=== PATIENT | male | born 1970 | race Caucasian/White ===

== ENCOUNTER → 2016-04-15 | Outpatient (CLI) | payer OTHER ==
[~2016-04-15] MED LIST: ATOR-24 PO; FRS/40 PO; LISI40TA PO; METF500T5 PO; NAPR-1169 PO; NVLGI7030 SC
--- NOTE | 2016-04-15 10:36 | DIAGNOSTIC IMAGING REPORT ---
RIGHT UPPER EXTREMITY VENOUS DOPPLER CLINICAL HISTORY: Right upper extremity swelling. COMPARISON STUDY: No previous studies for comparison. FINDINGS: The right internal jugular, subclavian, axillary, brachial, basilic, radial and ulnar veins were patent. IMPRESSION: No deep venous thrombus identified within the right upper extremity. Electronically signed by: Sergio Aldana M.D. 04/15/2016 10:34 AM
== END | disposition home or self-care (01) ==
LOC: C.ULTR 09:48
PROVIDERS: ATTEND Family Medicine
DX: M79.89 Other specified soft tissue disorders (principal)

== ENCOUNTER 2016-09-20 07:58 | Emergency (ER) | payer OTHER ==
[~2016-09-20] VITALS: Ht 193 cm; Wt 175.6 kg
[2016-09-20 08:01] VITALS: TEMP 36.6; Ht 193 cm; Wt 175.6 kg
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
[2016-09-20 09:06] VITALS: BP 206/99; PULSE 79; O2SAT 94
== END 2016-09-20 09:13 | disposition home or self-care (01) ==
LOC: C.EDB 07:59 → C.EDA 09:13
DX: S91.101A Unspecified open wound of right great toe without damage to nail, initial encounter (principal); X58.XXXA Exposure to other specified factors, initial encounter; E11.9 Type 2 diabetes mellitus without complications; E78.00 Pure hypercholesterolemia, unspecified; I10 Essential (primary) hypertension; Z79.4 Long term (current) use of insulin

== ENCOUNTER 2022-05-05 12:05 | Inpatient (IN) ==
--- NOTE | 2022-05-05 12:55 | XRay Report ---
XR toe(s) LT min 2V CLINICAL HISTORY: diabetic ulcer, left great toe COMPARISON STUDY: None. FINDINGS: 3 views of the left first toe were submitted for review. There is soft tissue swelling at t he first MTP joint. Moderate to severe osteoarthritis at the first MTP joint. There is a bony bunion and large marginal osteophytes at the first MTP joint. No acute destructive changes identified to sug gest an osteomyelitis. Small erosive changes at the medial base of the first proximal phalanx and med ial head of first metatarsal with overhanging edges. This could be due to the chronic degenerative [place] or possible superimposed gouty arthritis. There is a trace 2 cm skin ulceration at the medial as pect of the first MTP joint. IMPRESSION: 1. Soft tissue swelling and a skin ulceration at the medial aspect of the first MTP joint. 2. No acute destructive changes to suggest an osteomyelitis. 3. Moderate to severe osteoarthritis of the first MTP joint with a bony bunion and large marginal ost eophytes. 4. Small erosive changes at the medial base of the first proximal phalanx and medial head of first me tatarsal with overhanging edges. This could be due to the chronic degenerative change or possible sup erimposed gouty arthritis. ACT 112: Negative or not required by law. Electronically signed by: Ed Perkins M.D. 05/05/2022 12:54 PM
[2022-05-05 13:16] LABS: Basophils # (auto) 0.05 K/uL (0-0.2); Basophils % (auto) 0.5 %; Eosinophils # (auto) 0.12 K/uL (0-0.50); Eosinophils % (auto) 1.3 %; Hematocrit (blood only) 37.1 % (40.1-51.0); Hemoglobin 12.1 g/dl (14.0-18.0); Immature Granulocytes # (auto) 0.02 K/uL (0.00-0.02); Immature Granulocytes % (auto) 0.2 %; Lymphocytes # (auto) 2.45 K/uL (1.2-3.4); Lymphocytes % (auto) 25.7 %; Mean Corpuscular Hgb Conc 32.6 g/dL (32.0-36.0); Mean Corpuscular Volume 82.8 fL (80.0-100.0); Mean Platelet Volume 10.5 fL (9.4-12.4); Monocytes # (auto) 0.57 K/uL (0.24-0.82); Neutrophils # (auto) 6.34 K/uL (1.4-6.5); Neutrophils % (auto) 66.3 %; Platelet Count 295 K/uL (130-400); RDW Coefficient of Variation 14.4 % (11.5-14.5); RDW Standard Deviation 42.6 fL (36.4-46.3); Red Blood Count 4.48 M/uL (4.63-6.08); White Blood Count 9.55 K/ul (4.8-10.8)
[2022-05-05 14:06] LABS: Albumin Globulin Ratio 1.3 (0.9-2); Albumin Level 4.3 gm/dl (3.4-5.0); Bilirubin,Total 0.6 mg/dl (0.2-1.0); Calcium 9.7 mg/dl (8.5-10.1); Creatinine Clr Calc Pharmacy 97.8 ml/min; Est GFR (African American) 65.9 ml/min; Est GFR (Non-African American) 56.9 ml/min; Globulin 3.4 gm/dl (2.5-4.0); Potassium 5.3 mmol/L (3.5-5.1); Total Protein 7.7 gm/dl (6.0-8.3)
[2022-05-05] MEDS ORDERED: AMPICILLIN/SULBACTAM SOD 3,000 MG in 0.9 % SODIUM CHLORIDE 100 ML IV STA (14:30)
[2022-05-05] MEDS ORDERED: SODIUM CHLORIDE 0.9% 1000ML 1,000 ML IV ONE (14:30)
[2022-05-05] MEDS ORDERED: NovoLIN-R INSULIN PER UNIT CHARGE IV STA (14:30)
--- NOTE | 2022-05-05 14:36 | Emergency Department Note ---
Impression & Plan Osteomyelitis, Cellulitis, Acute hyperglycemia, TAHIRA (acute kidney injury) ED Provider Note NAME: CONNOR JUAREZ AGE: 51 SEX: M : 1970 ARRIVES VIA: Walk-In INFORMANT: [Patient] ED PROVIDER(S): [Oli Dean MD] CHIEF COMPLAINT: Foot infection HISTORY OF PRESENT ILLNESS: The patient is a 51-year-old male who states that he has been dealing with an infection and lesion on the left foot at the base of the great toe for 4 months. He thought things were better but then this morning, he noticed some bloody discharge and the area had surrounding erythema. There has been no fever, no chills. No cough or cold or congestion. The patient went to [facility] urgent care and was referred to the ER for the concerns of a deep tissue infection or possibly even osteomyelitis. The patient is diabetic. He has some renal insufficiency as well. He denies any issues with his feet before. PMHx/PSHx: See Below SOCIAL HISTORY: See Below. PHYSICAL EXAM: GENERAL: Patient is in no acute distress. HEENT: No acute trauma, normocephalic atraumatic, mucous membranes moist, no nasal congestion. NECK: No stridor, no adenopathy, no meningismus, trachea is midline. LUNGS: Clear to auscultation bilaterally, no wheeze, no rhonchi, breath sounds equal. HEART: Without murmurs gallops or rubs, regular rate and rhythm. ABDOMEN: Soft, nontender, bowel sounds positive, no peritonitis. EXTREMITIES: No cyanosis or edema. The patient does have a 2 cm open lesion over the dorsal aspect of the left foot at the base of the first toe. There is a foul odor. Some bloody discharge is noted. There is surrounding erythema and warmth. NEUROLOGIC: Oriented x 3, no acute motor or sensory deficits, no focal weakness. SKIN: No jaundice, no diaphoresis. DIFFERENTIAL DIAGNOSIS: Cellulitis, abscess, joint infection, osteomyelitis, electrolyte imbalance, bacteremia, MRSA, among others. EMERGENCY DEPARTMENT COURSE/PROCEDURES: Prior/Outside records reviewed: Urgent care notes. MEDICAL DECISION MAKING: There is no leukocytosis. A mild anemia was seen. There was a normal platelet count. Potassium was slightly high at 5.3. Creatinine was slightly elevated consistent with some mild acute kidney injury and/or dehydration. Glucose was high at 379. No concerning liver enzyme elevation. COVID test returned negative. Left great toe x-ray did not show any obvious osteomyelitis although some arthritis was seen. Left foot CT does show osteomyelitis with surrounding cellulitis. On exam, the patient had a cellulitis to the left lower extremity. His wound had a foul odor. A culture was sent. The patient received IV saline for hydration, he was given 1 L. He was given IV Zosyn as antibiotic coverage. He was given IV daptomycin as antibiotic coverage. He received IV insulin to help with the higher sugar value. I talked to the patient about his findings, IV antibiotic therapy, hospitalization is warranted. He will need to see orthopedics for potential surgical intervention. I spoke with the patient and case management, the on-call hospitalist was consulted. DISPOSITION: The patient is findings and presentation warrant a hospital stay. 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: No Beliefs That Will Affect Care: None Current Living Situation: Spouse Other Information That Helps Us Care for You: No Feels Safe at Home: Yes Safety Concerns: Feels Safe At This Time Assistive Devices: Glasses Allergies Allergies Allergy/AdvReac Type Severity Reaction Status Date / Time guaifenesin Allergy Unknown Hives Verified 05/05/22 17:34 Home Meds Home Medications Medication Instructions Recorded Confirmed atorvastatin 40 mg tablet (Lipitor) 40 mg PO HS 04/20/19 05/05/22 lisinopril 40 mg tablet (Zestril) 40 mg PO HS 04/20/19 05/05/22 allopurinol 100 mg tablet 100 mg PO DAILY 10/01/20 05/05/22 (Zyloprim) escitalopram oxalate 10 mg tablet 10 mg PO QAM 10/01/20 05/05/22 (Lexapro) gabapentin 600 mg tablet 600 mg PO BID 10/01/20 05/05/22 (Neurontin) cholecalciferol (vitamin D3) 50 50 mcg PO DAILY 05/05/22 05/05/22 mcg (2,000 unit) tablet furosemide 40 mg tablet 40 mg PO QAM 05/05/22 05/05/22 metformin 500 mg tablet,extended 1,000 mg PO QAM 05/05/22 05/05/22 release 24 hr metformin 500 mg tablet,extended 500 mg PO QPM 05/05/22 05/05/22 release 24 hr naproxen 500 mg tablet 1,000 mg PO AMPM 05/05/22 05/05/22 Results & Data (ED) Vital Signs Vital Signs - 24 hr 05/05/22 12:10 05/05/22 16:06 Temperature 36.4 C L Temperature Source Temporal Artery Scan Pulse Rate 71 Pulse Rate [Finger] 95 H Pulse Rhythm [Finger] Regular Pulse Strength [Finger] Normal Respiratory Rate 18 20 Respiratory Effort / Characteristics Non-Labored Non-Labored Respiratory Depth Normal Normal Respiratory Pattern Regular Regular Blood Pressure 168/74 H Blood Pressure [Right Arm] 113/66 Blood Pressure Mean 105 Blood Pressure Mean [Right Arm] 81 Blood Pressure Position Sitting Pulse Oximetry 99 98 Oxygen Delivery Method Room Air Room Air Sepsis Recent Fever Within 48 Hours No Sepsis New/Unexplained Change in Mental Status No Sepsis Action Taken by Nursing No Action Required Home Medications Current Medication List: was personally reviewed by me Laboratory Data Attestation: I reviewed the patient's lab results. 05/05/22 12:54 05/05/22 12:54 Lab Results 05/05/22 05/05/22 05/05/22 Range/Units 12:54 12:54 16:36 WBC 9.55 (4.8-10.8) K/ul RBC 4.48 L (4.63-6.08) M/uL Hgb 12.1 L (14.0-18.0) g/dl Hct 37.1 L (40.1-51.0) % MCV 82.8 (80.0-100.0) fL MCH 27.0 (25.0-34.0) pg MCHC 32.6 (32.0-36.0) g/dL RDW Std Deviation 42.6 (36.4-46.3) fL RDW Coeff of Luis A 14.4 (11.5-14.5) % Plt Count 295 (130-400) K/uL MPV 10.5 (9.4-12.4) fL Immature Gran % (Auto) 0.2 % Neut % (Auto) 66.3 % Lymph % (Auto) 25.7 % [place] % (Auto) 6.0 % Eos % (Auto) 1.3 % Baso % (Auto) 0.5 % Neut # (Auto) 6.34 (1.4-6.5) K/uL Lymph # (Auto) 2.45 (1.2-3.4) K/uL [place] # (Auto) 0.57 (0.24-0.82) K/uL Eos # (Auto) 0.12 (0-0.50) K/uL Baso # (Auto) 0.05 (0-0.2) K/uL Immature Gran # (Auto) 0.02 (0.00-0.02) K/uL Sodium 134 L (136-145) mmol/L Potassium 5.3 H (3.5-5.1) mmol/L Chloride 101 (98-107) mmol/L Carbon Dioxide 26 (21-32) mmol/L Anion Gap 7 (3-11) BUN 38 H (6-23) mg/dl Creatinine 1.41 H (0.6-1.4) mg/dl Est Cr Clr Drug Dosing 97.8 ml/min Est GFR ( Amer) 65.9 ml/min Est GFR (Non-Af Amer) 56.9 ml/min BUN/Creatinine Ratio 27.0 H (10-20) Glucose 379 H* (70-99(Fasting)) mg/dl Calcium 9.7 (8.5-10.1) mg/dl Total Bilirubin 0.6 (0.2-1.0) mg/dl AST 12 L (13-39) U/L ALT 17 (7-52) U/L Alkaline Phosphatase 114 H (34-104) U/L Total Protein 7.7 (6.0-8.3) gm/dl Albumin 4.3 (3.4-5.0) gm/dl Globulin 3.4 (2.5-4.0) gm/dl Albumin/Globulin Ratio 1.3 (0.9-2) SARS-CoV-2, RNA, NAAT NEGATIVE (NEGATIVE) Administered Medications Insulin Aspart (Insulin Aspart Per Unit) 0 units SC ACHS ALLAN Stop: 06/04/22 21:03 Last Admin: 05/05/22 21:37 Dose: 12 units Documented By: ROBER Co-signed By: DAVIDSON Discontinued Medications Amlodipine Besylate (Amlodipine Besylate 5 Mg Tab) 5 mg PO NOW ONE Stop: 05/05/22 17:46 Last Admin: 05/05/22 17:41 Dose: 5 mg Documented By: RILEY Sodium Chloride (Nss 1000ml) 1,000 mls @ 999 mls/hr IV .Q1H1M ONE Stop: 05/05/22 15:30 Last Infusion: 05/05/22 17:11 Dose: 0 mls/hr Documented By: Admin: 05/05/22 14:53 Dose: 999 mls/hr Documented By: CGK Piperacillin Sod/Tazobactam Sod (Zosyn) 4.5 gm in 120 mls @ 240 mls/hr IV NOW STA Stop: 05/05/22 15:09 Last Infusion: 05/05/22 17:10 Dose: 0 mls/hr Documented By: Admin: 05/05/22 14:55 Dose: 240 mls/hr Documented By: CGK Daptomycin 675 mg/ Syringe 13.5 mls @ 0 mls/min IV NOW STA; Protocol Stop: 05/05/22 16:11 Last Admin: 05/05/22 17:14 Dose: 6.75 mls/min Documented By: RILEY Insulin Glargine (Lantus Per Unit Charge) 30 units SQ TODAY@2130 [facility] Stop: 05/05/22 21:05 Last Admin: 05/05/22 21:37 Dose: 30 units Documented By: ROBER Co-signed By: DAVIDSON Insulin Human Regular (Novolin-R Insulin Per Unit Charge) 6 units IV NOW STA Stop: 05/05/22 14:31 Last Admin: 05/05/22 15:05 Dose: 6 units Documented By: CGK Co-signed By: DYLLAN Imaging Data Radiologist's Impression: Toe X-Ray 05/05/22 12:16 XR toe(s) LT min 2V CLINICAL HISTORY: diabetic ulcer, left great toe COMPARISON STUDY: None. FINDINGS: 3 views of the left first toe were submitted for review. There is soft tissue swelling at the first MTP joint. Moderate to severe osteoarthritis at the first MTP joint. There is a bony bunion and large marginal osteophytes at the first MTP joint. No acute destructive changes identified to suggest an osteomyelitis. Small erosive changes at the medial base of the first proximal phalanx and medial head of first metatarsal with overhanging edges. This could be due to the chronic degenerative change or possible superimposed gouty arthritis. There is a trace 2 cm skin ulceration at the medial aspect of the first MTP joint. IMPRESSION: 1. Soft tissue swelling and a skin ulceration at the medial aspect of the first MTP joint. 2. No acute destructive changes to suggest an osteomyelitis. 3. Moderate to severe osteoarthritis of the first MTP joint with a bony bunion and large marginal osteophytes. 4. Small erosive changes at the medial base of the first proximal phalanx and medial head of first metatarsal with overhanging edges. This could be due to the chronic degenerative change or possible superimposed gouty arthritis. ACT 112: Negative or not required by law. Electronically signed by: Ed Perkins M.D. 05/05/2022 12:[address] 05/05/22 14:30 CT foot LT wo con CLINICAL HISTORY: poss osteo, foul odor TECHNIQUE: Multidetector row helical CT of the right foot was performed without intravenous contrast. Coronal and sagittal reformations were obtained. Automated dose lowering techniques and/or adjustment according to patient size were utilized for this examination. Comparison: Comparison is made to the radiograph 05/05/2022 FINDINGS: Multiple bony erosions are seen in the distal first digit metatarsal and proximal first digit phalanx. Extensive degenerative changes are seen in the foot most prominently in the mid foot. Soft tissue swelling is seen about the first tarsometatarsal joint. IMPRESSION: 1. Findings are compatible with cellulitis along with focal bony erosions co mpatible with osteomyelitis. 2. Extensive degenerative changes are seen most prominently in the mid foot. ACT 112: Negative or not required by law. Electronically signed by: Bret Kahn M.D. 05/05/2022 3:45 PM Discharge Plan Visit Data Chief Complaint: Foot Injury/Pain Stated Complaint: SORE ON FOOT ED Provider: Oli Dean Discharge Problem: Osteomyelitis, Cellulitis, Acute hyperglycemia, TAHIRA (acute kidney injury) Patient Disposition: Admitted As Inpatient Condition: Fair Discharge Instructions Interventions: ED Discharge Assessment Last Done: 05/05/22 21:35
[2022-05-05] MEDS ORDERED: PIPERACILLIN/TAZOBACTAM 4.5 GM/120 ML BAG IV STA (14:40)
--- NOTE | 2022-05-05 15:47 | CT Scan Report ---
CT foot LT wo con CLINICAL HISTORY: poss osteo, foul odor TECHNIQUE: Multidetector row helical CT of the right foot was performed without intravenous contrast. Coronal and sagittal reformations were obtained. Automated dose lowering techniques and/or adjustmen t according to patient size were utilized for this examination. Comparison: Comparison is made to the radiograph 05/05/2022 FINDINGS: Multiple bony erosions are seen in the distal first digit metatarsal and proximal first digit phalanx . Extensive degenerative changes are seen in the foot most prominently in the mid foot. Soft tissue s welling is seen about the first tarsometatarsal joint. IMPRESSION: 1. Findings are compatible with cellulitis along with focal bony erosions compatible with osteomyeli tis. 2. Extensive degenerative changes are seen most prominently in the mid foot. ACT 112: Negative or not required by law. Electronically signed by: Bret Kahn M.D. 05/05/2022 3:45 PM
[2022-05-05] MEDS ORDERED: DAPTOmycin 675 MG in SYRINGE 0 ML IV STA (16:10)
[2022-05-05] MEDS ORDERED: amLODIPine BESYLATE 5 MG TAB PO ONE (17:45)
--- NOTE | 2022-05-05 17:55 | History & Physical Report ---
Date of Service May 05, 2022 Assessment & Plan (1) Osteomyelitis: Plan: Admit to [facility] Patient presenting from home for evaluation of left foot wound. Patient reports wound has been present since January however had subsequently almost fully healed until it reopened this morning. History of uncontrolled diabetes, last A1c 9.9 03/2021. Patient reports he has not been taking his insulin for the past several months. CT scan shows distal first digit metatarsal and proximal first digit phalanx osteomyelitis Does not appear septic S/p Dapto and Zosyn in the ED, continue with Follow blood and wound cultures Podiatry consult, Dr. Gifford notified (2) Hyperkalemia: Plan: Mild, K+ 5.3 Per review of outpatient records patient has had hyperkalemia dating back to 2019 Received IVF in the ED, repeat BMP this evening Discontinue lisinopril (3) Diabetes: Plan: Hgb A1c 9.9 03/2021 Patient reports he is currently only taking metformin. Self stopped Ozempic and 70/30 insulin several months ago Glucose 379, no signs of DKA Start Lantus and NovoLog Glycemic pharmacy consult nurse educator consult (4) CKD (chronic kidney disease), stage III: Plan: Baseline creatinine ~ 1.5 Creatinine 1.4 today Follow renal functions (5) HTN (hypertension): Plan: Due to mild hyperkalemia, will discontinue lisinopril in favor of amlodipine DVT PROPHYLAXIS SCDs due to possible invasive procedure I spent a total of 45 minutes coordinating, documenting, and providing care for this patient excluding time spent in the performance of separately billed services. This included personally reviewing all current laboratories and imaging studies, medication reconciliation, outpatient chart review, and discussion with specialists. History of Present Illness Chief Complaint: Left foot wound Primary Care Provider: Dell Mosqueda MD 51-year-old male with PMH DM type II, dyslipidemia, CKD stage III, HTN, depression, and other problems listed below who presents for evaluation of a left foot wound. Patient reports wound has been present since January. Patient states that it was mostly healed over and scabbed. This morning, while patient was walking on the steps he reports the wound opened back up and was draining bloody and purulent drainage. Patient believes his wound initially started by rubbing along the inside of his boot. Patient denies fevers and chills. No chest pain or shortness of breath. Denies lightheadedness, dizziness, diaphoresis, syncopal events. No abdominal pain, nausea, vomiting, diarrhea. Denies urinary symptoms. In the ED, patient is hemodynamically stable, afebrile without leukocytosis. CT scan shows distal first digit metatarsal and proximal first digit phalanx osteomyelitis. Labs show glucose 379. Patient was given IV Dapto, IV Zosyn, IV insulin, IVF. Allergies Allergy/AdvReac Type Severity Reaction Status Date / Time guaifenesin Allergy Unknown Hives Verified 05/05/22 17:34 Home Medications Medication Instructions Recorded Confirmed Type atorvastatin 40 mg tablet (Lipitor) 40 mg PO HS 04/20/19 05/05/22 History lisinopril 40 mg tablet (Zestril) 40 mg PO HS 04/20/19 05/05/22 History allopurinol 100 mg tablet 100 mg PO DAILY 10/01/20 05/05/22 History (Zyloprim) escitalopram oxalate 10 mg tablet 10 mg PO QAM 10/01/20 05/05/22 History (Lexapro) gabapentin 600 mg tablet 600 mg PO BID 10/01/20 05/05/22 History (Neurontin) cholecalciferol (vitamin D3) 50 50 mcg PO DAILY 05/05/22 05/05/22 History mcg (2,000 unit) tablet furosemide 40 mg tablet 40 mg PO QAM 05/05/22 05/05/22 History metformin 500 mg tablet,extended 1,000 mg PO QAM 05/05/22 05/05/22 History release 24 hr metformin 500 mg tablet,extended 500 mg PO QPM 05/05/22 05/05/22 History release 24 hr naproxen 500 mg tablet 1,000 mg PO AMPM 05/05/22 05/05/22 History Past Med/Surg History Medical History Cervical radiculopathy CKD (chronic kidney disease), stage III Diabetes HTN (hypertension) Surgical History (Updated 05/05/22 @ 17:44 by KEVIN Morales) History of surgery on arm Family History (Updated 05/05/22 @ 17:45 by KEVIN Morales) Father Cancer Mother Cancer Brother Cancer Other Family history non-contributory Social History (Updated 05/05/22 @ 17:45 by KEVIN Morales) Smoking Status: Never smoker Tobacco Type: Smokeless Tobacco (Dip or Chew) Hx Alcohol Use: Yes Alcohol Intake Frequency: Monthly or Less Preferred Language: Ivorian Feels Safe at Home: Yes Review of Systems Review of Systems: ROS per HPI, all other systems reviewed and negative Physical Exam Constitutional: WD/WN, vitals as above + obese Eyes: PERRL, conjunctivae normal, anicteric sclerae ENMT: external ear and nose normal, oropharynx normal Respiratory: normal respiratory effort, lungs clear to auscultation Cardiovascular: Rate/Rhythm: regular rate and regular rhythm Vessels: normal peripheral pulses Extremities: no edema Gastrointestinal (Abdomen): normal bowel sounds, soft, nontender, no h epatosplenomegaly Musculoskeletal: no cyanosis or clubbing, extremities motor strength 5/5 Skin: no rashes, warm and dry ~ 3cm wound noted on on the lateral aspect at the base of the left 1st toe with surrounding erythema, edema, and necrotic tissue. Small amount serosanguineous drainage noted. Neurologic: PERRL, EOMI, accommodation nl, no face palsy, no dysarthria Psychiatric: A+Ox3, euthymic affect Results & Data Results & Data ([facility]) Vital Signs (Past 12 Hours) Vital Signs Temp Pulse Pulse Resp BP BP Pulse Ox 05/05/22 17:26 70 20 170/90 H 100 05/05/22 16:06 95 H 20 113/66 98 05/05/22 12:10 36.4 C L 71 18 168/74 H 99 O2 Del Method 05/05/22 17:26 Room Air 05/05/22 16:06 Room Air 05/05/22 12:10 Room Air Laboratory Results Short CBC 05/05/22 Range/Units 12:54 WBC 9.55 (4.8-10.8) K/ul Hgb 12.1 L (14.0-18.0) g/dl Hct 37.1 L (40.1-51.0) % Plt Count 295 (130-400) K/uL BMP 05/05/22 12:54 Sodium 134 L Potassium 5.3 H Chloride 101 Carbon Dioxide 26 BUN 38 H Creatinine 1.41 H Glucose 379 H* Calcium 9.7 Liver Function 01/24/23 Range/Units 12:54 Total Bilirubin 0.6 (0.2-1.0) mg/dl AST 12 L (13-39) U/L ALT 17 (7-52) U/L Alkaline Phosphatase 114 H (34-104) U/L Albumin 4.3 (3.4-5.0) gm/dl Diagnostic Findings Toe X-Ray 05/05/22 12:16 XR toe(s) LT min 2V CLINICAL HISTORY: diabetic ulcer, left great toe COMPARISON STUDY: None. FINDINGS: 3 views of the left first toe were submitted for review. There is soft tissue swelling at the first MTP joint. Moderate to severe osteoarthritis at the first MTP joint. There is a bony bunion and large marginal osteophytes at the first MTP joint. No acute destructive changes identified to suggest an osteomyelitis. Small erosive changes at the medial base of the first proximal phalanx and medial head of first metatarsal with overhanging edges. This could be due to the chronic degenerative change or possible superimposed gouty arthritis. There is a trace 2 cm skin ulceration at the medial aspect of the first MTP joint. IMPRESSION: 1. Soft tissue swelling and a skin ulceration at the medial aspect of the first MTP joint. 2. No acute destructive changes to suggest an osteomyelitis. 3. Moderate to severe osteoarthritis of the first MTP joint with a bony bunion and large marginal osteophytes. 4. Small erosive changes at the medial base of the first proximal phalanx and medial head of first metatarsal with overhanging edges. This could be due to the chronic degenerative change or possible superimposed gouty arthritis. ACT 112: Negative or not required by law. Electronically signed by: Ed Perkins M.D. 05/05/2022 12:[address] 05/05/22 14:30 CT foot LT wo con CLINICAL HISTORY: poss osteo, foul odor TECHNIQUE: Multidetector row helical CT of the right foot was performed without intravenous contrast. Coronal and sagittal reformations were obtained. Automated dose lowering techniques and/or adjustment according to patient size were utilized for this examination. Comparison: Comparison is made to the radiograph 05/05/2022 FINDINGS: Multiple bony erosions are seen in the distal first digit metatarsal and proximal first digit phalanx. Extensive degenerative changes are seen in the foot most prominently in the mid foot. Soft tissue swelling is seen about the first tarsometatarsal joint. IMPRESSION: 1. Findings are compatible with cellulitis along with focal bony erosions compatible with osteomyelitis. 2. Extensive degenerative changes are seen most prominently in the mid foot. ACT 112: Negative or not required by law. Electronically signed by: Bret Kahn M.D. 05/05/2022 3:45 PM Code Status & VTE Plan VTE Prophylaxis Plan VTE Prophylaxis will be ordered: Yes Supervising Physician Co-Signing Physician Notes Pt is a 51 y/o M with hx of IDDM (uncontrolled), HTN, CKD III, HLD admitted for cellulitis/wound infection of the L 1st MTP area with osteomyelitis of the first digit metatarsal and phalanx. PE: NAd, well developed Lungs: CTA, no wheezing or crackles Cardiac: Normal S1/S2, no murmur Abd: Obese abd, NT, soft MSK: L foot: 1st MTP area open wound with purulent drainage and erythema, severe TTP Psych: AAOx3, normal affect A/P: L foot 1st MTP infected wound with Osteomyelitis: -with uncontrolled IDDM -CT foot: Findings are compatible with cellulitis along with focal bony erosions compatible with osteomyelitis. -will continue pt on Daptomycin and Zosyn - will send wound and BCx -Podiatry referral - NPO after MN IDDM: -uncontrolled and non compliant with insulin -will switch it from novolin to lantus --- will start with lantus 40 units BID --- diabetic pharmacy consult -ISS HTN with chronic hx of hyperK+: -will stop pt;s lisinopril and start him on Amlodipine other Chronic conditions: Plan as above Agree with A/P by KEVIN Morales
--- NOTE | 2022-05-05 20:06 | Orthopedic Consultation ---
Date of Consultation May 05, 2022 Assessment & Plan (1) Osteomyelitis: Patient seen, evaluated, and treated. I reviewed x-ray and CT findings with Patient. I discussed physical exam with wound easily probe to bone. Awaiting bed transfer. Wound Culture pending. I discussed removal of first metatarsal and proximal phalanx of left foot secondary to osteomyelitis. Patient has eaten this evening and will be placed as add-on for 05/06/22, tentatively 4;30pm. I reviewed procedure in detail as well as postoperative recovery. I discussed expectations and patient's current weightbearing status. All questions answered. I have discussed procedure in detail as well as postoperative recovery. All potential risks, benefits, complications, alternatives, rehab, potential for incomplete relief of symptoms, need for further surgery, DVT, PE, , persistent pain, swelling, scarring, weakness, neurovascular, wound complications and potential for amputations were discussed with patient. Unwanted outcomes such as, but not limited to were reviewed including under correction, overcorrection, return of deformity, infection. All questions were answered. Patient has decided to proceed with procedure as indicated. (2) Diabetes: History of Present Illness History of Present Illness Patient is a 51-year-old male seen in [facility] ED for left foot diabetic ulcer and osteomyelitis. Patient has a past medical history of DM type II, dyslipidemia, CKD stage III, HTN, depression. Patient reports wound has been present since January. Patient states that it was mostly healed over and scabbed. This morning, while patient was walking on the steps he reports the wound opened back up and was draining bloody and purulent drainage. Patient believes his wound initially started by rubbing along the inside of his boot. Patient denies fevers and chills. No chest pain or shortness of breath. Denies lightheadedness, dizziness, diaphoresis, syncopal events. No abdominal pain, nausea, vomiting, diarrhea. Denies urinary symptoms. In the ED, patient is hemodynamically stable, afebrile without leukocytosis. CT scan shows distal first digit metatarsal and proximal first digit phalanx osteomyelitis. Labs show glucose 379. Patient was given IV Dapto, IV Zosyn, IV insulin, IVF. Allergies Allergy/AdvReac Type Severity Reaction Status Date / Time guaifenesin Allergy Unknown Hives Verified 05/05/22 17:34 Home Medications Medication Instructions Recorded Confirmed Type atorvastatin 40 mg tablet (Lipitor) 40 mg PO HS 04/20/19 05/05/22 History lisinopril 40 mg tablet (Zestril) 40 mg PO HS 04/20/19 05/05/22 History allopurinol 100 mg tablet 100 mg PO DAILY 10/01/20 05/05/22 History (Zyloprim) escitalopram oxalate 10 mg tablet 10 mg PO QAM 10/01/20 05/05/22 History (Lexapro) gabapentin 600 mg tablet 600 mg PO BID 10/01/20 05/05/22 History (Neurontin) cholecalciferol (vitamin D3) 50 50 mcg PO DAILY 05/05/22 05/05/22 History mcg (2,000 unit) tablet furosemide 40 mg tablet 40 mg PO QAM 05/05/22 05/05/22 History metformin 500 mg tablet,extended 1,000 mg PO QAM 05/05/22 05/05/22 History release 24 hr metformin 500 mg tablet,extended 500 mg PO QPM 05/05/22 05/05/22 History release 24 hr naproxen 500 mg tablet 1,000 mg PO AMPM 05/05/22 05/05/22 History Patient History Medical History Cervical radiculopathy CKD (chronic kidney disease), stage III Diabetes HTN (hypertension) Surgical History History of surgery on arm Family History Father Cancer Mother Cancer Brother Cancer Other Family history non-contributory Social History Smoking Status: Never smoker Tobacco Type: Smokeless Tobacco (Dip or Chew) Hx Alcohol Use: Yes Alcohol Intake Frequency: Monthly or Less Preferred Language: Icelandic Feels Safe at Home: Yes Review of Systems Review of Systems: All systems reviewed & are unremarkable except as noted in HPI & below Physical Exam Constitutional: WD/WN, vitals as above Eyes: PERRL, conjunctivae normal, anicteric sclerae ENMT: external ear and nose normal, oropharynx normal Neck: trachea midline, no thyromegaly Respiratory: normal respiratory effort, lungs clear to auscultation Cardiovascular: RRR, no murmur, no edema Musculoskeletal: no cyanosis or clubbing, extremities motor strength 5/5 Skin: Diabetic left foot ulcer present approximately 3cm in circumference over the first MTPJ. Wound easily probes to bone. Surrounding erythema, edema, and necrotic tissue. Serosanguineous drainage noted. Neurologic: moves all extremities and awake Absent epicritic sensation. Psychiatric: A+Ox3, euthymic affect Results & Data ([facility]) Vital Signs (Past 12 Hours) Vital Signs Temp Pulse Pulse Resp BP BP Pulse Ox 05/05/22 17:26 70 20 170/90 H 100 05/05/22 16:06 95 H 20 113/66 98 05/05/22 12:10 36.4 C L 71 18 168/74 H 99 O2 Del Method 05/05/22 17:26 Room Air 05/05/22 16:06 Room Air 05/05/22 12:10 Room Air Diagnostic Findings XR toe(s) LT min 2V CLINICAL HISTORY: diabetic ulcer, left great toe COMPARISON STUDY: None. FINDINGS: 3 views of the left first toe were submitted for review. There is soft tissue swelling at the first MTP joint. Moderate to severe osteoarthritis at the first MTP joint. There is a bony bunion and large marginal osteophytes at the first MTP joint. No acute destructive changes identified to suggest an osteomyelitis. Small erosive changes at the medial base of the first proximal phalanx and medial head of first metatarsal with overhanging edges. This could be due to the chronic degenerative change or possible superimposed gouty arthritis. There is a trace 2 cm skin ulceration at the medial aspect of the first MTP joint. IMPRESSION: 1. Soft tissue swelling and a skin ulceration at the medial aspect of the first MTP joint. 2. No acute destructive changes to suggest an osteomyelitis. 3. Moderate to severe osteoarthritis of the first MTP joint with a bony bunion and large marginal osteophytes. 4. Small erosive changes at the medial base of the first proximal phalanx and medial head of first metatarsal with overhanging edges. This could be due to the chronic degenerative change or possible superimposed gouty arthritis. CT foot LT wo con CLINICAL HISTORY: poss osteo, foul odor TECHNIQUE: Multidetector row helical CT of the right foot was performed without intravenous contrast. Coronal and sagittal reformations were obtained. Automated dose lowering techniques and/or adjustment according to patient size were utilized for this examination. Comparison: Comparison is made to the radiograph 05/05/2022 FINDINGS: Multiple bony erosions are seen in the distal first digit metatarsal and proximal first digit phalanx. Extensive degenerative changes are seen in the foot most prominently in the mid foot. Soft tissue swelling is seen about the first tarsometatarsal joint. IMPRESSION: 1. Findings are compatible with cellulitis along with focal bony erosions compatible with osteomyelitis. 2. Extensive degenerative changes are seen most prominently in the mid foot. ACT 112: Negative or not required by law.
[2022-05-05] MEDS ORDERED: PHARMACY GLYCEMIC MGMT CONSULT PRN (21:04)
[2022-05-05] MEDS ORDERED: DEXTROSE 50% 50 ML SYRINGE IV PRN (21:04)
[2022-05-05] MEDS ORDERED: CARBOHYDRATES FOR HYPOGLYCEMIA PO PRN (21:04)
[2022-05-05] MEDS ORDERED: GLUCOSE 40% GEL 15 GM TUBE PO PRN (21:04)
[2022-05-05] MEDS ORDERED: GLUCAGON FOR INJ 1 MG VIAL SQ PRN (21:04)
[2022-05-05] MEDS ORDERED: GLUCOSE 10 TAB/TUBE PO PRN (21:04)
[2022-05-05] MEDS ORDERED: LANTUS PER UNIT CHARGE SQ SCH (21:04)
[2022-05-05] MEDS ORDERED: PIPERACILLIN/TAZOBACTAM 3.375 GM in DEXTROSE 5% 100 ML IV SCH (21:04)
[2022-05-05] MEDS: INSULIN ASPART PER UNIT SC SCH ×2 (21:37→23:58)
[2022-05-05 21:53] LABS: Appearance Urine Clear (Clear); Bilirubin Urine Negative (Negative); Blood Urine Negative (Negative); Color Urine Yellow; Glucose Urine UA 3+ (Negative); Ketones Urine Negative (Negative); Leukocyte Esterase Urine Negative (Negative); Nitrite Urine Negative (Negative); Protein Urine Negative (Negative); Specific Gravity Urine 1.025 (1.000-1.030); Urobilinogen Urine Negative (Negative); pH Urine 5.5 (4.5-7.5)
[2022-05-05] MEDS: GABAPENTIN 600 MG TAB PO SCH (21:59)
[2022-05-05] MEDS: PIPERACILLIN/TAZOBACTAM 4.5 GM CI (over 4 hours) IV SCH (22:00)
[2022-05-05 23:21] LABS: BUN Creatinine Ratio 27.7 (10-20); Calcium 9.5 mg/dl (8.5-10.1); Creatinine Clr Calc Pharmacy 115.8 ml/min; Est GFR (African American) 80.9 ml/min; Est GFR (Non-African American) 69.8 ml/min; Potassium 4.6 mmol/L (3.5-5.1)
[2022-05-06] MEDS: INSULIN ASPART PER UNIT SC SCH ×5 (04:12→21:12)
[2022-05-06] MEDS: PIPERACILLIN/TAZOBACTAM 4.5 GM CI (over 4 hours) IV SCH ×3 (06:00→21:17)
[2022-05-06 08:03] LABS: Hematocrit (blood only) 31.5 % (40.1-51.0); Hemoglobin 10.4 g/dl (14.0-18.0); Mean Corpuscular Hemoglobin 27.1 pg (25.0-34.0); Mean Platelet Volume 10.1 fL (9.4-12.4); Platelet Count 270 K/uL (130-400); RDW Coefficient of Variation 14.6 % (11.5-14.5); Red Blood Count 3.84 M/uL (4.63-6.08)
[2022-05-06 08:27] LABS: Calcium 9.5 mg/dl (8.5-10.1); Est GFR (African American) 78.5 ml/min; Est GFR (Non-African American) 67.7 ml/min; Potassium 4.8 mmol/L (3.5-5.1)
--- NOTE | 2022-05-06 08:34 | Anesthesiology Consultation ---
Date of Service May 06, 2022 Assessment & Plan Chart Review Chart Review: Acceptable Risk for Surgery and Patient NOT seen in Pre Admission Testing Consults Requested none Proposed Anesthesia Risk / Benefits Reviewed With: PT / POA / Parent / Guardian, Accepts Plan and Informed Consent Obtained History Surgery Operation Date: 05/06/22 07:00 Proposed Procedures p Left Removal fo Non-Viable Bone and Tissue First Metatarsal and Proxmial Phalanx - Dell Gifford, DPM, MS Height/Weight Height: 6 ft 4 in Weight: 151.7 kg Allergies Allergy/AdvReac Type Severity Reaction Status Date / Time guaifenesin Allergy Unknown Hives Verified 05/05/22 17:34 Medications Home Medications Medication Instructions Recorded Confirmed Last Taken atorvastatin 40 mg tablet (Lipitor) 40 mg PO HS 04/20/19 05/05/22 09/29/20 lisinopril 40 mg tablet (Zestril) 40 mg PO HS 04/20/19 05/05/22 09/29/20 allopurinol 100 mg tablet 100 mg PO DAILY 10/01/20 05/05/22 09/29/20 (Zyloprim) escitalopram oxalate 10 mg tablet 10 mg PO QAM 10/01/20 05/05/22 09/29/20 (Lexapro) gabapentin 600 mg tablet 600 mg PO BID 10/01/20 05/05/22 09/29/20 (Neurontin) cholecalciferol (vitamin D3) 50 50 mcg PO DAILY 05/05/22 05/05/22 Unknown mcg (2,000 unit) tablet furosemide 40 mg tablet 40 mg PO QAM 05/05/22 05/05/22 Unknown metformin 500 mg tablet,extended 1,000 mg PO QAM 05/05/22 05/05/22 Unknown release 24 hr metformin 500 mg tablet,extended 500 mg PO QPM 05/05/22 05/05/22 Unknown release 24 hr naproxen 500 mg tablet 1,000 mg PO AMPM 05/05/22 05/05/22 Unknown Active Medications Generic Name Dose Route Start Last Admin Trade Name Freq PRN Reason Stop Dose Admin Gabapentin 600 mg 05/05/22 21:04 05/05/22 21:59 Gabapentin 600 Mg Tab PO 06/04/22 21:03 600 mg BID ALLAN Administration Piperacillin Sod/Tazobactam 120 mls @ 30 mls/hr 05/05/22 22:00 05/06/22 06:00 Sod 4.5 gm/ Dextrose IV 06/16/22 21:59 30 mls/hr Q8H ALLAN Administration Protocol Insulin Aspart 0 units 05/05/22 21:04 05/05/22 21:37 Insulin Aspart Per Unit SC 06/04/22 21:03 12 units ACHS ALLAN Administration Past Medical History Medical History Cervical radiculopathy CKD (chronic kidney disease), stage III Diabetes HTN (hypertension) Exercise / Class Metabolic Activity II 4-5 Yardwork/Stairs/Walk up hill Past Family History Family History Father Cancer Mother Cancer Brother Cancer Other Family history non-contributory Past Surgical History Surgical History History of surgery on arm Past Anesthesia History No Hx of Anesthesia Complications and No Family Hx of Anesthesia Complications History of PONV No Hx of PONV and No Hx of Motion Sickness Social History Smoking Status: Former smoker Do You Dip or Chew Tobacco: Yes Hx Alcohol Use: Yes Alcohol type: beer alcohol intake frequency: holidays/special occasions only Hx Substance Use: No Physical Exam Vital Signs Last Vital Signs Temp 36.3 C L 05/05/22 21:07 Pulse 76 05/05/22 21:07 Resp 18 05/05/22 21:07 BP 169/82 H 05/05/22 21:07 Pulse Ox 96 05/05/22 21:07 O2 Del Method 05/05/22 21:35 ENMT Mouth: no dentition abnormality Thyromental Distance: > or= 3.5 Finger Breadths Mallampati Class: II Neck normal visual inspection Respiratory normal respiratory effort Auscultation: lungs clear to auscultation bilaterally Cardiovascular Rate/Rhythm: regular rate and regular rhythm Psychiatric Orientation: alert Testing Laboratory Results 05/06/22 07:34 05/06/22 07:34 Urine Color Yellow 05/05/22 21:32 Urine Appearance Clear (Clear) 05/05/22 21:32 Urine pH 5.5 (4.5-7.5) 05/05/22 21:32 Ur Specific [place] 1.025 (1.000-1.030) 05/05/22 21:32 Urine Protein Negative (Negative) 05/05/22 21:32 Urine Glucose (UA) 3+ (Negative) H 05/05/22 21:32 Urine Ketones Negative (Negative) 05/05/22 21:32 Urine Nitrite Negative (Negative) 05/05/22 21:32 Ur Leukocyte Esterase Negative (Negative) 05/05/22 21:32 05/05/22 14:31 Aerobic and Anaerobic Culture - Preliminary Foot Staphylococcus species 05/06/22 05/06/22 05/05/22 08:03 04:08 23:53 POC Glucose 183 H 184 H 261 H 05/05/22 20:40 POC Glucose 315 H*
[2022-05-06] MEDS: ESCITALOPRAM OXALATE 10 MG TAB PO SCH (09:00)
[2022-05-06] MEDS: FUROSEMIDE 40 MG TAB PO SCH (09:00)
[2022-05-06] MEDS: allopurinoL 100 MG TAB PO SCH (09:00)
[2022-05-06] MEDS: GABAPENTIN 600 MG TAB PO SCH ×2 (09:00→21:17)
[2022-05-06] MEDS: amLODIPine BESYLATE 5 MG TAB PO SCH (09:00)
[2022-05-06 11:18] LABS: BUN Creatinine Ratio 24.6 (10-20)
[2022-05-06 12:15] LABS: Estimated Average Glucose 355 mg/dl
--- NOTE | 2022-05-06 12:44 | Pharmacy Report ---
Pharmacy Glycemic Short Note 2 - Date of Service May 06, 2022 - Glycemic Short BSG Results (Last 24 hours): 05/05/22 05/05/22 05/05/22 12:54 17:20 20:40 Glucose 379 H* POC Glucose 252 H 315 H* 05/05/22 05/05/22 05/06/22 22:35 23:53 04:08 Glucose 312 H* POC Glucose 261 H 184 H 05/06/22 05/06/22 07:34 08:03 Glucose 185 H POC Glucose 183 H OUTPATIENT ANTIDIABETIC REGIMEN: * Metformin 1000mg QAM, 500mg QPM * Formerly took insulin 70/30 and Ozempic, has since stopped taking both of these medications. ASSESSMENT: * Natan Herron is a 51 year old male with type 2 diabetes who presented to the [facility] emergency department on 05/05/22 due to concerns of a left foot wound that has been present since January. CT scan later identified the infection to be osteomyelitis, and the patient is scheduled to have surgery today 05/06/22 * A1c resulted as 14% today. This is a notable increase since their 9.9% A1c in 03/2021 * Upon admission, the patient was given 30 units of Lantus, and Novolog was started with CF of 15 and CR of 5 parameters. Patient is currently NPO in anticipation of surgical procedure; actual time of procedure uncertain. * Will give another 20 units of Lantus now, and then put tonight's dose on a scale. PLAN FOR INPATIENT GLYCEMIC CONTROL: * Hold outpatient oral diabetes medications * Basal insulin * Lantus 20 units if HS BSG less than 180mg/dL, 30 units if BSG 180 mg/dL or greater. Will evaluate future doses tomorrow. * Bolus insulin * NovoLog per scale ACHS or Q6hrs while NPO * Goal Range: Low 100 mg/dL - High 140 mg/dL * Correction Factor: 15 mg/dL/unit * Nutritional / Prandial insulin per carb ratio of 1 unit per 5 grams CHO consumed
[2022-05-06] MEDS ORDERED: LANTUS PER UNIT CHARGE SQ ONE ×2 (13:15→21:00)
--- NOTE | 2022-05-06 13:47 | Hospitalist Progress Note ---
Date of Service May 06, 2022 Assessment & Plan (1) Osteomyelitis: Plan: This is a 51-year-old male who has significant past medical history of uncontrolled T2DM, morbid obesity, HLD, CKD stage III, HTN, diabetic neuropathy who presented to ER secondary to left foot wound on 05/05/2022. His left foot wound has been chronic since January and almost fully healed until reopening the day of arrival. CT L Foot: Findings are compatible with cellulitis along with focal bony erosions compatible with osteomyelitis. 2. Extensive degenerative changes are seen most prominently in the mid foot. L Foot Wound Osteomyelitis Admit to [facility] Continue Dapto & Zosyn Wound cultures growing staph species - will get ID on board post operatively Podiatry consult, Dr. Gifford who is planning to take pt to OR today (2) Hyperkalemia: Plan: Mild, K+ 5.3 on admission today 4.8, resolved Per review of outpatient records patient has had hyperkalemia dating back to 2019 Received IVF in the ED, repeat BMP this evening Home BP med, Lisinopril, D/C on admission due to hyperkalemia (3) Diabetes: Plan: Hgb A1c 9.9 03/2021, now 14.0 on 05/06/22 Patient reports he is currently only taking metformin. Self stopped Ozempic and 70/30 insulin several months ago. Stopped ozempic due to diarrhea no signs of DKA Continue Lantus/Novolog clinical nurse educator consult placed will need to determine approp regimen for outpt, given A1C will likely need insulin therapy until better controlled He will also need to follow with [facility] pharmacy (4) CKD (chronic kidney disease), stage III: Plan: Baseline creatinine ~ 1.5 Creatinine 1.2 today Follow renal functions (5) HTN (hypertension): Plan: Due to mild hyperkalemia, lisinopril was d/c on admission in favor of amlodipine BP Still elevated on amlodipine and lasix may need to up titrate amlodipine after a few days if still remains elevated will need close OP follow up DVT PROPHYLAXIS SCDs due to possible invasive procedure Dispo: pt to remain hospitalized, to undergo procedure this evening Pt was seen and examined in collaboration with DR. Barroso, please see addendum A total of 35 minutes were spent with greater than 50% of that time face to face with the patient, personally reviewing all current laboratories, imaging studies, past medication reconciliation, outpatient chart review, and discussion with specialists to collaborate care for the patient with attending. Please see attending documentation for corrections and/or additions. Admission and Anticipated Discharge Date Admission Date: May 05, 2022 Supervising Physician Co-Signing Physician Notes Pt was seen and examined by me. Agreed with Meagan SAGE exam, assessment and plan. 51 y/o M with hx of IDDM (uncontrolled), HTN, CKD III, HLD admitted for cellulitis/wound infection of the L 1st MTP area with osteomyelitis of the first digit metatarsal and phalanx. CT foot revealed findings compatible with cellulitis along with focal bony erosions compatible with osteomyelitis. Currently on IV Daptomycin and Zosyn. Schedule to go to OR today. Will follow wound cx. Continue monitor closely. MD Chio Subjective Patient was seen and examined in room 360. Follow-up left foot infection. He offers no acute concerns today. Due to neuropathy he has no feeling to his left foot. Therefore he denies any pain. He denies fever, chills, sweats, lightheadedness, dizziness, chest pain, shortness of breath, nausea, vomiting, abdominal pain. We discussed importance of blood sugar control and wound healing and reducing infection risk. Review of Systems Review of Systems: All systems reviewed & are unremarkable except as noted in HPI & below Physical Exam Physical Exam: Gen: WD/WN, obese, M, NAD, A&O x3 HEENT: Normocephalic, atraumatic, conjunctivae moist, sclerae anicteric, mucous membranes moist. Lung: Clear to Auscultation bilaterally, no wheezes/rales/rhonchi Heart: Regular rate, regular rhythm, no murmurs, rubs, or gallops Abdomen:obese/protuberant abd, Soft, NT, ND +BS x 4 Extremities: b/l obese lower ext, ~ 3 cm wound to dorsal aspect of 1st MTP at based with surrounding erythema, edema and necrotic looking tissue in wound Skin: Warm, no rash, negative turgor. Results & Data Results & Data ([facility]) Vital Signs (Past 12 Hours) Vital Signs Temp Pulse Resp BP Pulse Ox O2 Del Method 05/06/22 08:41 36.4 C L 71 16 164/89 H 97 Room Air Laboratory Results Short CBC 05/06/22 Range/Units 07:34 WBC 6.80 (4.8-10.8) K/ul Hgb 10.4 L (14.0-18.0) g/dl Hct 31.5 L (40.1-51.0) % Plt Count 270 (130-400) K/uL BMP 05/05/22 05/05/22 05/06/22 12:54 22:35 07:34 Sodium 134 L 136 139 Potassium 5.3 H 4.6 4.8 Chloride 101 105 108 H Carbon Dioxide 26 26 27 BUN 38 H 33 H 30 H Creatinine 1.41 H 1.19 1.22 Glucose 379 H* 312 H* 185 H Calcium 9.7 9.5 9.5 Liver Function 05/05/22 Range/Units 12:54 Total Bilirubin 0.6 (0.2-1.0) mg/dl AST 12 L (13-39) U/L ALT 17 (7-52) U/L Alkaline Phosphatase 114 H (34-104) U/L Albumin 4.3 (3.4-5.0) gm/dl Urine 05/05/22 Range/Units 21:32 Urine Color Yellow Urine Appearance Clear (Clear) Urine pH 5.5 (4.5-7.5) Ur Specific [place] 1.025 (1.000-1.030) Urine Protein Negative (Negative) Urine Glucose (UA) 3+ H (Negative) Medications Administered Current Inpatient Medications Acetaminophen (Acetaminophen 325 Mg Tab) 650 mg PO Q4H PRN PRN Reason: pain/fever Stop: 06/04/22 21:03 Allopurinol (Allopurinol 100 Mg Tab) 100 mg PO DAILY ALLAN Stop: 06/05/22 08:59 Last Admin: 05/06/22 09:00 Dose: 100 mg Amlodipine Besylate (Amlodipine Besylate 5 Mg Tab) 5 mg PO QAM [facility] Stop: 06/05/22 08:59 Last Admin: 05/06/22 09:00 Dose: 5 mg Dextrose (Dextrose 50% 50 Ml Syringe) 25 - 50 ml IV UD PRN; Protocol PRN Reason: Hypoglycemia Protocol Stop: 06/04/22 21:03 Escitalopram Oxalate (Escitalopram Oxalate 10 Mg Tab) 10 mg PO QAM ALLAN Stop: 06/05/22 08:59 Last Admin: 05/06/22 09:00 Dose: 10 mg Furosemide (Furosemide 40 Mg Tab) 40 mg PO QAM [facility] Stop: 06/05/22 08:59 Last Admin: 05/06/22 09:00 Dose: 40 mg Gabapentin (Gabapentin 600 Mg Tab) 600 mg PO BID [facility] Stop: 06/04/22 21:03 Last Admin: 05/06/22 09:00 Dose: 600 mg Glucagon (Glucagon For Inj 1 Mg Vial) 1 mg SQ UD PRN; Protocol PRN Reason: Hypoglycemia Protocol Stop: 06/04/22 21:03 Glucose (Glucose 40% Gel 15 Gm Tube) 15 - 30 gm PO UD PRN; Protocol PRN Reason: Hypoglycemia Protocol Stop: 06/04/22 21:03 Glucose (Glucose 10 Tab/Tube) 4 - 8 tab PO UD PRN; Protocol PRN Reason: Hypoglycemia Treatment Stop: 06/04/22 21:03 Daptomycin 675 mg/ Syringe 13.5 mls @ 6.75 mls/min IV Q24H [facility]; Protocol Stop: 06/17/22 16:59 Piperacillin Sod/Tazobactam (Sod 4.5 gm/ Dextrose) 120 mls @ 30 mls/hr IV Q8H [facility]; Protocol Stop: 06/16/22 21:59 Last Admin: 05/06/22 13:28 Dose: 30 mls/hr Insulin Aspart (Insulin Aspart Per Unit) 0 units SC ACHS [facility] Stop: 06/04/22 21:03 Last Admin: 05/06/22 13:03 Dose: 10 units Miscellaneous (Carbohydrates For Hypoglycemia ) 15 - 30 gm PO UD PRN PRN Reason: Hypoglycemia Protocol Stop: 06/04/22 21:03 Miscellaneous Information (Pharmacy Glycemic Mgmt Consult) 1 each N/A UD PRN PRN Reason: Consult Stop: 06/04/22 21:03
[2022-05-06] MEDS ORDERED: MIDAZOLAM HCL 1 MG/ML 2ML VIAL ONE (14:48)
[2022-05-06] MEDS ORDERED: LIDOCAINE 2% MPF LOCAL 5 ML VIAL INFIL ONE (14:48)
[2022-05-06] MEDS ORDERED: fentaNYL citrate 100 MCG/2 ML VIAL ONE (14:48)
[2022-05-06] MEDS ORDERED: PROPOFOL IV EMULSION 10 MG/ML 20 ML VIAL IV ONE (14:48)
[2022-05-06] MEDS ORDERED: ATROPINE SULFATE 0.1 MG/ML 10ML SYR IV PRN (15:02)
[2022-05-06] MEDS ORDERED: fentaNYL citrate 100 MCG/2 ML VIAL IV PRN (15:02)
[2022-05-06] MEDS ORDERED: ONDANSETRON INJ 2 MG/ML 2 ML VIAL IV PRN (15:02)
[2022-05-06] MEDS ORDERED: LABETALOL HCL IV 5 MG/ML 20ML IV PRN (15:02)
[2022-05-06] MEDS ORDERED: HYDROmorphone INJ 1 MG/ML SYRINGE IV PRN (15:02)
[2022-05-06] MEDS ORDERED: ePHEDrine sulfate 50 MG/ML AMP IV PRN (15:02)
[2022-05-06] MEDS ORDERED: PHENYLEPHRINE 100MCG/ML 5ML SYR IV PRN (15:02)
[2022-05-06] MEDS ORDERED: BUPIVACAINE 0.5 % 5 MG/1 ML MPF 30ML VIAL ONE (15:06)
[2022-05-06] MEDS ORDERED: LIDOCAINE 1% LOCAL 20 ML VIAL ONE (15:06)
[2022-05-06] MEDS ORDERED: INSULIN ASPART PER UNIT SC STA (15:10)
--- NOTE | 2022-05-06 15:23 | History & Physical Bridge Note ---
Date of Service May 06, 2022 History & Physical Bridge Note I have examined the patient, reviewed the History & Physical and in the interval since the performance of the History & Physical I have noted the following changes of clinical significance: no changes noted
--- NOTE | 2022-05-06 16:41 | Post Operative Brief Note ---
Immediate Post Op Note v1 Date of Surgery May 06, 2022 Pre & Post Diagnosis Operation Date: 05/06/22 07:00 Pre-Op Diagnosis: 1. Soft tissue swelling and a skin ulceration at the medial aspect of the first metatarsophalangeal joint. 2. No acute destructive changes to suggest an osteomyelitis. 3. 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 4. Small erosive changes at the medial base of the first proximal phalanx and medial head of first metatarsal with overhanging edges. This could be due to the chronic degenerative change or possible superimposed gouty arthritis. Post-Op Diagnosis: 1. Soft tissue swelling and a skin ulceration at the medial aspect of the first metatarsophalangeal joint. 2. No acute destructive changes to suggest an osteomyelitis. 3. 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 4. Small erosive changes at the medial base of the first proximal phalanx and medial head of first metatarsal with overhanging edges. This could be due to the chronic degenerative change or possible superimposed gouty arthritis. I identified the patient and participated in the time-out.: Yes Procedure Operation Date: 05/06/22 07:00 Actual Procedures p Left foot Removal of Non-Viable Bone and Tissue First Metatarsal and Proxmial Phalanx(Left) - Dell Gifofrd DPM, MS Surgeon Dell Gifford DPM, MS Unpaid Intern None Estimated Blood Loss 0 Findings Consistent with Post-Op Diagnosis Gouty arthritis possible osteomyelitis first metatarsal and proximal phalanx of left foot.
--- NOTE | 2022-05-06 17:14 | Anesthesiology Progress Note ---
Date of Service May 06, 2022 Anesthesia Post Procedure Vital Signs Vital Signs: Temp Pulse Resp BP Pulse Ox O2 Del Method 05/06/22 14:00 36.6 C 66 16 115/76 97 Room Air 05/06/22 14:55 36.6 C 82 20 156/80 H 98 Room Air 05/06/22 08:41 36.4 C L 71 16 164/89 H 97 Room Air 05/05/22 21:35 Room Air 05/05/22 21:07 36.3 C L 76 18 169/82 H 96 Room Air 05/05/22 17:26 70 20 170/90 H 100 Room Air Transfer of Care Handoff Completed per policy Notes Mental Status: alert / awake / arousable Patient Amnestic to Procedure: Yes Nausea / Vomiting: adequately controlled Pain: adequately controlled Airway Patency, RR, SpO2: stable & adequate BP & HR: stable & adequate Hydration State: stable & adequate Anesthetic Complications: no major complications apparent and Pt Satisfied with anesthetic care Notes: The patient is awake and comfortable. His vital signs are stable. Postop BSG is 181.
[2022-05-06] MEDS: DAPTOmycin 675 MG in SYRINGE 0 ML IV SCH (18:02)
--- NOTE | 2022-05-06 18:05 | Electrocardiogram Report ---
Test Reason : Blood Pressure : / mmHG Vent. Rate : 068 BPM Atrial Rate : 068 BPM P-R Int : 174 ms QRS Dur : 088 ms QT Int : 366 ms P-R-T Axes : 051 039 030 degrees QTc Int : 389 ms Normal sinus rhythm Normal ECG When compared with ECG of 20-APR-2019 16:31, No significant change was found Confirmed by Raheem Evans ([id number]) on 05/06/2022 6:05:37 PM Referred By: REFERRED SELF Confirmed By:Steve Evans
--- NOTE | 2022-05-06 21:38 | Operative Report ---
Post Operative Report Pre & Post Diagnosis Operation Date: 05/06/22 07:00 Pre-Op Diagnosis: 1. Soft tissue swelling and a skin ulceration at the medial aspect of the first metatarsophalangeal joint. 2. No acute destructive changes to suggest an osteomyelitis. 3. 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 4. Small erosive changes at the medial base of the first proximal phalanx and m edial head of first metatarsal with overhanging edges. This could be due to the chronic degenerative change or possible superimposed gouty arthritis. Post-Op Diagnosis: 1. Soft tissue swelling and a skin ulceration at the medial aspect of the first metatarsophalangeal joint. 2. No acute destructive changes to suggest an osteomyelitis. 3. 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 4. Small erosive changes at the medial base of the first proximal phalanx and medial head of first metatarsal with overhanging edges. This could be due to the chronic degenerative change or possible superimposed gouty arthritis. I identified the patient and participated in the time-out.: Yes Procedure Operation Date: 05/06/22 07:00 Actual Procedures p Left foot Removal of Non-Viable Bone and Tissue First Metatarsal and Proxmial Phalanx(Left) - Dell Gifford DPM, MS Surgeon Dell Gifford DPM, MS Small Engine Mechanic None Estimated Blood Loss 0 Findings Consistent with Post-Op Diagnosis consistent with post operative diagnosis Specimens 1.) Deep cultures Left foot wound 2.) Bone first metatarsal microbiology 3.) Bone first metatarsal Pathology Description of Procedure History of present illness: Patient is a type II diabetic, 51 year old male who is seen for treatment of osteomyelitis of the Left first metatarsal and proximal phalanx. Patient notes a diabetic foot ulcer open for multiple months. Wound probes to bone and x-rays show erosion consistent with osteomyelitis. All questions answered. Discussed procedure in detail and postoperative recovery. All potential risks, benefits, complications, alternatives, rehab, potential for incomplete relief of symptoms, need for f urther surgery, DVT, PE, , persistent pain, swelling, scarring, weakness, neurovascular, wound complications, and potential for amputations were discussed with patient. Unwanted outcomes such as, but not limited to were reviewed including under correction, overcorrection, return of deformity, infection. All questions were answered. Patient has decided to proceed with procedure as indicated. Preoperative diagnosis: 1.) Diabetic ulcer 2.) Osteomyelitis left first metatarsal and proximal phalanx Postoperative diagnosis: same Name of operation: 1.) Excision of wound with rotation skin plasty 2.) Left first metatarsal excision of bone 3.) Left proximal phalanx excision of bone Surgeon Dr. Gifford Small Engine Mechanic: None Anesthesia: local with monitored anesthesia care Hemostasis: pneumatic ankle tourniquet Estimated blood loss: minimal Procedure in detail: Under mild sedation the patient was brought in the operating room placed on the operating table in supine position. A pneumatic ankle tourniquet was then placed about the patient's left ankle. Following IV sedation local anesthesia was obtained about the left utilizing 10 cc of a0.5% Marcaine plain. The foot was then prepped scrubbed and draped in usual aseptic manner. An Esmarch bandage was utilized to exsanguinate the patient's left foot and the pneumatic ankle tourniquet was then inflated. Attention was then directed to a nonhealing diabetic ulcer on the left metatarsal where a diabetic foot ulcer is present and probes to bone. The wound measures 2cm x 2 cm. An ellipse incision was created utilizing a sharp, sterile, #15 blade encompassing the diabetic foot ulcer approximately 4cm x 3 cm. The incision which was deepened through subcutaneous tissue using sharp blunt dissection. The incision was easily carried down to first metatarsal bone. The wound was excised in toto and placed on the back table. At this time significant amounts of gouty tophi was noted. This was resected. Care was taken to identify and retract all vital neurovascular structures. All bleeders were ligated and cauterized necessary. At this time an oscillating saw was used to remove a portion of the first metatarsal head. This was then placed on the back table. A portion of the left first metatarsal was sent to pathology. A portion of the first metatarsal was also sent to microbiology. At this time an oscillating saw was used to remove the base of the first proximal phalanx. One liter of lactate ringer under low flow was then utilized to flush the incision site. The skin was then primarily closed utilizing a rotation skin plasty utilizing 3- 0 nylon in horizontal suture mattress techniques as well as simple suture closure. Upon completion of the procedure the incision was dressed with Betadine soaked Adaptic followed by sterile compressive dressing consisting of 4 x 4's Serene Kerlix ABD the pneumatic ankle tourniquet was inflated, and a prompt hyperemic response was noted to all digits of the left foot. A post operative shoe was then applied. The Patient tolerated the procedure and anesthesia well. He was transferred to recovery room vital signs stable and vascular status intact all toes of the left foot following. After a period of Postoperative monitoring the patient will be readmitted to the floor resuming all pre-operative orders. I attest to the content of the Intraoperative Record and any orders documented therein. Any exceptions are noted below.
[2022-05-07] MEDS ORDERED: INSULIN ASPART PER UNIT SC ONE (02:00)
[2022-05-07] MEDS: PIPERACILLIN/TAZOBACTAM 4.5 GM CI (over 4 hours) IV SCH ×2 (06:24→13:48)
[2022-05-07] MEDS: allopurinoL 100 MG TAB PO SCH (08:46)
[2022-05-07] MEDS: amLODIPine BESYLATE 5 MG TAB PO SCH (08:46)
[2022-05-07] MEDS: GABAPENTIN 600 MG TAB PO SCH ×2 (08:46→20:58)
[2022-05-07] MEDS: FUROSEMIDE 40 MG TAB PO SCH (08:46)
[2022-05-07] MEDS: ESCITALOPRAM OXALATE 10 MG TAB PO SCH (08:46)
[2022-05-07] MEDS ORDERED: LANTUS PER UNIT CHARGE SQ ONE ×2 (09:00→21:00)
[2022-05-07 09:18] LABS: Calcium 9.7 mg/dl (8.5-10.1); Creatinine Clr Calc Pharmacy 107.7 ml/min; Est GFR (African American) 74.1 ml/min; Est GFR (Non-African American) 63.9 ml/min; Potassium 4.8 mmol/L (3.5-5.1)
[2022-05-07] MEDS: INSULIN ASPART PER UNIT SC SCH ×4 (09:53→21:03)
[2022-05-07 13:53] LABS: Hemoglobin 10.6 g/dl (14.0-18.0); Mean Corpuscular Hemoglobin 27.1 pg (25.0-34.0); Mean Corpuscular Hgb Conc 32.1 g/dL (32.0-36.0); Mean Corpuscular Volume 84.4 fL (80.0-100.0); Mean Platelet Volume 10.4 fL (9.4-12.4); Platelet Count 278 K/uL (130-400); RDW Coefficient of Variation 14.6 % (11.5-14.5); RDW Standard Deviation 44.3 fL (36.4-46.3); Red Blood Count 3.91 M/uL (4.70-6.10); White Blood Count 8.16 K/ul (4.8-10.8)
--- NOTE | 2022-05-07 14:01 | Pharmacy Report ---
Pharmacy Glycemic Short Note 2 - Date of Service May 07, 2022 - Glycemic Short BSG Results (Last 24 hours): 05/06/22 05/06/22 05/06/22 15:03 16:28 16:55 Glucose POC Glucose 225 H 205 H 181 H 05/06/22 05/07/22 05/07/22 20:37 02:04 08:12 Glucose POC Glucose 213 H 123 H 126 H 05/07/22 05/07/22 08:46 12:10 Glucose 138 H POC Glucose 228 H OUTPATIENT ANTIDIABETIC REGIMEN: * Metformin 1000mg QAM, 500mg QPM * Formerly took insulin 70/30 and Ozempic, has since stopped taking both of these medications. ASSESSMENT: 05/07/22: * Patient underwent surgery yesterday, today is ordered a diet and does not have any new stressors ordered that would increase insulin demand. * BSG's seem to be trending towards goal. Fasting BSG this AM was lower than anticipated at 123 mg/dL, will reduce total daily dose of Lantus today by ~20%. * At lunch, POC BSG was recorded at 228 mg/dL. Carbohydrate coverage will be tightened. 05/06/22, Initial Assessment: * Natan Herron is a 51 year old male with type 2 diabetes who presented to the [facility] emergency department on 05/05/22 due to concerns of a left foot wound that has been present since January. CT scan later identified the infection to be osteomyelitis, and the patient is scheduled to have surgery today 05/06/22 * A1c resulted as 14% today. This is a notable increase since their 9.9% A1c in 03/2021 * Upon admission, the patient was given 30 units of Lantus, and Novolog was started with CF of 15 and CR of 5 parameters. Patient is currently NPO in anticipation of surgical procedure; actual time of procedure uncertain. * Will give another 20 units of Lantus now, and then put tonight's dose on a scale. PLAN FOR INPATIENT GLYCEMIC CONTROL: * Hold outpatient oral diabetes medications * Basal insulin * Lantus 20 units SQ BID. * Bolus insulin * NovoLog per scale ACHS or Q6hrs while NPO * Goal Range: Low 110 mg/dL - High 140 mg/dL * Correction Factor: 15 mg/dL/unit * Nutritional / Prandial insulin per carb ratio of 1 unit per 4 grams CHO consumed
--- NOTE | 2022-05-07 17:00 | Hospitalist Progress Note ---
Date of Service May 07, 2022 Assessment & Plan (1) Osteomyelitis: Plan: This is a 51-year-old male who has significant past medical history of uncontrolled T2DM, morbid obesity, HLD, CKD stage III, HTN, diabetic neuropathy who presented to ER secondary to left foot wound on 05/05/2022. His left foot wound has been chronic since January and almost fully healed until reopening the day of arrival. CT L Foot: Findings are compatible with cellulitis along with focal bony erosions compatible with osteomyelitis. 2. Extensive degenerative changes are seen most prominently in the mid foot. Left Foot Wound Osteomyelitis Admit to [facility] Continue Dapto & Zosyn Wound cultures growing staph species on preliminary culture - consulting ID POD#0 s/p Left foot Removal of Non-Viable Bone and Tissue First Metatarsal and Proxmial Phalanx by Dr. Gifford Comfortable post-operatively (2) Hyperkalemia: Plan: Mild, K+ 5.3 on admission today 4.8, resolved Per review of outpatient records patient has had hyperkalemia dating back to 2019 Received IVF in the ED, repeat BMP this evening Home BP med, Lisinopril discontinued on admission due to hyperkalemia (3) Diabetes: Plan: Hgb A1c 9.9 03/2021, now 14.0 on 05/06/22 Patient reports he is currently only taking metformin. Self stopped Ozempic and 70/30 insulin several months ago. Stopped ozempic due to diarrhea No signs of DKA Continue Lantus/Novolog health educator spoke with patient - will be imperative to wound healing He will also need to follow with [facility] pharmacy (4) CKD (chronic kidney disease), stage III: Plan: Baseline creatinine ~ 1.5 Creatinine 1.2 today Follow renal functions (5) HTN (hypertension): Plan: Due to mild hyperkalemia, lisinopril was d/c on admission in favor of amlodipine BP Still elevated on amlodipine and lasix may need to up titrate amlodipine after a few days if still remains elevated will need close OP follow up DVT PROPHYLAXIS SCDs due to possible invasive procedure Dispo: pt to remain hospitalized, to undergo procedure this evening Pt was seen and examined in collaboration with DR. Barroso, please see addendum A total of 35 minutes were spent with greater than 50% of that time face to face with the patient, personally reviewing all current laboratories, imaging studies, past medication reconciliation, outpatient chart review, and discussion with specialists to collaborate care for the patient with attending. Please see attending documentation for corrections and/or additions. Admission and Anticipated Discharge Date Admission Date: May 05, 2022 Supervising Physician Co-Signing Physician Notes Pt was seen and examined by me. Agreed with [facility] SAGE exam, assessment and plan. 51 y/o M with hx of IDDM (uncontrolled), HTN, CKD III, HLD admitted for cellulitis/wound infection of the L 1st MTP area with osteomyelitis of the first digit metatarsal and phalanx. CT foot revealed findings compatible with cellulitis along with focal bony erosions compatible with osteomyelitis. S/P day #1 Left foot Removal of Non-Viable Bone and Tissue First Metatarsal and Proxmial Phalanx(Left) performed by Dr. Gifford. Wound cx grew staph species and gram positive cocci. ID on board recommended to discontinued IV Dapto and Zosyn; then suggested 6 weeks of IV abx with Ancef. Continue wound care as per podiatry. MD Chio Subjective Patient was seen and examined in room 360. Follow-up left foot infection. No new complaints overnight. Does have neuropathy, subtle feeling to left foot. Denies fever, chills, sweats, lightheadedness, dizziness, chest pain, shortness of breath, nausea, vomiting, abdominal pain. Met with clinical nurse educator today about importance of better glucose control for wound healing. Review of Systems Review of Systems: ROS per HPI, all other systems reviewed and negative Physical Exam Physical Exam: Gen: WD/WN, morbidly obese, M, NAD, A&O x3 HEENT: Normocephalic, atraumatic, conjunctivae moist, sclerae anicteric, mucous membranes moist. Lung: Clear to Auscultation bilaterally, no wheezes/rales/rhonchi Heart: Regular rate, regular rhythm, no murmurs, rubs, or gallops Abdomen:obese/protuberant abd, Soft, NT, ND +BS x 4 Extremities: LLE with Dressing to wound c/d/i Skin: Warm, no rash, negative turgor. Results & Data Results & Data ([facility]) Vital Signs (Past 12 Hours) Vital Signs Temp Pulse Pulse Resp BP BP Pulse Ox 05/07/22 15:51 37.0 C 69 18 121/68 96 05/07/22 11:25 36.5 C 64 16 128/71 95 05/07/22 07:19 36.7 C 63 16 125/72 97 O2 Del Method 05/07/22 15:51 Room Air 05/07/22 11:25 Room Air 05/07/22 07:19 Room Air Laboratory Results Short CBC 05/07/22 Range/Units 08:46 WBC 8.16 (4.8-10.8) K/ul Hgb 10.6 L (14.0-18.0) g/dl Hct 33.0 L (42.0-52.0) % Plt Count 278 (130-400) K/uL BMP 05/07/22 08:46 Sodium 138 Potassium 4.8 Chloride 106 Carbon Dioxide 30 BUN 23 Creatinine 1.28 Glucose 138 H Calcium 9.7 Diagnostic Findings Toe X-Ray 05/05/22 12:16 XR toe(s) LT min 2V CLINICAL HISTORY: diabetic ulcer, left great toe COMPARISON STUDY: None. FINDINGS: 3 views of the left first toe were submitted for review. There is soft tissue swelling at the first MTP joint. Moderate to severe osteoarthritis at the first MTP joint. There is a bony bunion and large marginal osteophytes at the first MTP joint. No acute destructive changes identified to suggest an osteomyelitis. Small erosive changes at the medial base of the first proximal phalanx and medial head of first metatarsal with overhanging edges. This could be due to the chronic degenerative change or possible superimposed gouty arthritis. There is a trace 2 cm skin ulceration at the medial aspect of the first MTP joint. IMPRESSION: 1. Soft tissue swelling and a skin ulceration at the medial aspect of the first MTP joint. 2. No acute destructive changes to suggest an osteomyelitis. 3. Moderate to severe osteoarthritis of the first MTP joint with a bony bunion and large marginal osteophytes. 4. Small erosive changes at the medial base of the first proximal phalanx and medial head of first metatarsal with overhanging edges. This could be due to the chronic degenerative change or possible superimposed gouty arthritis. ACT 112: Negative or not required by law. Electronically signed by: Ed Perkins M.D. 05/05/2022 12:[address] 01/24/23 14:30 CT foot LT wo con CLINICAL HISTORY: poss osteo, foul odor TECHNIQUE: Multidetector row helical CT of the right foot was performed without intravenous contrast. Coronal and sagittal reformations were obtained. Automated dose lowering techniques and/or adjustment according to patient size were utilized for this examination. Comparison: Comparison is made to the radiograph 05/05/2022 FINDINGS: Multiple bony erosions are seen in the distal first digit metatarsal and proximal first digit phalanx. Extensive degenerative changes are seen in the foot most prominently in the mid foot. Soft tissue swelling is seen about the first tarsometatarsal joint. IMPRESSION: 1. Findings are compatible with cellulitis along with focal bony erosions compatible with osteomyelitis. 2. Extensive degenerative changes are seen most prominently in the mid foot. ACT 112: Negative or not required by law. Electronically signed by: Bret Kahn M.D. 05/05/2022 3:45 PM
[2022-05-07] MEDS: DAPTOmycin 675 MG in SYRINGE 0 ML IV SCH (17:29)
[2022-05-07] MEDS: ceFAZolin 2000MG 2,000 MG/15 ML SYR IV SCH (20:58)
[2022-05-08] MEDS: ceFAZolin 2000MG 2,000 MG/15 ML SYR IV SCH ×3 (03:41→19:48)
[2022-05-08 07:17] LABS: Hematocrit (blood only) 31.9 % (42.0-52.0); Hemoglobin 10.4 g/dl (14.0-18.0); Mean Corpuscular Hemoglobin 27.2 pg (25.0-34.0); Mean Corpuscular Hgb Conc 32.6 g/dL (32.0-36.0); Mean Corpuscular Volume 83.3 fL (80.0-100.0); Mean Platelet Volume 9.9 fL (9.4-12.4); Platelet Count 267 K/uL (130-400); RDW Coefficient of Variation 14.4 % (11.5-14.5); RDW Standard Deviation 43.6 fL (36.4-46.3); Red Blood Count 3.83 M/uL (4.70-6.10)
[2022-05-08 07:46] LABS: Calcium 9.6 mg/dl (8.5-10.1); Potassium 4.9 mmol/L (3.5-5.1)
[2022-05-08 07:51] LABS: BUN Creatinine Ratio 18.1 (10-20); Creatinine Clr Calc Pharmacy 95.7 ml/min; Est GFR (African American) 64.3 ml/min; Est GFR (Non-African American) 55.4 ml/min
[2022-05-08] MEDS: GABAPENTIN 600 MG TAB PO SCH ×2 (09:40→20:40)
[2022-05-08] MEDS: ESCITALOPRAM OXALATE 10 MG TAB PO SCH (09:40)
[2022-05-08] MEDS: amLODIPine BESYLATE 5 MG TAB PO SCH (09:40)
[2022-05-08] MEDS: allopurinoL 100 MG TAB PO SCH (09:40)
[2022-05-08] MEDS: INSULIN ASPART PER UNIT SC SCH ×4 (09:44→20:39)
[2022-05-08] MEDS: LANTUS PER UNIT CHARGE SQ SCH ×2 (09:52→20:39)
[2022-05-08] MEDS: AMPICILLIN 2,000 MG in SODIUM CHLOR 0.9% AD-VAN 100 ML IV SCH ×4 (10:11→19:48)
--- NOTE | 2022-05-08 13:29 | Pharmacy Report ---
Pharmacy Glycemic Short Note 2 - Date of Service May 08, 2022 - Glycemic Short BSG Results (Last 24 hours): 05/07/22 05/07/22 05/08/22 17:01 20:43 07:01 Glucose 164 H POC Glucose 85 157 H 05/08/22 05/08/22 08:14 12:03 Glucose POC Glucose 161 H 258 H OUTPATIENT ANTIDIABETIC REGIMEN: * Metformin 1000mg QAM, 500mg QPM * Formerly took insulin 70/30 and Ozempic, has since stopped taking both of these medications. ASSESSMENT: 05/08/22 * Natan received 79 units of insulin yesterday with decent glycemic control * 40 units basal * 39 units bolus * BSGs: 126, 228, 258, 157 * Fasting BSG elevated this morning. Will increase Lantus 10%. * Lunch BSG is consistently the highest of the day. Will tighten carb coverage with breakfast to avoid spike at lunch. Will utilize a less aggressive CF/CR with other meals and HS. 05/07/22: * Patient underwent surgery yesterday, today is ordered a diet and does not have any new stressors ordered that would increase insulin demand. * BSG's seem to be trending towards goal. Fasting BSG this AM was lower than anticipated at 123 mg/dL, will reduce total daily dose of Lantus today by ~20%. * At lunch, POC BSG was recorded at 228 mg/dL. Carbohydrate coverage will be tightened. 05/06/22, Initial Assessment: * Natan Herron is a 51 year old male with type 2 diabetes who presented to the [facility] emergency department on 05/05/22 due to concerns of a left foot wound that has been present since January. CT scan later identified the infection to be osteomyelitis, and the patient is scheduled to have surgery today 05/06/22 * A1c resulted as 14% today. This is a notable increase since their 9.9% A1c in 03/2021 * Upon admission, the patient was given 30 units of Lantus, and Novolog was started with CF of 15 and CR of 5 parameters. Patient is currently NPO in anticipation of surgical procedure; actual time of procedure uncertain. * Will give another 20 units of Lantus now, and then put tonight's dose on a scale. PLAN FOR INPATIENT GLYCEMIC CONTROL: * Hold outpatient oral diabetes medications * Basal insulin * Lantus 22 units SQ BID * Bolus insulin * NovoLog per scale ACHS or Q6hrs while NPO * Goal Range: Low 110 mg/dL - High 140 mg/dL Breakfast: * Correction Factor: 15 mg/dL/unit * Nutritional / Prandial insulin per carb ratio of 1 unit per 3 grams CHO consumed Lunch/dinner/HS: * Correction Factor: 20 mg/dL/unit * Nutritional / Prandial insulin per carb ratio of 1 unit per 4 grams CHO consumed
--- NOTE | 2022-05-08 17:06 | Hospitalist Progress Note ---
Date of Service May 08, 2022 Assessment & Plan (1) Osteomyelitis: Plan: This is a 51-year-old male who has significant past medical history of uncontrolled T2DM, morbid obesity, HLD, CKD stage III, HTN, diabetic neuropathy who presented to ER secondary to left foot wound on 05/05/2022. His left foot wound has been chronic since January and almost fully healed until reopening the day of arrival. CT L Foot: Findings are compatible with cellulitis along with focal bony erosions compatible with osteomyelitis. 2. Extensive degenerative changes are seen most prominently in the mid foot. L Foot Wound Osteomyelitis Admitted to [facility] POD#2 s/p Left foot Removal of Non-Viable Bone and Tissue First Metatarsal and Proxmial Phalanx(Left) - Dell Gifford, SOY, MS Surgical wound culture growing MSSA and Enterococcus faecalis -per ID, t ransitioned to Ancef and ampicillin while admitted. Unasyn would cover as singular agent upon dc home- need to discuss every [address] Gifford of podiatry following - planning to change wound dressing tomorrow Consented for picc- [picc consent was obtained from the patient as delegated by Dr. Barroso. Risks and benefits were explained. All questions were answered, and the patient was offered the opportunity to discuss with attending physician and declined ] Picc line to be placed, CM working on home nursing (2) Hyperkalemia: Plan: Mild, K+ 5.3 on admission today 4.8, resolved Per review of outpatient records patient has had hyperkalemia dating back to 2019 Received IVF in the ED, repeat BMP this evening Home BP med, Lisinopril discontinued on admission due to hyperkalemia (3) Diabetes: Plan: Hgb A1c 14.0 on 05/06/22 Patient reports he is currently only taking metformin. Self stopped Ozempic and 70/30 insulin several months ago. Stopped ozempic due to diarrhea Appreciate glycemic pharmacy mgmt and eventual recommendations for discharge regimen Seen by software educator Will also need to follow with [facility] at time of discharge (4) CKD (chronic kidney disease), stage III: Plan: Baseline creatinine ~ 1.5 Creatinine 1.2 today Follow renal functions (5) HTN (hypertension): Plan: Due to mild hyperkalemia, lisinopril was d/c on admission in favor of amlodipine BP Still elevated on amlodipine and lasix may need to up titrate amlodipine after a few days if still remains elevated will need close OP follow up Tobacco use Daily smokeless tobacco user - discussed importance of cessation. Nicotine patch ordered DVT PROPHYLAXIS SCDs due to possible invasive procedure Dispo: pt to remain hospitalized, to undergo procedure this evening Pt was seen and examined in collaboration with Dr. Barroso, please see addendum A total of 55 minutes were spent with greater than 50% of that time face to face with the patient, personally reviewing all current laboratories, imaging s tudies, past medication reconciliation, outpatient chart review, and discussion with specialists to collaborate care for the patient with attending. Please see attending documentation for corrections and/or additions. Admission and Anticipated Discharge Date Admission Date: May 05, 2022 Supervising Physician Co-Signing Physician Notes Pt was seen and examined by me. Agreed with [facility] SAGE exam, assessment and plan. 51 y/o M with hx of IDDM (uncontrolled), HTN, CKD III, HLD admitted for cellulitis/wound infection of the L 1stMTP area with osteomyelitis of the first digit metatarsal and phalanx. CT foot revealed findings compatible with cellulitis along with focal bony erosions compatible with osteomyelitis. S/P day #2Left foot Removal of Non-Viable Bone and Tissue First Metatarsal and Proxmial Phalanx(Left) performed by Dr. Gifford. Wound cx grew staph species and gram positive cocci. ID on board recommended to discontinued IV Dapto and Zosyn; then suggested 6 weeks of IV abx with Ancef. Continue wound care as per podiatry. MD Chio Subjective Patient was seen and examined in room 360. Follow-up left foot infection. No new complaints overnight. Does have neuropathy, subtle feeling to left foot. Denies fever, chills, sweats, lightheadedness, dizziness, chest pain, shortness of breath, nausea, vomiting, abdominal pain. Discussed importance of improved glucose control and tobacco cessation for wound healing. Review of Systems Review of Systems: ROS per HPI, all other systems reviewed and negative Physical Exam Physical Exam: Gen: WD/WN, morbidly obese, M, NAD, A&O x3 HEENT: Normocephalic, atraumatic, conjunctivae moist, sclerae anicteric, mucous membranes moist. Lung: Clear to Auscultation bilaterally, no wheezes/rales/rhonchi Heart: Regular rate, regular rhythm, no murmurs, rubs, or gallops Abdomen:obese/protuberant abd, Soft, NT, ND +BS x 4 Extremities: LLE with Dressing to wound c/d/i Skin: Warm, no rash, negative turgor. Results & Data Results & Data ([facility]) Vital Signs (Past 12 Hours) Vital Signs Temp Pulse Resp BP Pulse Ox O2 Del Method 05/08/22 15:36 36.9 C 71 18 126/50 L 98 Room Air 05/08/22 08:00 Room Air 05/08/22 08:11 36.6 C 61 16 144/87 H 96 Room Air Laboratory Results Short CBC 05/08/22 Range/Units 07:01 WBC 7.80 (4.8-10.8) K/ul Hgb 10.4 L (14.0-18.0) g/dl Hct 31.9 L (42.0-52.0) % Plt Count 267 (130-400) K/uL BMP 05/08/22 07:01 Sodium 138 Potassium 4.9 Chloride 104 Carbon Dioxide 29 BUN 26 H Creatinine 1.44 H Glucose 164 H Calcium 9.6 Diagnostic Findings Toe X-Ray 05/05/22 12:16 XR toe(s) LT min 2V CLINICAL HISTORY: diabetic ulcer, left great toe COMPARISON STUDY: None. FINDINGS: 3 views of the left first toe were submitted for review. There is soft tissue swelling at the first MTP joint. Moderate to severe osteoarthritis at the first MTP joint. There is a bony bunion and large marginal osteophytes at the first MTP joint. No acute destructive changes identified to suggest an osteomyelitis. Small erosive changes at the medial base of the first proximal phalanx and medial head of first metatarsal with overhanging edges. This could be due to the chronic degenerative change or possible superimposed gouty arthritis. There is a trace 2 cm skin ulceration at the medial aspect of the first MTP joint. IMPRESSION: 1. Soft tissue swelling and a skin ulceration at the medial aspect of the first MTP joint. 2. No acute destructive changes to suggest an osteomyelitis. 3. Moderate to severe osteoarthritis of the first MTP joint with a bony bunion and large marginal osteophytes. 4. Small erosive changes at the medial base of the first proximal phalanx and medial head of first metatarsal with overhanging edges. This could be due to the chronic degenerative change or possible superimposed gouty arthritis. ACT 112: Negative or not required by law. Electronically signed by: Ed Perkins M.D. 05/05/2022 12:[address] 05/05/22 14:30 CT foot LT wo con CLINICAL HISTORY: poss osteo, foul odor TECHNIQUE: Multidetector row helical CT of the right foot was performed without intravenous contrast. Coronal and sagittal reformations were obtained. Automated dose lowering techniques and/or adjustment according to patient size were utilized for this examination. Comparison: Comparison is made to the radiograph 05/05/2022 FINDINGS: Multiple bony erosions are seen in the distal first digit metatarsal and proximal first digit phalanx. Extensive degenerative changes are seen in the foot most prominently in the mid foot. Soft tissue swelling is seen about the first tarsometatarsal joint. IMPRESSION: 1. Findings are compatible with cellulitis along with focal bony erosions compatible with osteomyelitis. 2. Extensive degenerative changes are seen most prominently in the mid foot. ACT 112: Negative or not required by law. Electronically signed by: Bret Kahn M.D. 05/05/2022 3:45 PM
[2022-05-08] MEDS: NICOTINE 21 MG/24 HR TDSY TD SCH (17:44)
[2022-05-09] MEDS: AMPICILLIN 2,000 MG in SODIUM CHLOR 0.9% AD-VAN 100 ML IV SCH (00:45)
[2022-05-09] MEDS: ceFAZolin 2000MG 2,000 MG/15 ML SYR IV SCH ×3 (04:44→19:47)
[2022-05-09] MEDS: AMPICILLIN 2,000 MG in 0.9 % SODIUM CHLORIDE 100 ML IV SCH ×5 (04:44→19:47)
[2022-05-09] MEDS: allopurinoL 100 MG TAB PO SCH (08:00)
[2022-05-09] MEDS: GABAPENTIN 600 MG TAB PO SCH ×2 (08:00→19:49)
[2022-05-09] MEDS: ESCITALOPRAM OXALATE 10 MG TAB PO SCH (08:01)
[2022-05-09] MEDS: NICOTINE 21 MG/24 HR TDSY TD SCH (08:01)
[2022-05-09] MEDS: amLODIPine BESYLATE 5 MG TAB PO SCH (08:01)
[2022-05-09 08:56] LABS: Potassium 4.8 mmol/L (3.5-5.1)
[2022-05-09 09:01] LABS: BUN Creatinine Ratio 22.9 (10-20); Creatinine Clr Calc Pharmacy 105.2 ml/min; Est GFR (Non-African American) 62.2 ml/min
[2022-05-09] MEDS: LANTUS PER UNIT CHARGE SQ SCH ×2 (09:08→21:47)
[2022-05-09] MEDS: INSULIN ASPART PER UNIT SC SCH ×4 (09:08→20:56)
--- NOTE | 2022-05-09 17:18 | Hospitalist Progress Note ---
Date of Service May 09, 2022 Assessment & Plan (1) Osteomyelitis: Plan: Left Foot Wound This is a 51-year-old male who has significant past medical history of uncontrolled T2DM, morbid obesity, HLD, CKD stage III, HTN, diabetic neuropathy who presented to ER secondary to left foot wound on 05/05/2022. His left foot wound has been chronic since January and almost fully healed until reopening the day of arrival. CT L Foot showed Findings are compatible with cellulitis along with focal bony erosions compatible with osteomyelitis. Extensive degenerative changes are seen most prominently in the mid foot. S/P day #3Left foot Removal of Non-Viable Bone and Tissue First Metatarsal and Proxmial Phalanx(Left) performed by Dr. Gifford. Wound cx grew staph species and gram positive cocci. ID on board Currently on IV Ampicillin and Cefazolin ID recommended to transition to Unasyn 6 weeks course Check CMP and CBC in 6 weeks while on IV abx (2) Hyperkalemia: Plan: Mild, K+ 5.3 on admission today 4.8, resolved Per review of outpatient records patient has had hyperkalemia dating back to 2019 Received IVF in the ED, repeat BMP this evening Home BP med, Lisinopril discontinued on admission due to hyperkalemia (3) Diabetes: Plan: Hgb A1c 9.9 03/2021, now 14.0 on 05/06/22 Patient reports he is currently only taking metformin. Self stopped Ozempic and 70/30 insulin several months ago. Stopped ozempic due to diarrhea No signs of DKA Continue [place]/[facility] hospital educator spoke with patient - will be imperative to wound healing He will also need to follow with [facility] pharmacy (4) CKD (chronic kidney disease), stage III: Plan: Baseline creatinine ~ 1.5 Creatinine 1.3 today Follow renal functions will resume lasix daily (5) HTN (hypertension): Plan: Due to mild hyperkalemia, lisinopril was d/c on admission in favor of amlodipine BP Still elevated on amlodipine and lasix may need to up titrate amlodipine after a few days if still remains elevated will need close OP follow up DVT PROPHYLAXIS SCDs due to possible invasive procedure Dispo: pt to remain hospitalized, to undergo procedure this evening A total of 35 minutes were spent with greater than 50% of that time face to face with the patient, personally reviewing all current laboratories, imaging studies, past medication reconciliation, outpatient chart review, and discussion with specialists to collaborate care for the patient with attending. Please see attending documentation for corrections and/or additions. Admission and Anticipated Discharge Date Admission Date: May 05, 2022 Subjective Pt was seen and examined for follow up left foot infection sitting in chair with family member at bedside Pt said that he feels ok today he has been walking in the hallway with no distress Review of Systems Review of Systems: All systems reviewed & are unremarkable except as noted in Subjective Physical Exam Physical Exam: General- No acute distress Head- atraumatic Eyes- PERRL, EOMI, ENT- oropharynx clear Neck- supple, no JVD Lungs- clear to auscultation Heart- regular rhythm; no murmur Abdomen- normal bowel sounds, soft, nontender Extremities- no calf tenderness Neuro- alert, oriented x 3; PERRL, EOMI; no facial palsy; no dysarthria Skin- warm & dry Results & Data Results & Data ([facility]) Vital Signs (Past 12 Hours) Vital Signs Temp Pulse Resp BP Pulse Ox O2 Del Method 05/09/22 15:32 36.9 C 65 18 138/75 98 Room Air 05/09/22 08:00 Room Air 05/09/22 08:00 36.5 C 56 L 18 134/78 96 Room Air
--- NOTE | 2022-05-09 22:19 | Orthopedic Progress Note ---
Date of Service May 09, 2022 Assessment & Plan (1) Osteomyelitis: Plan: Patient seen, evaluated, and treated. Dry, sterile dressing change with out incident. Appreciate construction equipment technician consult Appreciate Infectious Disease consult. Clear margins apparent during surgical care. Awaiting Pathology report. Initial wound did probe to bone. Much of bone erosion may also have been due to poorly controlled Gout. Awaiting Uric Acid draw. Patient taking 100mg qd of allopurinol and may benefit from increase in dose and/or frequency. Thank you for allowing me to participate in the care of this Patient. (2) Gout: (3) Diabetes: Admission and Anticipated Discharge Date Admission Date: May 05, 2022 Subjective Patient seen at bedside in no distress. He is status post day #3 excision left foot surgery. Patient has no compliants. Review of Systems Review of Systems: All systems reviewed & are unremarkable except as noted in HPI & below Physical Exam Constitutional: WD/WN, vitals as above Respiratory: normal respiratory effort Cardiovascular: Rate/Rhythm: regular rate and regular rhythm Musculoskeletal: no cyanosis or clubbing, extremities motor strength 5/5 Skin: Sutures intact. SKin co-apted. Neurologic: Absent epicritic sensation. Psychiatric: A+Ox3, euthymic affect Results & Data ([facility]) Vital Signs (Past 12 Hours) Vital Signs Temp Pulse Resp BP Pulse Ox O2 Del Method 05/09/22 21:55 37.1 C 69 18 155/77 H 97 Room Air 05/09/22 15:32 36.9 C 65 18 138/75 98 Room Air Laboratory Results Gram Stain Final 05/06/22-2005 Gram Stain Result Few WBCs Seen Few Gram Positive Cocci Aero/Cyndi Cult Preliminary 05/09/22-1217 Organism 1 Staphylococcus aureus Quantity Few Sens Sensitivities to Follow No Anaerobes Isolated No Anaerobes Isolated +MixWound Plus Low Counts of Probable Skin Shantell Organism 2 Enterococcus faecalis Quantity Few Sens Sensitivities to Follow S aureus E faecalis RX M.I.C. RX M.I.C. --- --------- --- --------- Ampicillin S <=2 Clindamycin S <=0.5 Daptomycin S 1 S 1 Erythromycin S <=0.5 Gent Synergy S <=500 Oxacillin S 0.5 Penicillin S 2 Strep Synergy S <=1000 Tetracycline S <=4 Trimeth/Sulfa S <=0.5/9.5 Vancomycin S 2 S 4 Enterococcus faecalis: Positive Combo 33 Streptomycin Synergy Screen S Gentamicin Synergy Screen S
[2022-05-10] MEDS: AMPICILLIN 2,000 MG in 0.9 % SODIUM CHLORIDE 100 ML IV SCH ×6 (00:17→20:17)
[2022-05-10] MEDS: ceFAZolin 2000MG 2,000 MG/15 ML SYR IV SCH ×3 (04:29→20:17)
[2022-05-10] MEDS: amLODIPine BESYLATE 5 MG TAB PO SCH (08:46)
[2022-05-10] MEDS: NICOTINE 21 MG/24 HR TDSY TD SCH (08:46)
[2022-05-10] MEDS: GABAPENTIN 600 MG TAB PO SCH ×2 (08:46→20:18)
[2022-05-10] MEDS: allopurinoL 100 MG TAB PO SCH ×2 (08:46→20:18)
[2022-05-10] MEDS: ESCITALOPRAM OXALATE 10 MG TAB PO SCH (08:46)
[2022-05-10] MEDS: INSULIN ASPART PER UNIT SC SCH ×4 (08:47→21:12)
[2022-05-10] MEDS: LANTUS PER UNIT CHARGE SQ SCH (08:54)
--- NOTE | 2022-05-10 10:15 | Pharmacy Report ---
Pharmacy Glycemic Short Note 2 - Date of Service May 10, 2022 - Glycemic Short BSG Results (Last 24 hours): 05/09/22 05/09/22 05/09/22 08:15 12:00 16:48 POC Glucose 145 H 211 H 153 H 05/09/22 05/10/22 20:47 08:12 POC Glucose 93 111 H OUTPATIENT ANTIDIABETIC REGIMEN: * Metformin 1000mg QAM, 500mg QPM * Formerly took insulin 70/30 and Ozempic, has since stopped taking both of these medications. ASSESSMENT: 05/10/22 * BSGs yesterday were 142-638-686-93 mg/dL. Patient received 84 units of insulin (44 units of basal and 40 units of bolus). * Fasting today 111 mg/dL. * Decrease basal to 15 units BID (30% reduction) starting this evening. * Loosened CR for all meals except breakfast since BSGs trending down. 05/08/22 * Natan received 79 units of insulin yesterday with decent glycemic control * 40 units basal * 39 units bolus * BSGs: 126, 228, 258, 157 * Fasting BSG elevated this morning. Will increase Lantus 10%. * Lunch BSG is consistently the highest of the day. Will tighten carb coverage with breakfast to avoid spike at lunch. Will utilize a less aggressive CF/CR with other meals and HS. 05/07/22: * Patient underwent surgery yesterday, today is ordered a diet and does not have any new stressors ordered that would increase insulin demand. * BSG's seem to be trending towards goal. Fasting BSG this AM was lower than anticipated at 123 mg/dL, will reduce total daily dose of Lantus today by ~20%. * At lunch, POC BSG was recorded at 228 mg/dL. Carbohydrate coverage will be tightened. 05/06/22, Initial Assessment: * Natan Herron is a 51 year old male with type 2 diabetes who presented to the [facility] emergency department on 05/05/22 due to concerns of a left foot wound that has been present since January. CT scan later identified the infection to be osteomyelitis, and the patient is scheduled to have surgery today 05/06/22 * A1c resulted as 14% today. This is a notable increase since their 9.9% A1c in 03/2021 * Upon admission, the patient was given 30 units of Lantus, and Novolog was started with CF of 15 and CR of 5 parameters. Patient is currently NPO in anticipation of surgical procedure; actual time of procedure uncertain. * Will give another 20 units of Lantus now, and then put tonight's dose on a scale. PLAN FOR INPATIENT GLYCEMIC CONTROL: * Hold outpatient oral diabetes medications * Basal insulin * Lantus 15 units SQ BID * Bolus insulin * NovoLog per scale ACHS or Q6hrs while NPO * Goal Range: Low 110 mg/dL - High 140 mg/dL Breakfast: * Correction Factor: 15 mg/dL/unit * Nutritional / Prandial insulin per carb ratio of 1 unit per 3 grams CHO consumed Lunch/dinner/HS: * Correction Factor: 25 mg/dL/unit * Nutritional / Prandial insulin per carb ratio of 1 unit per 5 grams CHO consumed
[2022-05-10] MEDS: FUROSEMIDE 40 MG TAB PO SCH (10:19)
--- NOTE | 2022-05-10 15:42 | Orthopedic Progress Note ---
Date of Service May 10, 2022 Assessment & Plan (1) Osteomyelitis: Plan: Patient seen, evaluated, and treated. Dry, sterile dressing change with out incident. Reviewed Diabetes and Diabetic foot care with Patient and . Appreciate Infectious Disease consult, IV ancef 6wks. Clear margins apparent during surgical care. Awaiting Pathology report. Initial wound did probe to bone. Much of bone erosion may also have been due to poorly controlled Gout. Uric Acid this am 7.9mg/dL. Patient changed to allopurinol 100 Bid. Thank you for allowing me to participate in the care of this Patient. (2) Gout: (3) Diabetes: Admission and Anticipated Discharge Date Admission Date: May 05, 2022 Subjective Patient seen at bedside in no distress. He is status post day #3 excision left foot surgery. Patient has no compliants. Review of Systems Review of Systems: All systems reviewed & are unremarkable except as noted in HPI & below Physical Exam Constitutional: WD/WN, vitals as above Eyes: PERRL, conjunctivae normal, anicteric sclerae ENMT: external ear and nose normal, oropharynx normal Neck: trachea midline, no thyromegaly Respiratory: normal respiratory effort, lungs clear to auscultation normal respiratory effort Cardiovascular: RRR, no murmur, no edema Rate/Rhythm: regular rate and regular rhythm Musculoskeletal: no cyanosis or clubbing, extremities motor strength 5/5 Neurologic: moves all extremities and awake Psychiatric: A+Ox3, euthymic affect Results & Data ([facility]) Vital Signs (Past 12 Hours) Vital Signs Temp Pulse Resp BP Pulse Ox O2 Del Method 05/10/22 14:53 36.6 C 69 18 122/75 94 Room Air 05/10/22 08:15 36.6 C 65 18 140/76 97 Room Air Laboratory Results URIC ACID 7.9 mg/dL
--- NOTE | 2022-05-10 16:55 | Hospitalist Progress Note ---
Date of Service May 10, 2022 Assessment & Plan (1) Osteomyelitis: Plan: Left Foot Wound This is a 51-year-old male who has significant past medical history of uncontrolled T2DM, morbid obesity, HLD, CKD stage III, HTN, diabetic neuropathy who presented to ER secondary to left foot wound on 05/05/2022. His left foot wound has been chronic since January and almost fully healed until reopening the day of arrival. CT L Foot showed Findings are compatible with cellulitis along with focal bony erosions compatible with osteomyelitis. Extensive degenerative changes are seen most prominently in the mid foot. S/P day #3Left foot Removal of Non-Viable Bone and Tissue First Metatarsal and Proxmial Phalanx(Left) performed by Dr. Gifford. Wound cx grew staph species and gram positive cocci. ID on board Currently on IV Ampicillin and Cefazolin ID recommended to transition to Unasyn 6 weeks course PICC line placed Check CMP and CBC in 6 weeks while on IV abx case management working for antibiotic outpatient (2) Hyperkalemia: Plan: Mild, K+ 5.3 on admission today 4.8, resolved Per review of outpatient records patient has had hyperkalemia dating back to 2019 Received IVF in the ED, repeat BMP this evening Home BP med, Lisinopril discontinued on admission due to hyperkalemia (3) Diabetes: Plan: Hgb A1c 9.9 03/2021, now 14.0 on 05/06/22 Patient reports he is currently only taking metformin. Self stopped Ozempic and 70/30 insulin several months ago. Stopped ozempic due to diarrhea No signs of DKA Continue [facility] telehealth nurse educator spoke with patient - will be imperative to wound healing He will also need to follow with [place] [facility] (4) CKD (chronic kidney disease), stage III: Plan: Baseline creatinine ~ 1.5 Creatinine 1.3 today Follow renal functions Continue lasix Monitor BMP (5) HTN (hypertension): Plan: Due to mild hyperkalemia, lisinopril was d/c on admission in favor of amlodipine BP Still elevated on amlodipine and lasix may need to up titrate amlodipine after a few days if still remains elevated will need close OP follow up Gout Uric acid elevated at 7.9 Allopurinol increased to 100mg BID DVT PROPHYLAXIS SCDs due to possible invasive procedure Dispo: pt to remain hospitalized, to undergo procedure this evening A total of 35 minutes were spent with greater than 50% of that time face to face with the patient, personally reviewing all current laboratories, imaging studies, past medication reconciliation, outpatient chart review, and discussion with specialists to collaborate care for the patient with attending. Please see attending documentation for corrections and/or additions. Admission and Anticipated Discharge Date Admission Date: May 05, 2022 Subjective Pt was seen and examined for follow up left foot infection sitting in chair with no acute distress Pt said that he feels okand he has been walking in the hallway Denies any chest pain, palpitation, dizziness and SOB Review of Systems Review of Systems: All systems reviewed & are unremarkable except as noted in Subjective Physical Exam Physical Exam: General- No acute distress Head- atraumatic Eyes- PERRL, EOMI, ENT- oropharynx clear Neck- supple, no JVD Lungs- clear to auscultation Heart- regular rhythm; no murmur Abdomen- normal bowel sounds, soft, nontender Extremities- no calf tenderness Neuro- alert, oriented x 3; PERRL, EOMI; no facial palsy; no dysarthria Skin- warm & dry Results & Data Results & Data ([facility]) Vital Signs (Past 12 Hours) Vital Signs Temp Pulse Resp BP Pulse Ox O2 Del Method 05/10/22 14:53 36.6 C 69 18 122/75 94 Room Air 05/10/22 08:15 36.6 C 65 18 140/76 97 Room Air
[2022-05-10] MEDS ORDERED: LANTUS PER UNIT CHARGE SQ SCH (21:00)
[2022-05-11] MEDS: AMPICILLIN 2,000 MG in 0.9 % SODIUM CHLORIDE 100 ML IV SCH ×3 (00:13→08:54)
[2022-05-11] MEDS: ceFAZolin 2000MG 2,000 MG/15 ML SYR IV SCH (04:10)
[2022-05-11] MEDS: ESCITALOPRAM OXALATE 10 MG TAB PO SCH (08:44)
[2022-05-11] MEDS: amLODIPine BESYLATE 5 MG TAB PO SCH (08:44)
[2022-05-11] MEDS: FUROSEMIDE 40 MG TAB PO SCH (08:44)
[2022-05-11] MEDS: GABAPENTIN 600 MG TAB PO SCH ×2 (08:45→20:50)
[2022-05-11] MEDS: NICOTINE 21 MG/24 HR TDSY TD SCH (08:49)
[2022-05-11] MEDS: allopurinoL 100 MG TAB PO SCH ×2 (08:50→20:50)
[2022-05-11] MEDS: ACETAMINOPHEN 325 MG TAB PO PRN ×2 (08:51→17:54)
[2022-05-11] MEDS: LANTUS PER UNIT CHARGE SQ SCH ×2 (08:52→20:49)
[2022-05-11] MEDS: INSULIN ASPART PER UNIT SC SCH ×4 (08:53→20:50)
[2022-05-11] MEDS: AMPICILLIN/SULBACTAM SOD 3,000 MG in 0.9 % SODIUM CHLORIDE 100 ML IV SCH ×3 (12:41→23:52)
--- NOTE | 2022-05-11 15:45 | Hospitalist Progress Note ---
Date of Service May 11, 2022 Assessment & Plan (1) Osteomyelitis: Plan: Left Foot Wound This is a 51-year-old male who has significant past medical history of uncontrolled T2DM, morbid obesity, HLD, CKD stage III, HTN, diabetic neuropathy who presented to ER secondary to left foot wound on 05/05/2022. His left foot wound has been chronic since January and almost fully healed until reopening the day of arrival. CT L Foot showed Findings are compatible with cellulitis along with focal bony erosions compatible with osteomyelitis. Extensive degenerative changes are seen most prominently in the mid foot. S/P day #4Left foot Removal of Non-Viable Bone and Tissue First Metatarsal and Proxmial Phalanx(Left) performed by Dr. Gifford. Wound cx grew staph species and gram positive cocci. ID on board Currently on IV Ampicillin and Cefazolin ID recommended to transition to Unasyn 6 weeks course PICC line placed Check CMP and CBC in 6 weeks while on IV abx case management working for antibiotic outpatient (2) Hyperkalemia: Plan: Mild, K+ 5.3 on admission today 4.8, resolved Per review of outpatient records patient has had hyperkalemia dating back to 2019 Received IVF in the ED, repeat BMP this evening Home BP med, Lisinopril discontinued on admission due to hyperkalemia (3) Diabetes: Plan: Hgb A1c 9.9 03/2021, now 14.0 on 05/06/22 Patient reports he is currently only taking metformin. Self stopped Ozempic and 70/30 insulin several months ago. Stopped ozempic due to diarrhea No signs of DKA Continue [employer] music educator spoke with patient - will be imperative to wound healing He will also need to follow with [facility] (4) CKD (chronic kidney disease), stage III: Plan: Baseline creatinine ~ 1.5 Creatinine 1.3 today Follow renal functions Continue lasix Monitor BMP (5) HTN (hypertension): Plan: Due to mild hyperkalemia, lisinopril was d/c on admission in favor of amlodipine BP Still elevated on amlodipine and lasix may need to up titrate amlodipine after a few days if still remains elevated will need close OP follow up Gout Uric acid elevated at 7.9 Allopurinol increased to 100mg BID DVT PROPHYLAXIS SCDs due to possible invasive procedure Dispo: pt to remain hospitalized, to undergo procedure this evening A total of 35 minutes were spent with greater than 50% of that time face to face with the patient, personally reviewing all current laboratories, imaging studies, past medication reconciliation, outpatient chart review, and discussion with specialists to collaborate care for the patient with attending. Please see attending documentation for corrections and/or additions. Admission and Anticipated Discharge Date Admission Date: May 05, 2022 Subjective Pt was seen and examined for follow up left foot infection sitting in chair with no acute distress Waiting for case management to arrange for outpatient IV abx Denies any chest pain, palpitation, dizziness and SOB Review of Systems Review of Systems: All systems reviewed & are unremarkable except as noted in Subjective Physical Exam Physical Exam: General- No acute distress Head- atraumatic Eyes- PERRL, EOMI, ENT- oropharynx clear Neck- supple, no JVD Lungs- clear to auscultation Heart- regular rhythm; no murmur Abdomen- normal bowel sounds, soft, nontender Extremities- no calf tenderness Neuro- alert, oriented x 3; PERRL, EOMI; no facial palsy; no dysarthria Skin- warm & dry Results & Data Results & Data ([facility]) Vital Signs (Past 12 Hours) Vital Signs Temp Pulse Pulse Resp BP Pulse Ox O2 Del Method 05/11/22 15:17 37.3 C 73 18 152/75 H 97 Room Air 05/11/22 07:14 36.9 C 68 20 127/73 98 Room Air
[2022-05-12] MEDS: ACETAMINOPHEN 325 MG TAB PO PRN ×3 (00:24→20:40)
[2022-05-12] MEDS: AMPICILLIN/SULBACTAM SOD 3,000 MG in 0.9 % SODIUM CHLORIDE 100 ML IV SCH ×4 (06:12→23:20)
[2022-05-12] MEDS ORDERED: LANTUS PER UNIT CHARGE SQ ONE (09:00)
[2022-05-12] MEDS: GABAPENTIN 600 MG TAB PO SCH ×2 (09:32→19:49)
[2022-05-12] MEDS: ESCITALOPRAM OXALATE 10 MG TAB PO SCH (09:32)
[2022-05-12] MEDS: FUROSEMIDE 40 MG TAB PO SCH (09:32)
[2022-05-12] MEDS: allopurinoL 100 MG TAB PO SCH ×2 (09:33→19:49)
[2022-05-12] MEDS: amLODIPine BESYLATE 5 MG TAB PO SCH (09:33)
[2022-05-12] MEDS: INSULIN ASPART PER UNIT SC SCH ×4 (09:34→20:51)
[2022-05-12] MEDS: NICOTINE 21 MG/24 HR TDSY TD SCH (09:35)
--- NOTE | 2022-05-12 10:59 | Pharmacy Report ---
Pharmacy Glycemic Short Note 2 - Date of Service May 12, 2022 - Glycemic Short BSG Results (Last 24 hours): 05/11/22 05/11/22 05/11/22 12:19 17:17 20:29 POC Glucose 164 H 96 144 H 05/12/22 07:58 POC Glucose 99 OUTPATIENT ANTIDIABETIC REGIMEN: * Metformin 1000mg QAM, 500mg QPM * Formerly took insulin 70/30 and Ozempic, has since stopped taking both of these medications. ASSESSMENT: 05/12/22 * BSGs yesterday were [id number] mg/dL. Patient received 80 units of insulin (36 units of basal and 44 units of bolus). * Fasting today: 99 mg/dL * Continuing with Lantus 18 units for AM basal insulin; will evaluate BSGs throughout the day to determine PM basal insulin dose. * Bolus insulin schedule will remain the same at this time (CF 15, CR 3 @ 0730; CF 25, CR 5 for all other meals/times) * Patient is likely being discharged soon and expressed interest in carb counting. Recommendations for outpatient insulin regimen were provided by diabetes care and supervisor education (CR: 5, and if patient becomes overwhelmed with carb counting, they can give 10 units of bolus insulin with meals). Pharmacy is agreeable with this recommendation and provided recommendation for Lantus 35 units QAM for outpatient basal insulin. 05/10/22 * BSGs yesterday were [phone] mg/dL. Patient received 84 units of insulin (44 units of basal and 40 units of bolus). * Fasting today 111 mg/dL. * Decrease basal to 15 units BID (30% reduction) starting this evening. * Loosened CR for all meals except breakfast since BSGs trending down. 05/08/22 * Natan received 79 units of insulin yesterday with decent glycemic control * 40 units basal * 39 units bolus * BSGs: 126, 228, 258, 157 * Fasting BSG elevated this morning. Will increase Lantus 10%. * Lunch BSG is consistently the highest of the day. Will tighten carb coverage with breakfast to avoid spike at lunch. Will utilize a less aggressive CF/CR with other meals and HS. 05/07/22: * Patient underwent surgery yesterday, today is ordered a diet and does not have any new stressors ordered that would increase insulin demand. * BSG's seem to be trending towards goal. Fasting BSG this AM was lower than anticipated at 123 mg/dL, will reduce total daily dose of Lantus today by ~20%. * At lunch, POC BSG was recorded at 228 mg/dL. Carbohydrate coverage will be tightened. 05/06/22, Initial Assessment: * Natan Herron is a 51 year old male with type 2 diabetes who presented to the [facility] emergency department on 05/05/22 due to concerns of a left foot wound that has been present since January. CT scan later identified the infection to be osteomyelitis, and the patient is scheduled to have surgery today 05/06/22 * A1c resulted as 14% today. This is a notable increase since their 9.9% A1c in 03/2021 * Upon admission, the patient was given 30 units of Lantus, and Novolog was started with CF of 15 and CR of 5 parameters. Patient is currently NPO in anticipation of surgical procedure; actual time of procedure uncertain. * Will give another 20 units of Lantus now, and then put tonight's dose on a scale. PLAN FOR INPATIENT GLYCEMIC CONTROL: * Hold outpatient oral diabetes medications * Basal insulin * Lantus 18 units SQ BID * Bolus insulin * NovoLog per scale ACHS or Q6hrs while NPO * Goal Range: Low 110 mg/dL - High 140 mg/dL Breakfast: * Correction Factor: 15 mg/dL/unit * Nutritional / Prandial insulin per carb ratio of 1 unit per 3 grams CHO consumed Lunch/dinner/HS: * Correction Factor: 25 mg/dL/unit * Nutritional / Prandial insulin per carb ratio of 1 unit per 5 grams CHO consumed
--- NOTE | 2022-05-12 16:12 | Hospitalist Progress Note ---
Date of Service May 12, 2022 Assessment & Plan (1) Osteomyelitis: Plan: Left Foot Wound 51-year-old male who has significant past medical history of uncontrolled T2DM, morbid obesity, HLD, CKD stage III, HTN, diabetic neuropathy who presented to ER secondary to left foot wound on 05/05/2022. His left foot wound has been chronic since January and almost fully healed until reopening the day of arrival. CT L Foot showed findings are compatible with cellulitis along with focal bony erosions compatible with osteomyelitis. Extensive degenerative changes are seen most prominently in the mid foot. POD #6 Left foot Removal of Non-Viable Bone and Tissue First Metatarsal and Proxmial Phalanx(Left) performed by Dr. Gifford. Wound culture grew Staphylococcus and Enterococcus ID following, recommending IV Unasyn x 6 weeks from 05/08/[address] CMP, CBC weekly while on IV antibiotics Case management following for outpatient IV antibiotic (2) Hyperkalemia: Plan: Mild, K+ 5.3 on admission Resolved Per review of outpatient records patient has had hyperkalemia dating back to 2019 Lisinopril discontinued (3) Diabetes: Plan: Hgb A1c 9.9 03/2021, now 14.0 on 05/06/22 Patient reports he is currently only taking metformin. Self stopped Ozempic and 70/30 insulin several months ago. Stopped ozempic due to diarrhea. On Lantus and NovoLog visual educator following. D/C plan: Lantus 35 units daily Carb ratio 1:5; with 10 units with meals as a back up plan Resume metformin at d/c [place] 32 gauge x 5/32" (4mm) FreeStyle Libre2 Sensors (06/09 days) (4) CKD (chronic kidney disease), stage III: Plan: Baseline creatinine ~ 1.5 Creatinine 1.3 today Follow renal functions (5) HTN (hypertension): Plan: Due to mild hyperkalemia, lisinopril was d/c on admission in favor of amlodipine. Continued on home dose Lasix BP controlled Gout Uric acid elevated at 7.9 Allopurinol increased to 100mg BID DVT PROPHYLAXIS SCDs Dispo-likely DC tomorrow Admission and Anticipated Discharge Date Admission Date: May 05, 2022 Supervising Physician Co-Signing Physician Notes Pt was seen and examined by me. Agreed with Clair BROWN, exam, assessment and plan. 51 y/o M with hx of IDDM (uncontrolled), HTN, CKD III, HLD admitted for cellulitis/wound infection of the L 1stMTP area with osteomyelitis of the first digit metatarsal and phalanx. CT foot revealed findings compatible with cellulitis along with focal bony erosions compatible with osteomyelitis. S/P day left foot Removal of Non-Viable Bone and Tissue First Metatarsal and Proxmial Phalanx(Left) performed by Dr. Gifford. Wound cx grew staph species and gram positive cocci. ID on board recommended to discontinued IV Dapto and Zosyn; then suggested 6 weeks of IV abx with Ancef. Continue wound care as per podiatry. Waiting for case management to arrange for outpatient abx infusion for ancef. MD Chio Subjective Follow-up for left foot wound, osteomyelitis. Patient seen and examined. Offers no complaints. Eager for discharge. Pain is well controlled. No chest pain or shortness of breath. Denies abdominal pain or nausea. Review of Systems Review of Systems: ROS per HPI, all other systems reviewed and negative Physical Exam Constitutional: WD/WN, vitals as above no acute distress Respiratory: normal respiratory effort, lungs clear to auscultation Cardiovascular: Rate/Rhythm: regular rate and regular rhythm Vessels: normal peripheral pulses Extremities: no edema Gastrointestinal (Abdomen): Percussion/Palpation: abdomen soft; abdomen nontender Skin: no rashes, warm and dry Dressing/boot in place to left foot Neurologic: no focal motor deficits Psychiatric: A+Ox3, euthymic affect Results & Data Results & Data ([facility]) Vital Signs (Past 12 Hours) Vital Signs Temp Pulse Resp BP Pulse Ox O2 Del Method 05/12/22 09:30 120/66 05/12/22 08:20 36.4 C L 63 16 147/78 H 97 Room Air
[2022-05-12] MEDS ORDERED: LANTUS PER UNIT CHARGE SQ SCH (21:00)
--- NOTE | 2022-05-12 21:59 | Orthopedic Progress Note ---
Date of Service May 12, 2022 Assessment & Plan (1) Osteomyelitis: Plan: Patient seen, evaluated, and treated. Dry, sterile dressing change with out incident. Reviewed Diabetes and Diabetic foot care with Patient and . Patient's trained on IV abx delivery. Appreciate Infectious Disease consult, IV zoysn 6wks. Reviewed Pathology report. Bone erosion probable due to tophi erosion. Patient is weight bearing as tolerated in surgical shoe. Discussed daily dressing changes 4x4 gauze, kerlix, faraz. Patient will follow up in office 10-14 days for continued care. Thank you for allowing me to participate in the care of this Patient. (2) Gout: (3) Diabetes: Admission and Anticipated Discharge Date Admission Date: May 05, 2022 Subjective Patient seen at bedside with present. Follow-up for left foot wound, osteomyelitis. Patient seen and examined. Offers no complaints. Eager for discharge. Review of Systems Review of Systems: All systems reviewed & are unremarkable except as noted in HPI & below Physical Exam Constitutional: WD/WN, vitals as above Eyes: PERRL, conjunctivae normal, anicteric sclerae ENMT: external ear and nose normal, oropharynx normal Neck: trachea midline, no thyromegaly Respiratory: normal respiratory effort, lungs clear to auscultation normal respiratory effort Cardiovascular: RRR, no murmur, no edema Rate/Rhythm: regular rate and regular rhythm Musculoskeletal: no cyanosis or clubbing, extremities motor strength 5/5 Neurologic: moves all extremities and awake Psychiatric: A+Ox3, euthymic affect Results & Data ([facility]) Vital Signs (Past 12 Hours) Vital Signs Temp Pulse Resp BP Pulse Ox O2 Del Method 05/12/22 21:44 75 20 124/66 95 Room Air 05/12/22 16:38 36.7 C 68 18 151/77 H 97 Room Air Diagnostic Findings FINAL DIAGNOSIS Bone, left first metatarsal (removal of nonviable bone and soft tissue from the left foot): - The metatarsal bone reveals an intact cartilaginous surface, unremarkable bony trabeculae, and fails to reveal the changes of osteomyelitis or osteonecrosis. - The attached soft tissue reveals tophaceous gout which is confirmed by a slide prepared from the [facility] to yellowish, chalky-appearing material as this slide reveals needle shaped, birefringent crystals exhibiting negative birefringence with insertion of the lambda plate consistent with monosodium urate deposition disease, AKA gout. at 1636.
[2022-05-13] MEDS: AMPICILLIN/SULBACTAM SOD 3,000 MG in 0.9 % SODIUM CHLORIDE 100 ML IV SCH ×2 (05:50→12:11)
[2022-05-13] MEDS: ACETAMINOPHEN 325 MG TAB PO PRN ×2 (06:28→11:05)
[2022-05-13] MEDS ORDERED: LANTUS PER UNIT CHARGE SQ SCH (09:00)
[2022-05-13] MEDS: NICOTINE 21 MG/24 HR TDSY TD SCH (09:14)
[2022-05-13] MEDS: amLODIPine BESYLATE 5 MG TAB PO SCH (09:15)
[2022-05-13] MEDS: FUROSEMIDE 40 MG TAB PO SCH (09:15)
[2022-05-13] MEDS: allopurinoL 100 MG TAB PO SCH (09:15)
[2022-05-13] MEDS: ESCITALOPRAM OXALATE 10 MG TAB PO SCH (09:16)
[2022-05-13] MEDS: GABAPENTIN 600 MG TAB PO SCH (09:16)
[2022-05-13] MEDS: INSULIN ASPART PER UNIT SC SCH ×2 (09:17→12:47)
--- NOTE | 2022-05-13 15:31 | Discharge Summary ---
Date of Service May 13, 2022 Admission HPI Per Admitting Provider 51-year-old male with PMH DM type II, dyslipidemia, CKD stage III, HTN, depression, and other problems listed below who presents for evaluation of a left foot wound. Patient reports wound has been present since January. Patient states that it was mostly healed over and scabbed. This morning, while patient was walking on the steps he reports the wound opened back up and was draining bloody and purulent drainage. Patient believes his wound initially started by rubbing along the inside of his boot. Patient denies fevers and chills. No chest pain or shortness of breath. Denies lightheadedness, dizziness, di aphoresis, syncopal events. No abdominal pain, nausea, vomiting, diarrhea. Denies urinary symptoms. In the ED, patient is hemodynamically stable, afebrile without leukocytosis. CT scan shows distal first digit metatarsal and proximal first digit phalanx osteomyelitis. Labs show glucose 379. Patient was given IV Dapto, IV Zosyn, IV insulin, IVF. Admission Exam Per Admitting Provider Constitutional: WD/WN, vitals as above + obese Eyes: PERRL, conjunctivae normal, anicteric sclerae ENMT: external ear and nose normal, oropharynx normal Respiratory: normal respiratory effort, lungs clear to auscultation Cardiovascular: Rate/Rhythm: regular rate and regular rhythm Vessels: normal peripheral pulses Extremities: no edema Gastrointestinal (Abdomen): normal bowel sounds, soft, nontender, no hepatosplenomegaly Musculoskeletal: no cyanosis or clubbing, extremities motor strength 5/5 Skin: no rashes, warm and dry ~ 3cm wound noted on on the lateral aspect at the base of the left 1st toe with surrounding erythema, edema, and necrotic tissue. Small amount serosanguineous drainage noted. Neurologic: PERRL, EOMI, accommodation nl, no face palsy, no dysarthria Psychiatric: A+Ox3, euthymic affect Principal Diagnosis Left foot osteomyelitis Discharge Exam Constitutional WD/WN, vitals as above + obese Respiratory normal respiratory effort, lungs clear to auscultation Cardiovascular Rate/Rhythm: regular rate and regular rhythm Vessels: normal peripheral pulses Extremities: no edema Gastrointestinal (Abdomen) Percussion/Palpation: abdomen soft; abdomen nontender Skin no rashes, warm and dry dressing/boot in place to left foot Neurologic no focal motor deficits Psychiatric A+Ox3, euthymic affect Discharge Data Allergies Allergy/AdvReac Type Severity Reaction Status Date / Time guaifenesin Allergy Unknown Hives Verified 05/05/22 17:34 Consultations 05/05/22 17:05 Consult Podiatry Routine 05/07/22 11:40 Consult Infectious Diseases Routine Procedures Performed Operation Date: 05/06/22 07:00 Actual Procedures p Left foot Removal of Non-Viable Bone and Tissue First Metatarsal and Proxmial Phalanx(Left) - Dell Gifford, DPM, MS Ordered Studies Laboratory Results WBC 7.80 K/ul (4.8-10.8) 05/08/22 07:01 RBC 3.83 M/uL (4.70-6.10) L 05/08/22 07:01 Hgb 10.4 g/dl (14.0-18.0) L 05/08/22 07:01 Hct 31.9 % (42.0-52.0) L 05/08/22 07:01 MCV 83.3 fL (80.0-100.0) 05/08/22 07:01 MCH 27.2 pg (25.0-34.0) 05/08/22 07:01 MCHC 32.6 g/dL (32.0-36.0) 05/08/22 07:01 RDW Std Deviation 43.6 fL (36.4-46.3) 05/08/22 07:01 RDW Coeff of Luis A 14.4 % (11.5-14.5) 05/08/22 07:01 Plt Count 267 K/uL (130-400) 05/08/22 07:01 MPV 9.9 fL (9.4-12.4) 05/08/22 07:01 Immature Gran % (Auto) 0.2 % 05/05/22 12:54 Neut % (Auto) 66.3 % 05/05/22 12:54 Lymph % (Auto) 25.7 % 05/05/22 12:54 [place] % (Auto) 6.0 % 05/05/22 12:54 Eos % (Auto) 1.3 % 05/05/22 12:54 Baso % (Auto) 0.5 % 05/05/22 12:54 Neut # (Auto) 6.34 K/uL (1.4-6.5) 05/05/22 12:54 Lymph # (Auto) 2.45 K/uL (1.2-3.4) 05/05/22 12:54 [place] # (Auto) 0.57 K/uL (0.24-0.82) 05/05/22 12:54 Eos # (Auto) 0.12 K/uL (0-0.50) 05/05/22 12:54 Baso # (Auto) 0.05 K/uL (0-0.2) 05/05/22 12:54 Immature Gran # (Auto) 0.02 K/uL (0.00-0.02) 05/05/22 12:54 Sodium 137 mmol/L (136-145) 05/09/22 08:19 Potassium 4.8 mmol/L (3.5-5.1) 05/09/22 08:19 Chloride 103 mmol/L (98-107) 05/09/22 08:19 Carbon Dioxide 29 mmol/L (21-32) 05/09/22 08:19 Anion Gap 5 (3-11) 05/09/22 08:19 BUN 30 mg/dl (6-23) H 05/09/22 08:19 Creatinine 1.31 mg/dl (0.6-1.4) 05/09/22 08:19 Est Cr Clr Drug Dosing 105.2 ml/min 05/09/22 08:19 Est GFR ( Amer) 72.0 ml/min 05/09/22 08:19 Est GFR (Non-Af Amer) 62.2 ml/min 05/09/22 08:19 BUN/Creatinine Ratio 22.9 (10-20) H 05/09/22 08:19 Glucose 151 mg/dl (70-99(Fasting)) H 05/09/22 08:19 POC Glucose 190 mg/dl (70-99) H 05/13/22 11:53 Estimat Average Glucose 355 mg/dl 05/06/22 07:34 Hemoglobin A1c 14.0 % (4.5-5.6) H 05/06/22 07:34 Uric Acid 7.9 mg/dl (2.6-7.2) H 05/10/22 09:05 Calcium 10.0 mg/dl (8.5-10.1) 05/09/22 08:19 Total Bilirubin 0.6 mg/dl (0.2-1.0) 05/05/22 12:54 AST 12 U/L (13-39) L 05/05/22 12:54 ALT 17 U/L (7-52) 05/05/22 12:54 Alkaline Phosphatase 114 U/L (34-104) H 05/05/22 12:54 Total Protein 7.7 gm/dl (6.0-8.3) 05/05/22 12:54 Albumin 4.3 gm/dl (3.4-5.0) 05/05/22 12:54 Globulin 3.4 gm/dl (2.5-4.0) 05/05/22 12:54 Albumin/Globulin Ratio 1.3 (0.9-2) 05/05/22 12:54 Urine Color Yellow 05/05/22 21:32 Urine Appearance Clear (Clear) 05/05/22 21:32 Urine pH 5.5 (4.5-7.5) 05/05/22 21:32 Ur Specific [place] 1.025 (1.000-1.030) 05/05/22 21:32 Urine Protein Negative (Negative) 05/05/22 21:32 Urine Glucose (UA) 3+ (Negative) H 05/05/22 21:32 Urine Ketones Negative (Negative) 05/05/22 21:32 Urine Blood Negative (Negative) 05/05/22 21:32 Urine Nitrite Negative (Negative) 05/05/22 21:32 Urine Bilirubin Negative (Negative) 05/05/22 21:32 Urine Urobilinogen Negative (Negative) 05/05/22 21:32 Ur Leukocyte Esterase Negative (Negative) 05/05/22 21:32 SARS-CoV-2, RNA, NAAT NEGATIVE (NEGATIVE) 05/05/22 16:36 Impressions Toe X-Ray 05/05/22 12:16 XR toe(s) LT min 2V CLINICAL HISTORY: diabetic ulcer, left great toe COMPARISON STUDY: None. FINDINGS: 3 views of the left first toe were submitted for review. There is soft tissue swelling at the first MTP joint. Moderate to severe osteoarthritis at the first MTP joint. There is a bony bunion and large marginal osteophytes at the first MTP joint. No acute destructive changes identified to suggest an osteomyelitis. Small erosive changes at the medial base of the first proximal phalanx and medial head of first metatarsal with overhanging edges. This could be due to the chronic degenerative change or possible superimposed gouty arthritis. There is a trace 2 cm skin ulceration at the medial aspect of the first MTP joint. IMPRESSION: 1. Soft tissue swelling and a skin ulceration at the medial aspect of the first MTP joint. 2. No acute destructive changes to suggest an osteomyelitis. 3. Moderate to severe osteoarthritis of the first MTP joint with a bony bunion and large marginal osteophytes. 4. Small erosive changes at the medial base of the first proximal phalanx and medial head of first metatarsal with overhanging edges. This could be due to the chronic degenerative change or possible superimposed gouty arthritis. ACT 112: Negative or not required by law. Electronically signed by: Ed Perkins M.D. 05/05/2022 12:[address] 05/05/22 14:30 CT foot LT wo con CLINICAL HISTORY: poss osteo, foul odor TECHNIQUE: Multidetector row helical CT of the right foot was performed without intravenous contrast. Coronal and sagittal reformations were obtained. Automated dose lowering techniques and/or adjustment according to patient size were utilized for this examination. Comparison: Comparison is made to the radiograph 05/05/2022 FINDINGS: Multiple bony erosions are seen in the distal first digit metatarsal and proximal first digit phalanx. Extensive degenerative changes are seen in the foot most prominently in the mid foot. Soft tissue swelling is seen about the first tarsometatarsal joint. IMPRESSION: 1. Findings are compatible with cellulitis along with focal bony erosions compatible with osteomyelitis. 2. Extensive degenerative changes are seen most prominently in the mid foot. ACT 112: Negative or not required by law. Electronically signed by: Bret Kahn M.D. 05/05/2022 3:45 PM Diabetes Follow up Diabetes Follow-up Needed for HgbA1c >9% Hospital Course (1) Osteomyelitis: Left Foot Wound 51-year-old male who has significant past medical history of uncontrolled T2DM, morbid obesity, HLD, CKD stage III, HTN, diabetic neuropathy who presented to ER secondary to left foot wound on 05/05/2022. His left foot wound has been chronic since January and almost fully healed until reopening the day of arrival. CT L Foot showed findings are compatible with cellulitis along with focal bony erosions compatible with osteomyelitis. Extensive degenerative changes are seen most prominently in the mid foot. POD #7 Left foot Removal of Non-Viable Bone and Tissue First Metatarsal and Proxmial Phalanx(Left) performed by Dr. Gifford. Wound culture grew Staphylococcus and Enterococcus ID following, recommending IV Unasyn 3gm q6h x 6 weeks from 05/08/[address] CMP, CBC weekly while on IV antibiotics (2) Hyperkalemia: Mild, K+ 5.3 on admission Resolved, K+ 4.8 05/09 Per review of outpatient records patient has had hyperkalemia dating back to 2019 Lisinopril discontinued (3) Diabetes: Hgb A1c 9.9 03/2021, now 14.0 on 05/06/22 Patient reports he is currently only taking metformin. Self stopped Ozempic and 70/30 insulin several months ago. Stopped ozempic due to diarrhea. 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 D/C plan: Lantus 35 units daily Carb ratio 1:5; with 10 units with meals as a back up plan Resume metformin at d/c Patient would benefit from diabetes MTM clinic (4) CKD (chronic kidney disease), stage III: Baseline creatinine ~ 1.5 Creatinine 1.3 on 05/09 Follow renal functions (5) HTN (hypertension): Due to mild hyperkalemia, lisinopril was d/c on admission in favor of amlodipine. Continued on home dose Lasix BP controlled Gout Uric acid elevated at 7.9 Allopurinol increased to 100mg BID Total Time Total Time Spent Total Time Spent (In Minutes): 45 Discharge Plan Discharge Items Patient Disposition: Home - Self-Care Reason For Visit: Left Foot Wound Discharge Diagnosis: Left Foot Osteomyelitis (bone infection) Activity: Per Instructions section Non-emergency contact: Primary Care Provider and Surgeon Call non-emergency contact if: you have any medication questions, your symptoms worsen, your pain is not controlled and you have a fever Follow-up/Referrals: Dell Mosqueda MD [Primary Care Provider] - 05/19/22 11:00 am (Date & Time 05/19/2022 11:00 AM Provider [facility] ) Dell Gifford DPM, MS [Physician] - (Office will call patient with appointment date and time) Diet: Carb Consistent or DM2 Addtl Attending Provider Instructions: You presented to the hospital for evaluation of a wound on your left foot. You were found to have an infection in the bone. Dr. Gifford preformed surgery to clean the infection. Weight bearing as tolerated in surgical shoe. Daily dressing changes 4x4 gauze, kerlix, quinton. You will need to be on an IV antibiotic (Unasyn) until 06/19/21. -- Unasyn 3gm IV every 6 hours through PICC line You will need to go to the [facility] weekly for dressing changes and lab work. First appt 05/18/22 at 9:00. Your diabetes was found to be uncontrolled with hgb A1C 14.0 You were started on Lantus and Novolog and received education from the counterperson. Glargine 35 units daily Novolog 1unit/5 grams of carbohydrate (or 10 units) Restart Metformin Monitoring: Check blood sugar before meals/bedtime When to Notify Provider: Notify provider of BG values > 200 x 3 days or any BG < 70 Lifestyle Changes: Regular/balanced meals thru day, limit carbs, boost protein Due to elevated potassium, your blood pressure medicine lisinopril was discontinued and you were started on amlodipine 5 mg daily. For treatment of gout, your allopurinol was increased to 100 mg twice daily. It was a pleasure taking care of you. If you need to reach a member of the [facility] Hospitalist team at [facility], please call [phone]. KEVIN Morales Pending Studies at Discharge: No Stand-Alone Forms: My [facility], Smoking Cessation Medications and DC Order Prescriptions: New ampicillin-sulbactam [Unasyn] 3 gram recon soln 3 g IV Q6H 42 Days Qty: 1 0RF amlodipine [Norvasc] 5 mg Tablet 5 mg PO QAM Qty: 30 0RF allopurinol 100 mg Tablet 100 mg PO BID Qty: 60 0RF insulin aspart U-100 [Novolog FlexPen U-100 Insulin] 100 unit/mL (3 mL) insulin pen 1 sliding scale dose subcut ACHS Qty: 15 0RF Rx Instructions: Novolog 1unit/5 grams of carbohydrate (or 10 units) (DME) pen needle, diabetic [1st Tier Unifine Pentips] 32 gauge x 5/32" needle See Rx Instructions .Route Qty: 100 0RF Rx Instructions: As directed (DME) FreeStyle Bobby 2 Sensor Kit See Rx Instructions .Route Qty: 1 0RF Rx Instructions: As directed insulin glargine [Basaglar KwikPen U-100 Insulin] 100 unit/mL (3 mL) insulin pen 35 unit subcut DAILY Qty: 15 0RF Continued atorvastatin [Lipitor] 40 mg tablet 40 mg PO HS gabapentin [Neurontin] 600 mg tablet 600 mg PO BID escitalopram oxalate [Lexapro] 10 mg tablet 10 mg PO QAM metformin 500 mg tablet extended release 24 hr 1,000 mg PO QAM metformin 500 mg tablet extended release 24 hr 500 mg PO QPM furosemide 40 mg tablet 40 mg PO QAM cholecalciferol (vitamin D3) 50 mcg (2,000 unit) Tablet 50 mcg PO DAILY Discontinued lisinopril [Zestril] 40 mg tablet 40 mg PO HS allopurinol [Zyloprim] 100 mg tablet 100 mg PO DAILY naproxen 500 mg Tablet 1,000 mg PO AMPM Discharge Orders: Discharge Order (Routine); Ordered 05/13/22 Ordered By: Clair Layton/Other Patient Handouts: Managing Type 2 Diabetes, Healthy Meals for Diabetes, Understanding Carbohydrates Admission Data Admit Date/Time: 05/05/22 17:05 Attending Provider: Herb Cline Admit Provider: Lesia Israel Primary Care Provider: Dell Mosqueda Other Providers: Lesia Israel ; Dell Gifford ; [place] ; Cassius Jaquez ; Nick Wall ; Earl [place] I. ; Jean Claude Logan II ; Kailey Britt ; Selwyn Schumacher ; Brandt Cheek ; Kristi Garner ; [facility],Home Healthcare ; [facility],Referral Center ; Rahul Barroso Other Interventions: Discharge Summary Assessment (RN) Last Done: 05/13/22 11:25 Supervising Physician Co-Signing Physician Notes Patient seen and examined by me, care coordinated with KEVIN Hubbard, please refer to her note above for further detail. Patient was hospitalized and treated for left foot infection, osteomyelitis. Underwent surgery with podiatry, Dr. Gifford. He is to continue antibiotic treatment, with IV Unasyn, for total of 6 weeks. Patient was also treated for uncontrolled diabetes. Patient discharged on insulin, and will need close follow-up with primary care provider/MTM clinic. Currently patient is sitting up in chair in no acute distress. He is awake alert oriented, answering questions appropriately. Denies any pain or discomfort in his left foot. Left foot covered in dressings, Quinton wrap and a boot is placed. Lungs are clear to auscultation. Heart sounds regular. Abdomen soft nontender nondistended, with positive bowel sounds. MD Marlyn
--- NOTE | 2022-05-19 12:01 | Coding Query ---
CODING QUERY FOR UNCONTROLLED DIABETES To promote full compliance with coding requirements relating to patient care, provider participation is requested in all cases of electrical continuity inspector uncertainty. Please assist us with the question(s) below: Coding Question: The term uncontrolled Diabetes was used throughout the record. To be able to code this diagnosis properly, could you please clarify the diagnosis below: ( ) Uncontrolled Diabetes meaning hypoglycemia ( x ) Uncontrolled Diabetes meaning hyperglycemia - with hemoglobin A1c 14% ( ) Other (please specify) Principal Diagnosis: "that condition established after study, to be chiefly responsible for occasioning the admission of the patient to the hospital for care." Co-Existing Principal Diagnosis: "when two or more diagnoses equally meet the criteria for principal diagnosis as determined by the circumstances of admission, diagnostic work up, and/or therapy provided, and the Alphabetic Index, Tabular List, or another coding guideline does not provide sequencing direction, any one of the diagnoses may be sequenced first." "When the physician has documented what appears to be a current diagnosis in the body of the record, but has not included the diagnosis in the final diagnostic statement, the physician should be asked whether the diagnosis should be added." ([facility] 2 QTR90. p3-4) NATALIIA
--- NOTE | 2022-05-19 12:03 | Coding Query ---
To promote full compliance with coding requirements relating to patient care, physician participation is requested in all cases of phlebotomy supervisor uncertainty. Please assist us with the question(s) below: Please specify the known or suspected type by placing an "X" within the parenthesis (x). A diabetic ulcer of left first metatarsophalangeal joint with probe to bone. If possible, please check the box that provides the specific stage of the diabetic ulcer ( ) limited to breakdown of skin ( ) with fat layer exposed ( ) with necrosis of muscle ( X) with necrosis of bone ( ) with muscle involvement without evidence of necrosis ( ) with bone involvement without evidence of necrosis ( ) with other specified severity ( ) with unspecified severity Thank you Connie WILLIAM
--- NOTE | 2022-05-19 12:04 | Coding Query ---
CODING QUERY To promote full compliance with coding requirements relating to patient care, provider participation is requested in all cases of picking machine operator uncertainty. Please assist us with the question(s) below: Coding Question(s): Please specify the acuity/chronicity of the diabetic osteomyelitis. Physician's Response(s): ( ) Acute osteomyelitis ( ) Chronic osteomyelitis ( x ) Other, please specify - Per CT read findings consistent with osteomyelitis - pt underwent surgery with podiatry Dr. Gifford - surgical specimen was examined by pathologist and did not reveal osteomyelitis. However, confirmed gout. Thank you Connie Montes Principal Diagnosis: "that condition established after study, to be chiefly responsible for occasioning the admission of the patient to the hospital for care." Co-Existing Principal Diagnosis: "when two or more diagnoses equally meet the criteria for principal diagnosis as determined by the circumstances of admission, diagnostic work up, and/or therapy provided, and the Alphabetic Index, Tabular List, or another coding guideline does not provide sequencing direction, any one of the diagnoses may be sequenced first." "When the physician has documented what appears to be a current diagnosis in the body of the record, but has not included the diagnosis in the final diagnostic statement, the physician should be asked whether the diagnosis should be added." ([facility] 2 QTR90. p3-4) NATALIIA
== END 2022-05-13 13:53 | disposition home or self-care (01) | DRG 464 ==
LOC: ED 12:05 → 3W 17:05 → SUATTDRO 17:05 → 3W 21:35

== ENCOUNTER 2023-10-10 10:02 | Inpatient (IN) ==
--- OUTSIDE RECORDS SUMMARY | 2023-10-10 10:07 | External Medical Summary | Summary of Care ---
Author Name Unknown Organization [facility] Address [address] [place] [address] Phone [phone] Care Team Providers Care Student Admissions Clerk Name Role Phone Jaylin SALAS MD, Candida Quintero Primary Care Provider [phone] Reason for Visit * Reason Comments eRx-Medication Refill Encounter Details Date Type Department Care Team (Late st Contact Info) Description 08/20/2023 Refill Family Practice [facility] [address] [facility] [place] [address] Candida Kay III, MD [address] [place] [address] Allergies Active Allergy Reactions Criticality Noted Date Comments Guaifenesin Rash 01/17/2014 documented as of this encounter (statuses as of 08/23/2023) Medications Medication Sig Dispensed Refills Start Date End Date Status Acetaminophen ER (TYLENOL 8 HOUR ARTHRITIS PAIN) 650 MG TBCR Take 2 Tabs by mouth every 12 hours as needed for Pain. 100 Tab 3 0 Active Additional Information Patient not taking.Reported on 06/21/2023 naproxen (NAPROSYN) 500 MG TabletIndications :Right elbow pain,Osteophyte, right elbow take 1 tablet by mouth twice a day WITH MORNING AND EVENING MEALS as needed 20 Tab 1 0 Active Additional Information Patient not taking.Reported on 06/21/2023 Allopurinol 100 MG Oral Tablet (Zyloprim) Take 1 Tablet by mouth in the morning and 1 Tablet before bedtime. 180 Tablet 3 3 Active Additional Information Patient not taking.Reported on 06/21/2023 Acetaminophen-Cod eine 300-15 MG Oral Tablet Take 1 Tablet by mouth every 4 hours as needed. Tooth pain 0 3 Active Amoxicillin 250 MG Oral Capsule (Amoxil) Take 1 Capsule by mouth in the morning and 1 Capsule at noon and 1 Capsule before bedtime. 0 3 Active Dexcom G7 SensorIndications :Type 2 diabetes mellitus with hemoglobin A1c goal of less than 7.0% ([facility]) Replace Sensor every 10 days. 3 Each 11 3 Active Glucose Blood In Vitro StripIndications: Type 2 diabetes mellitus with hemoglobin A1c goal of less than 7.0% ([facility]) Use 2-4 times daily to test blood sugar. 100 Strip 5 4 Active Vitamin D3 50 MCG (1999 UT) Oral Capsule Take 1 Capsule by mouth in the morning. 30 Capsule 5 4 Active Additional Information Patient not taking.Reported on 06/21/2023 Atorvastatin Calcium 40 MG Oral Tablet (Lipitor)Indicati ons:Dyslipidemia, goal LDL below 100 Take 1 Tablet by mouth in the morning. 90 Tablet 2 4 Active Escitalopram Oxalate 10 MG Oral Tablet (Lexapro) Take 1 Tablet by mouth in the morning. 90 Tablet 2 4 Active metFORMIN HCl ER 500 MG Oral Tablet Extended Release 24 Hour (Glucophage XR)Indications:Ty pe 2 diabetes mellitus with hemoglobin A1c goal of less than 7.0% ([facility]) TAKE 2 TABLETS by mouth IN THE MORNING, and 1 TABLET IN THE EVENING 270 Tablet 3 4 Active Gabapentin 600 MG Oral Tablet (Neurontin) Take 1 Tablet by mouth in the morning and 1 Tablet before bedtime. 180 Tablet 3 4 Active Lisinopril 40 MG Oral TabletIndications :Chronic kidney disease, stage 3a ([facility]),Type 2 diabetes mellitus with stage 3a chronic kidney disease, with long-term current use of insulin ([facility]) Take 1 Tablet by mouth daily. 90 Tablet 3 4 Active amLODIPine Besylate 5 MG Oral Tablet (Norvasc) Take 1 Tablet by mouth in the morning. 90 Tablet 3 4 Active Pen Hester 32G X 5 MMIndications:Typ e 2 diabetes mellitus with hemoglobin A1c goal of less than 7.0% ([facility]) Use to inject insulin up to 4 times daily 200 Each 3 4 Active NovoLOG FlexPen 100 UNIT/ML Subcutaneous Solution Pen-injector (insulin aspart)Indication s:Type 2 diabetes mellitus with hemoglobin A1c goal of less than 7.0% ([facility]),Type 2 diabetes mellitus with stage 3a chronic kidney disease, with long-term current use of insulin ([facility]),Type 2 diabetes mellitus with hyperglycemia, with long-term current use of insulin ([facility]) Units as per sliding scale plus carbohydrate count, max dose of 100 units per day 30 mL 11 4 Active Mounjaro 2.5 MG/0.5ML Subcutaneous Solution Pen-injector (Tirzepatide)Rosanna cations:Type 2 diabetes mellitus with hemoglobin A1c goal of less than 7.0% ([facility]),Dyslipidemi a, goal LDL below 100 Inject 2.5 mg under the skin once a week. 2 mL 11 4 07/15/19 25 Active Insulin Glargine Solostar 100 UNIT/ML Subcutaneous Solution Pen-injector (Lantus SoloStar)Indicati ons:Type 2 diabetes mellitus with hemoglobin A1c goal of less than 7.0% ([facility]),Dyslipidemi a, goal LDL below 100 Inject 40 Units under the skin in the morning. (Lantus on Formulary). 45 mL 3 4 Active Furosemide 40 MG Oral Tablet (Lasix) TAKE 1 TABLET BY MOUTH EVERY DAY 90 Tablet 1 4 Active Furosemide 40 MG Oral Tablet (Lasix) TAKE 1 TABLET BY MOUTH EVERY DAY 90 Tablet 0 4 08/23/19 24 Discontinued documented as of this encounter (statuses as of 08/23/2023) Active Problems Problem Noted Date Diagnosed Date Type 2 diabetes mellitus wit h stage 3a chronic kidney disease, with long-term current use of insulin 06/21/2023 Type 2 diabetes mellitus with hyperglycemia 11/2020 Chronic kidney disease, stage 3a 09/24/2020 Overview: Per CKD protocol Type 2 diabetes mellitus wit h stage 3a chronic kidney disease 08/20/2020 Overview: Per CKD protocol Major depressive disorder, recurrent, unspecifie d 07/25/2019 Obesity, morbid (more than 1 00 lbs over ideal weight or BMI > 40) 04/20/2014 Dyslipidemia, goal LDL below 100 03/21/2014 Type 2 diabetes mellitus wit h hemoglobin A1c goal of less than 7.0% 01/25/2014 Overview: ICD-10 update of inactive term documented as of this encounter (statuses as of 08/23/2023) Resolved Problems Problem Noted Date Diagnosed Date Resolved Date Stage 3 chronic kidney disease 08/26/2022 09/24/2022 Myelopathy in diseases classified elsewhere 01/05/2020 03/19/2021 Diabetes mellitus with stage 3 chronic kidney disease 01/17/2018 08/22/2020 Overview: Per CKD protocol #1 HTN, goal to be determined (HYPERTENSION) 04/20/2014 08/29/2014 documented as of this encounter (statuses as of 08/23/2023) Immunizations Name Administration Dates Next Due Hepatitis B, 20+ yrs 05/21/2015,05/25/2014,04/24 Pneumococcal Conjugate Vacci ne, 20-valent ([id number]) 12/16/2022 Pneumococcal Polysaccharide PPV23 (Pneumovax) 04/24/2014 Seasonal Influenza, PF, 6 M & above, IM , (FluLaval or Fluzone) 04/20/2019 Seasonal Influenza, Quadriva lent, No Preserve, IM 04/09/2016,05/21/2015 Seasonal Influenza, Split, I IV3, With Preserve, Inj 01/17/2014 TDAP (age 10 and older)(Boostrix) 01/17/2014 Zoster Vaccine Recombinant (Shingrix) 12/16/2022 documented as of this encounter Social History Tobacco Use Types Packs/Day Years Used Date Smoking Tobacco: Never Smokeless Tobacco: Current Chew, Snuff Alcohol Use Standard Drinks/Week Comments Yes 0 (1 standard drink = 0.6 oz pur e alcohol) occ PHQ-2 Answer Date Recorded PHQ-2 Score 0 01/23/2020 Hunger Vital Sign Answer Date Recorded Within the past 12 months, y ou worried that your food would run out before you got the money to buy more. Never true 10/30/19 22 Within the past 12 months, t he food you bought just didn't last and you didn't have money to get more. Never true 10/29/2021 Sex and Gender Information Value Date Recorded Sex Assigned at Male 10/29/2021 10:25 AM EDT Gender Identity Male 10/29/2021 10:25 AM EDT Sexual Orientation Straight 10/29/2021 10 :25 AM EDT Job Start Date Occupation Industry Not on file Not on file Not on file documented as of this encounter Miscellaneous Notes * Telephone Encounter - Pam Dominguez RPh - 08/23/2023 10:59 AM EDTSigned Prescriptions: Disp Refills Furosemide 40 MG Oral Tablet (Lasix) 90 Tab*1 Sig: TAKE 1 TABLETBY MOUTH EVERY DAYAuthorizing Provider: CANDIDA KAY III User: PAM DOMINGUEZ documented in this encounter Plan of Treatment Upcoming Encounters Date Type Department Care Team (Late st Contact Info) Description 08/26/2023 9:00 AM EDT Office Visit Pharmacy, [place] [address] [facility] [place] [address] [facility] [address] [place] [facility] [place] [address] 12/22/2023 8:00 AM EDT Office Visit Family Practice [facility] [place] [address] [place] [address] Candida Kay III, MD [address] [place] [address] Health Maintenance Due Date Last Done Comments Hepatitis C Screening 06/15/1987 Cologuard 2014 Colonoscopy 2014 Colorectal Cancer Screening 2014 Fecal Occult Blood Test 2014 Sigmoidoscopy 2014 Diabetic Foot Exam 01/04/2021 01/05/2020, 0 05/21/2015, 07/25/2014 COVID-19 Vaccine (1 - season) 2022 Zoster Vaccines (2 of 2) 02/10/2023 12/16/2022 Diabetic Eye Exam 08/27/2023 08/26/2022, , 11/12/2018, Additional history exists GFR 11/15/2023 05/17/2023, 05/14, 06/01/2022, Additional history exists HbA1c 11/15/2023 05/17/2023, 10/2022, 08/26/2022, Additional history exists Influenza Vaccine (FLU shot) (Season Ended) 2023 04/20/2019, 04/09/2016, 05/21/2015, Additional history exists Albumin/Creatinine Ratio 12/17/2023 023, 03/19/2021, 02/02/2017, Additional history exists DTaP,Tdap,and Td Vaccines (2 - Td or Tdap) 01/18/2024 01/17/2014 B-12 05/17/2024 05/17/2023, 120 11/2020, 04/20/2019 CKD HGB USE SMARTSET 20119 05/17/202405/17, 06/08/2022, 06/01/2022, Additional history exists CKD PHOS USE SMARTSET 69367 05/17/20240 08/2023, 03/19/2021, 04/20/2019 Lipid Panel 05/17/2028 05/17/2023, 120 11/2020, 05/31/2019, Additional history exists Hepatitis B Completed 05/21/2015, 05/13, 04/24/2014 Pneumococcal Vaccine: Pediatrics (0 to 5 Years) and At-Risk Patients (6 to 64 Years) Completed 12/16/2022, 04/24/2014 GARDASIL-HPV IMMUNIZATION SERIES Aged Out No longer eligible based on patient's age to complete this topic MENINGOCOCCAL (MENACTRA/MENVEO) Aged Out No longer eligible based on patient's age to complete this topic documented as of this encounter Medical Devices Not on filedocumented as of this encounter Care Teams Student Admissions Clerk Relationship Specialty Start Date End Date Jaylin JOSUE, Candida Quintero MD [address] [facility] [place] [address] PCP - General Family Medicine 04/20/14 documented as of this encounter
--- OUTSIDE RECORDS SUMMARY | 2023-10-10 10:07 | External Medical Summary | Summary of Care ---
Author Name Unknown Organization [facility] Address [address] [place] [place] [address] Phone [phone] Care Team Providers Care Manager Quality Name Role Phone Jaylin SALAS MD, Dell Braun Primary Care Provider [phone] Reason for Visit * Reason Comments Diabetes Follow-Up Dosage Adjustment In Person (Anticoag Cl inic) Encounter Details Date Type Department Care Team (Late st Contact Info) Description 07/15/2023 9:30 AM EDT Office Visit Pharmacy, [facility] [address] [facility] [place] [address] Pharmacist1, [facility] [address] [facility] [address] Type 2 diabetes mellitus with hemoglobin A1c goal of less than 7.0% ([facility]; Dyslipidemia, goal LDL below 100 Allergies Active Allergy Reactions Criticality Noted Date Comments Guaifenesin Rash 01/17/2014 documented as of this encounter (statuses as of 07/15/2023) Medications Medication Sig Dispensed Refills Start Date End Date Status Acetaminophen ER (TYLENOL 8 HOUR ARTHRITIS PAIN) 650 MG TBCR Take 2 Tabs by mouth every 12 hours as needed for Pain. 100 Tab 3 04/25/2019 Active Additional Information Patient not taking.Reported on 06/21/2023 naproxen (NAPROSYN) 500 MG TabletIndications :Right elbow pain,Osteophyte, right elbow take 1 tablet by mouth twice a day WITH MORNING AND EVENING MEALS as needed 20 Tab 1 04/25/2019 Active Additional Information Patient not taking.Reported on 06/21/2023 Allopurinol 100 MG Oral Tablet (Zyloprim) Take 1 Tablet by mouth in the morning and 1 Tablet before bedtime. 180 Tablet 3 08/31/2022 Active Additional Information Patient not taking.Reported on 06/21/2023 Acetaminophen-Cod eine 300-15 MG Oral Tablet Take 1 Tablet by mouth every 4 hours as needed. Tooth pain 0 12/15/2022 Active Amoxicillin 250 MG Oral Capsule (Amoxil) Take 1 Capsule by mouth in the morning and 1 Capsule at noon and 1 Capsule before bedtime. 0 12/15/2022 Active Dexcom G7 SensorIndications :Type 2 diabetes mellitus with hemoglobin A1c goal of less than 7.0% ([facility]) Replace Sensor every 10 days. 3 Each 02/08/2023 Active Furosemide 40 MG Oral Tablet (Lasix) TAKE 1 TABLET BY MOUTH EVERY DAY 90 Tablet 0 05/13/2023 Active Glucose Blood In Vitro StripIndications: Type 2 diabetes mellitus with hemoglobin A1c goal of less than 7.0% ([facility]) Use 2-4 times daily to test blood sugar. 100 Strip 5 06/04/2023 Active Vitamin D3 50 MCG (2000 UT) Oral Capsule Take 1 Capsule by mouth in the morning. 30 Capsule 5 06/04/2023 Active Additional Information Patient not taking.Reported on 06/21/2023 Atorvastatin Calcium 40 MG Oral Tablet (Lipitor)Indicati ons:Dyslipidemia, goal LDL below 100 Take 1 Tablet by mouth in the morning. 90 Tablet 2 06/04/2023 Active Escitalopram Oxalate 10 MG Oral Tablet (Lexapro) Take 1 Tablet by mouth in the morning. 90 Tablet 2 06/04/2023 Active metFORMIN HCl ER 500 MG Oral Tablet Extended Release 24 Hour (Glucophage XR)Indications:Ty pe 2 diabetes mellitus with hemoglobin A1c goal of less than 7.0% ([facility]) TAKE 2 TABLETS by mouth IN THE MORNING, and 1 TABLET IN THE EVENING 270 Tablet 06/04/2023 Active Gabapentin 600 MG Oral Tablet (Neurontin) Take 1 Tablet by mouth in the morning and 1 Tablet before bedtime. 180 Tablet 3 06/04/2023 Active Lisinopril 40 MG Oral TabletIndications :Chronic kidney disease, stage 3a ([facility]),Type 2 diabetes mellitus with stage 3a chronic kidney disease, with long-term current use of insulin ([facility]) Take 1 Tablet by mouth daily. 90 Tablet 3 06/04/2023 Active amLODIPine Besylate 5 MG Oral Tablet (Norvasc) Take 1 Tablet by mouth in the morning. 90 Tablet 06/04/2023 Active Pen Lebo 32G X 5 MMIndications:Typ e 2 diabetes mellitus with hemoglobin A1c goal of less than 7.0% ([facility]CC) Use to inject insulin up to 4 times daily 200 Each 06/04/2023 Active NovoLOG FlexPen 100 UNIT/ML Subcutaneous Solution Pen-injector (insulin aspart)Indication s:Type 2 diabetes mellitus with hemoglobin A1c goal of less than 7.0% ([facility]CC),Type 2 diabetes mellitus with stage 3a chronic kidney disease, with long-term current use of insulin ([facility]CC),Type 2 diabetes mellitus with hyperglycemia, with long-term current use of insulin ([facility]) Units as per sliding scale plus carbohydrate count, max dose of 100 units per day 30 mL 06/04/2023 Active Insulin Glargine Solostar 100 UNIT/ML Subcutaneous Solution Pen-injector (Lantus SoloStar)Indicati ons:Type 2 diabetes mellitus with hemoglobin A1c goal of less than 7.0% ([facility]CC),Dyslipidemi a, goal LDL below 100 Inject 40 Units under the skin in the morning. (Lantus on Formulary). 45 mL 07/15/2023 Active Mounjaro 2.5 MG/0.5ML Subcutaneous Solution Pen-injector (Tirzepatide)Rosanna cations:Type 2 diabetes mellitus with hemoglobin A1c goal of less than 7.0% ([facility]CC),Dyslipidemi a, goal LDL below 100 Inject 2.5 mg under the skin once a week. 2 mL 07/15/2023 5 Active Insulin Glargine Solostar 100 UNIT/ML Subcutaneous Solution Pen-injector (Basaglar KwikPen)Indicatio ns:Type 2 diabetes mellitus with hemoglobin A1c goal of less than 7.0% (HCC) Inject 50 units under the skin daily 15 mL 06/03/2023 4 Discontinue d(Formulary /Cost) Ozempic (0.25 or 0.5 MG/DOSE) 2 MG/3ML Solution Pen-injector (Semaglutide(0.25 or 0.5MG/DOS))Indica tions:Type 2 diabetes mellitus with hemoglobin A1c goal of less than 7.0% (HCC) Inject 0.25 mg under the skin once a week. 3 mL 11 06/04/2023 Discontinue d(Adverse reaction) documented as of this encounter (statuses as of 07/15/2023) Active Problems Problem Noted Date Diagnosed Date [...] as of this encounter (statuses as of 07/15/2023) Resolved Problems Problem Noted Date Diagnosed Date Resolved Date Stage 3 chronic kidney disease 08/26/2022 09/24/2022 Myelopathy in diseases classified elsewhere 01/05/2020 03/19/2021 Diabetes mellitus with stage 3 chronic kidney disease 01/17/2018 08/22/2020 Overview: Per CKD protocol #1 HTN, goal to be determined (HYPERTENSION) 04/20/2014 08/29/2014 documented as of this encounter (statuses as of 07/15/2023) Immunizations Name Administration Dates Next Due Hepatitis B, 20+ yrs 05/21/2015,05/25/2014,04/24 Pneumococcal Conjugate Vacci ne, 20-valent ([id number]) 12/16/2022 Pneumococcal Polysaccharide PPV23 (Pneumovax) 04/24/2014 Seasonal [...] on file documented as of this encounter Progress Notes * Miguel Otto, [facility] - 07/15/2023 9:44 AM EDT Medication Therapy Disease Management [facility] - Diabetes Management Progress Note Natan Herron, identified by name and date of , is a 53 year old male being seen for diabetes management/education. Patient presents for return diabetic visit. DIABETES: Current diabetic medications: Metformin ER 500 mg - 2 AM and 1 PM INC: Lantus 50 units QAM (not using) Novolog per SS - 22-30 units with meals PLUS correction factor: 6 units if BG 220-249; 8 units if BG 250-279; 10 units if BG > 280 START: Ozempic 0.25mg once weekly (stopped JERRY) Medication Injection Site: Abdomen Lifestyle: Diet: unchanged History of Treatment Barriers: Lifestyle: None Therapy considerations: None Medication: None Glucose Review/SMBG: No log to appointment. He lost his meter. He will call with what test strips he has at home so I can send a new meter to the pharmacy. Hypoglycemia: Does your blood sugar go below 70 mg/dL? No Hyperglycemia symptoms present: none Recent Labs Units 05/17/23 0756 11/16/22 0740 08/26/22 1440 HEMOGLOBIN A1C - [facility] % 10.6* -- 8.2* HEMOGLOBIN A1C POCT - [facility] % -- 7.8* -- Recent Labs Units 05/17/23 0756 06/08/22 0000 06/01/22 0000 ESTIMATED GLOMERULAR FILTRATION RATE - [facility] mL/min 69 -- -- EGFR-OUTSIDE LAB ML/MIN -- 78.5 75.1 CREATININE - [facility] mg/dL 1.3* -- -- CREATININE-OUTSIDE LAB MG/DL -- 1.06 1.12 Lab Results Component Value Date/Time CREATININE - [facility] 1.3 (H) 05/17/2023 07:56 AM CREATININE - [facility] 1.2 03/19/2021 10:50 AM CREATININE - [facility] 1.5 (H) 07/26/2019 08:13 AM CREATININE - [facility] 1.6 (H) 05/31/2019 10:14 AM CREATININE - [facility] 1.9 (H) 04/20/2019 12:15 PM CREATININE, RANDOM URINE - [facility] 52 12/16/2022 10:14 AM CREATININE, RANDOM URINE - [facility] 34 03/19/2021 10:52 AM CREATININE, RANDOM URINE - [facility] 35 02/02/2017 09:38 AM CREATININE, RANDOM URINE - [facility] 84 04/24/2016 09:08 AM CREATININE, RANDOM URINE - [facility] 52 05/14/2015 09:43 AM CREATININE-OUTSIDE LAB 1.06 06/08/2022 12:00 AM CREATININE-OUTSIDE LAB 1.12 06/01/2022 12:00 AM CREATININE-OUTSIDE LAB 1.02 05/25/2022 12:00 AM HYPERTENSION: Patient on ACEi/ARB: yes, Lisinopril 40mg dialy BP Readings from Last 3 Encounters: 07/15/23 158/80 06/21/23 140/90 12/16/22 136/72 Blood pressure at goal: No Current regimen: Amlodipine 5mg daily Lisinopril 40mg daily Furosemide 40mg daily Blood Pressure Goal: <140/90 mmHg No results for input(s): "MICROALBUMIN" in the last 14287 hours. Recent Labs Units 05/17/23 0756 06/08/22 0000 06/01/22 0000 POTASSIUM - [facility] mmol/L 5.4* -- -- POTASSIUM-OUTSIDE LAB MMOL/L -- 4.4 4.3 HYPERLIPIDEMIA: Patient is taking moderate or high intensity statin: yes, Atorvastatin 40mg daily HEALTH MAINTENANCE REVIEW: Health Maintenance Due Topic Date Due Hepatitis C Screening Never done Colorectal Cancer Screening Never done Diabetic Foot Exam 01/04/2021 Depression Screening 01/22/2021 COVID-19 Vaccine ( season) Never done Zoster Vaccines (2 of 2) 02/10/2023 ASSESSMENT & PLAN: ICD-10-CM 1. Type 2 diabetes mellitus with hemoglobin A1c goal of less than 7.0% (HCC) E11.9 2. Dyslipidemia, goal LDL below 100 E78.5 BG Readings - Blood sugars not available. Lost meter - see above Medications - Reviewed current regimen, patient is not adherent to regimen. Lantus never restarted - formulary issue. Rx resent for Lantus. Doing prior auth for Mounjaro 2.5mg daily Diet, Exercise, Lifestyle - No significant lifestyle changes since last visit. Discussed with patient today. Patient is agreeable to SMBG 2-4 time(s) daily. Patient aware to contact clinic if any hypoglycemia before next visit. MEDICATION CHANGES: yes, see below; preferred pharmacy: [facility] Diabetic Medications: Metformin ER 500 mg - 2 AM and 1 PM RESTART:: Lantus 50 units QAM Novolog per SS - 22-30 units with meals PLUS correction factor: 6 units if BG 220-249; 8 units if BG 250-279; 10 units if BG > 280 STOP: Ozempic 0.25mg once weekly START: Mounjaro 2.5mg weekly (P/A completed) HEALTH MAINTENANCE INTERVENTIONS: Labs: Up to Date Immunizations: needs shingles Foot Exam: Complete with next PCP visit on 12/22/23 Eye Exam: Up to Date Annual Wellness Visit: N/A FOLLOW UP: Return to clinic in 6 weeks at [place] clinic Visit date not found Miguel Fox, RPmari, CDE Clinical Pharmacist - Field Irrigation Worker Medication Therapy Management Clinic 07/15/2023, 9:45 AM documented in this encounter Plan of Treatment Upcoming Encounters Date Type Department Care Team (Late st Contact Info) Description 08/26/2023 9:00 AM EDT Office Visit Pharmacy, [place] [address] [facility] [place] [address] [place], [facility] [address] [place] [facility] [place] [address] 12/22/2023 8:00 AM EDT Office Visit Family Practice [facility] [place] [address] [facility] [place] [address] Dell Mosqueda III, MD [address] [facility] [place] [address] Health Maintenance Due Date Last Done Comments Hepatitis C Screening 06/15/1987 Cologuard 2014 Colonoscopy 2014 Colorectal Cancer Screening 2014 Fecal Occult Blood Test 2014 Sigmoidoscopy 2014 Diabetic Foot Exam 01/04/2021 01/05/2020, 0 05/21/2015, 07/25/2014 Depression Screening 01/22/2021 01/23/2020 COVID-19 Vaccine (1 - 2022- season) 2022 Zoster Vaccines (2 of 2) 02/10/2023 12/16/2022 Diabetic Eye Exam 08/27/2023 08/26/2022, , 11/12/2018, Additional history exists GFR 11/15/2023 05/17/2023, 05/14, 06/01/2022, Additional history exists HbA1c 11/15/2023 05/17/2023, 08/0 10/2022, 08/26/2022, Additional history exists Influenza Vaccine (FLU shot) (Season Ended) 2023 04/20/2019, 04/09/2016, 05/21/2015, Additional history exists Albumin/Creatinine Ratio 12/17/2023 023, 03/19/2021, 02/02/2017, Additional history exists DTaP,Tdap,and Td Vaccines (2 - Td or Tdap) 01/18/2024 01/17/2014 B-12 05/17/2024 05/17/2023, 11/2020, 04/20/2019 CKD HGB USE SMARTSET [id number] 05/17/202405/17, 06/08/2022, 06/01/2022, Additional history exists CKD PHOS USE SMARTSET 40410 05/17/202408/2023, 03/19/2021, 04/20/2019 Lipid Panel 05/17/2028 05/17/2023, 11/2020, 05/31/2019, Additional history exists Hepatitis B [...] Not on filedocumented as of this encounter Visit Diagnoses Diagnosis Type 2 diabetes mellitus with hemoglobin A1c goal of less than 7.0% (HCC)- Primary Dyslipidemia, goal LDL below 100 Other and unspecified hyperlipidemia documented in this encounter Care Teams Manager Quality Relationship Specialty Start Date End Date Dell Mosqueda III, MD [address] [place] [address] PCP - General Family Medicine 04/20/14 documented as of this encounter
--- OUTSIDE RECORDS SUMMARY | 2023-10-10 10:07 | External Medical Summary | Summary of Care ---
Author Name Unknown Organization [facility] Address [address] [place] [address] Phone [phone] Care Team Providers Care Radiocommunications Technician Name Role Phone Jaylin SALAS MD, Dell Quintero Primary Care Provider [phone] Reason for Visit * Reason Onset Date Comments Blood Pressure Check 07/15/2023 Encounter Details Date Type Department Care Team (Late st Contact Info) Description 07/15/2023 8:30 AM EDT Nurse Only Ancillary [facility] [address] [place] [address] [place], Nurse Fam Prac [facility] [address] [facility] [place] [address] Blood Pressure Check Allergies Active Allergy Reactions Criticality Noted Date [...] taking.Reported on 06/21/2023 naproxen (NAPROSYN) 500 MG TabletIndications:R ight elbow pain,Osteophyte, right elbow take 1 tablet by mouth twice a day WITH MORNING AND EVENING MEALS as needed 20 Tab 1 04/25/2019 Active Additional Information Patient not taking.Reported on 06/21/2023 Allopurinol 100 MG Oral Tablet (Zyloprim) Take 1 Tablet by mouth in the morning and 1 Tablet before bedtime. 180 Tablet 3 08/31/2022 Active Additional Information Patient not taking.Reported on 06/21/2023 Acetaminophen-Codei ne 300-15 MG Oral Tablet Take 1 Tablet by mouth every 4 hours as needed. Tooth pain 0 12/15/2022 Active Amoxicillin 250 MG Oral Capsule (Amoxil) Take 1 Capsule by mouth in the morning and 1 Capsule at noon and 1 Capsule before bedtime. 0 12/15/2022 Active Dexcom G7 SensorIndications:T ype 2 diabetes mellitus with hemoglobin A1c goal of less than 7.0% (HCC) Replace Sensor every 10 days. 3 Each 11 02/08/2023 Active Furosemide 40 MG Oral Tablet (Lasix) TAKE 1 TABLET BY MOUTH EVERY DAY 90 Tablet 0 05/13/2023 Active Insulin Glargine Solostar 100 UNIT/ML Subcutaneous Solution Pen-injector (Basaglar KwikPen)Indications :Type 2 diabetes mellitus with hemoglobin A1c goal of less than 7.0% (HCC) Inject 50 units under the skin daily 15 mL 3 06/03/2023 Active Additional Information Patient not taking.Reported on 06/21/2023 Glucose Blood In Vitro StripIndications:Ty pe 2 diabetes mellitus with hemoglobin A1c goal of less than 7.0% (HCC) Use 2-4 times daily to test blood sugar. 100 Strip 5 06/04/2023 Active Vitamin D3 50 MCG (2000 UT) Oral Capsule Take 1 Capsule by mouth in the morning. 30 Capsule 5 06/04/2023 Active Additional Information Patient not taking.Reported on 06/21/2023 Atorvastatin Calcium 40 MG Oral Tablet (Lipitor)Indication s:Dyslipidemia, goal LDL below 100 Take 1 Tablet by mouth in the morning. 90 Tablet 2 06/04/2023 Active Escitalopram Oxalate 10 MG Oral Tablet (Lexapro) Take 1 Tablet by mouth in the morning. 90 Tablet 2 06/04/2023 Active metFORMIN HCl ER 500 MG Oral Tablet Extended Release 24 Hour (Glucophage XR)Indications:Type 2 diabetes mellitus with hemoglobin A1c goal of less than 7.0% (HCC) TAKE 2 TABLETS by mouth IN THE MORNING, and 1 TABLET IN THE EVENING 270 Tablet 3 06/04/2023 Active Gabapentin 600 MG Oral Tablet (Neurontin) Take 1 Tablet by mouth in the morning and 1 Tablet before bedtime. 180 Tablet 3 06/04/2023 Active Lisinopril 40 MG Oral TabletIndications:C hronic kidney disease, stage 3a ([facility]),Type 2 diabetes mellitus with stage 3a chronic kidney disease, with long-term current use of insulin ([facility]) Take 1 Tablet by mouth daily. 90 Tablet 06/04/2023 Active amLODIPine Besylate 5 MG Oral Tablet (Norvasc) Take 1 Tablet by mouth in the morning. 90 Tablet 06/04/2023 Active Pen [place] 32G X 5 MMIndications:Type 2 diabetes mellitus with hemoglobin A1c goal of less than 7.0% ([facility]) Use to inject insulin up to 4 times daily 200 Each 06/04/2023 Active NovoLOG FlexPen 100 UNIT/ML Subcutaneous Solution Pen-injector (insulin aspart)Indications: Type 2 diabetes mellitus with hemoglobin A1c goal of less than 7.0% ([facility]),Type 2 diabetes mellitus with stage 3a chronic kidney disease, with long-term current use of insulin ([facility]),Type 2 diabetes mellitus with hyperglycemia, with long-term current use of insulin ([facility]) Units as per sliding scale plus carbohydrate count, max dose of 100 units per day 30 mL 06/04/2023 Active Additional Information Patient not taking.Reported on 06/21/2023 Ozempic (0.25 or 0.5 MG/DOSE) 2 MG/3ML Solution Pen-injector (Semaglutide(0.25 or 0.5MG/DOS))Indicati ons:Type 2 diabetes mellitus with hemoglobin A1c goal of less than 7.0% ([facility]) Inject 0.25 mg under the skin once a week. 3 mL 06/04/2023 Active Additional Information Patient not taking.Reported on 06/21/2023 documented as of this encounter (statuses as [...] yrs 05/21/2015,05/25/2014,04/24 Pneumococcal Conjugate Vacci ne, 20-valent ([id number]) 12/16/2022 Pneumococcal Polysaccharide PPV23 (Pneumovax) 04/24/2014 Seasonal [...] on file documented as of this encounter Last Filed Vital Signs Vital Sign Reading Time Taken Comments Blood Pressure 158/80 07/15/2023 8:33 AM EDT Pulse - - Temperature - - Respiratory Rate - - Oxygen Saturation - - Inhaled Oxygen Concentration - - Weight - - Height - - Body Mass Index - - documented in this encounter Progress Notes * Gini Grande LPN - 07/15/2023 8:19 AM EDT Natan Herron presented for blood pressure check per provider orders. The blood pressure was obtained using the left arm in the sitting position using a large cuff. The results were charted in Vital Signs. BP Readings from Last 3 Encounters: 06/21/23 140/90 12/16/22 136/72 08/26/22 138/78 There were no vitals taken for this visit. Patient denies headache, pressure in head, dizziness, lightheadedness, chest discomfort, focal neurological symptoms, change in vision, nose bleeds. Did patient take medications today? Yes Patient was instructed to follow-up as per their next scheduled appt documented in this encounter Nursing Notes * Gini Grande LPN - 07/15/2023 8:37 AM EDT Patient took meds at 7:30 am. documented in this encounter Plan of Treatment Upcoming Encounters Date Type Department Care Team (Late st Contact Info) Description 07/15/2023 9:30 AM EDT Office Visit Pharmacy, [facility] [place] [address] [place], [place] [phone] Pharmacist1, [facility] [address] [facility] [place] [address] Arrived 12/22/2023 8:00 AM EDT Office Visit Family Practice [employer] [address] [facility] [place] [address] Dell Mosqueda III, MD [address] [facility] [place] [address] Scheduled Orders Name Type Priority Associated Diagnoses Orde r Schedule BLOOD PRESSURE Procedures Routine HTN, goal below 140/90 Ordered: 07/15/2023 Health Maintenance Due Date Last Done Comments [...] or Tdap) 01/18/2024 01/17/2014 B-12 05/17/2024 05/17/2023, 12/0 11/2020, 04/20/2019 CKD HGB USE SMARTSET 59098 05/17/202405/17, 06/08/2022, 06/01/2022, Additional history exists CKD PHOS USE SMARTSET 23475 05/17/202408/2023, 03/19/2021, 04/20/2019 Lipid Panel 05/17/2028 05/17/2023, [...] as of this encounter Visit Diagnoses Diagnosis HTN, goal below 140/90- Primary Unspecified essential hypertension documented in this encounter Care Teams Radiocommunications Technician Relationship Specialty Start Date End Date Dell Mosqueda III, MD [address] [place] [address] PCP - General Family Medicine 04/20/14 documented as of this encounter
--- OUTSIDE RECORDS SUMMARY | 2023-10-10 10:07 | External Medical Summary | Summary of Care ---
Author Name Unknown Organization [facility] Address [address] [place] [address] Phone [phone] Care Team Providers Care Electric Organ Checker Name Role Phone Jaylin SALAS MD, Candida Quintero Primary Care Provider [phone] Reason for Referral * Medication Prior Authorization - Pending Review Specialty Diagnoses / Procedures Referred By Contac t Referred To Contact Diagnoses Type 2 diabetes mellitus with hemoglobin A1c goal of less than 7.0% (HCC) Dyslipidemia, goal LDL below 100 Candida Kay III, MD [address] [place] [address] Referral ID Status Reason Start Date Expiration Date V isits Requested Visits Authorized [id number] Pending Review [phone] Reason for Visit * Reason Onset Date Comments Medication Refill 08/09/2023 Encounter Details Date Type Department Care Team (Late st Contact Info) Description 08/09/2023 Refill Family Practice [facility] [place] [address] [place], [place] [address] Candida Kay III, MD [address] [place] [address] Type 2 diabetes mellitus with hemoglobin A1c goal of less than 7.0% (HCC); Dyslipidemia, goal LDL below 100 Allergies Active Allergy Reactions Criticality Noted Date Comments Guaifenesin Rash 01/17/2014 documented as of this encounter (statuses as of 08/09/2023) Medications Medication Sig Dispensed Refills Start Date [...] hemoglobin A1c goal of less than 7.0% ([facility]) Replace Sensor every 10 days. 3 Each 11 02/08/2023 Active Furosemide 40 MG Oral Tablet (Lasix) TAKE 1 TABLET BY MOUTH EVERY DAY 90 Tablet 0 05/13/2023 Active Glucose Blood In Vitro StripIndications: Type 2 diabetes mellitus with hemoglobin A1c goal of less than 7.0% (HCC) Use 2-4 times daily to test blood sugar. 100 Strip 5 06/04/2023 Active Vitamin D3 50 MCG (1999 UT) [...] hemoglobin A1c goal of less than 7.0% ([facility]) TAKE 2 TABLETS by mouth IN THE MORNING, and 1 TABLET IN THE EVENING 270 Tablet 06/04/2023 Active Gabapentin 600 MG Oral Tablet (Neurontin) Take 1 Tablet by mouth in the morning and 1 Tablet before bedtime. 180 Tablet 06/04/2023 Active Lisinopril 40 MG Oral TabletIndications :Chronic kidney disease, stage 3a ([facility]),Type 2 diabetes mellitus with stage 3a chronic kidney disease, with long-term current use of insulin ([facility]) Take 1 Tablet by mouth daily. 90 Tablet 06/04/2023 Active amLODIPine Besylate 5 MG Oral Tablet (Norvasc) Take 1 Tablet by mouth in the morning. 90 Tablet 06/04/2023 Active Pen [place] 32G X 5 MMIndications:Typ e 2 diabetes mellitus with hemoglobin A1c goal of less than 7.0% ([facility]) Use to inject insulin up to 4 times daily 200 Each 06/04/2023 Active NovoLOG FlexPen 100 UNIT/ML Subcutaneous Solution Pen-injector (insulin aspart)Indication s:Type 2 diabetes mellitus with hemoglobin A1c goal of less than 7.0% ([facility]),Type 2 diabetes mellitus with stage 3a chronic kidney disease, with long-term current use of insulin ([facility]),Type 2 diabetes mellitus with hyperglycemia, with long-term current use of insulin ([facility]) Units as per sliding scale plus carbohydrate count, max dose of 100 units per day 30 mL 06/04/2023 Active Mounjaro 2.5 MG/0.5ML Subcutaneous Solution Pen-injector (Tirzepatide)Rosanna cations:Type 2 diabetes mellitus with hemoglobin A1c goal of less than 7.0% (HCC),Dyslipidemi a, goal LDL below 100 Inject 2.5 mg under the skin once a week. 2 mL 07/15/2023 Active Insulin Glargine Solostar 100 UNIT/ML Subcutaneous Solution Pen-injector (Lantus SoloStar)Indicati ons:Type 2 diabetes mellitus with hemoglobin A1c goal of less than 7.0% (HCC),Dyslipidemi a, goal LDL below 100 Inject 40 Units under the skin in the morning. (Lantus on Formulary). 45 mL 3 08/09/2023 Active Insulin Glargine Solostar 100 UNIT/ML Subcutaneous Solution Pen-injector (Lantus SoloStar)Indicati ons:Type 2 diabetes mellitus with hemoglobin A1c goal of less than 7.0% (HCC),Dyslipidemi a, goal LDL below 100 Inject 40 Units under the skin in the morning. (Lantus on Formulary). 45 mL 3 07/15/2023 Discontinue d(Refill) documented as of this encounter (statuses as of 08/09/2023) Active Problems Problem Noted Date Diagnosed Date [...] as of this encounter (statuses as of 08/09/2023) Resolved Problems Problem Noted Date Diagnosed Date Resolved Date Stage 3 chronic kidney disease 08/26/2022 09/24/2022 Myelopathy in diseases classified elsewhere 01/05/2020 03/19/2021 Diabetes mellitus with stage 3 chronic kidney disease 01/17/2018 08/22/2020 Overview: Per CKD protocol #1 HTN, goal to be determined ([facility]) 04/20/2014 08/29/2014 documented as of this encounter (statuses as of 08/09/2023) Immunizations Name Administration Dates Next Due Hepatitis B, 20+ yrs 05/21/2015,05/25/2014,04/24 Pneumococcal Conjugate Vacci ne, 20-valent ([id number]) 12/16/2022 Pneumococcal Polysaccharide PPV23 (Pneumovax) 04/24/2014 Seasonal [...] encounter Miscellaneous Notes * Telephone Encounter - Candida Kay III, MD - 08/09/2023 12:52 PM EDTSigned Prescriptions: Disp Refills Insulin Glargine Solostar 100 UNIT/ML Subc*45 mL 3 Sig: Inject 40 Units under the skin in the morning. (Lantus on Formulary).Authorizing Provider: CANDIDA KAY III- * Telephone Encounter - Kerry Meraz MED ASSIST - 08/09/2023 11:00 AM EDT Pending Prescriptions: Disp Refills Insulin Glargine Solostar 100 UNIT/ML Subc*45 mL 3 Sig: Inject 40 Units under the skin in the morning. (Lantus on Formulary). * Telephone Encounter - Audra Carter OSA - 08/09/2023 10:53 AM EDT Did you pend patient's preferred pharmacy and medication before forwarding?yes Pharmacy: [id number] [address] Pending Prescriptions: Disp Refills Insulin Glargine Solostar 100 UNIT/ML Sub*45 mL 3 Sig: Inject 40 Units under the skin in the morning. (Lantus on Formulary). Last Visit: 06/21/2023 (in office), 10/29/2021 (telemedicine) Next Visit: 12/22/2023 If no future appointments scheduled, and last appointment is greater than a year ago, please schedule patient for a follow-up appointment Last date the medication was ordered: [id number] Is this request for a controlled substance?No Urine Drug Screen:No results found for this or any previous visit. Patient Phone Numbers Labs: Lab Results Component Value Date/Time CREAT 1.3 (H) 05/17/2023 07:56 AM CREAT 1.06 06/08/2022 12:00 AM CREAT 1.5 (H) 07/26/2019 08:13 AM POTASSIUM 5.4 (H) 05/17/2023 07:56 AM POTASSIUM 4.4 06/08/2022 12:00 AM POTASSIUM 5.7 (H) 07/26/2019 08:13 AM LDLCALC 198 (H) 05/17/2023 07:56 AM LDLCALC 141 (H) 05/31/2019 10:14 AM LDLDIRECT 89 03/19/2021 10:50 AM LDLDIRECT NOT APPLICABLE 05/31/2019 10:14 AM LDLDIRECT 123 05/14/2015 09:41 AM ALT 26 03/19/2021 10:50 AM ALT 21 04/20/2019 12:15 PM HGBA1C 10.6 (H) 05/17/2023 07:56 AM HGBA1C 7.8 (H) 11/16/2022 07:40 AM HGBA1C 7.3 (H) 07/26/2019 08:13 AM documented in this encounter Plan of Treatment Upcoming Encounters Date Type Department Care Team (Late st Contact Info) Description 08/26/2023 9:00 AM EDT Office Visit Pharmacy, [place] [address] [place] [address] [facility] [address] [place] [address] 12/22/2023 8:00 AM EDT Office Visit Family Practice [facility] [place] [address] [facility] [place] [address] Candida Kay III, MD [address] [facility] [place] [address] Health Maintenance Due Date Last Done Comments [...] 05/17/2023, 11/2020, 04/20/2019 CKD HGB USE SMARTSET 81959 05/17/202405/17, 06/08/2022, 06/01/2022, Additional history exists CKD PHOS USE SMARTSET 90590 05/17/202408/2023, 03/19/2021, 04/20/2019 Lipid Panel 05/17/2028 05/17/2023, [...] A1c goal of less than 7.0% (HCC) Dyslipidemia, goal LDL below 100 Other and unspecified hyperlipidemia documented in this encounter Care Teams Electric Organ Checker Relationship Specialty Start Date End Date Candida Kay III, MD [address] [facility] [place] [address] PCP - General Family Medicine 04/20/14 documented as of this encounter
--- OUTSIDE RECORDS SUMMARY | 2023-10-10 10:07 | External Medical Summary | Summary of Care ---
Author Name Unknown Organization [facility] Address [address] [place] [address] Phone [phone] Care Team Providers Care Manager Technical Training Name Role Phone Jaylin SALAS MD, Dell Quintero Primary Care Provider [phone] Reason for Visit * Reason Comments Dosage Adjustment In Person (Anticoag Cl inic) Diabetes Follow-Up Encounter Details Date Type Department Care Team (Late st Contact Info) Description 10/04/2023 9:00 AM EDT Office Visit Pharmacy, [place] [address] [place] [address] [facility] [address] [place] [address] Type 2 diabetes mellitus with hemoglobin A1c goal of less than 7.0% ([facility])* Allergies Active Allergy Reactions Criticality Noted Date Comments Guaifenesin Rash 01/17/2014 documented as of this encounter (statuses as of 10/04/2023) Medications Medication Sig Dispensed Refills Start Date End Date Status Acetaminophen ER (TYLENOL 8 HOUR ARTHRITIS PAIN) 650 MG TBCR Take 2 Tabs by mouth every 12 hours as needed for Pain. 100 Tab 3 0 Active Additional Information Patient not taking.Reported on 06/21/2023 naproxen (NAPROSYN) 500 MG TabletIndication s:Right elbow pain,Osteophyte, right elbow take 1 tablet by mouth twice a day WITH MORNING AND EVENING MEALS as needed 20 Tab 1 0 Active Additional Information Patient not taking.Reported on 06/21/2023 Allopurinol 100 MG Oral Tablet (Zyloprim) Take 1 Tablet by mouth in the morning and 1 Tablet before bedtime. 180 Tablet 3 3 Active Additional Information Patient not taking.Reported on 06/21/2023 Acetaminophen-Co deine 300-15 MG Oral Tablet Take 1 Tablet by mouth every 4 hours as needed. Tooth pain 3 Active Dexcom G7 SensorIndication s:Type 2 diabetes mellitus with hemoglobin A1c goal of less than 7.0% ([facility]) Replace Sensor every 10 days. 3 Each 3 Active Glucose Blood In Vitro StripIndications :Type 2 diabetes mellitus with hemoglobin A1c goal of less than 7.0% ([facility]) Use 2-4 times daily to test blood sugar. 100 Strip 5 4 Active Vitamin D3 50 MCG (1999 UT) Oral Capsule Take 1 Capsule by mouth in the morning. 30 Capsule 5 4 Active Additional Information Patient not taking.Reported on 06/21/2023 Atorvastatin Calcium 40 MG Oral Tablet (Lipitor)Indicat ions:Dyslipidemi a, goal LDL below 100 Take 1 Tablet by mouth in the morning. 90 Tablet 2 4 Active Escitalopram Oxalate 10 MG Oral Tablet (Lexapro) Take 1 Tablet by mouth in the morning. 90 Tablet 2 4 Active metFORMIN HCl ER 500 MG Oral Tablet Extended Release 24 Hour (Glucophage XR)Indications:T ype 2 diabetes mellitus with hemoglobin A1c goal of less than 7.0% ([facility]) TAKE 2 TABLETS by mouth IN THE MORNING, and 1 TABLET IN THE EVENING 270 Tablet 3 4 Active Gabapentin 600 MG Oral Tablet (Neurontin) Take 1 Tablet by mouth in the morning and 1 Tablet before bedtime. 180 Tablet 3 4 Active Lisinopril 40 MG Oral TabletIndication s:Chronic kidney disease, stage 3a ([facility]),Type 2 diabetes mellitus with stage 3a chronic kidney disease, with long-term current use of insulin ([facility]) Take 1 Tablet by mouth daily. 90 Tablet 3 4 Active amLODIPine Besylate 5 MG Oral Tablet (Norvasc) Take 1 Tablet by mouth in the morning. 90 Tablet 3 4 Active Pen [place] 32G X 5 MMIndications:Ty pe 2 diabetes mellitus with hemoglobin A1c goal of less than 7.0% (HCC) Use to inject insulin up to 4 times daily 200 Each 3 4 Active NovoLOG FlexPen 100 UNIT/ML Subcutaneous Solution Pen-injector (insulin aspart)Indicatio ns:Type 2 diabetes mellitus with hemoglobin A1c goal of less than 7.0% (HCC),Type 2 diabetes mellitus with stage 3a chronic kidney disease, with long-term current use of insulin (HCC),Type 2 diabetes mellitus with hyperglycemia, with long-term current use of insulin (HCC) Units as per sliding scale plus carbohydrate count, max dose of 100 units per day 30 mL 11 4 Active Additional Information Patient taking differently: Inject 15 units with meals, Reported on 10/04/2023 Mounjaro 2.5 MG/0.5ML Subcutaneous Solution Pen-injector (Tirzepatide)Ind ications:Type 2 diabetes mellitus with hemoglobin A1c goal of less than 7.0% (HCC),Dyslipidem ia, goal LDL below 100 Inject 2.5 mg under the skin once a week. 2 mL 11 4 07/15/19 25 Active Insulin Glargine Solostar 100 UNIT/ML Subcutaneous Solution Pen-injector (Lantus SoloStar)Indicat ions:Type 2 diabetes mellitus with hemoglobin A1c goal of less than 7.0% (HCC),Dyslipidem ia, goal LDL below 100 Inject 40 Units under the skin in the morning. (Lantus on Formulary). 45 mL 3 4 Active Additional Information Patient taking differently: 42 UnitsSubcutaneous Daily(AM), (Lantus on Formulary), Reported on 10/04/2023 Furosemide 40 MG Oral Tablet (Lasix) TAKE 1 TABLET BY MOUTH EVERY DAY 90 Tablet 1 4 Active Amoxicillin 250 MG Oral Capsule (Amoxil) Take 1 Capsule by mouth in the morning and 1 Capsule at noon and 1 Capsule before bedtime. 3 10/04/19 24 Discontinu ed(Medicat ion List Clean Up) documented as of this encounter (statuses as of 10/04/2023) Active Problems Problem Noted Date Diagnosed Date [...] as of this encounter (statuses as of 10/04/2023) Resolved Problems Problem Noted Date Diagnosed Date Resolved Date Stage 3 chronic kidney disease 08/26/2022 09/24/2022 Myelopathy in diseases classified elsewhere 01/05/2020 03/19/2021 Diabetes mellitus with stage 3 chronic kidney disease 01/17/2018 08/22/2020 Overview: Per CKD protocol #1 HTN, goal to be determined (HYPERTENSION) 04/20/2014 08/29/2014 documented as of this encounter (statuses as of 10/04/2023) Immunizations Name Administration Dates Next Due Hepatitis B, 20+ yrs 05/21/2015,05/25/2014,04/24 Pneumococcal Conjugate Vacci ne, 20-valent ([id number]) 12/16/2022 Pneumococcal Polysaccharide PPV23 (Pneumovax) 04/24/2014 Seasonal [...] money to buy more. Never true 10/30/19 Within the past 12 months, t he food you bought just didn't last and you didn't have money to get more. Never true 10/29/2021 Utilities Answer Date Recorded Do you have trouble paying y our heating, water, or electric bill? (Adult - for ages 18 years and over) Not on file 09/28/2023 Is your family able to pay t he heat, water, or electric bill? (Household - for ages 0-17 years) Not on file 09/28/2023 Does your family have access to good internet? (Household - for ages 0-17 years) Not on file 09/28/2023 Social Connections Answer Date Recorded How often do you feel lonely or isolated from those around you? (Adult - for ages 18 years and over) Not on file 09/28/2023 Sex and Gender Information Value Date Recorded Sex Assigned at Male 10/29/2021 10:25 AM EDT Gender Identity Male 10/29/2021 10:25 AM EDT Sexual Orientation Straight 10/29/2021 10 :25 AM EDT Job Start Date Occupation Industry Not on file Not on file Not on file documented as of this encounter Progress Notes * Holly Schuster, [facility] - 10/04/2023 8:22 AM EDT Medication Therapy Disease Management Clinic - Diabetes Management Progress Note Natan Herron, identified by name and date of , is a 53 year old male being seen for diabetes management/education. Patient presents for return diabetic visit. DIABETES: Current diabetic medications: Metformin ER 500 mg - 2 AM and 1 PM Lantus 50 units QAM - 40 units Novolog per SS - 22-30 units with meals PLUS correction factor: 6 units if BG 220-249; 8 units if BG 250-279; 10 units if BG > 280 18-25 units at meals Mounjaro 2.5mg weekly - not taking Medication Injection Site: Abdomen Lifestyle: Diet: improved Glucose Review/SMBG: Readings obtained from patient device Pre am Post am Pre Lunch Post Lunch Pre pm Post pm HS 130 187 144 171 123 179 251 154 203 160 132 210 115 255 97 197 345 201 206 168 226 248 181 209 Average 196 #DIV/0! #DIV/0! #DIV/0! 175 #DIV/0! #DIV/0! Hi 255 0 0 0 345 0 0 Lo 154 0 0 [address]75 0 0 0 163 0 0 Range 101 0 0 0 248 0 0 Hypoglycemia: Does your blood sugar go below 70 mg/dL? No Hyperglycemia symptoms present: none Recent Labs Units 10/04/23 0850 05/17/23 0756 11/16/22 0740 HEMOGLOBIN A1C - [facility] % -- 10.6* -- HEMOGLOBIN A1C POCT - [facility] % 9.3* -- 7.8* Recent Labs Units 05/17/23 0756 06/08/22 0000 06/01/22 0000 ESTIMATED GLOMERULAR FILTRATION RATE - [facility] mL/min 69 -- -- EGFR-OUTSIDE LAB ML/MIN -- 78.5 75.1 CREATININE - [facility] mg/dL 1.3* -- -- CREATININE-OUTSIDE LAB MG/DL -- 1.06 1.12 HYPERTENSION: Patient on ACEi/ARB: yes BP Readings from Last 3 Encounters: 07/15/23 158/80 06/21/23 140/90 12/16/22 136/72 Blood pressure at goal: no HYPERLIPIDEMIA: Patient is taking moderate or high intensity statin: yes HEALTH MAINTENANCE REVIEW: Health Maintenance Due Topic Date Due Hepatitis C Screening Never done Colorectal Cancer Screening Never done Diabetic Foot Exam 01/04/2021 Depression Monitoring 01/22/2021 COVID-19 Vaccine ( season) Never done Zoster Vaccines (2 of 2) 02/10/2023 Diabetic Eye Exam 08/27/2023 Albumin/Creatinine Ratio 12/17/2023 ASSESSMENT & PLAN: ICD-10-CM 1. Type 2 diabetes mellitus with hemoglobin A1c goal of less than 7.0% (HCC) E11.9 Considerations: - ozempic caused diarrhea BG Readings - Blood sugars uncontrolled. But improvement noted. No low blood sugars. Reviewed goalsof sugars. A1c is improved but still above goal. Will retry to get dexcom with estee. Provided number for patient to call and also messaged on platfrom to reactivate the order. Medications - Reviewed current regimen, patient is not adherent to regimen. Taking less lantus and not taking mounjaro at all. Better adherence to novolog. Discussed that patient is to restart mounjaro in an effort to decrease/discontinue insulin as well as help with weight loss. Will restart mounjaro and adjust insulin doses today. Patient is agreeable. Diet, Exercise, Lifestyle - patient has started eating a little something at lunch and notes that this has helped to improve his sugars . Discussed with patient about small meals throughout the day being better than one large meal.. Patient is agreeable to SMBG 1-2 time(s) daily. Patient aware to contact clinic if any hypoglycemia before next visit. MEDICATION CHANGES: yes, see below; preferred pharmacy: [facility] Diabetic Medications: Metformin ER 500 mg - 2 AM and 1 PM INC Lantus 42 units QAM DEC Novolog 15 units at meals RESTART Mounjaro 2.5mg weekly HEALTH MAINTENANCE INTERVENTIONS: Labs: Up to Date Immunizations: Up to Date Foot Exam: due Eye Exam: due Annual Wellness Visit: N/A FOLLOW UP: Return to clinic in 6 weeks 11/08/2023 Holly Schuster [facility] Clinical Pharmacist - Land Examiner Medication Therapy Management Clinic 10/04/2023, 8:23 AM documented in this encounter Plan of Treatment Upcoming Encounters Date Type Department Care Team (Late st Contact Info) Description 11/08/2023 7:30 AM EDT [facility] [place] [address] [facility] [address] [place] [address] 12/22/2023 8:00 AM EDT Office Visit [facility] [address] [place] [address] Dell Mosqueda III, MD [address] [facility] [address] Health Maintenance Due Date Last Done Comments Hepatitis C Screening 06/15/1987 Cologuard 2014 Colonoscopy 2014 Colorectal Cancer Screening 2014 Fecal Occult Blood Test 2014 Sigmoidoscopy 2014 Diabetic Foot Exam 01/04/2021 01/05/2020, 0 05/21/2015, 07/25/2014 Depression Monitoring 01/22/2021 01/23/2020 COVID-19 Vaccine (1 - season) 2022 Zoster Vaccines (2 of 2) 02/10/2023 12/16/2022 Diabetic Eye Exam 08/27/2023 08/26/2022, , 11/12/2018, Additional history exists GFR 11/15/2023 05/17/2023, 05/14, 06/01/2022, Additional history exists Influenza Vaccine (FLU shot) (Season Ended) 2023 04/20/2019, 04/09/2016, 05/21/2015, Additional history exists Albumin/Creatinine Ratio 12/17/2023 023, 03/19/2021, 02/02/2017, Additional history exists DTaP,Tdap,and Td Vaccines (2 - Td or Tdap) 01/18/2024 01/17/2014 HbA1c 04/04/2024 10/04/2023, 08/2023, 11/16/2022, Additional history exists B-12 05/17/2024 05/17/2023, 11/2020, 04/20/2019 CKD HGB USE SMARTSET 37765 05/17/202405/17, 06/08/2022, 06/01/2022, Additional history exists CKD PHOS USE SMARTSET 73316 05/17/20240 08/2023, 03/19/2021, 04/20/2019 Lipid Panel 05/17/2028 05/17/2023, 11/2020, [...] Not on filedocumented as of this encounter Procedures Procedure Name Priority Date/Time Associated Diagnosis Comments HEMOGLOBIN A1C, POINT OF CARE Routine 10/04/2023 8:50 AM EDT Type 2 diabetes mellitus with hemoglobin A1c goal of less than 7.0% (HCC) documented in this encounter Results * (ABNORMAL) HEMOGLOBIN A1C, POINT OF CARE (10/04/2023 8:50 AM EDT) Hemoglobin A1c 9.3(H) 4.0 - 5.6 % 10/04/2023 9:08 AM EDT [facility] Blood 10/04/2023 8:50 AM EDT 10/04/2023 9:08 AM EDT Holly Schuster [facility] LAB POINT OF CARE TEST DOCKED DEVICE UNSOLICITED RESULTS [facility] [place], [place] [id number] documented in this encounter Visit Diagnoses Diagnosis Type 2 diabetes mellitus with hemoglobin A1c goal of less than 7.0% (HCC)- Primary documented in this encounter Care Teams Manager Technical Training Relationship Specialty Start Date End Date Dell Mosqueda III, MD [address] [facility] [place] [address] PCP - General Family Medicine 04/20/14 documented as of this encounter
--- OUTSIDE RECORDS SUMMARY | 2023-10-10 10:07 | External Medical Summary | Summary of Care ---
Author Name Unknown Organization [facility] Address [address] [place] [address] Phone [phone] Care Team Providers Care Spot Facer Name Role Phone Jaylin SALAS MD, Dell Quintero Primary Care Provider [phone] Reason for Visit * Reason Comments Dosage Adjustment In Person (Anticoag Cl inic) Diabetes Follow-Up Encounter Details Date Type Department Care Team (Late st Contact Info) Description 08/26/2023 9:00 AM EDT Office Visit Pharmacy, [place] [address] [place] [address] [facility] [address] [place] [address] Type 2 diabetes mellitus with hemoglobin A1c goal of less than 7.0% ([facility])* Allergies Active Allergy Reactions Criticality Noted Date Comments Guaifenesin Rash 01/17/2014 documented as of this encounter (statuses as of 08/26/2023) Medications Medication Sig Dispensed Refills Start Date End Date Status Acetaminophen ER (TYLENOL 8 HOUR ARTHRITIS PAIN) 650 MG TBCR Take 2 Tabs by mouth every 12 hours as needed for Pain. 100 Tab 3 04/25/2019 Active Additional Information Patient not taking.Reported on 06/21/2023 naproxen (NAPROSYN) 500 MG TabletIndications: Right elbow pain,Osteophyte, right elbow take 1 tablet by mouth twice a day WITH MORNING AND EVENING MEALS as needed 20 Tab 1 04/25/2019 Active Additional Information Patient not taking.Reported on 06/21/2023 Allopurinol 100 MG Oral Tablet (Zyloprim) Take 1 Tablet by mouth in the morning and 1 Tablet before bedtime. 180 Tablet 3 08/31/2022 Active Additional Information Patient not taking.Reported on 06/21/2023 Acetaminophen-Code ine 300-15 MG Oral Tablet Take 1 Tablet by mouth every 4 hours as needed. Tooth pain 0 12/15/2022 Active Amoxicillin 250 MG Oral Capsule (Amoxil) Take 1 Capsule by mouth in the morning and 1 Capsule at noon and 1 Capsule before bedtime. 0 12/15/2022 Active Dexcom G7 SensorIndications: Type 2 diabetes mellitus with hemoglobin A1c goal of less than 7.0% ([facility]) Replace Sensor every 10 days. 3 Each 02/08/2023 Active Glucose Blood In Vitro StripIndications:T ype 2 diabetes mellitus with hemoglobin A1c goal of less than 7.0% ([facility]) Use 2-4 times daily to test blood sugar. 100 Strip 5 06/04/2023 Active Vitamin D3 50 MCG (1999 UT) Oral Capsule Take 1 Capsule by mouth in the morning. 30 Capsule 5 06/04/2023 Active Additional Information Patient not taking.Reported on 06/21/2023 Atorvastatin Calcium 40 MG Oral Tablet (Lipitor)Indicatio ns:Dyslipidemia, goal LDL below 100 Take 1 Tablet by mouth in the morning. 90 Tablet 2 06/04/2023 Active Escitalopram Oxalate 10 MG Oral Tablet (Lexapro) Take 1 Tablet by mouth in the morning. 90 Tablet 06/04/2023 Active metFORMIN HCl ER 500 MG Oral Tablet Extended Release 24 Hour (Glucophage XR)Indications:Typ e 2 diabetes mellitus with hemoglobin A1c goal of less than 7.0% ([facility]) TAKE 2 TABLETS by mouth IN THE MORNING, and 1 TABLET IN THE EVENING 270 Tablet 06/04/2023 Active Gabapentin 600 MG Oral Tablet (Neurontin) Take 1 Tablet by mouth in the morning and 1 Tablet before bedtime. 180 Tablet 06/04/2023 Active Lisinopril 40 MG Oral TabletIndications: Chronic kidney disease, stage 3a ([facility]),Type 2 diabetes mellitus with stage 3a chronic kidney disease, with long-term current use of insulin ([facility]) Take 1 Tablet by mouth daily. 90 Tablet 06/04/2023 Active amLODIPine Besylate 5 MG Oral Tablet (Norvasc) Take 1 Tablet by mouth in the morning. 90 Tablet 3 06/04/[address] 32G X 5 MMIndications:Type 2 diabetes mellitus with hemoglobin A1c goal of less than 7.0% (HCC) Use to inject insulin up to 4 times daily 200 Each 06/04/2023 Active NovoLOG FlexPen 100 UNIT/ML Subcutaneous Solution Pen-injector (insulin aspart)Indications :Type 2 diabetes mellitus with hemoglobin A1c goal of less than 7.0% ([facility]),Type 2 diabetes mellitus with stage 3a chronic kidney disease, with long-term current use of insulin (HCC),Type 2 diabetes mellitus with hyperglycemia, with long-term current use of insulin ([facility]) Units as per sliding scale plus carbohydrate count, max dose of 100 units per day 30 mL 11 06/04/2023 Active Mounjaro 2.5 MG/0.5ML Subcutaneous Solution Pen-injector (Tirzepatide)Indic ations:Type 2 diabetes mellitus with hemoglobin A1c goal of less than 7.0% ([facility]),Dyslipidemia , goal LDL below 100 Inject 2.5 mg under the skin once a week. 2 mL 07/15/2023 07/14/2024 Active Insulin Glargine Solostar 100 UNIT/ML Subcutaneous Solution Pen-injector (Lantus SoloStar)Indicatio ns:Type 2 diabetes mellitus with hemoglobin A1c goal of less than 7.0% ([facility]),Dyslipidemia , goal LDL below 100 Inject 40 Units under the skin in the morning. (Lantus on Formulary). 45 mL 3 08/09/2023 Active Furosemide 40 MG Oral Tablet (Lasix) TAKE 1 TABLET BY MOUTH EVERY DAY 90 Tablet 1 08/23/2023 Active documented as of this encounter (statuses as of 08/26/2023) Active Problems Problem Noted Date Diagnosed Date [...] as of this encounter (statuses as of 08/26/2023) Resolved Problems Problem Noted Date Diagnosed Date Resolved Date Stage 3 chronic kidney disease 08/26/2022 09/24/2022 Myelopathy in diseases classified elsewhere 01/05/2020 03/19/2021 Diabetes mellitus with stage 3 chronic kidney disease 01/17/2018 08/22/2020 Overview: Per CKD protocol #1 HTN, goal to be determined (HYPERTENSION) 04/20/2014 08/29/2014 documented as of this encounter (statuses as of 08/26/2023) Immunizations Name Administration Dates Next Due Hepatitis B, 20+ yrs 05/21/2015,05/25/2014,04/24 Pneumococcal Conjugate Vacci ne, 20-valent ([id number]) 12/16/2022 Pneumococcal Polysaccharide PPV23 (Pneumovax) 04/24/2014 Seasonal [...] Sign Reading Time Taken Comments Blood Pressure - - Pulse - - Temperature - - Respiratory Rate - - Oxygen Saturation - - Inhaled Oxygen Concentration - - Weight 160 kg (352 lb 12.8 oz) 08/26/2023 9:25 A M EDT Height - - Body Mass Index 42.94 05/17/2023 8:11 AM EST documented in this encounter Progress Notes * Holly Schuster, [facility] - 08/26/2023 8:28 AM EDT Medication Therapy Disease Management Clinic [...] weekly START: Mounjaro 2.5mg weekly (P/A completed) Medication Injection Site: Abdomen Lifestyle: Diet: unchanged Glucose Review/SMBG: patient has checked once recently in the AM and it was >300 Hypoglycemia: Does your blood sugar go below 70 mg/dL? No Hyperglycemia symptoms present: polydipsia Recent Labs Units 05/17/23 0756 11/16/22 0740 [...] Screening Never done Diabetic Foot Exam 01/04/2021 COVID-19 Vaccine ( season) Never done Zoster Vaccines (2 of 2) 02/10/2023 Diabetic Eye Exam 08/27/2023 ASSESSMENT & PLAN: ICD-10-CM 1. Type 2 diabetes mellitus with hemoglobin A1c goal of less than 7.0% ([facility]) E11.9 Considerations: - ozempic caused diarrhea BG Readings - Blood sugars not available. Patient recently checked once and it was >300. States this is discouraging, but we reviewed the importance of monitoring blood sugars. He would like to look into getting the dexcom again- I will send an order on [employer], I think his insurance contracts with [employer], so I will send it directly to them. Medications - Reviewed current regimen, patient is not adherent to regimen. Admits to not always taking insulin. Does endorse that he is adherent to metformin. Notes diarrhea abut 2 days after mounjaro dose. We reviewed that he is not yet at therapeutic dose, but will stay at this strength for at least one more month before discussing increasing it. Stressed importance of adherence to his insulin. Advised that I will not recommend any dose increases because he is not consistently taking his insulin at the moment. Hopeful that CGM will help patient get better handle on his sugars. Diet, Exercise, Lifestyle - Best efforts encouraged to decrease carb/fat intake . Discussed with patient , he notes that he has lost a few pounds since starting mounjaro, which is encouraging.. Patient is agreeable to SMBG with Dexcom daily. Patient aware to contact clinic if any hypoglycemia before next visit. MEDICATION CHANGES: no change Diabetic Medications: Metformin ER 500 mg - 2 AM and 1 PM Lantus 50 units QAM Novolog per SS - 22-30 units with meals PLUS correction factor: 6 units if BG 220-249; 8 units if BG 250-279; 10 units if BG > 280 Mounjaro 2.5mg weekly HEALTH MAINTENANCE INTERVENTIONS: Labs: Up to Date Immunizations: due for shingrix Foot Exam: due Eye Exam: Up to Date Annual Wellness Visit: N/A FOLLOW UP: Return to clinic in 4 weeks Visit date not found Holly Schuster [facility] Clinical Pharmacist - Game Author Medication Therapy Management Clinic 08/26/2023, 8:28 AM documented in this encounter Plan of Treatment Upcoming Encounters Date Type Department Care Team (Late st Contact Info) Description 09/23/2023 7:30 AM EDT Office Visit Pharmacy, [address] [place] [address] [facility] [place] [address] 12/22/2023 8:00 AM EDT Office Visit Family Practice [facility] [address] [place] [address] Dell Mosqueda III, MD [address] [place] [address] Health Maintenance Due Date Last Done Comments Hepatitis C Screening 06/15/1987 Cologuard 2014 Colonoscopy 2014 Colorectal Cancer Screening 2014 Fecal Occult Blood Test 2014 Sigmoidoscopy 2014 Diabetic Foot Exam 01/04/2021 01/05/2020, 0 05/21/2015, 07/25/2014 COVID-19 Vaccine ( - 2022- season) 2022 Zoster Vaccines (2 [...] 120 11/2020, 04/20/2019 CKD HGB USE SMARTSET 83884 05/17/202405/17, 06/08/2022, 06/01/2022, Additional history exists CKD PHOS USE SMARTSET 37009 05/17/20240 08/2023, 03/19/2021, 04/20/2019 Lipid Panel 05/17/2028 [...] Primary documented in this encounter Care Teams Spot Facer Relationship Specialty Start Date End Date Dell Mosqueda III, MD [address] [place] [address] PCP - General Family Medicine 04/20/14 documented as of this encounter
--- OUTSIDE RECORDS SUMMARY | 2023-10-10 10:07 | External Medical Summary ---
Author Name Unknown Address Unknown Organization : Laboratory Report Ordering Provider Test Date Status GABBY MELGAR 10/04/2023 08:50:00 Final Observation Date Value Abnormality Reference (Units ) Status HbA1C 10/04/2023 08:50:00 9.3 Above high normal 4. 0-5.6 (%) Final Performing Location
--- OUTSIDE RECORDS SUMMARY | 2023-10-10 10:07 | External Medical Summary | Summary of Care ---
Author Name Unknown Organization [facility] Address [address] [place] [address] Phone [phone] Care Team Providers Care University Controller Name Role Phone Jaylin SALAS MD, Dell Quintero Primary Care Provider [phone] Reason for Visit * Reason Onset Date Comments Filling Problem 06/03/2023 Encounter Details Date Type Department Care Team (Late st Contact Info) Description 06/03/2023 Telephone Family Practice [facility] [place] [address] [facility] [place] [address] Dell Mosqueda III, MD [address] [facility] [place] [address] Filling Problem Allergies Active Allergy Reactions Criticality Noted Date Comments Guaifenesin Rash 01/17/2014 documented as of this encounter (statuses as of 09/02/2023) Medications Medication Sig Dispensed Refills Start Date [...] hours as needed. Tooth pain 3 Active Amoxicillin 250 MG Oral Capsule (Amoxil) Take 1 Capsule by mouth in the morning and 1 Capsule at noon and 1 Capsule before bedtime. 3 Active Dexcom G7 SensorIndication s:Type 2 diabetes mellitus with hemoglobin A1c goal of less than 7.0% ([facility]) Replace Sensor every 10 days. 3 Each 11 3 Active Glucose Blood (Interana CONTOUR NEXT TEST) STRPIndications: Type 2 diabetes mellitus with hemoglobin A1c goal of less than 7.0% ([facility]) Use 2-4 times daily to test blood sugar. 100 Strip 11 9 06/04/19 24 Discontinued(Re fill) Cholecalciferol (VITAMIN D3) 50 MCG (1999 UT) Capsule Take 1 Cap by mouth daily. 30 Cap 5 0 06/04/19 24 Discontinued(Re fill) Atorvastatin Calcium 40 MG Oral Tablet (Lipitor)Indicat ions:Dyslipidemi a, goal LDL below 100 TAKE 1 TABLET BY MOUTH EVERY DAY 90 Tablet 1 3 06/04/19 24 Discontinued(Re fill) metFORMIN HCl ER 500 MG Oral Tablet Extended Release 24 Hour (Glucophage XR)Indications:T ype 2 diabetes mellitus with hemoglobin A1c goal of less than 7.0% ([facility]) TAKE 2 TABLETS by mouth IN THE MORNING, and 1 TABLET IN THE EVENING 270 Tablet 3 3 06/04/19 24 Discontinued(Re fill) Gabapentin 600 MG Oral Tablet (Neurontin) Take 1 Tablet by mouth in the morning and 1 Tablet before bedtime. 180 Tablet 3 3 06/04/19 24 Discontinued(Re fill) Lisinopril 40 MG Oral TabletIndication s:Chronic kidney disease, stage 3a ([facility]),Type 2 diabetes mellitus with stage 3a chronic kidney disease, with long-term current use of insulin ([facility]) Take 1 Tablet by mouth daily. 90 Tablet 3 3 06/04/19 24 Discontinued(Re fill) amLODIPine Besylate 5 MG Oral Tablet (Norvasc) Take 1 Tablet by mouth in the morning. 90 Tablet 3 3 06/04/19 24 Discontinued(Re fill) Pen [place] 32G X 5 MMIndications:Ty pe 2 diabetes mellitus with hemoglobin A1c goal of less than 7.0% (HCC) Use to inject insulin up to 4 times daily 200 Each 3 3 06/04/19 24 Discontinued(Re fill) NovoLOG FlexPen 100 UNIT/ML Subcutaneous Solution Pen-injector (insulin aspart)Indicatio ns:Type 2 diabetes mellitus with hemoglobin A1c goal of less than 7.0% (HCC),Type 2 diabetes mellitus with hyperglycemia, with long-term current use of insulin (HCC),Type 2 diabetes mellitus with stage 3a chronic kidney disease, with long-term current use of insulin (HCC) Units as per sliding scale plus carbohydrate count, max dose of 100 units per day 30 mL 5 3 06/04/19 24 Discontinued(Re fill) Ozempic (0.25 or 0.5 MG/DOSE) 2 MG/3ML Solution Pen-injector (Semaglutide(0.2 5 or 0.5MG/DOS))Indic ations:Type 2 diabetes mellitus with hemoglobin A1c goal of less than 7.0% (HCC) Inject 0.25 mg under the skin once a week. 3 mL 11 3 06/04/19 24 Discontinued(Re fill) Furosemide 40 MG Oral Tablet (Lasix) TAKE 1 TABLET BY MOUTH EVERY DAY 90 Tablet 4 08/23/19 24 Discontinued Escitalopram Oxalate 10 MG Oral Tablet (Lexapro) TAKE 1 TABLET BY MOUTH EVERY DAY 90 Tablet 2 4 06/04/19 24 Discontinued(Re fill) Insulin Glargine Solostar 100 UNIT/ML Subcutaneous Solution Pen-injector (Lantus SoloStar)Indicat ions:Type 2 diabetes mellitus with hemoglobin A1c goal of less than 7.0% (HCC) Inject 50 Units under the skin in the morning. 45 mL 3 4 06/03/19 24 Discontinued Insulin Glargine Solostar 100 UNIT/ML Subcutaneous Solution Pen-injector (Basaglar KwikPen)Indicati ons:Type 2 diabetes mellitus with hemoglobin A1c goal of less than 7.0% (HCC) Inject 50 units under the skin daily 15 mL 3 4 07/15/19 24 Discontinued(Fo rmulary/Cost) documented as of this encounter (statuses as of 09/02/2023) Active Problems Problem Noted Date Diagnosed Date [...] as of this encounter (statuses as of 09/02/2023) Resolved Problems Problem Noted Date Diagnosed Date Resolved Date Stage 3 chronic kidney disease 08/26/2022 09/24/2022 Myelopathy in diseases classified elsewhere 01/05/2020 03/19/2021 Diabetes mellitus with stage 3 chronic kidney disease 01/17/2018 08/22/2020 Overview: Per CKD protocol #1 HTN, goal to be determined (HYPERTENSION) 04/20/2014 08/29/2014 documented as of this encounter (statuses as of 09/02/2023) Immunizations Name Administration Dates Next Due Hepatitis B, 20+ yrs 05/21/2015,05/25/2014,04/24 Pneumococcal Conjugate Vacci ne, 20-valent ([id number]) 12/16/2022 Pneumococcal Polysaccharide PPV23 (Pneumovax) 04/24/2014 Seasonal [...] encounter Miscellaneous Notes * Telephone Encounter - Sandy Harper LPN - 2023 11:34 AM EST Patient is calling. Given message. He has an appt. Tomorrow with Dr. Clark and will discuss it with him then. * Telephone Encounter - Liliana Keating OSA - 2023 11:32 AM EST Pt called in transfer to [facility]. * Telephone Encounter - Lizett Tao LPN - 2023 10:34 AM EST Left message for pt to call back. * Telephone Encounter - Jw Clark DO - 06/03/2023 4:03 PM EST Please call: I sent for Basaglar for him to switch to. * Telephone Encounter - Holley Ocampo, RN - 06/03/2023 1:37 PM EST Pharmacy says Lantus is not covered. Suggested alternatives are Basaglar 100 unit/ml kwikpen or Levemir Flextouch 100 unit/ml documented in this encounter Plan of Treatment Upcoming Encounters Date Type Department Care Team (Late st Contact Info) Description 09/23/2023 7:30 AM EDT Office Visit Pharmacy, [address] [address] [facility] [place] [address] 12/22/2023 8:00 AM EDT Office Visit Family Practice [facility] [place] [address] [facility] [place] [address] Dell Mosqueda III, MD 200 [place] [address] Health Maintenance Due Date Last Done Comments [...] 05/17/2023, 11/2020, 04/20/2019 CKD HGB USE SMARTSET 36071 05/17/202405/17, 06/08/2022, 06/01/2022, Additional history exists CKD PHOS USE SMARTSET 53128 05/17/202408/2023, 03/19/2021, 04/20/2019 Lipid Panel 05/17/2028 05/17/2023, [...] Primary documented in this encounter Care Teams University Controller Relationship Specialty Start Date End Date Dell Mosqueda III, MD [address] [facility] [place] [address] PCP - General Family Medicine 04/20/14 documented as of this encounter
--- OUTSIDE RECORDS SUMMARY | 2023-10-10 10:08 | External Medical Summary | Summary of Care ---
Author Name Unknown Organization [facility] Address [address] [place] [address] Phone [phone] Care Team Providers Care News Broadcaster Name Role Phone Jaylin SALAS MD, Dell Quintero Primary Care Provider [phone] Reason for Visit * Reason Comments Outpatient Testing Encounter Details Date Type Department Care Team (Late st Contact Info) Description 05/17/2023 9:10 AM EST Laboratory Laboratory [facility] [address] [place] [id number] [facility] [address] [place] [address] Encounter for long-term (current) use of medications; Type 2 diabetes mellitus with stage 3a chronic kidney disease, with long-term current use of insulin ([facility]); Type 2 diabetes mellitus with hemoglobin A1c goal of less than 7.0% ([facility]) Allergies Active Allergy Reactions Criticality Noted Date Comments Guaifenesin Rash 01/17/2014 documented as of this encounter (statuses as of 05/17/2023) Medications Medication Sig Dispensed Refills Start Date End Date Status Glucose Blood (THOMAS CONTOUR NEXT TEST) STRPIndications:Typ e 2 diabetes mellitus with hemoglobin A1c goal of less than 7.0% ([facility]) Use 2-4 times daily to test blood sugar. 100 Strip 11 09/06/2018 Active Acetaminophen ER (TYLENOL 8 HOUR ARTHRITIS PAIN) 650 MG TBCR Take 2 Tabs by mouth every 12 hours as needed for Pain. 100 Tab 3 04/25/2019 Active naproxen (NAPROSYN) 500 MG TabletIndications:R ight elbow pain,Osteophyte, right elbow take 1 tablet by mouth twice a day WITH MORNING AND EVENING MEALS as needed 20 Tab 1 04/25/2019 Active Cholecalciferol (VITAMIN D3) 50 MCG (1999 UT) Capsule Take 1 Cap by mouth daily. 30 Cap 5 06/02/2019 Active Escitalopram Oxalate 10 MG Oral Tablet (Lexapro) TAKE 1 TABLET BY MOUTH EVERY DAY 90 Tablet 1 06/15/2022 Active Atorvastatin Calcium 40 MG Oral Tablet (Lipitor)Indication s:Dyslipidemia, goal LDL below 100 TAKE 1 TABLET BY MOUTH EVERY DAY 90 Tablet 1 06/15/2022 Active metFORMIN HCl ER 500 MG Oral Tablet Extended Release 24 Hour (Glucophage XR)Indications:Type 2 diabetes mellitus with hemoglobin A1c goal of less than 7.0% ([facility]) TAKE 2 TABLETS by mouth IN THE MORNING, and 1 TABLET IN THE EVENING 270 Tablet 08/31/2022 Active Gabapentin 600 MG Oral Tablet (Neurontin) Take 1 Tablet by mouth in the morning and 1 Tablet before bedtime. 180 Tablet 08/31/2022 Active Lisinopril 40 MG Oral TabletIndications:C hronic kidney disease, stage 3a ([facility]),Type 2 diabetes mellitus with stage 3a chronic kidney disease, with long-term current use of insulin ([facility]) Take 1 Tablet by mouth daily. 90 Tablet 08/31/2022 Active Allopurinol 100 MG Oral Tablet (Zyloprim) Take 1 Tablet by mouth in the morning and 1 Tablet before bedtime. 180 Tablet 08/31/2022 Active amLODIPine Besylate 5 MG Oral Tablet (Norvasc) Take 1 Tablet by mouth in the morning. 90 Tablet 08/31/2022 Active Pen [place] 32G X 5 MMIndications:Type 2 diabetes mellitus with hemoglobin A1c goal of less than 7.0% ([facility]) Use to inject insulin up to 4 times daily 200 Each 08/31/2022 Active NovoLOG FlexPen 100 UNIT/ML Subcutaneous Solution Pen-injector (insulin aspart)Indications: Type 2 diabetes mellitus with hemoglobin A1c goal of less than 7.0% ([facility]),Type 2 diabetes mellitus with hyperglycemia, with long-term current use of insulin ([facility]),Type 2 diabetes mellitus with stage 3a chronic kidney disease, with long-term current use of insulin ([facility]) Units as per sliding scale plus carbohydrate count, max dose of 100 units per day 30 mL 5 11/16/2022 Active Acetaminophen-Codei ne 300-15 MG Oral Tablet Take [...] 10 days. 3 Each 11 02/08/2023 Active Insulin Glargine Solostar 100 UNIT/ML Subcutaneous Solution Pen-injector (Lantus SoloStar)Indication s:Type 2 diabetes mellitus with hemoglobin A1c goal of less than 7.0% (HCC) Inject 40 Units under the skin in the morning. 45 mL 3 03/22/2023 Active Ozempic (0.25 or 0.5 MG/DOSE) 2 MG/3ML Solution Pen-injector (Semaglutide(0.25 or 0.5MG/DOS))Indicati ons:Type 2 diabetes mellitus with hemoglobin A1c goal of less than 7.0% (HCC) Inject 0.25 mg under the skin once a week. 3 mL 11 03/22/2023 Active Furosemide 40 MG Oral Tablet (Lasix) TAKE 1 TABLET BY MOUTH EVERY DAY 90 Tablet 0 05/13/2023 Active documented as of this encounter (statuses as of 05/17/2023) Active Problems Problem Noted Date Diagnosed Date Type 2 diabetes mellitus with hyperglycemia 11/2020 [...] as of this encounter (statuses as of 05/17/2023) Resolved Problems Problem Noted Date Diagnosed Date Resolved Date Stage 3 chronic kidney disease 08/26/2022 09/24/2022 Myelopathy in diseases classified elsewhere 01/05/2020 03/19/2021 Diabetes mellitus with stage 3 chronic kidney disease 01/17/2018 08/22/2020 Overview: Per CKD protocol #1 HTN, goal to be determined (HYPERTENSION) 04/20/2014 08/29/2014 documented as of this encounter (statuses as of 05/17/2023) Immunizations Name Administration Dates Next Due Hepatitis B, 20+ yrs 05/21/2015,05/25/2014,04/24 Pneumococcal Conjugate Vacci ne, 20-valent ([id number]) 12/16/2022 Pneumococcal Polysaccharide PPV23 (Pneumovax) 04/24/2014 Seasonal [...] on file documented as of this encounter Plan of Treatment Upcoming Encounters Date Type Department Care Team (Late st Contact Info) Description 06/21/2023 9:40 AM EDT Office Visit Family Practice [facility] [address] [facility] [place] [address] Dell Mosqueda III, MD [address] [facility] [place] [address] 07/12/2023 8:00 AM EDT [facility] [place] [address] [facility] [place] [address] Pharmacist2, [facility] [address] [facility] [place] [address] Pending Results Name Type Priority Associated Diagnoses Date /Time VITAMIN B12 Lab Routine Encounter for long-term (current) use of medications 05/17/2023 7:56 AM EST HEMOGLOBIN A1C Lab Routine Type 2 diabetes mellitus with stage 3a chronic kidney disease, with long-term current use of insulin (HCC) 05/17/2023 7:56 AM EST RENAL FUNCTION PANEL Lab Routine Type 2 diabetes mellitus with stage 3a chronic kidney disease, with long-term current use of insulin (HCC) 05/17/2023 7:56 AM EST LIPID PANEL WITH DIRECT LDL IF TG IS HIGH Lab Routine Encounter for long-term (current) use of medications 05/17/2023 7:56 AM EST Health Maintenance Due Date Last Done Comments COVID-19 Vaccine (#1) 1970 Hepatitis C Screening 06/15/1987 Cologuard 2014 Colonoscopy 2014 Colorectal Cancer Screening 2014 Fecal Occult Blood Test 2014 Sigmoidoscopy 2014 Diabetic Foot Exam 01/04/2021 01/05/2020, 0 05/21/2015, 07/25/2014 Depression Screening 01/22/2021 01/23/2020 B-12 03/19/2022 03/19/2021, 04/20/2019 CKD PHOS USE SMARTSET 69569 03/19/2022 03/19/2021, 0 04/20/2019 GFR 12/06/2022 06/08/2022, 05/14, 05/25/2022, Additional history exists Influenza Vaccine (FLU shot) (#1) 2022 04/20/2019, 04/09/2016, 05/21/2015, Additional history exists Zoster Vaccines (2 of 2) 02/10/2023 12/16/2022 HbA1c 05/19/2023 11/16/2022, 08/10, 03/19/2021, Additional history exists Diabetic Eye Exam 08/27/2023 08/26/2022, , 11/12/2018, Additional history exists Albumin/Creatinine Ratio 12/17/2023 023, 03/19/2021, 02/02/2017, Additional history exists DTaP,Tdap,and Td Vaccines (2 - Td or Tdap) 01/18/2024 01/17/2014 CKD HGB USE SMARTSET 43240 05/17/202405/17, 06/08/2022, 06/01/2022, Additional history exists Lipid Panel 03/19/2026 03/19/2021, 05/13, 11/23/2017, Additional history exists Hepatitis B Completed 05/21/2015, [...] Procedure Name Priority Date/Time Associated Diagnosis Comments CBC Routine 05/17/2023 7:56 AM EST Type 2 diabetes mellitus with stage 3a chronic kidney disease, with long-term current use of insulin (HCC) documented in this encounter Results * (ABNORMAL) CBC (05/17/2023 7:56 AM EST) WBC 7.74 4.00 - 10.80 K/uL 05/17/2023 8:04 AM [facility] 56 RBC 4.75 4.50 - 5.25 M/uL 05/17/2023 8:04 AM [facility] 56- HGB 12.6(L) 14.0 - 16.8 g/dL 05/17/2023 8:04 AM [facility] 56 HCT 40.9 40.0 - 48.4 % 05/17/2023 8:04 AM [facility] 56 MCV 86.1 82.0 - 99.5 fL 05/17/2023 8:04 AM [facility] 56- MCH 26.5 27.0 - 34.0 pg 05/17/2023 8:04 AM [facility] 56- MCHC 30.8 32.0 - 36.0 g/dL 05/17/2023 8:04 AM [facility] 56- RDW 14.1 11.5 - 15.5 % 05/17/2023 8:04 AM [facility] 56- PLT 302 140 - 400 K/uL 05/17/2023 8:04 AM [facility] 56- MPV 10.2 6.6 - 11.1 fL 05/17/2023 8:04 AM [facility] 56 Blood Venous blood specimen / Unknown Venipuncture / Unknown 05/17/2023 7:56 AM EST 05/17/2023 7:56 AM EST Dell Mosqueda III, MD LAB [facility]OD [facility] [address] documented in this encounter Visit Diagnoses Diagnosis Encounter for long-term (current) use of medications Encounter for long-term (current) use of other medications Type 2 diabetes mellitus with stage 3a chronic kidney disease, with long-term current use of insulin (HCC) Type 2 diabetes mellitus with hemoglobin A1c goal of less than 7.0% (HCC) documented in this encounter Care Teams News Broadcaster Relationship Specialty Start Date End Date [facility] [address] [facility] [address] [facility] - [facility] Family Medicine 04/20/14 documented as of this encounter
--- OUTSIDE RECORDS SUMMARY | 2023-10-10 10:08 | External Medical Summary | Summary of Care ---
Author Name Unknown Organization [facility] Address [address] [facility] [place] [address] Phone [phone] Care Team Providers Care External Grinder Tender Name Role Phone Jaylin SALAS MD, Dell Quintero Primary Care Provider [phone] Reason for Visit * Reason Onset Date Comments Abnormal Test Results 05/19/2023 Encounter Details Date Type Department Care Team (Late st Contact Info) Description 05/19/[address] [facility] [address] [facility] [place] [address] Roula Medina PA-C [address] [facility] [place] [address] Abnormal Test Results Allergies Active Allergy Reactions Criticality Noted Date Comments Guaifenesin Rash 01/17/2014 documented as of this encounter (statuses as of 05/19/2023) Medications Medication Sig Dispensed Refills Start Date End Date Status Glucose Blood (THOMAS CONTOUR NEXT TEST) STRPIndications:Typ e 2 diabetes mellitus with hemoglobin A1c goal of less than 7.0% ([facility]) Use 2-4 times daily to test [...] mouth daily. 30 Cap 5 06/02/2019 Active Atorvastatin Calcium 40 MG Oral Tablet (Lipitor)Indication s:Dyslipidemia, goal LDL below 100 TAKE 1 TABLET BY MOUTH EVERY DAY 90 Tablet 1 06/15/2022 Active metFORMIN HCl ER 500 MG Oral Tablet Extended Release 24 Hour (Glucophage XR)Indications:Type 2 diabetes mellitus with hemoglobin A1c goal of less than 7.0% ([facility]) TAKE 2 TABLETS by mouth IN THE MORNING, and 1 TABLET IN THE EVENING 270 Tablet 3 08/31/2022 Active Gabapentin 600 MG Oral Tablet (Neurontin) Take 1 Tablet by mouth in the morning and 1 Tablet before bedtime. 180 Tablet 08/31/2022 Active Lisinopril 40 MG Oral TabletIndications:C hronic kidney disease, stage 3a ([facility]),Type 2 diabetes mellitus with stage 3a chronic kidney disease, with long-term current use of insulin ([facility]) Take 1 Tablet by mouth daily. 90 Tablet 3 08/31/2022 Active Allopurinol 100 MG Oral Tablet (Zyloprim) Take 1 Tablet by mouth in the morning and 1 Tablet before bedtime. 180 Tablet 3 08/31/2022 Active amLODIPine Besylate 5 MG Oral Tablet (Norvasc) Take 1 Tablet by mouth in the morning. 90 Tablet 3 08/31/2022 Active Pen [place] 32G X 5 MMIndications:Type 2 diabetes mellitus with hemoglobin A1c goal of less than 7.0% ([facility]) Use to inject insulin up to 4 times daily 200 Each 08/31/2022 Active NovoLOG FlexPen 100 UNIT/ML Subcutaneous Solution Pen-injector (insulin aspart)Indications: Type 2 diabetes mellitus with hemoglobin A1c goal of less than 7.0% ([facility]),Type 2 diabetes mellitus with hyperglycemia, with long-term current use of insulin ([facility]),Type 2 diabetes mellitus with stage 3a chronic kidney disease, with long-term current use of insulin ([facility]) Units as per sliding scale plus [...] 10 days. 3 Each 11 02/08/2023 Active Ozempic (0.25 or 0.5 MG/DOSE) 2 MG/3ML Solution Pen-injector (Semaglutide(0.25 or 0.5MG/DOS))Indicati ons:Type 2 diabetes mellitus with hemoglobin A1c goal of less than 7.0% (HCC) Inject 0.25 mg under the skin once a week. 3 mL 11 03/22/2023 Active Furosemide 40 MG Oral Tablet (Lasix) TAKE 1 TABLET BY MOUTH EVERY DAY 90 Tablet 0 05/13/2023 Active Escitalopram Oxalate 10 MG Oral Tablet (Lexapro) TAKE 1 TABLET BY MOUTH EVERY DAY 90 Tablet 2 05/17/2023 Active Insulin Glargine Solostar 100 UNIT/ML Subcutaneous Solution Pen-injector (Lantus SoloStar)Indication s:Type 2 diabetes mellitus with hemoglobin A1c goal of less than 7.0% (HCC) Inject 50 Units under the skin in the morning. 45 mL 3 05/17/2023 Active documented as of this encounter (statuses as of 05/19/2023) Active Problems Problem Noted Date Diagnosed Date [...] as of this encounter (statuses as of 05/19/2023) Resolved Problems Problem Noted Date Diagnosed Date Resolved Date Stage 3 chronic kidney disease 08/26/2022 09/24/2022 Myelopathy in diseases classified elsewhere 01/05/2020 03/19/2021 Diabetes mellitus with stage 3 chronic kidney disease 01/17/2018 08/22/2020 Overview: Per CKD protocol #1 HTN, goal to be determined (HYPERTENSION) 04/20/2014 08/29/2014 documented as of this encounter (statuses as of 05/19/2023) Immunizations Name Administration Dates Next Due Hepatitis B, 20+ yrs 05/21/2015,05/25/2014,04/24 Pneumococcal Conjugate Vacci ne, 20-valent ([id number]) 12/16/2022 Pneumococcal Polysaccharide PPV23 (Pneumovax) 04/24/2014 Seasonal [...] encounter Miscellaneous Notes * Telephone Encounter - Xena Zaldivar, MED ASSIST - 05/19/2023 9:18 AM EST ----- Message from Roula Medina PA-C sent at 05/17/2023 7:29 PM EST ----- Please send abnormal lab letter. Diabetes not in good control. documented in this encounter Plan of Treatment Upcoming Encounters Date Type Department Care Team (Late st Contact Info) Description 06/21/2023 9:40 AM EDT Office Visit Family Practice [facility] [address] [facility] [place] [address] Dell Mosqueda III, MD [address] [facility] [place] [address] 07/12/2023 8:00 AM EDT Office Visit Pharmacy, [facility] [address] [facility] [place] [address] Pharmacist2, [facility] [address] [facility] [place] [address] Health Maintenance Due Date Last Done Comments COVID-19 Vaccine (#1) 1970 Hepatitis C Screening 06[birth year]1987 Cologuard 2014 Colonoscopy 2014 Colorectal Cancer Screening 2014 Fecal Occult Blood Test 2014 Sigmoidoscopy 2014 Diabetic Foot Exam 01/04/2021 01/05/2020, 0 05/21/2015, 07/25/2014 Depression Screening 01/22/2021 01/23/2020 Influenza Vaccine (FLU shot) (#1) 2022 04/20/2019, 04/09/2016, 05/21/2015, Additional history exists Zoster Vaccines (2 of 2) 02/10/2023 12/16/2022 Diabetic Eye Exam 08/27/2023 08/26/2022, , 11/12/2018, Additional history exists GFR 11/15/2023 05/17/2023, 0210/2022, 06/01/2022, Additional history exists HbA1c 11/15/2023 05/17/2023, 10/2022, 08/26/2022, Additional history exists Albumin/Creatinine Ratio 12/17/2023 023, 03/19/2021, 02/02/2017, Additional history exists DTaP,Tdap,and Td Vaccines (2 - Td or Tdap) 01/18/2024 01/17/2014 B-12 05/17/2024 05/17/2023, 11/2020, 04/20/2019 CKD HGB USE SMARTSET 59338 05/17/202405/17, 06/08/2022, 06/01/2022, Additional history exists CKD PHOS USE SMARTSET 75389 05/17/202408/2023, 03/19/2021, 04/20/2019 Lipid Panel 05/17/2028 05/17/2023, [...] filedocumented as of this encounter Care Teams External Grinder Tender Relationship Specialty Start Date End Date Dell Mosqueda III, MD [address] [place] [address] PCP - General Family Medicine 04/20/14 documented as of this encounter
--- OUTSIDE RECORDS SUMMARY | 2023-10-10 10:08 | External Medical Summary | Summary of Care ---
Author Name Unknown Organization [facility] Address [address] [address] Phone [phone] Care Team Providers Care Painter Bottom Name Role Phone Jaylin SALAS MD, Dell Quintero Primary Care Provider [phone] Reason for Visit * Reason Comments Dosage Adjustment In Person (Anticoag Cl inic) Diabetes Management Encounter Details Date Type Department Care Team (Late st Contact Info) Description 05/17/2023 8:00 AM EST Office Visit Pharmacy, [facility] [address] [place] [address] Pharmacist2, [facility] [address] [place] [address] Type 2 diabetes mellitus with hemoglobin A1c goal of less than 7.0% ([facility])* Allergies Active Allergy Reactions Criticality Noted Date Comments Guaifenesin Rash 01/17/2014 documented as of this encounter (statuses as of 05/17/2023) Medications Medication Sig Dispensed Refills Start Date End Date Status Glucose Blood (THOMAS CONTOUR NEXT TEST) STRPIndications:T ype 2 diabetes mellitus with hemoglobin A1c goal of less than 7.0% ([facility]) Use 2-4 times daily to test blood sugar. 100 Strip 11 09/06/2018 Active Acetaminophen ER (TYLENOL 8 HOUR ARTHRITIS PAIN) 650 MG TBCR Take 2 Tabs by mouth every 12 hours as needed for Pain. 100 Tab 3 04/25/2019 Active naproxen (NAPROSYN) 500 MG TabletIndications :Right elbow [...] Active Atorvastatin Calcium 40 MG Oral Tablet (Lipitor)Indicati ons:Dyslipidemia, goal LDL below 100 TAKE 1 TABLET BY MOUTH EVERY DAY 90 Tablet 1 06/15/2022 Active metFORMIN HCl ER 500 MG Oral Tablet Extended Release 24 Hour (Glucophage XR)Indications:Ty pe 2 diabetes mellitus with hemoglobin A1c goal of less than 7.0% ([facility]) TAKE 2 TABLETS by mouth IN THE MORNING, and 1 TABLET IN THE EVENING 270 Tablet 08/31/2022 Active Gabapentin 600 MG Oral Tablet (Neurontin) Take 1 Tablet by mouth in the morning and 1 Tablet before bedtime. 180 Tablet 08/31/2022 Active Lisinopril 40 MG Oral TabletIndications :Chronic kidney disease, stage 3a ([facility]),Type 2 diabetes mellitus with stage 3a chronic kidney disease, with long-term current use of insulin ([facility]) Take 1 Tablet by mouth daily. 90 Tablet 08/31/2022 Active Allopurinol 100 MG Oral Tablet (Zyloprim) Take 1 Tablet by mouth in the morning and 1 Tablet before bedtime. 180 Tablet 08/31/2022 Active amLODIPine Besylate 5 MG Oral Tablet (Norvasc) Take 1 Tablet by mouth in the morning. 90 Tablet 08/31/2022 Active Pen [place] 32G X 5 MMIndications:Typ e 2 diabetes mellitus with hemoglobin A1c goal of less than 7.0% ([facility]) Use to inject insulin up to 4 times daily 200 Each 08/31/2022 Active NovoLOG FlexPen 100 UNIT/ML Subcutaneous Solution Pen-injector (insulin aspart)Indication s:Type 2 diabetes mellitus with hemoglobin A1c goal of less than 7.0% ([facility]),Type 2 diabetes mellitus with hyperglycemia, with long-term current use of insulin ([facility]),Type 2 diabetes mellitus with stage 3a chronic kidney disease, with long-term current use of insulin ([facility]) Units as per sliding scale plus carbohydrate count, max dose of 100 units per day 30 mL 5 11/16/2022 Active Acetaminophen-Cod eine 300-15 MG Oral Tablet Take [...] the morning. 45 mL 3 05/17/2023 Active Insulin Glargine Solostar 100 UNIT/ML Subcutaneous Solution Pen-injector (Lantus SoloStar)Indicati ons:Type 2 diabetes mellitus with hemoglobin A1c goal of less than 7.0% (HCC) Inject 40 Units under the skin in the morning. 45 mL 3 03/22/2023 4 Discontinue d(Refill) documented as of this encounter [...] yrs 05/21/2015,05/25/2014,04/24 Pneumococcal Conjugate Vacci ne, 20-valent ([id number]) 12/16/2022 Pneumococcal Polysaccharide PPV23 (Pneumovax) 04/24/2014 Seasonal [...] Tobacco: Never Smokeless Tobacco: Current Chew, Snuff Tobacco Cessation:Ready to Q uit: Not Asked; Counseling Given: Not Answered Alcohol Use Standard Drinks/Week Comments Yes 0 [...] - Inhaled Oxygen Concentration - - Weight 161.5 kg (356 lb) 05/17/2023 8:11 AM EST Height 193 cm (6' 4") 05/17/2023 8:11 AM EST Body Mass Index 43.33 05/17/2023 8:11 AM EST documented in this encounter Progress Notes * Raheem Morejon, [facility] - 05/17/2023 7:46 AM EST Medication Therapy Disease Management Clinic - Diabetes Management Progress Note Natan Herron, identified by name and date of , is a 52 year old male being seen for diabetes management/education. Patient presents for return diabetic visit. DIABETES: Current diabetic medications: Metformin ER 500 mg - 2 AM and 1 PM STOP: Semglee 40 units QAM START: Lantus 40 units QAM Novolog per SS - 22-30 units with meals PLUS correction factor: 6 units if BG 220-249; 8 units if BG 250-279; 10 units if BG > 280 START: Ozempic 0.25mg once weekly Medication Injection Site: Abdomen Lifestyle: Diet: unchanged Glucose Review/SMBG: Readings per patient memory/recall: Patient is currently testing 1-2 times a day Pt reports BG averaging 200-250 in the AM and 160 in the PM Hypoglycemia: Does your blood sugar go below 70 mg/dL? No Hyperglycemia symptoms present: none Recent Labs Units 11/16/22 0740 08/26/22 1440 HEMOGLOBIN A1C - [facility] % -- 8.2* HEMOGLOBIN A1C POCT - [facility] % 7.8* -- Recent Labs Units 06/08/22 0000 06/01/22 0000 05/25/22 0000 EGFR-OUTSIDE LAB ML/MIN 78.5 75.1 84.1 CREATININE-OUTSIDE LAB MG/DL 1.06 1.12 1.02 HYPERTENSION: Patient on ACEi/ARB: yes BP Readings from Last 3 Encounters: 12/16/22 136/72 08/26/22 138/78 05/19/22 120/62 Blood pressure at goal: yes HYPERLIPIDEMIA: Patient is taking moderate or high intensity statin: yes HEALTH MAINTENANCE REVIEW: Health Maintenance Due Topic Date Due COVID-19 Vaccine (1) Never done Hepatitis C Screening Never done Colorectal Cancer Screening Never done Diabetic Foot Exam 01/04/2021 Depression Screening 01/22/2021 CKD PHOS USE SMARTSET 78510 03/19/2022 B-12 03/19/2022 GFR 12/06/2022 Influenza Vaccine (FLU shot) (1) 12/11/2022 Zoster Vaccines (2 of 2) 02/10/2023 HbA1c 05/19/2023 CKD HGB USE SMARTSET [id number] 06/08/2023 ASSESSMENT & PLAN: ICD-10-CM 1. Type 2 diabetes mellitus with hemoglobin A1c goal of less than 7.0% (HCC) E11.9 BG Readings - Blood sugars uncontrolled. Pt reports BG averaging 200-250 in the AM and 160 in the PM. Pt stopped using dexcom due to cost. Medications - Reviewed current regimen, patient is not adherent to regimen. Pt just started using lantus again last week. Patient agreeable to increase to 50 units daily. Diet, Exercise, Lifestyle - No significant lifestyle changes since last visit. Patient is agreeable to SMBG 4 time(s) daily. Patient aware to contact clinic if any hypoglycemia before next visit. MEDICATION CHANGES: yes, see below; preferred pharmacy: [facility] Diabetic Medications: Metformin ER 500 mg - 2 AM and 1 PM INC: Lantus 50 units QAM Novolog per SS - 22-30 units with meals PLUS correction factor: 6 units if BG 220-249; 8 units if BG 250-279; 10 units if BG > 280 START: Ozempic 0.25mg once weekly HEALTH MAINTENANCE INTERVENTIONS: Labs: Ordered & Scheduled: HgA1c, BMP/CMP, and Lipid Panel Immunizations: Due Foot Exam: Due Eye Exam: Due Annual Wellness Visit: N/A FOLLOW UP: Return to clinic in 8 weeks 07/12/2023 Raheem Morejon [facility] Clinical Pharmacist - Legal Associate Medication Therapy Management Clinic 05/17/2023, 7:47 AM documented in this encounter Plan of Treatment Upcoming Encounters Date Type Department Care Team (Late st Contact Info) Description 05/17/2023 9:10 AM EST Laboratory Laboratory [facility] [place] [address] [place] [id number] [facility] [address] [place] [address] Encounter for long-term (current) use of medications; Type 2 diabetes mellitus with stage 3a chronic kidney disease, with long-term current use of insulin (HCC); Type 2 diabetes mellitus with hemoglobin A1c goal of less than 7.0% ([facility]) 06/21/2023 9:40 AM EDT Office Visit Family Practice [facility] [place] [address] [place] [address] VenangoDell renteria III, MD [address] [place] [address] 07/12/2023 8:00 AM EDT Office Visit Pharmacy, [facility] [place] [address] [place] [address] Pharmacist2, [facility] [address] [place] [address] Health Maintenance Due Date Last Done Comments COVID-19 Vaccine (#1) 1970 Hepatitis C Screening 06/15/1987 Cologuard 2014 Colonoscopy 2014 Colorectal Cancer Screening 2014 Fecal Occult Blood Test 2014 Sigmoidoscopy 2014 Diabetic Foot Exam 01/04/2021 01/05/2020, 0 05/21/2015, 07/25/2014 Depression Screening 01/22/2021 01/23/2020 B-12 03/19/2022 03/19/2021, 04/20/2019 CKD PHOS USE SMARTSET 83585 03/19/2022 03/19/2021, 0 04/20/2019 GFR 12/06/2022 06/08/2022, [...] Tdap) 01/18/2024 01/17/2014 CKD HGB USE SMARTSET 57394 05/17/202405/17, 06/08/2022, 06/01/2022, Additional history exists Lipid [...] goal of less than 7.0% (HCC)- Primary Encounter for long-term (current) use of medications Encounter for long-term (current) use of other medications Type 2 diabetes mellitus with stage 3a chronic kidney disease, with long-term current use of insulin (HCC) Type 2 diabetes mellitus with hemoglobin A1c goal of less than 7.0% (HCC) documented in this encounter Care Teams Painter Bottom Relationship Specialty Start Date End Date Dell Mosqueda III, MD [address] [place] [address] PCP - General Family Medicine 04/20/14 documented as of this encounter
--- OUTSIDE RECORDS SUMMARY | 2023-10-10 10:08 | External Medical Summary ---
Author Name Unknown Address Unknown Organization K01:[facility] [place] - [address] [place] [address] Laboratory Report Ordering Provider Test Date Status CÉSAR DECKER 05/17/2023 07:56:56 Final Observation Date Value Abnormality Reference (Units ) Status Vitamin B12 05/17/2023 07:56:56 [id number] (pg/mL) Final Performing Location [facility] - [address] [place] [id number]
--- OUTSIDE RECORDS SUMMARY | 2023-10-10 10:08 | External Medical Summary | Summary of Care ---
Author Name Unknown Organization [facility] Address [address] [address] Phone [phone] Care Team Providers Care Tieing Machine Operator Name Role Phone Jaylin SALAS MD, Candida Quintero Primary Care Provider [phone] Reason for Visit * Reason Comments eRx-Medication Refill Encounter Details Date Type Department Care Team (Late st Contact Info) Description 05/12/2023 Refill Family Practice [facility] [address] [place] [address] [address], [address] [place] [address] Encounter for long-term (current) use of medications* Allergies Active Allergy Reactions Criticality Noted Date Comments Guaifenesin Rash 01/17/2014 documented as of this encounter (statuses as of 05/13/2023) Medications Medication Sig Dispensed Refills Start Date End Date Status Glucose Blood (THOMAS CONTOUR NEXT TEST) STRPIndications:T ype 2 diabetes mellitus with hemoglobin A1c goal of less than 7.0% ([facility]) Use 2-4 times daily to test blood sugar. 100 Strip 11 9 Active Acetaminophen ER (TYLENOL 8 HOUR ARTHRITIS PAIN) 650 MG TBCR Take 2 Tabs by mouth every 12 hours as needed for Pain. 100 Tab 3 0 Active naproxen (NAPROSYN) 500 MG TabletIndications :Right elbow pain,Osteophyte, right elbow take 1 tablet by mouth twice a day WITH MORNING AND EVENING MEALS as needed 20 Tab 1 0 Active Cholecalciferol (VITAMIN D3) 50 MCG (1999 UT) Capsule Take 1 Cap by mouth daily. 30 Cap 5 0 Active Escitalopram Oxalate 10 MG Oral Tablet (Lexapro) TAKE 1 TABLET BY MOUTH EVERY DAY 90 Tablet 1 3 Active Atorvastatin Calcium 40 MG Oral Tablet (Lipitor)Indicati ons:Dyslipidemia, goal LDL below 100 TAKE 1 TABLET BY MOUTH EVERY DAY 90 Tablet 1 3 Active metFORMIN HCl ER 500 MG Oral Tablet Extended Release 24 Hour (Glucophage XR)Indications:Ty pe 2 diabetes mellitus with hemoglobin A1c goal of less than 7.0% ([facility]) TAKE 2 TABLETS by mouth IN THE MORNING, and 1 TABLET IN THE EVENING 270 Tablet 3 3 Active Gabapentin 600 MG Oral Tablet (Neurontin) Take 1 Tablet by mouth in the morning and 1 Tablet before bedtime. 180 Tablet 3 3 Active Lisinopril 40 MG Oral TabletIndications :Chronic kidney disease, stage 3a ([facility]),Type 2 diabetes mellitus with stage 3a chronic kidney disease, with long-term current use of insulin ([facility]) Take 1 Tablet by mouth daily. 90 Tablet 3 3 Active Allopurinol 100 MG Oral Tablet (Zyloprim) Take 1 Tablet by mouth in the morning and 1 Tablet before bedtime. 180 Tablet 3 3 Active amLODIPine Besylate 5 MG Oral Tablet (Norvasc) Take 1 Tablet by mouth in the morning. 90 Tablet 3 3 Active Pen [place] 32G X 5 MMIndications:Typ e 2 diabetes mellitus with hemoglobin A1c goal of less than 7.0% ([facility]) Use to inject insulin up to 4 times daily 200 Each 3 3 Active NovoLOG FlexPen 100 UNIT/ML Subcutaneous Solution Pen-injector (insulin aspart)Indication s:Type 2 diabetes mellitus with hemoglobin A1c goal of less than 7.0% ([facility]),Type 2 diabetes mellitus with hyperglycemia, with long-term current use of insulin ([facility]),Type 2 diabetes mellitus with stage 3a chronic kidney disease, with long-term current use of insulin ([facility]) Units as per sliding scale plus carbohydrate count, max dose of 100 units per day 30 mL 5 3 Active Acetaminophen-Cod eine 300-15 MG Oral Tablet [...] 10 days. 3 Each 11 3 Active Insulin Glargine Solostar 100 UNIT/ML Subcutaneous Solution Pen-injector (Lantus SoloStar)Indicati ons:Type 2 diabetes mellitus with hemoglobin A1c goal of less than 7.0% (HCC) Inject 40 Units under the skin in the morning. 45 mL 3 3 Active Ozempic (0.25 or 0.5 MG/DOSE) 2 MG/3ML Solution Pen-injector (Semaglutide(0.25 or 0.5MG/DOS))Indica tions:Type 2 diabetes mellitus with hemoglobin A1c goal of less than 7.0% (HCC) Inject 0.25 mg under the skin once a week. 3 mL 11 3 Active Furosemide 40 MG Oral Tablet (Lasix) TAKE 1 TABLET BY MOUTH EVERY DAY 90 Tablet 0 4 Active Furosemide 40 MG Oral Tablet (Lasix) TAKE 1 TABLET BY MOUTH EVERY DAY 90 Tablet 1 3 05/13/19 24 Discontinued documented as of this encounter (statuses as of 05/13/2023) Active Problems Problem Noted Date Diagnosed Date [...] as of this encounter (statuses as of 05/13/2023) Resolved Problems Problem Noted Date Diagnosed Date Resolved Date Stage 3 chronic kidney disease 08/26/2022 09/24/2022 Myelopathy in diseases classified elsewhere 01/05/2020 03/19/2021 Diabetes mellitus with stage 3 chronic kidney disease 01/17/2018 08/22/2020 Overview: Per CKD protocol #1 HTN, goal to be determined (HYPERTENSION) 04/20/2014 08/29/2014 documented as of this encounter (statuses as of 05/13/2023) Immunizations Name Administration Dates Next Due Hepatitis B, 20+ yrs 05/21/2015,05/25/2014,04/24 Pneumococcal Conjugate Vacci ne, 20-valent ([id number]) 12/16/2022 Pneumococcal Polysaccharide PPV23 (Pneumovax) 04/24/2014 Seasonal [...] encounter Miscellaneous Notes * Telephone Encounter - Mary Lou Ugalde PHARM Tech - 05/13/2023 10:15 AM EST Received message from [facility] regarding patient needing labs. Placed call to patient to advise. Left message on voicemail advising of required labs Thank you, Mary Lou Ugalde Morgue Librarian [facility] 05/13/2023, 10:15 AM * Telephone Encounter - Jean Pierre Castaneda [facility] - 05/13/2023 6:39 AM ESTSigned Prescriptions: Disp Refills Furosemide 40 MG Oral Tablet (Lasix) 90 Tab*0 Sig: TAKE 1 TABLET BY MOUTH EVERY DAY Authorizing Provider: CANDIDA AKY III Ordering User: JEAN PIERRE CASTANEDA * Telephone Encounter - Jean Pierre Castaneda [facility] - 05/13/2023 6:37 AM EST Provided 90 days supply with 0 refill(s) until upcoming appointment. Per refill protocol patient should have BMP on file within past year. Reviewed AMP report, Care Gaps/Health Maintenance, medications list, and for any routine labs typically ordered for this patient. Lab orders placed. Please contact patient to advise of labs ordered for blood draw AND URINE specimen (patient will have to be able to void to provide sample). Recommend patient to fast if able for labs. Patient may still have water and regular medications. Advise to obtain labs before his scheduled office visit 06/21/2023. ( and [facility] labs) Thank You, Jean Pierre Castaneda [facility] Clinical Pharmacist [facility] (formerly [facility]) [phone] 05/13/2023, 6:39 AM documented in this encounter Plan of Treatment Upcoming Encounters Date Type Department Care Team (Late st Contact Info) Description 05/17/2023 8:00 AM EST Office Visit Pharmacy, [facility] [address] [place] [address] Pharmacist2, [facility] [address] [place] [address] 06/21/2023 9:40 AM EDT Office Visit Family Practice [facility] [address] [place] [address] Candida Kay III, MD [address] [place] [address] Scheduled Orders Name Type Priority Associated Diagnoses Orde r Schedule LIPID PANEL WITH DIRECT LDL IF TG IS HIGH Lab Routine Encounter for long-term (current) use of medications Expected: 05/13/2023 (Approximate), Expires: 05/13/2024 Health Maintenance Due Date Last Done Comments COVID-19 Vaccine (#1) 1970 Hepatitis C Screening 06[birth year]1987 Cologuard 2014 Colonoscopy 2014 Colorectal Cancer Screening 2014 Fecal Occult Blood Test 2014 Sigmoidoscopy 2014 Diabetic Foot Exam 01/04/2021 01/05/2020, 0 05/21/2015, 07/25/2014 Depression Screening 01/22/2021 01/23/2020 B-12 03/19/2022 03/19/2021, 04/20/2019 CKD PHOS USE SMARTSET 99497 03/19/2022 03/19/2021, 0 04/20/2019 GFR 12/06/2022 06/08/2022, 05/14, 05/25/2022, Additional history exists Influenza Vaccine (FLU shot) (#1) 2022 04/20/2019, 04/09/2016, 05/21/2015, Additional history exists Zoster Vaccines (2 of 2) 02/10/2023 12/16/2022 HbA1c 05/19/2023 11/16/2022, 08/10, 03/19/2021, Additional history exists CKD HGB USE SMARTSET 42247 06/08/202306/08, 06/01/2022, 05/25/2022, Additional history exists Diabetic Eye Exam 08/27/2023 08/26/2022, , 11/12/2018, Additional history exists Albumin/Creatinine Ratio 12/17/2023 023, 03/19/2021, 02/02/2017, Additional history exists DTaP,Tdap,and Td Vaccines (2 - Td or Tdap) 01/18/2024 01/17/2014 Lipid Panel 03/19/2026 03/19/2021, 05/13, 11/23/2017, Additional [...] as of this encounter Visit Diagnoses Diagnosis Encounter for long-term (current) use of medications- Primary Encounter for long-term (current) use of other medications documented in this encounter Care Teams Tieing Machine Operator Relationship Specialty Start Date End Date Candida Kay III, MD [address] [place] [address] PCP - General Family Medicine 04/20/14 documented as of this encounter
--- OUTSIDE RECORDS SUMMARY | 2023-10-10 10:08 | External Medical Summary | Summary of Care ---
Author Name Unknown Organization [facility] Address [address] [facility] [place] [address] Phone [phone] Care Team Providers Care Merry Go Round Attendant Name Role Phone Jaylin SALAS MD, Candida Quintero Primary Care Provider [phone] Reason for Visit * Reason Comments eRx-Medication Refill Encounter Details Date Type Department Care Team (Late st Contact Info) Description 05/16/2023 Refill Family Practice [facility] [address] [place] [address] Candida Kay III, MD [address] [place] [address] Allergies Active Allergy Reactions Criticality Noted Date Comments Guaifenesin Rash 01/17/2014 documented as of this encounter (statuses as of 05/17/2023) Medications Medication Sig Dispensed Refills Start Date End Date Status Glucose Blood (THOMAS CONTOUR NEXT TEST) STRPIndications:T ype 2 diabetes mellitus with hemoglobin A1c goal of less than 7.0% ([facility]) Use 2-4 times daily to [...] mouth daily. 30 Cap 5 0 Active Atorvastatin Calcium 40 MG Oral Tablet (Lipitor)Indicati ons:Dyslipidemia, goal LDL below 100 TAKE 1 TABLET BY MOUTH EVERY DAY 90 Tablet 1 3 Active metFORMIN HCl ER 500 MG Oral Tablet Extended Release 24 Hour (Glucophage XR)Indications:Ty pe 2 diabetes mellitus with hemoglobin A1c goal of less than 7.0% ([facility]) TAKE 2 TABLETS by mouth IN THE MORNING, and 1 TABLET IN THE EVENING 270 Tablet 3 3 Active Gabapentin 600 MG Oral Tablet (Neurontin) Take 1 Tablet by mouth in the morning and 1 Tablet before bedtime. 180 Tablet 3 3 Active Lisinopril 40 MG Oral TabletIndications :Chronic kidney disease, stage 3a ([facility]),Type 2 diabetes mellitus with stage 3a chronic kidney disease, with long-term current use of insulin ([facility]) Take 1 Tablet by mouth daily. 90 Tablet 3 3 Active Allopurinol 100 MG Oral Tablet (Zyloprim) Take 1 Tablet by mouth in the morning and 1 Tablet before bedtime. 180 Tablet 3 3 Active amLODIPine Besylate 5 MG Oral Tablet (Norvasc) Take 1 Tablet by mouth in the morning. 90 Tablet 3 3 Active Pen [place] 32G X 5 MMIndications:Typ e 2 diabetes mellitus with hemoglobin A1c goal of less than 7.0% ([facility]) Use to inject insulin up to 4 times daily 200 Each 3 3 Active NovoLOG FlexPen 100 UNIT/ML Subcutaneous Solution Pen-injector (insulin aspart)Indication s:Type 2 diabetes mellitus with hemoglobin A1c goal of less than 7.0% ([facility]),Type 2 diabetes mellitus with hyperglycemia, with long-term current use of insulin ([facility]),Type 2 diabetes mellitus with stage 3a chronic kidney disease, with long-term current use of insulin ([facility]) Units as per sliding scale [...] every 10 days. 3 Each 3 Active Ozempic (0.25 or 0.5 MG/DOSE) 2 MG/3ML Solution Pen-injector (Semaglutide(0.25 or 0.5MG/DOS))Indica tions:Type 2 diabetes mellitus with hemoglobin A1c goal of less than 7.0% (HCC) Inject 0.25 mg under the skin once a week. 3 mL 3 Active Furosemide 40 MG Oral Tablet (Lasix) TAKE 1 TABLET BY MOUTH EVERY DAY 90 Tablet 0 4 Active Escitalopram Oxalate 10 MG Oral Tablet (Lexapro) TAKE 1 TABLET BY MOUTH EVERY DAY 90 Tablet 2 4 Active Escitalopram Oxalate 10 MG Oral Tablet (Lexapro) TAKE 1 TABLET BY MOUTH EVERY DAY 90 Tablet 1 3 05/17/19 24 Discontinued documented as of this encounter [...] yrs 05/21/2015,05/25/2014,04/24 Pneumococcal Conjugate Vacci ne, 20-valent ([id number]) 12/16/2022 Pneumococcal Polysaccharide PPV23 (Pneumovax) 04/24/2014 Seasonal [...] encounter Miscellaneous Notes * Telephone Encounter - Harlan Arias, [facility] - 05/17/2023 2:48 PM ESTSigned Prescriptions: Disp Refills Escitalopram Oxalate 10 MG Oral Tablet (Le*90 Tab*2 Sig: TAKE 1TABLET BY MOUTH EVERY DAYAuthorizing Provider: CANDIDA KAY III User: HARLAN ARIAS---- documented in this encounter Plan of Treatment Upcoming Encounters Date Type Department Care Team (Late st Contact Info) Description 06/21/2023 9:40 AM EDT Office Visit Family Practice [facility] [address] [place] [address] Candida Kay III, MD [address] [place] [address] 07/12/2023 8:00 AM EDT Office Visit Pharmacy, [facility] [address] [place] [address] Pharmacist2, [facility] [address] [place] [address] Health Maintenance Due Date Last Done Comments COVID-19 Vaccine (#1) 1970 Hepatitis C Screening 06/15/1987 Cologuard 2014 Colonoscopy 2014 Colorectal Cancer Screening 2014 Fecal Occult Blood Test 2014 Sigmoidoscopy 2014 Diabetic Foot Exam 01/04/2021 01/05/2020, 0 05/21/2015, 07/25/2014 Depression Screening 01/22/2021 01/23/2020 B-12 03/19/2022 03/19/2021, 04/20/2019 Influenza Vaccine (FLU shot) (#1) 2022 04/20/2019, 04/09/2016, 05/21/2015, Additional history exists Zoster Vaccines (2 of 2) 02/10/2023 12/16/2022 HbA1c 05/19/2023 11/16/2022, 08/10, 03/19/2021, Additional history exists Diabetic Eye Exam 08/27/2023 08/26/2022, , 11/12/2018, Additional history exists GFR 11/15/2023 05/17/2023, 05/14, 06/01/2022, Additional history exists Albumin/Creatinine Ratio 12/17/2023 023, 03/19/2021, 02/02/2017, Additional history exists DTaP,Tdap,and Td Vaccines (2 - Td or Tdap) 01/18/2024 01/17/2014 CKD HGB USE SMARTSET 56985 05/17/202405/17, 06/08/2022, 06/01/2022, Additional history exists CKD PHOS USE SMARTSET 07465 05/17/2024 02/0 08/2023, 03/19/2021, 04/20/2019 Lipid Panel 03/19/2026 03/19/2021, 05/13, 11/23/2017, Additional [...] filedocumented as of this encounter Care Teams Merry Go Round Attendant Relationship Specialty Start Date End Date Candida Kay III, MD [address] [place] [address] PCP - General Family Medicine 04/20/14 documented as of this encounter
--- OUTSIDE RECORDS SUMMARY | 2023-10-10 10:08 | External Medical Summary | Summary of Care ---
Author Name Unknown Organization [facility] Address [address] [place] [address] Phone [phone] Care Team Providers Care Automotive Heavy Mechanic Name Role Phone Jaylin SALAS MD, Candida Quintero Primary Care Provider [phone] Reason for Visit * Reason Onset Date Comments Medication Refill 06/04/2023 Encounter Details Date Type Department Care Team (Late st Contact Info) Description 06/04/2023 Refill Pharmacy, [facility] [address] [facility] [place] [address] Candida Kay III, MD [address] [place] [address] Type 2 diabetes mellitus with hemoglobin A1c goal of less than 7.0% ([facility]); Chronic kidney disease, stage 3a ([facility]); Type 2 diabetes mellitus with stage 3a chronic kidney disease, with long-term current use of insulin ([facility]); Type 2 diabetes mellitus with hyperglycemia, with long-term current use of insulin ([facility]) Allergies Active Allergy Reactions Criticality Noted Date Comments Guaifenesin Rash 01/17/2014 documented as of this encounter (statuses as of 06/04/2023) Medications Medication Sig Dispensed Refills Start Date [...] as needed 20 Tab 1 04/25/2019 Active Allopurinol 100 MG Oral Tablet (Zyloprim) Take 1 Tablet by mouth in the morning and 1 Tablet before bedtime. 180 Tablet 3 08/31/2022 Active Acetaminophen-Cod eine 300-15 MG Oral Tablet [...] skin daily 15 mL 3 06/03/2023 Active metFORMIN HCl ER 500 MG Oral [...] Oral TabletIndications :Chronic kidney disease, stage 3a (HCC),Type 2 diabetes mellitus with stage 3a chronic kidney disease, with long-term current use of insulin (HCC) Take 1 Tablet by mouth daily. 90 Tablet 06/04/2023 Active amLODIPine Besylate 5 MG Oral Tablet (Norvasc) Take 1 Tablet by mouth in the morning. 90 Tablet 06/04/2023 Active Pen [place] 32G X 5 MMIndications:Typ e 2 diabetes mellitus with hemoglobin A1c goal of less than 7.0% (HCC) Use to inject insulin up to 4 times daily 200 Each 06/04/2023 Active NovoLOG FlexPen 100 UNIT/ML Subcutaneous Solution Pen-injector (insulin aspart)Indication s:Type 2 diabetes mellitus with hemoglobin A1c goal of less than 7.0% ([facility]),Type 2 diabetes mellitus with stage 3a chronic kidney disease, with long-term current use of insulin ([facility]),Type 2 diabetes mellitus with hyperglycemia, with long-term current use of insulin ([facility]) Units as per sliding scale plus carbohydrate count, max dose of 100 units per day 30 mL 06/04/2023 Active Ozempic (0.25 or 0.5 MG/DOSE) 2 MG/3ML Solution Pen-injector (Semaglutide(0.25 or 0.5MG/DOS))Indica tions:Type 2 diabetes mellitus with hemoglobin A1c goal of less than 7.0% ([facility]) Inject 0.25 mg under the skin once a week. 3 mL 06/04/2023 Active Glucose Blood (Zimride CONTOUR NEXT TEST) STRPIndications:T ype 2 diabetes mellitus with hemoglobin A1c goal of less than 7.0% ([facility]) Use 2-4 times daily to test blood sugar. 100 Strip 11 09/06/2018 4 Discontinue d(Refill) Cholecalciferol (VITAMIN D3) 50 MCG (2000 UT) Capsule Take 1 Cap by mouth daily. 30 Cap 5 06/02/2019 4 Discontinue d(Refill) Atorvastatin Calcium 40 MG Oral Tablet (Lipitor)Indicati ons:Dyslipidemia, goal LDL below 100 TAKE 1 TABLET BY MOUTH EVERY DAY 90 Tablet 1 06/15/2022 4 Discontinue d(Refill) metFORMIN HCl ER 500 MG Oral Tablet Extended Release 24 Hour (Glucophage XR)Indications:Ty pe 2 diabetes mellitus with hemoglobin A1c goal of less than 7.0% ([facility]) TAKE 2 TABLETS by mouth IN THE MORNING, and 1 TABLET IN THE EVENING 270 Tablet 3 08/31/2022 4 Discontinue d(Refill) Gabapentin 600 MG Oral Tablet (Neurontin) Take 1 Tablet by mouth in the morning and 1 Tablet before bedtime. 180 Tablet 3 08/31/2022 4 Discontinue d(Refill) Lisinopril 40 MG Oral TabletIndications :Chronic kidney disease, stage 3a ([facility]),Type 2 diabetes mellitus with stage 3a chronic kidney disease, with long-term current use of insulin ([facility]) Take 1 Tablet by mouth daily. 90 Tablet 3 08/31/2022 4 Discontinue d(Refill) amLODIPine Besylate 5 MG Oral Tablet (Norvasc) Take 1 Tablet by mouth in the morning. 90 Tablet 3 08/31/2022 4 Discontinue d(Refill) Pen [place] 32G X 5 MMIndications:Typ e 2 diabetes mellitus with hemoglobin A1c goal of less than 7.0% ([facility]) Use to inject insulin up to 4 times daily 200 Each 3 08/31/2022 4 Discontinue d(Refill) NovoLOG FlexPen 100 UNIT/ML Subcutaneous Solution Pen-injector (insulin aspart)Indication s:Type 2 diabetes mellitus with hemoglobin A1c goal of less than 7.0% ([facility]),Type 2 diabetes mellitus with hyperglycemia, with long-term current use of insulin ([facility]),Type 2 diabetes mellitus with stage 3a chronic kidney disease, with long-term current use of insulin ([facility]) Units as per sliding scale plus carbohydrate count, max dose of 100 units per day 30 mL 5 11/16/2022 4 Discontinue d(Refill) Ozempic (0.25 or 0.5 MG/DOSE) 2 MG/3ML Solution Pen-injector (Semaglutide(0.25 or 0.5MG/DOS))Indica tions:Type 2 diabetes mellitus with hemoglobin A1c goal of less than 7.0% ([facility]) Inject 0.25 mg under the skin once a week. 3 mL 11 03/22/2023 4 Discontinue d(Refill) Escitalopram Oxalate 10 MG Oral Tablet (Lexapro) TAKE 1 TABLET BY MOUTH EVERY DAY 90 Tablet 2 05/17/2023 4 Discontinue d(Refill) documented as of this encounter (statuses as of 06/04/2023) Active Problems Problem Noted Date Diagnosed Date [...] as of this encounter (statuses as of 06/04/2023) Resolved Problems Problem Noted Date Diagnosed Date Resolved Date Stage 3 chronic kidney disease 08/26/2022 09/24/2022 Myelopathy in diseases classified elsewhere 01/05/2020 03/19/2021 Diabetes mellitus with stage 3 chronic kidney disease 01/17/2018 08/22/2020 Overview: Per CKD protocol #1 HTN, goal to be determined (HYPERTENSION) 04/20/2014 08/29/2014 documented as of this encounter (statuses as of 06/04/2023) Immunizations Name Administration Dates Next Due Hepatitis B, 20+ yrs 05/21/2015,05/25/2014,04/24 Pneumococcal Conjugate Vacci ne, 20-valent ([id number]) 12/16/2022 Pneumococcal Polysaccharide PPV23 (Pneumovax) 04/24/2014 Seasonal [...] encounter Miscellaneous Notes * Telephone Encounter - Mariama Feliciano, - 06/04/2023 4:20 PM EST Signed Prescriptions: Disp Refills metFORMIN HCl ER 500 MG Oral Tablet Extend*270 Ta*3 Sig: TAKE 2 TABLETS by mouth IN THE MORNING, and 1 TABLET IN THE EVENING Authorizing Provider: CANDIDA KAY III Ordering User: ARTIS FOX V Gabapentin 600 MG Oral Tablet (Neurontin) 180 Ta*3 Sig: Take 1 Tablet by mouth in the morning and 1 Tablet before bedtime. Authorizing Provider: MARIAMA FELICIANO Lisinopril 40 MG Oral Tablet 90 Tab*3 Sig: Take 1 Tablet by mouth daily. Authorizing Provider: CANDIDA KAY III Ordering User: ARTIS FOX V amLODIPine Besylate 5 MG Oral Tablet (Norv*90 Tab*3 Sig: Take 1 Tablet by mouth in the morning. Authorizing Provider: CANDIDA KAY III Ordering User: ARTIS FOX V Pen [place] 32G X 5 MM 200 Ea*3 Sig: Use to inject insulin up to 4 times daily Authorizing Provider: CANDIDA KAY III Ordering User: ARTIS FOX V NovoLOG FlexPen 100 UNIT/ML Subcutaneous S*30 mL 11 Sig: Units as per sliding scale plus carbohydrate count, max dose of 100 units per day Authorizing Provider: CANDIDA KAY III Ordering User: ARTIS FOX V Ozempic (0.25 or 0.5 MG/DOSE) 2 MG/3M L [place]*3 mL 11 Sig: Inject 0.25 mg under the skin once a week. Authorizing Provider: CANDIDA KAY III Ordering User: ARTIS FOX V * Telephone Encounter - Artis Otto RPh - 06/04/2023 2:35 PM ESTPending Prescriptions: Disp Refills Gabapentin 600 MG Oral Tablet (Neurontin) 180 Ta*3 Sig: Take 1 Tablet by mouth in the morning and 1 Tablet before bedtime. Signed Prescriptions: Disp Refills metFORMIN HCl ER 500 MG Oral Tablet Extend*270 Ta*3 Sig: TAKE 2 TABLETS by mouth IN THE MORNING, and 1 TABLET IN THE EVENING Authorjoni baldwin Provider: CANDIDA KAY III Ordering User: ARTIS FOX V Lisinopril 40 MG Oral Tablet 90 Tab*3 Sig: Take 1 Tablet by mouth daily. Authorizing Provider: CANDIDA KAY III Ordering User: ARTIS FOX V amLODIPine Besylate 5 MG Oral Tablet (Norv*90 Tab*3 Sig: Take 1 Tablet by mouth in the morning. Authorizing Provider: CANDIDA KAY III Ordering User: ARTIS FOX V Pen [place] 32G X 5 MM 200 Ea*3 Sig: Use to inject insulin up to 4 times daily Authorizing Provider: CANDIDA KAY III Ordering User: ARTIS FOX V NovoLOG FlexPen 100 UNIT/ML Subcutaneous S*30 mL 11 Sig: Units as per sliding scale plus carbohydrate count, max dose of 100 units per day Authorizing Provider: CANDIDA KAY III Ordering User: ARTIS FOX V Ozempic (0.25 or 0 .5 MG/DOSE) 2 MG/3ML Alina*3 mL 11 Sig: Inject 0.25 mg under the skin once a week. Authorizing Provider: CANDIDA KAY III Ordering User: ARTIS FOX V * Telephone Encounter - Artis Otto [facility] - 06/04/2023 2:32 PM EST Did you pend patient's preferred pharmacy and medication before forwarding?no Pharmacy: [id number] [address] Pending Prescriptions: Disp Refills metFORMIN HCl ER 500 MG Oral Tablet Exten*270 Ta*3 Sig: TAKE 2 TABLETS by mouth IN THE MORNING, and 1 TABLET IN THE EVENING Gabapentin 600 MG Oral Tablet (Neurontin) 180 Ta*3 Sig: Take 1 Tablet by mouth in the morning and 1 Tablet before bedtime. Lisinopril 40 MG Oral Tablet 90 Tab*3 Sig: Take 1 Tablet by mouth daily. amLODIPine Besylate 5 MG Oral Tablet (Nor*90 Tab*3 Sig: Take 1 Tablet by mouth in the morning. Pen [place] 32G X 5 MM 200 Ea*3 Sig: Use to inject insulin up to 4 times daily NovoLOG FlexPen 100 UNIT/ML Subcutaneous *30 mL 5 Sig: Units as per sliding scale plus carbohydrate count, max dose of 100 units per day Ozempic (0.25 or 0.5 MG/DOSE) 2 MG/3ML So*3 mL 11 Sig: Inject 0.25 mg under the skin once a week. Last Visit: 05/17/2023 (in office), 03/21/2021 (telemedicine) Next Visit: 07/12/2023 If no future appointments scheduled, and last appointment is greater than a year ago, please schedule patient for a follow-up appointment Last date the medication was ordered: 08/31/22 Is this request for a controlled substance?No [...] AM HGBA1C 7.3 (H) 07/26/2019 08:13 AM Artis Fox RPh, CACP, CDE Clinical Pharmacist [facility] 06/04/2023, 2:33 PM documented in this encounter Plan of Treatment Upcoming Encounters Date Type Department Care Team (Late st Contact Info) Description 06/21/2023 9:40 AM EDT Office Visit Family Practice [facility] [address] [facility] [place] [address] [place] III, MD [address] [facility] [place] [address] 07/12/2023 8:00 AM EDT Office Visit Pharmacy, [facility] [address] [facility] [place] [address] Pharmacist2, [facility] [address] [facility] [place] [address] Health Maintenance Due Date Last Done Comments Hepatitis C Screening 06/15/1988 Cologuard 2014 Colonoscopy 2014 Colorectal Cancer Screening 2014 Fecal Occult Blood Test 2014 Sigmoidoscopy 2014 Diabetic Foot Exam 01/04/2021 01/05/2020, 0 05/21/2015, 07/25/2014 Depression Screening 01/22/2021 01/23/2020 COVID-19 Vaccine ( season) 2022 Influenza Vaccine (FLU shot) (#1) 2022 04/20/2019, 04/09/2016, 05/21/2015, Additional history exists Zoster Vaccines (2 of 2) 02/10/2023 12/16/2022 Diabetic Eye Exam 08/27/2023 08/26/2022, , 11/12/2018, Additional history exists GFR 11/15/2023 05/17/2023, 05/14, 06/01/2022, Additional history exists HbA1c 11/15/2023 05/17/2023, 0810/2022, 08/26/2022, Additional history exists Albumin/Creatinine Ratio 12/17/2023 023, 03/19/2021, 02/02/2017, Additional history exists DTaP,Tdap,and Td Vaccines (2 - Td or Tdap) 01/18/2024 01/17/2014 B-12 05/17/2024 05/17/2023, 120 11/2020, 04/20/2019 CKD HGB USE SMARTSET 66853 05/17/202405/17, 06/08/2022, 06/01/2022, Additional history exists CKD PHOS USE SMARTSET 09699 05/17/20240 08/2023, 03/19/2021, 04/20/2019 Lipid Panel 05/17/2028 [...] A1c goal of less than 7.0% (HCC) Chronic kidney disease, stage 3a (HCC) Type 2 diabetes mellitus with stage 3a chronic kidney disease, with long-term current use of insulin (HCC) Type 2 diabetes mellitus with hyperglycemia, with long-term current use of insulin (HCC) documented in this encounter Care Teams Automotive Heavy Mechanic Relationship Specialty Start Date End Date Candida Kay III, MD [address] [facility] [place] [address] PCP - General Family Medicine 04/20/14 documented as of this encounter
--- OUTSIDE RECORDS SUMMARY | 2023-10-10 10:08 | External Medical Summary ---
Author Name Unknown Address Unknown Organization [id number]:[facility] [place] [address] Laboratory Report Ordering Provider Test Date Status ELIZA TIRADO III 05/17/2023 07:56:56 Final Observation Date Value Abnormality Reference (Units ) Status BUN 05/17/2023 07:56:56 28 Above high normal 6-20 (mg/dL) Final Creatinine 05/17/2023 07:56:56 1.3 Above high normal 0.6-1.2 (mg/dL) Final Glomerular filtration rate/1.73 sq M.predicted [Volume Rate/Area] in Serum, Plasma or Blood by Creatinine-based formula (CKD-EPI) 05/17/2023 07:56:56 69 >=60 (mL/min) Final eGFR is calculated based on the CKD-EPI 2020 equation SODIUM 05/17/2023 07:56:56 139 135-146 (m mol/L) Final Potassium 05/17/2023 07:56:56 5.4 Above high normal 3. 5-5.1 (mmol/L) Final Cl 05/17/2023 07:56:56 104 98-107 (mm ol/L) Final CO2 05/17/2023 07:56:56 24 22-32 (mmo l/L) Final Anion gap 05/17/2023 07:56:56 11 7-15 (mmol /L) Final Glucose 05/17/2023 07:56:56 259 Above high normal 70 -120 (mg/dL) Final Calcium 05/17/2023 07:56:56 10.3 Above high normal 8. 4-10.2 (mg/dL) Final Albumin 05/17/2023 07:56:56 4.0 3.8-5.0 (g /dL) Final Phosphate 05/17/2023 07:56:56 3.3 2.5-4.8 (m g/dL) Final Performing Location [facility] [place] [address]
--- OUTSIDE RECORDS SUMMARY | 2023-10-10 10:08 | External Medical Summary ---
Author Name Unknown Address Unknown Organization K01:[facility] [place] - [address] [facility] [address] Laboratory Report Ordering Provider Test Date Status ELIZA TIRADO III 05/17/2023 07:56:56 Final Observation Date Value Abnormality Reference (Units ) Status HbA1C 05/17/2023 07:56:56 10.6 Above high normal 4. 0-5.6 (%) Final The use of HbA1c to monitor glycemic status is based on normal hemoglobin and HbA composition. This test should not be used in patients with abnormal hemoglobin that affects the half life of the red blood cell or the in vivo glycation rates. Glucose, estimated average 05/17/2023 07:56:56 258 Above high normal <126 (mg/dL) Jeff singletary Performing Location [facility] [place] - [address] [facility] [address]
--- OUTSIDE RECORDS SUMMARY | 2023-10-10 10:08 | External Medical Summary | Summary of Care ---
Author Name Unknown Organization [facility] Address [address] [facility] [address] [facility] [facility] [address] Phone [phone] Care Team Providers Care Health Care Analyst Name Role Phone Jaylin SALAS MD, Dell Quintero Primary Care Provider [phone] Encounter Details Date Type Department Care Team (Late st Contact Info) Description 05/12/2023 Orders Only PATIENT PORTAL DO NOT DELETE THIS DEPT USED BY SARA CLARK [id number] Allergies Active Allergy Reactions Criticality Noted Date Comments Guaifenesin Rash 01/17/2014 documented as of this encounter (statuses as of 05/12/2023) Medications Medication Sig Dispensed Refills Start Date [...] 04/25/2019 Active Cholecalciferol (VITAMIN D3) 50 MCG (2000 UT) Capsule Take 1 Cap by mouth daily. 30 Cap 5 06/02/2019 Active Furosemide 40 MG Oral Tablet (Lasix) TAKE 1 TABLET BY MOUTH EVERY DAY 90 Tablet 1 06/15/2022 Active Escitalopram Oxalate 10 MG Oral Tablet [...] Oral TabletIndications:C hronic kidney disease, stage 3a ([facility]),Type [...] the morning. 90 Tablet 08/31/2022 Active Pen [place] 32G X 5 MMIndications:Type 2 diabetes mellitus with hemoglobin A1c goal of less than 7.0% ([facility]) Use to inject insulin up to 4 times daily 200 Each 08/31/2022 Active NovoLOG FlexPen 100 UNIT/ML Subcutaneous Solution Pen-injector (insulin aspart)Indications: Type 2 diabetes mellitus with hemoglobin A1c goal of less than 7.0% ([facility]),Type 2 diabetes mellitus with hyperglycemia, with long-term current use of insulin ([facility]),Type 2 diabetes mellitus with stage 3a chronic kidney disease, with long-term current use of insulin ([facility]) Units as per sliding scale plus carbohydrate [...] a week. 3 mL 11 03/22/2023 Active documented as of this encounter (statuses as of 05/12/2023) Active Problems Problem Noted Date Diagnosed Date [...] as of this encounter (statuses as of 05/12/2023) Resolved Problems Problem Noted Date Diagnosed Date Resolved Date Stage 3 chronic kidney disease 08/26/2022 09/24/2022 Myelopathy in diseases classified elsewhere 01/05/2020 03/19/2021 Diabetes mellitus with stage 3 chronic kidney disease 01/17/2018 08/22/2020 Overview: Per CKD protocol #1 HTN, goal to be determined (HYPERTENSION) 04/20/2014 08/29/2014 documented as of this encounter (statuses as of 05/12/2023) Immunizations Name Administration Dates Next Due Hepatitis B, 20+ yrs 05/21/2015,05/25/2014,04/24 Pneumococcal Conjugate Vacci ne, 20-valent ([id number]) 12/16/2022 Pneumococcal Polysaccharide PPV23 (Pneumovax) 04/24/2014 Seasonal [...] 05/17/2023 8:00 AM EST Office Visit Pharmacy, [facility] [address] [place] [address] Pharmacist2, [facility] [address] [place] [address] 06/21/2023 9:40 AM EDT Office Visit Family Practice [facility] [address] [place] [address] Dell Mosqueda III, MD [address] [facility] [place] [address] Health Maintenance Due Date Last Done Comments COVID-19 Vaccine (#1) 1970 Hepatitis C Screening 06/15/1987 Cologuard 2014 Colonoscopy 2014 Colorectal Cancer Screening 2014 Fecal Occult Blood Test 2014 Sigmoidoscopy 2014 Diabetic Foot Exam 01/04/2021 01/05/2020, 0 05/21/2015, 07/25/2014 Depression Screening 01/22/2021 01/23/2020 B-12 03/19/2022 03/19/2021, 04/20/2019 CKD PHOS USE SMARTSET 66361 03/19/2022 03/19/2021, 0 04/20/2019 GFR 12/06/2022 06/08/2022, 05/14, 05/25/2022, Additional history exists Influenza Vaccine (FLU shot) (#1) 2022 04/20/2019, 04/09/2016, 05/21/2015, Additional history exists Zoster Vaccines (2 of 2) 02/10/2023 12/16/2022 HbA1c 05/19/2023 11/16/2022, 0510/2022, 03/19/2021, Additional history exists CKD HGB USE SMARTSET 00597 06/08/202306/08, 06/01/2022, 05/25/2022, Additional history exists Diabetic [...] filedocumented as of this encounter Care Teams Health Care Analyst Relationship Specialty Start Date End Date Dell Mosqueda III, MD [address] [place] [place] [address] PCP - General Family Medicine 04/20/14 documented as of this encounter
--- OUTSIDE RECORDS SUMMARY | 2023-10-10 10:08 | External Medical Summary | Summary of Care ---
Author Name Unknown Organization [facility] Address [address] [place] [address] Phone [phone] Care Team Providers Care Hand Scraper Name Role Phone Jaylin SALAS MD, Dell Quintero Primary Care Provider [phone] Reason for Visit * Reason Onset Date Comments Medication Refill 06/04/2023 Encounter Details Date Type Department Care Team (Late st Contact Info) Description 06/04/2023 Refill Family Practice [facility] [address] [place] [address] Dell Mosqueda III, MD [address] [place] [address] Allergies Active Allergy Reactions Criticality Noted Date [...] before bedtime. 180 Tablet 3 08/31/2022 Active Acetaminophen-Codei ne 300-15 MG Oral Tablet [...] hemoglobin A1c goal of less than 7.0% ([facility]) Replace Sensor every 10 days. 3 Each 11 02/08/2023 Active Furosemide 40 MG Oral Tablet (Lasix) TAKE 1 TABLET BY MOUTH EVERY DAY 90 Tablet 0 05/13/2023 Active Insulin Glargine Solostar 100 UNIT/ML Subcutaneous Solution Pen-injector (Basaglar KwikPen)Indications :Type 2 diabetes mellitus with hemoglobin A1c goal of less than 7.0% ([facility]) Inject 50 units under the skin daily 15 mL 3 06/03/2023 Active Glucose Blood In Vitro StripIndications:Ty pe 2 diabetes mellitus with hemoglobin A1c goal of less than 7.0% ([facility]) Use 2-4 times daily to test blood sugar. 100 Strip 5 06/04/2023 Active Vitamin D3 50 MCG (1999 UT) Oral Capsule Take 1 Capsule by mouth in the morning. 30 Capsule 5 06/04/2023 Active Atorvastatin Calcium 40 MG Oral Tablet [...] hemoglobin A1c goal of less than 7.0% ([facility]) TAKE 2 TABLETS by mouth IN THE MORNING, and 1 TABLET IN THE EVENING 270 Tablet 3 06/04/2023 Active Gabapentin 600 MG Oral Tablet (Neurontin) Take 1 Tablet by mouth in the morning and 1 Tablet before bedtime. 180 Tablet 06/04/2023 Active Lisinopril 40 MG Oral TabletIndications:C hronic kidney disease, stage 3a ([facility]),Type 2 diabetes mellitus with stage 3a chronic kidney disease, with long-term current use of insulin ([facility]) Take 1 Tablet by mouth daily. 90 Tablet 3 06/04/2023 Active amLODIPine Besylate 5 MG Oral Tablet (Norvasc) Take 1 Tablet by mouth in the morning. 90 Tablet 3 06/04/2023 Active Pen [place] 32G X 5 MMIndications:Type 2 diabetes mellitus with hemoglobin A1c goal of less than 7.0% ([facility]) Use to inject insulin up to 4 times daily 200 Each 3 06/04/2023 Active NovoLOG FlexPen 100 UNIT/ML Subcutaneous Solution Pen-injector (insulin aspart)Indications: Type 2 diabetes mellitus with hemoglobin A1c goal of less than 7.0% ([facility]),Type 2 diabetes mellitus with stage 3a chronic kidney disease, with long-term current use of insulin ([facility]),Type 2 diabetes mellitus with hyperglycemia, with long-term current use of insulin ([facility]) Units as per sliding scale plus carbohydrate count, max dose of 100 units per day 30 mL 11 06/04/2023 Active Ozempic (0.25 or 0.5 MG/DOSE) 2 MG/3ML Solution Pen-injector (Semaglutide(0.25 or 0.5MG/DOS))Indicati ons:Type 2 diabetes mellitus with hemoglobin A1c goal of less than 7.0% ([facility]) Inject 0.25 mg under the skin once a week. 3 mL 06/04/2023 Active documented as of this encounter (statuses [...] yrs 05/21/2015,05/25/2014,04/24 Pneumococcal Conjugate Vacci ne, 20-valent ([id number]) 12/16/2022 Pneumococcal Polysaccharide PPV23 (Pneumovax) 04/24/2014 Seasonal [...] encounter Miscellaneous Notes * Telephone Encounter - Kirsten Serna [facility] - 06/04/2023 7:37 PM ESTRefused Prescriptions: Disp Refills Furosemide 40 MG Oral Tablet (Lasix) 90 Tab*0 Sig: Take 1 Tablet by mouth in the morning.Refused By: FREDIS SERNAeason for Refusal: Too soonReason for Refusal Comment: 90 days sent 05/13 documented in this encounter Plan of Treatment Upcoming Encounters Date Type Department Care Team (Late st Contact Info) Description 06/21/2023 9:40 AM EDT Office Visit Family Practice [facility] [address] [place] [address] [place] ren[place], MD [address] [facility] [address] [facility] [place] [address] 07/12/2023 8:00 AM EDT Office Visit Pharmacy, [facility] [place] [address] [place] [address] Pharmacist2, [facility] [address] [place] [address] Health Maintenance Due Date Last Done Comments Hepatitis C Screening 06/15/1987 Cologuard 2014 Colonoscopy 2014 Colorectal Cancer Screening 2014 Fecal Occult Blood Test 2014 Sigmoidoscopy 2014 Diabetic Foot Exam 01/04/2021 01/05/2020, 0 05/21/2015, 07/25/2014 Depression Screening 01/22/2021 01/23/2020 COVID-19 Vaccine ( - season) 2022 Influenza Vaccine (FLU shot) (#1) [...] 05/17/2023, 11/2020, 04/20/2019 CKD HGB USE SMARTSET 66782 05/17/202405/17, 06/08/2022, 06/01/2022, Additional history exists CKD PHOS USE SMARTSET 34197 05/17/20240 08/2023, 03/19/2021, 04/20/2019 Lipid Panel 05/17/2028 [...] filedocumented as of this encounter Care Teams Hand Scraper Relationship Specialty Start Date End Date Dell Mosqueda III, MD [address] [place] [address] PCP - General Family Medicine 04/20/14 documented as of this encounter
--- OUTSIDE RECORDS SUMMARY | 2023-10-10 10:08 | External Medical Summary | Summary of Care ---
Author Name Unknown Organization [facility] Address [address] [facility] [address] Phone [phone] Care Team Providers Care Supplier Quality Specialist Name Role Phone Jaylin SALAS MD, Dell Quintero Primary Care Provider [phone] Reason for Visit * Reason Comments Dosage Adjustment In Person (Anticoag Cl inic) Diabetes Management Encounter Details Date Type Department Care Team (Late st Contact Info) Description 05/17/2023 8:00 AM EST Office Visit Pharmacy, [facility] [address] [facility] [place] [address] Pharmacist2, [facility] [address] [facility] [place] [address] Type 2 diabetes mellitus with hemoglobin A1c goal of less than 7.0% ([facility])* Allergies Active Allergy Reactions Criticality Noted Date Comments Guaifenesin Rash 01/17/2014 documented as of this encounter (statuses as of 05/17/2023) Medications Medication Sig Dispensed Refills Start Date End Date Status Glucose Blood (THOMAS CONTOUR NEXT TEST) STRPIndications:T ype 2 diabetes mellitus with hemoglobin A1c goal of less than 7.0% ([facility]) Use 2-4 times daily to test blood [...] hemoglobin A1c goal of less than 7.0% ([facility]) TAKE 2 TABLETS by mouth IN THE MORNING, and 1 TABLET IN THE EVENING 270 Tablet 08/31/2022 Active Gabapentin 600 MG Oral Tablet (Neurontin) Take 1 Tablet by mouth in the morning and 1 Tablet before bedtime. 180 Tablet 08/31/2022 Active Lisinopril 40 MG Oral TabletIndications :Chronic kidney disease, stage 3a ([facility]),Type 2 diabetes mellitus with stage 3a chronic kidney disease, with long-term current use of insulin ([facility]) Take 1 Tablet by mouth daily. 90 Tablet 08/31/2022 Active Allopurinol 100 MG Oral Tablet (Zyloprim) Take 1 Tablet by mouth in the morning and 1 Tablet before bedtime. 180 Tablet 08/31/2022 Active amLODIPine Besylate 5 MG Oral Tablet (Norvasc) Take 1 Tablet by mouth in the morning. 90 Tablet 08/31/2022 Active Pen [place] 32G X 5 MMIndications:Typ e 2 diabetes mellitus with hemoglobin A1c goal of less than 7.0% ([facility]) Use to inject insulin up to 4 times daily 200 Each 08/31/2022 Active NovoLOG FlexPen 100 UNIT/ML Subcutaneous Solution Pen-injector (insulin aspart)Indication s:Type 2 diabetes mellitus with hemoglobin A1c goal of less than 7.0% ([facility]),Type 2 diabetes mellitus with hyperglycemia, with long-term current use of insulin ([facility]),Type 2 diabetes mellitus with stage 3a chronic kidney disease, with long-term current use of insulin ([facility]) Units as per sliding scale plus carbohydrate [...] yrs 05/21/2015,05/25/2014,04/24 Pneumococcal Conjugate Vacci ne, 20-valent ([id number]) 12/16/2022 Pneumococcal Polysaccharide PPV23 (Pneumovax) 04/24/2014 Seasonal [...] this encounter Progress Notes * Raheem Morejon, [facility] - 05/17/2023 7:46 AM EST Medication Therapy [...] Depression Screening 01/22/2021 CKD PHOS USE SMARTSET 73085 03/19/2022 B-12 03/19/2022 GFR 12/06/2022 Influenza Vaccine (FLU shot) (1) 12/11/2022 Zoster Vaccines (2 of 2) 02/10/2023 HbA1c 05/19/2023 CKD HGB USE SMARTSET 81713 06/08/2023 ASSESSMENT & PLAN: ICD-10-CM 1. Type [...] MEDICATION CHANGES: yes, see below; preferred pharmacy: [facility] Diabetic Medications: Metformin ER 500 mg [...] clinic in 8 weeks 07/12/2023 Raheem Morejon [facility] Clinical Pharmacist - [facility] 05/17/2023, 7:47 AM documented in this encounter Plan of Treatment Upcoming Encounters Date Type Department Care Team (Late st Contact Info) Description 05/17/2023 9:10 AM EST Laboratory Laboratory [facility] [place] [address] [facility] [place] [phone] [facility] [address] [facility] [place] [address] Encounter for long-term (current) use of medications; Type 2 diabetes mellitus with stage 3a chronic kidney disease, with long-term current use of insulin (HCC); Type 2 diabetes mellitus with hemoglobin A1c goal of less than 7.0% ([facility]) 06/21/2023 9:40 AM EDT Office Visit Family Practice [facility] [place] [address] [facility] [place] [address] [place]Dell renteria III, MD [address] [facility] [place] [address] 07/12/2023 8:00 AM EDT Office Visit Pharmacy, [facility] [place] [address] [facility] [place] [address] Pharmacist2, [facility] [address] [facility] [place] [address] Health Maintenance Due Date Last Done Comments COVID-19 Vaccine (#1) 1970 Hepatitis C Screening 06/15/1987 Cologuard 2014 Colonoscopy 2014 Colorectal Cancer Screening 2014 Fecal Occult Blood Test 2014 Sigmoidoscopy 2014 Diabetic Foot Exam 01/04/2021 01/05/2020, 0 05/21/2015, 07/25/2014 Depression Screening 01/22/2021 01/23/2020 B-12 03/19/2022 03/19/2021, 04/20/2019 CKD PHOS USE SMARTSET 08197 03/19/2022 03/19/2021, 0 04/20/2019 GFR 12/06/2022 06/08/2022, [...] Tdap) 01/18/2024 01/17/2014 CKD HGB USE SMARTSET 42292 05/17/202405/17, 06/08/2022, 06/01/2022, Additional history exists Lipid [...] (HCC) documented in this encounter Care Teams Supplier Quality Specialist Relationship Specialty Start Date End Date Dell Mosqueda III, MD [address] [facility] [place] [address] PCP - General Family Medicine 04/20/14 documented as of this encounter
--- OUTSIDE RECORDS SUMMARY | 2023-10-10 10:08 | External Medical Summary | Summary of Care ---
Author Name Unknown Organization [facility] Address [address] [facility] [address] Phone [phone] Care Team Providers Care Property Clerk Name Role Phone Jaylin SALAS MD, Candida Quintero Primary Care Provider [phone] Reason for Visit * Reason Comments eRx-Medication Refill Encounter Details Date Type Department Care Team (Late st Contact Info) Description 05/12/2023 Refill Family Practice [facility] [address] [facility] [place] [address] Jw Clark, [address] [facility] [place] [address] Encounter for long-term (current) use of medications* Allergies Active Allergy Reactions Criticality Noted Date Comments Guaifenesin Rash 01/17/2014 documented as of this encounter (statuses as of 05/14/2023) Medications Medication Sig Dispensed Refills Start Date End Date Status Glucose Blood (THOMAS CONTOUR NEXT TEST) STRPIndications:T ype 2 diabetes mellitus with hemoglobin A1c goal of less than 7.0% ([facility]) Use 2-4 times daily to [...] goal of less than 7.0% ([facility]) TAKE 2 TABLETS by mouth IN THE MORNING, and 1 TABLET IN THE EVENING 270 Tablet 3 3 Active Gabapentin 600 MG Oral Tablet (Neurontin) Take 1 Tablet by mouth in the morning and 1 Tablet before bedtime. 180 Tablet 3 3 Active Lisinopril 40 MG Oral TabletIndications :Chronic kidney disease, stage 3a ([facility]),Type 2 diabetes mellitus with stage 3a chronic kidney disease, with long-term current use of insulin ([facility]) Take 1 Tablet by mouth daily. 90 Tablet 3 3 Active Allopurinol 100 MG Oral Tablet (Zyloprim) Take 1 Tablet by mouth in the morning and 1 Tablet before bedtime. 180 Tablet 3 3 Active amLODIPine Besylate 5 MG Oral Tablet (Norvasc) Take 1 Tablet by mouth in the morning. 90 Tablet 3 3 Active Pen [place] 32G X 5 MMIndications:Typ e 2 diabetes mellitus with hemoglobin A1c goal of less than 7.0% ([facility]) Use to inject insulin up to 4 times daily 200 Each 3 3 Active NovoLOG FlexPen 100 UNIT/ML Subcutaneous Solution Pen-injector (insulin aspart)Indication s:Type 2 diabetes mellitus with hemoglobin A1c goal of less than 7.0% ([facility]),Type 2 diabetes mellitus with hyperglycemia, with long-term current use of insulin ([facility]),Type 2 diabetes mellitus with stage 3a chronic kidney disease, with long-term current use of insulin ([facility]) Units as per sliding scale [...] as of this encounter (statuses as of 05/14/2023) Active Problems Problem Noted Date Diagnosed Date [...] as of this encounter (statuses as of 05/14/2023) Resolved Problems Problem Noted Date Diagnosed Date Resolved Date Stage 3 chronic kidney disease 08/26/2022 09/24/2022 Myelopathy in diseases classified elsewhere 01/05/2020 03/19/2021 Diabetes mellitus with stage 3 chronic kidney disease 01/17/2018 08/22/2020 Overview: Per CKD protocol #1 HTN, goal to be determined (HYPERTENSION) 04/20/2014 08/29/2014 documented as of this encounter (statuses as of 05/14/2023) Immunizations Name Administration Dates Next Due Hepatitis B, 20+ yrs 05/21/2015,05/25/2014,04/24 Pneumococcal Conjugate Vacci ne, 20-valent ([id number]) 12/16/2022 Pneumococcal Polysaccharide PPV23 (Pneumovax) 04/24/2014 Seasonal [...] encounter Miscellaneous Notes * Telephone Encounter - Radha Zarco CPhT - 05/14/2023 11:02 AM EST Patient called to schedule labs for 05/17/23. Thank you, Radha Zarco CPhT Science And Operations Officer II [facility] ( Former[facility]) 05/14/2023,11:02 AM * Telephone Encounter - Mary Lou Ugalde head correction officer - 05/13/2023 10:15 AM EST Received message from [facility] regarding patient needing labs. Placed call to patient to advise. Left message on voicemail advising of required labs Thank you, Mary Lou Ugalde Registered Account Administrator [facility] 05/13/2023, 10:15 AM * Telephone Encounter - Jean Pierre Castaneda [facility] - 05/13/2023 6:39 AM ESTSigned Prescriptions: Disp Refills Furosemide 40 MG Oral Tablet (Lasix) 90 Tab*0 Sig: TAKE 1 TABLET BY MOUTH EVERY DAY Authorizing Provider: CANDIDA KAY III User: JEAN PIERRE CASTANEDA Electronically signed by Jean Pierre Castaneda [facility] at 05/13/2023 6:39 AM EST * Telephone Encounter - Jean Pierre Castaneda [facility] - 05/13/2023 6:37 AM EST Provided 90 [...] his scheduled office visit 06/21/2023. ( and [facility] labs) Thank You, Jean Pierre Castaneda [facility] Clinical Pharmacist [facility] ([facility]) (formerly Telepharmacy) [phone] 05/13/2023, 6:39 AM Electronically signed by Jean Pierre Castaneda [facility] at 05/13/2023 6:39 AM EST documented in this encounter Plan of Treatment Upcoming Encounters Date Type Department Care Team (Late st Contact Info) Description 05/17/2023 8:00 AM EST Office Visit Pharmacy, [facility] [employer] [address] [facility] [place] [address] Pharmacist2, [facility] [address] [facility] [place] [address] 05/17/2023 9:10 AM EST Laboratory Laboratory [facility] [place] [address] [facility] [place] [id number] [facility] [address] [place] [address] 06/21/2023 9:40 AM EDT Office Visit Family Practice [facility] [place] [facility] [place] [address] Candida Kya III, MD [address] [facility] [place] [address] Scheduled Orders Name Type Priority Associated Diagnoses [...] 03/19/2022 03/19/2021, 04/20/2019 CKD PHOS USE SMARTSET 74641 03/19/2022 03/19/2021, 0 04/20/2019 GFR 12/06/2022 06/08/2022, 02, 05/25/2022, Additional history exists Influenza Vaccine (FLU shot) (#1) 2022 04/20/2019, 04/09/2016, 05/21/2015, Additional history exists Zoster Vaccines (2 of 2) 02/10/2023 12/16/2022 HbA1c 05/19/2023 11/16/2022, 08/10, 03/19/2021, Additional history exists CKD HGB USE SMARTSET 06305 06/08/202306/08, 06/01/2022, 05/25/2022, Additional history exists Diabetic [...] medications documented in this encounter Care Teams Property Clerk Relationship Specialty Start Date End Date Candida Kay III, MD [address] [place] [address] PCP - General Family Medicine 04/20/14 documented as of this encounter
--- OUTSIDE RECORDS SUMMARY | 2023-10-10 10:08 | External Medical Summary | Summary of Care ---
Author Name Unknown Organization [facility] Address [address] [place] [address] Phone [phone] Care Team Providers Care Benzol Operator Name Role Phone Jaylin SALAS MD, Dell Quintero Primary Care Provider [phone] Reason for Visit * Reason Comments Follow Up Hasn't taken any med ications in 2 weeks Encounter Details Date Type Department Care Team (Late st Contact Info) Description 06/21/2023 9:40 AM EDT Office Visit Family [facility] [address] [facility] [place] [address] Dell Mosqueda III, MD 200 [place] [address] HTN, goal below 140/90*; Obesity, morbid (more than 100 lbs over ideal weight or BMI > 40) ([facility]); Type 2 diabetes mellitus with stage 3a chronic kidney disease, with long-term current use of insulin ([facility]) Allergies Active Allergy Reactions Criticality Noted Date Comments Guaifenesin Rash 01/17/2014 documented as of this encounter (statuses as of 06/25/2023) Medications Medication Sig Dispensed Refills Start Date [...] EVERY DAY 90 Tablet 0 05/13/2023 Active Additional Information Patient not taking.Reported on 06/21/2023 Insulin Glargine Solostar 100 UNIT/ML Subcutaneous Solution [...] the morning. 90 Tablet 2 06/04/2023 Active Additional Information Patient not taking.Reported on 06/21/2023 Escitalopram Oxalate 10 MG Oral Tablet (Lexapro) Take 1 Tablet by mouth in the morning. 90 Tablet 2 06/04/2023 Active Additional Information Patient not taking.Reported on 06/21/2023 metFORMIN HCl ER 500 MG Oral Tablet Extended Release 24 Hour (Glucophage XR)Indications:Type 2 diabetes mellitus with hemoglobin A1c goal of less than 7.0% ([facility]) TAKE 2 TABLETS by mouth IN THE MORNING, and 1 TABLET IN THE EVENING 270 Tablet 06/04/2023 Active Additional Information Patient not taking.Reported on 06/21/2023 Gabapentin 600 MG Oral Tablet (Neurontin) Take 1 Tablet by mouth in the morning and 1 Tablet before bedtime. 180 Tablet 06/04/2023 Active Additional Information Patient not taking.Reported on 06/21/2023 Lisinopril 40 MG Oral TabletIndications:C hronic kidney disease, stage 3a ([facility]),Type 2 diabetes mellitus with stage 3a chronic kidney disease, with long-term current use of insulin ([facility]) Take 1 Tablet by mouth daily. 90 Tablet 06/04/2023 Active Additional Information Patient not taking.Reported on 06/21/2023 amLODIPine Besylate 5 MG Oral Tablet (Norvasc) Take 1 Tablet by mouth in the morning. 90 Tablet 06/04/2023 Active Additional Information Patient not taking.Reported on 06/21/2023 Pen [place] 32G X 5 MMIndications:Type 2 diabetes mellitus [...] 7.0% ([facility]) Inject 0.25 mg under the skin once a week. 3 mL 06/04/2023 Active Additional Information Patient not taking.Reported on 06/21/2023 documented as of this encounter (statuses as of 06/25/2023) Active Problems Problem Noted Date Diagnosed Date [...] as of this encounter (statuses as of 06/25/2023) Resolved Problems Problem Noted Date Diagnosed Date Resolved Date Stage 3 chronic kidney disease 08/26/2022 09/24/2022 Myelopathy in diseases classified elsewhere 01/05/2020 03/19/2021 Diabetes mellitus with stage 3 chronic kidney disease 01/17/2018 08/22/2020 Overview: Per CKD protocol #1 HTN, goal to be determined (HYPERTENSION) 04/20/2014 08/29/2014 documented as of this encounter (statuses as of 06/25/2023) Immunizations Name Administration Dates Next Due Hepatitis B, 20+ yrs 05/21/2015,05/25/2014,04/24 Pneumococcal Conjugate Vacci ne, 20-valent ([id number]) 12/16/2022 Pneumococcal Polysaccharide PPV23 (Pneumovax) 04/24/2014 Seasonal [...] Sign Reading Time Taken Comments Blood Pressure 140/90 06/21/2023 9:32 AM EDT Pulse 72 06/21/2023 9:32 AM EDT Temperature 36.2 C (97.1 F) 06/21/2023 9:32 AM ED T Respiratory Rate 18 06/21/2023 9:32 AM EDT Oxygen Saturation - - Inhaled Oxygen Concentration - - Weight 161.8 kg (356 lb 9.6 oz) 06/21/2023 9:32 AM EDT Height - - Body Mass Index 43.41 05/17/2023 8:11 AM EST documented in this encounter Progress Notes * Dell Mosqueda III, MD - 06/21/2023 10:00 AM EDT Subjective: Natan Herron is a 53 year old male. Chief Complaint Patient presents with Follow Up Hasn't taken any medications in 2 weeks HPI: Follow up diabetes mellitus hypertension chronic kidney disease has been off his blood pressure medicines for 2 weeks or more episode of diarrhea denies chest pain shortness of breath does have some swelling of his ankles worse on the left than the right no bleeding urine or bowels needs functional capacity evaluation for form completion labs reviewed glucose was 259 cholesterol 281 hemoglobin 12.6 GFR actually 69 creatinine 1.3 A1c was 10.6 on Ozempic now 0.5 mg dosing has follow-up with pharmacist July 11 PMH: Patient Active Problem List Diagnosis Code Type 2 diabetes mellitus with hemoglobin A1c goal of less than 7.0% ([facility]) E11.9 Dyslipidemia, goal LDL below 100 E78.5 Obesity, morbid (more than 100 lbs over ideal weight or BMI > 40) ([facility]) E66.01 Major depressive disorder, recurrent, unspecified ([facility]) F33.9 Type 2 diabetes mellitus with stage 3a chronic kidney disease ([facility]) E11.22, N18.31 Chronic kidney disease, stage 3a ([facility]) N18.31 Type 2 diabetes mellitus with hyperglycemia ([facility]) E11.65 Type 2 diabetes mellitus with stage 3a chronic kidney disease, with long-term current use of insulin ([facility]) E11.22, N18.31, Z79.4 Current Outpatient Medications Medication Sig Dispense Refill Acetaminophen ER (TYLENOL 8 HOUR ARTHRITIS PAIN) 650 MG TBCR Take 2 Tabs by mouth every 12 hours asneeded for Pain. (Patient not taking: Reported on 06/21/2023) 100 Tab 3 naproxen (NAPROSYN) 500 MG Tablet take 1 tablet by mouth twice a day WITH MORNING AND EVENING MEALSas needed (Patient not taking: Reported on 06/21/2023) 20 Tab 1 Allopurinol 100 MG Oral Tablet (Zyloprim) Take 1 Tablet by mouth in the morning and 1 Tablet beforebedtime. (Patient not taking: Reported on 06/21/2023) 180 Tablet 3 Acetaminophen-Codeine 300-15 MG Oral Tablet Take 1 Tablet by mouth every 4 hours as needed. Tooth pain (Patient not taking: Reported on 06/21/2023) Amoxicillin 250 MG Oral Capsule (Amoxil) Take 1 Capsule by mouth in the morning and 1 Capsule at noon and 1 Capsule before bedtime. (Patient not taking: Reported on 06/21/2023) Dexcom G7 Sensor Replace Sensor every 10 days. 3 Each 11 Furosemide 40 MG Oral Tablet (Lasix) TAKE 1 TABLET BY MOUTH EVERY DAY (Patient not taking: Reportedon 06/21/2023) 90 Tablet 0 Insulin Glargine Solostar 100 UNIT/ML Subcutaneous Solution Pen-injector (Basaglar KwikPen) Inject 50 units under the skin daily (Patient not taking: Reported on 06/21/2023) 15 mL 3 Glucose Blood In Vitro Strip Use 2-4 times daily to test blood sugar. 100 Strip 5 Vitamin D3 50 MCG (1999 UT) Oral Capsule Take 1 Capsule by mouth in the morning. (Patient not taking: Reported on 06/21/2023) 30 Capsule 5 Atorvastatin Calcium 40 MG Oral Tablet (Lipitor) Take 1 Tablet by mouth in the morning. (Patient not taking: Reported on 06/21/2023) 90 Tablet 2 Escitalopram Oxalate 10 MG Oral Tablet (Lexapro) Take 1 Tablet by mouth in the morning. (Patient not taking: Reported on 06/21/2023) 90 Tablet 2 metFORMIN HCl ER 500 MG Oral Tablet Extended Release 24 Hour (Glucophage XR) TAKE 2 TABLETS by mouth IN THE MORNING, and 1 TABLET IN THE EVENING (Patient not taking: Reported on 06/21/2023) 270 Tablet3 Gabapentin 600 MG Oral Tablet (Neurontin) Take 1 Tablet by mouth in the morning and 1 Tablet beforebedtime. (Patient not taking: Reported on 06/21/2023) 180 Tablet 3 Lisinopril 40 MG Oral Tablet Take 1 Tablet by mouth daily. (Patient not taking: Reported on 06/21/2023) 90 Tablet 3 amLODIPine Besylate 5 MG Oral Tablet (Norvasc) Take 1 Tablet by mouth in the morning. (Patient not taking: Reported on 06/21/2023) 90 Tablet 3 Pen [place] 32G X 5 MM Use to inject insulin up to 4 times daily 200 Each 3 NovoLOG FlexPen 100 UNIT/ML Subcutaneous Solution Pen-injector (insulin aspart) Units as per sliding scale plus carbohydrate count, max dose of 100 units per day (Patient not taking: Reported on 06/21/2023) 30 mL 11 Ozempic (0.25 or 0.5 MG/DOSE) 2 MG/3ML Solution Pen-injector (Semaglutide(0.25 or 0.5MG/DOS)) Inject 0.25 mg under the skin once a week. (Patient not taking: Reported on 06/21/2023) 3 mL 11 No current facility-administered medications for this visit. Review of patient's allergies indicates: Allergen Reactions Guaifenesin Rash Past Medical History: Diagnosis Date DM type 2, goal A1c below 7 01/25/2014 Dyslipidemia, goal LDL below 100 03/21/2014 HTN, goal to be determined (HYPERTENSION) 04/20/2014 Obesity, morbid (more than 100 lbs over ideal weight or BMI > 40) (HCC) 04/20/2014 Past Surgical History: Procedure Laterality Date REPAIR ARM TENDON/MUSCLE L Objective: The patient is a 53 year old male BP 140/90 | Pulse 72 | Temp 36.2 C (97.1 F) | Resp 18 | Wt (!) 161.8 kg (356 lb 9.6 oz) | BMI 43.41 kg/m | BSA 2.95 m General: alert, healthy, and no distress Eye Exam: PERRLA, extraocular movements intact, conjunctiva are pink and non- injected, sclera clear Oropharynx: no exudate, no erythema, lips, buccal mucosa, and tongue normal, and mucous membranes are moist Heart: regular rate & rhythm, no murmur, and no gallops Lungs: chest symmetric with normal AP diameter, no chest deformities noted, no chest wall tenderness, lungs clear to auscultation Extremities: no edema, no clubbing, no cyanosis ASSESSMENT: I10 HTN, goal below 140/90 (primary encounter diagnosis) E66.01 Obesity, morbid (more than 100 lbs over ideal weight or BMI > 40) (HCC) E11.22,N18.31,Z79.4 Type 2 diabetes mellitus with stage 3a chronic kidney disease, with long-term current use of insulin (HCC) PLAN: Await pharmacy recommendations restart meds check blood pressure nurse 3 weeks wishes to get his shingles vaccine 2nd dosing on July 11 can check blood pressure at same time discussed flu vaccine and increase risk of heart attacks in not getting that immunization says he will consider for next year Follow up in 6 month(s). Dell Mosqueda III, MD documented in this encounter Nursing Notes * Kelsey Mckoy LPN - 06/21/2023 9:32 AM EDT The patient has been properly identified by confirmation of name and date of . Chief Complaint Patient presents with Follow Up Hasn't taken any medications in 2 weeks documented in this encounter Plan of Treatment Upcoming Encounters Date Type Department Care Team (Late st Contact Info) Description 07/12/2023 8:00 AM EDT Office Visit Pharmacy, [facility] [place] [address] [facility] [place] [address] Pharmacist2, [facility] [address] [facility] [place] [address] 07/12/2023 8:30 AM EDT Nurse Only Ancillary [facility] [address] [facility] [place] [address] [place], Nurse Fam Prac [address] [place] [address] 12/22/2023 8:00 AM EDT Office Visit Family Practice [facility] [address] [facility] [place] [address] Grainger Dell SALAS MD [address] [facility] [place] [address] Health Maintenance Due Date Last Done Comments Hepatitis C Screening 06/15/1987 Cologuard 2014 Colonoscopy 2014 Colorectal Cancer Screening 2014 Fecal Occult Blood Test 2014 Sigmoidoscopy 2014 Diabetic Foot Exam 01/04/2021 01/05/2020, 0 05/21/2015, 07/25/2014 Depression Screening 01/22/2021 01/23/2020 COVID-19 Vaccine (2022- season) 2022 Influenza Vaccine (FLU shot) (#1) 2022 04/20/2019, 04/09/2016, 05/21/2015, Additional history exists Zoster Vaccines (2 of 2) 02/10/2023 12/16/2022 Diabetic Eye Exam 08/27/2023 08/26/2022, , 11/12/2018, Additional history exists GFR 11/15/2023 05/17/2023, 02/10/2022, 06/01/2022, Additional history exists HbA1c 11/15/2023 05/17/2023, 10/2022, 08/26/2022, Additional history exists Albumin/Creatinine Ratio 12/17/2023 023, 03/19/2021, 02/02/2017, Additional history exists DTaP,Tdap,and Td Vaccines (2 - Td or Tdap) 01/18/2024 01/17/2014 B-12 05/17/2024 05/17/2023, 0 11/2020, 04/20/2019 CKD HGB USE SMARTSET 24004 05/17/202405/17, 06/08/2022, 06/01/2022, Additional history exists CKD PHOS USE SMARTSET 12067 05/17/202408/2023, 03/19/2021, 04/20/2019 Lipid Panel 05/17/2028 05/17/2023, [...] goal below 140/90- Primary Unspecified essential hypertension Obesity, morbid (more than 100 lbs over ideal weight or BMI > 40) (HCC) Morbid obesity Type 2 diabetes mellitus with stage 3a chronic kidney disease, with long-term current use of insulin (HCC) documented in this encounter Care Teams Benzol Operator Relationship Specialty Start Date End Date Dell Mosqueda III, MD [address] [place] [address] PCP - General Family Medicine 04/20/14 documented as of this encounter"
--- OUTSIDE RECORDS SUMMARY | 2023-10-10 10:08 | External Medical Summary | Summary of Care ---
Author Name Unknown Organization [facility] Address [address] [place] [facility] [place] [address] Phone [phone] Care Team Providers Care Tube Machine Operator Name Role Phone Jaylin SALAS MD, Candida Quintero Primary Care Provider [phone] Reason for Visit * Reason Comments eRx-Medication Refill Encounter Details Date Type Department Care Team (Late st Contact Info) Description 05/12/2023 Refill Family Practice [facility] [address] [facility] [place] [address] Jw Clark, [address] [facility] [place] [address] Encounter for long-term (current) use of medications* Allergies Active Allergy Reactions Criticality Noted Date Comments Guaifenesin Rash 01/17/2014 documented as of this encounter (statuses as of 05/18/2023) Medications Medication Sig Dispensed Refills Start Date End Date Status Glucose Blood (THOMAS CONTOUR NEXT TEST) STRPIndications: Type 2 diabetes mellitus with hemoglobin A1c goal of less than 7.0% ([facility]) Use 2-4 times daily to test blood sugar. 100 Strip 11 9 Active Acetaminophen ER (TYLENOL 8 HOUR ARTHRITIS PAIN) 650 MG TBCR Take 2 Tabs by mouth every 12 hours as needed for Pain. 100 Tab 3 0 Active naproxen (NAPROSYN) 500 MG TabletIndication s:Right elbow pain,Osteophyte, right elbow take 1 tablet by mouth twice a day WITH MORNING AND EVENING MEALS as needed 20 Tab 1 0 Active Cholecalciferol (VITAMIN D3) 50 MCG (1999 UT) Capsule Take 1 Cap by mouth daily. 30 Cap 5 0 Active Atorvastatin Calcium 40 MG Oral Tablet (Lipitor)Indicat ions:Dyslipidemi a, goal LDL below 100 TAKE 1 TABLET BY MOUTH EVERY DAY 90 Tablet 1 3 Active metFORMIN HCl ER 500 MG Oral Tablet Extended Release 24 Hour (Glucophage XR)Indications:T ype 2 diabetes mellitus with hemoglobin A1c goal of less than 7.0% ([facility]) TAKE 2 TABLETS by mouth IN THE MORNING, and 1 TABLET IN THE EVENING 270 Tablet 3 3 Active Gabapentin 600 MG Oral Tablet (Neurontin) Take 1 Tablet by mouth in the morning and 1 Tablet before bedtime. 180 Tablet 3 3 Active Lisinopril 40 MG Oral TabletIndication s:Chronic kidney disease, stage 3a ([facility]),Type 2 diabetes mellitus with stage 3a chronic kidney disease, with long-term current use of insulin ([facility]) Take 1 Tablet by mouth daily. 90 Tablet 3 3 Active Allopurinol 100 MG Oral Tablet (Zyloprim) Take 1 Tablet by mouth in the morning and 1 Tablet before bedtime. 180 Tablet 3 3 Active amLODIPine Besylate 5 MG Oral Tablet (Norvasc) Take 1 Tablet by mouth in the morning. 90 Tablet 3 3 Active Pen [place] 32G X 5 MMIndications:Ty pe 2 diabetes mellitus with hemoglobin A1c goal of less than 7.0% ([facility]) Use to inject insulin up to 4 times daily 200 Each 3 3 Active NovoLOG FlexPen 100 UNIT/ML Subcutaneous Solution Pen-injector (insulin aspart)Indicatio ns:Type 2 diabetes mellitus with hemoglobin A1c goal of less than 7.0% ([facility]),Type 2 diabetes mellitus with hyperglycemia, with long-term current use of insulin ([facility]),Type 2 diabetes mellitus with stage 3a chronic kidney disease, with long-term current use of insulin ([facility]) Units as per sliding scale plus carbohydrate count, max dose of 100 units per day 30 mL 5 3 Active Acetaminophen-Co deine 300-15 MG Oral Tablet Take 1 Tablet by mouth every 4 hours as needed. Tooth pain 0 3 Active Amoxicillin 250 MG Oral Capsule (Amoxil) Take 1 Capsule by mouth in the morning and 1 Capsule at noon and 1 Capsule before bedtime. 0 3 Active Dexcom G7 SensorIndication s:Type 2 diabetes mellitus with hemoglobin A1c goal of less than 7.0% (HCC) Replace Sensor every 10 days. 3 Each 11 3 Active Ozempic (0.25 or 0.5 MG/DOSE) [...] 90 Tablet 1 3 05/13/19 24 Discontinued Escitalopram Oxalate 10 MG Oral Tablet (Lexapro) TAKE 1 TABLET BY MOUTH EVERY DAY 90 Tablet 1 3 05/17/19 24 Discontinued Insulin Glargine Solostar 100 UNIT/ML Subcutaneous Solution Pen-injector (Lantus SoloStar)Indicat ions:Type 2 diabetes mellitus with hemoglobin A1c goal of less than 7.0% (HCC) Inject 40 Units under the skin in the morning. 45 mL 3 3 05/17/19 24 Discontinued(Re fill) documented as of this encounter (statuses as of 05/18/2023) Active Problems Problem Noted Date Diagnosed Date [...] as of this encounter (statuses as of 05/18/2023) Resolved Problems Problem Noted Date Diagnosed Date Resolved Date Stage 3 chronic kidney disease 08/26/2022 09/24/2022 Myelopathy in diseases classified elsewhere 01/05/2020 03/19/2021 Diabetes mellitus with stage 3 chronic kidney disease 01/17/2018 08/22/2020 Overview: Per CKD protocol #1 HTN, goal to be determined (HYPERTENSION) 04/20/2014 08/29/2014 documented as of this encounter (statuses as of 05/18/2023) Immunizations Name Administration Dates Next Due Hepatitis B, 20+ yrs 05/21/2015,05/25/2014,04/24 Pneumococcal Conjugate Vacci ne, 20-valent ([id number]) 12/16/2022 Pneumococcal Polysaccharide PPV23 (Pneumovax) 04/24/2014 Seasonal [...] for 05/17/23. Thank you, Radha Zarco CPhT Call Worker Person II [facility] ( [facility] 05/14/2023,11:02 AM * Telephone Encounter - Mary Lou Ugalde PHARM Tech - 05/13/2023 10:15 AM EST Received message from [facility] regarding patient needing labs. Placed call to patient to advise. Left message on voicemail advising of required labs Thank you, Mary Lou Ugalde Oil Burner Repairer [facility] 05/13/2023, 10:15 AM * Telephone Encounter - Jean Pierre Castaneda RP - 05/13/2023 6:39 AM ESTSigned Prescriptions: Disp Refills Furosemide 40 MG Oral Tablet (Lasix) 90 Tab*0 Sig: TAKE 1 TABLET BY MOUTH EVERY DAY Authorizing Provider: CANDIDA KAY III User: JEAN PIERRE CASTANEDA * Telephone Encounter - Jean Pierre Castaneda RP - 05/13/2023 6:37 AM EST Provided 90 [...] scheduled office visit 06/21/2023. ( and [facility] labs) Thank You, Jean Pierre Castaneda [facility] Clinical Pharmacist [facility] ([facility]) (formerly [facility]) [phone] 05/13/2023, 6:39 AM documented in this encounter Plan of Treatment Upcoming Encounters Date Type Department Care Team (Late st Contact Info) Description 06/21/2023 9:40 AM EDT Office Visit Family Practice [facility] [address] [facility] [place] [address] Candida Kay III, MD [address] [facility] [place] [address] 07/12/2023 8:00 AM EDT Office Visit Pharmacy, [facility] [place] [address] [facility] [place] [address] Pharmacist2, [facility] [address] [facility] [place] [address] Health Maintenance Due Date Last Done Comments [...] 05/17/2023, 11/2020, 04/20/2019 CKD HGB USE SMARTSET 14878 05/17/202405/17, 06/08/2022, 06/01/2022, Additional history exists CKD PHOS USE SMARTSET 58098 05/17/20240 08/2023, 03/19/2021, 04/20/2019 Lipid Panel 05/17/2028 [...] Not on filedocumented as of this encounter Results * (ABNORMAL) LIPID PANEL WITH DIRECT LDL IF TG IS HIGH (05/17/2023 7:56 AM EST) Triglycerides 209(H) <=174 mg/dL 05/17/2023 4:23 PM EST LABORATORY [facility] Comment: Triglyceride Reference Ranges (mg/dL): <150 Acceptable 150-174 Borderline high 175-499 High >=500 Very high Cholesterol 281(H) <200 mg/dL 05/17/2023 4:23 PM EST LABORATORY [facility] Comment: Total Cholesterol Reference Ranges (mg/dL): <200 Desirable 200-239 Borderline high >=240 High HDL Cholesterol 41 >39 mg/dL 4:23 PM EST LABORATORY [facility] Comment: HDL Cholesterol Reference Ranges (mg/dL): >=60 High (Desirable) <50 Low (Undesirable) For Females <40 Low (Undesirable) For Males Non-HDL Cholesterol 240(H) <=159 mg/dL 05/17/2023 4:23 PM EST LABORATORY [facility] Comment: Non-HDL Cholesterol Reference Range (mg/dL): <100 Target level for high risk ASCVD patient <130 Optimal for general population 130-159 Near optimal for general population 160-189 Borderline High 190-219 High >=220 Very High LDL Cholesterol 198(H) <=129 mg/dL 05/17/2023 4:23 PM EST LABORATORY [facility] Comment: LDL Cholesterol Reference Ranges (mg/dL): <70 Target level for high risk ASCVD patient <100 Optimal for general population 100-129 Near optimal for general population 130-159 Borderline high 160-189 High >=190 Very high Blood Venous blood specimen / Unknown Venipuncture / Unknown 05/17/2023 7:56 AM EST 05/17/2023 7:56 AM EST Jean Pierre Castaneda [facility] LAB BLOOD ORDERABLES Performing Organization Address City/State/[facility] Co de Phone Number LABORATORY [facility] [address] [place] [address] documented in this encounter Visit Diagnoses Diagnosis Encounter for long-term (current) use of medications- Primary Encounter for long-term (current) use of other medications documented in this encounter Care Teams Tube Machine Operator Relationship Specialty Start Date End Date Candida Kay III, MD [address] [facility] [place] [address] PCP - General Family Medicine 04/20/14 documented as of this encounter
--- OUTSIDE RECORDS SUMMARY | 2023-10-10 10:08 | External Medical Summary | Summary of Care ---
Author Name Unknown Organization [facility] Address [address] [place] [address] Phone [phone] Care Team Providers Care Knotting Machine Operator Name Role Phone Jaylin SALAS MD, Candida Quintero Primary Care Provider [phone] Reason for Visit * Reason Onset Date Comments Medication Refill 06/04/2023 Encounter Details Date Type Department Care Team (Late st Contact Info) Description 06/04/2023 Refill Family Practice [facility] [address] [place] [address] Candida Kay III, MD [address] [place] [address] Type 2 diabetes mellitus with hemoglobin A1c goal of less than 7.0% ([facility]); Dyslipidemia, goal LDL below 100 Allergies Active [...] goal of less than 7.0% ([facility]) Replace Sensor every 10 days. 3 Each 11 02/08/2023 Active Furosemide 40 MG Oral Tablet (Lasix) TAKE 1 TABLET BY MOUTH EVERY DAY 90 Tablet 0 05/13/2023 Active Insulin Glargine Solostar 100 UNIT/ML Subcutaneous Solution Pen-injector (Rolandoaglrick Lawrence)Indicatio ns:Type 2 diabetes mellitus with hemoglobin A1c goal of less than 7.0% ([facility]) Inject 50 units under the skin daily 15 mL 3 06/03/2023 Active Glucose Blood In Vitro StripIndications: Type 2 diabetes mellitus with hemoglobin A1c goal of less than 7.0% ([facility]) Use 2-4 times daily to test blood [...] goal of less than 7.0% ([facility]) TAKE 2 TABLETS by mouth IN THE MORNING, and 1 TABLET IN THE EVENING 270 Tablet 3 06/04/2023 Active Lisinopril 40 MG Oral TabletIndications :Chronic kidney disease, stage 3a ([facility]),Type 2 diabetes mellitus with stage 3a chronic kidney disease, with long-term current use of insulin ([facility]) Take 1 Tablet by mouth daily. 90 Tablet 3 06/04/2023 Active amLODIPine Besylate 5 MG Oral Tablet (Norvasc) Take 1 Tablet by mouth in the morning. 90 Tablet 3 06/04/2023 Active Pen [place] 32G X 5 MMIndications:Typ e 2 diabetes mellitus with hemoglobin A1c goal of less than 7.0% ([facility]) Use to inject insulin up to 4 times daily 200 Each 3 06/04/2023 Active NovoLOG FlexPen 100 UNIT/ML Subcutaneous Solution Pen-injector (insulin aspart)Indication s:Type 2 diabetes mellitus with hemoglobin A1c goal of less than 7.0% ([facility]),Type 2 diabetes mellitus with stage 3a chronic kidney disease, with long-term current use of insulin ([facility]),Type 2 diabetes mellitus with hyperglycemia, with long-term current use of insulin ([facility]) Units as per sliding scale plus carbohydrate count, max dose of 100 units per day 30 mL 06/04/2023 Active Ozempic (0.25 or 0.5 MG/DOSE) 2 MG/3ML Solution Pen-injector (Semaglutide(0.25 or 0.5MG/DOS))Indica tions:Type 2 diabetes mellitus with hemoglobin A1c goal of less than 7.0% ([facility]) Inject 0.25 mg under the skin once a week. 3 mL 06/04/2023 Active Glucose Blood (IDOMOTICS CONTOUR NEXT TEST) STRPIndications:T ype 2 diabetes mellitus with hemoglobin A1c goal of less than 7.0% ([facility]) Use 2-4 times daily to test blood sugar. 100 Strip 11 09/06/2018 4 Discontinue d(Refill) Cholecalciferol (VITAMIN D3) 50 MCG (2000 UT) Capsule Take 1 Cap by mouth daily. 30 Cap 5 06/02/2019 4 Discontinue d(Refill) Atorvastatin Calcium 40 MG Oral Tablet (Lipitor)Indicati ons:Dyslipidemia, goal LDL below 100 TAKE 1 TABLET BY MOUTH EVERY DAY 90 Tablet 1 06/15/2022 4 Discontinue d(Refill) Gabapentin 600 MG Oral Tablet (Neurontin) Take 1 Tablet by mouth in the morning and 1 Tablet before bedtime. 180 Tablet 3 08/31/2022 4 Discontinue d(Refill) Escitalopram Oxalate 10 MG [...] yrs 05/21/2015,05/25/2014,04/24 Pneumococcal Conjugate Vacci ne, 20-valent ([id number]) 12/16/2022 Pneumococcal Polysaccharide PPV23 (Pneumovax) 04/24/2014 Seasonal [...] Miscellaneous Notes * Telephone Encounter - Mariama Feliciano DO - 06/04/2023 4:20 PM EST Signed Prescriptions: Disp Refills Glucose Blood In Vitro Strip 100 St*5 Sig: Use 2-4 times daily to test blood sugar. Authorizing Provider: CANDIDA KAY III Ordering User: RASHEED MARQUEZ Vitamin D3 50 MCG (1999 UT) Oral Capsule 30 Cap*5 Sig: Take 1 Capsule by mouth in the morning. Authorizing Provider: MARIAMA FELICIANO Atorvastatin Calcium 40 MG Ora l Tablet (Li*90 Tab*2 Sig: Take 1 Tablet by mouth in the morning. Authorizing Provider: CANDIDA KAY III Ordering User: RASHEED MARQUEZ Escitalopram Oxalate 10 MG Oral Tablet (Le*90 Tab*2 Sig: Take 1 Tablet by mouth in the morning. Authorizing Provider: CANDIDA KAY III Ordering User: RASHEED MARQUEZ * Telephone Encounter - Rasheed Marquez RPh - 06/04/2023 3:13 PM ESTPending Prescriptions: Disp Refills Vitamin D3 50 MCG (1999 UT) Oral Capsule 30 Cap*5 Sig: Take 1 Capsule by mouth in the morning. Signed Prescriptions: Disp Refills Glucose Blood In Vitro Strip 100 St*5 Sig: Use 2-4 times daily to test blood sugar. Authorizing Provider: CANDIDA KAY III Ordering User: RSAHEED MARQUEZ Atorvastati n Calcium 40 MG Oral Tablet (Li*90 Tab*2 Sig: Take 1 Tablet by mouth in the morning. Authorizing Provider: CANDIDA KAY III Ordering User: RASHEED MARQUEZ Escitalopram Oxalate 10 MG Oral Tablet (Le*90 Tab*2 Sig: Take 1 Tablet by mouth in the morning. Authorizing Provider: CANDIDA KAY III Ordering User: RASHEED MARQUEZ * Telephone Encounter - Rasheed Marquez RPh - 06/04/2023 3:13 PM EST [facility] is currently not authorized to approve refills for the pended medication(s) per refill protocol. Please approve if appropriate. Thanks, Rasheed Marquez, PharmD Clinical Pharmacist [facility] ([facility]) [phone] 06/04/2023, 3:13 PM * Telephone Encounter - Rasheed Marquez RPh - 06/04/2023 3:06 PM EST Pending Prescriptions: Disp Refills Glucose Blood In Vitro Strip 100 St*11 Sig: Use 2-4 times daily to test blood sugar. Vitamin D3 50 MCG (1999 UT) Oral Capsule 30 Cap*5 Sig: Take 1 Capsule by mouth in the morning. Atorvastatin Calcium 40 MG Oral Tablet (L*90 Tab*2 Sig: Take 1 Tablet by mouth in the morning. Escitalopram Oxalate 10 MG Oral Tablet (L*90 Tab*2 Sig: Take 1 Tablet by mouth in the morning. Last Visit: 12/16/2022 (in office), 10/29/2021 (telemedicine) Next Visit: 06/21/2023 If no future appointments scheduled, and last appointment is greater than a year ago, please schedule patient for a follow-up appointment Last date the medication was ordered: 06/02/2019 Pharmacy: [facility][id number] Is this request for a controlled substance? No Urine Drug Screen:No results found for this [...] Practice [facility] [address] [place], [place] [address] Candida Kay III, MD [address] [facility] [place] [address] 07/12/2023 8:00 AM EDT Office Visit Pharmacy, [facility] [employer] [address] [facility] [place] [address] Pharmacist2, [facility] [address] [facility] [place] [address] Health Maintenance Due Date Last Done Comments [...] 05/17/2023, 08/0 10/2022, 08/26/2022, Additional history exists Albumin/Creatinine Ratio 12/17/2023 023, 03/19/2021, 02/02/2017, Additional history exists DTaP,Tdap,and Td Vaccines (2 - Td or Tdap) 01/18/2024 01/17/2014 B-12 05/17/2024 05/17/2023, 12/0 11/2020, 04/20/2019 CKD HGB USE SMARTSET 52530 05/17/202405/17, 06/08/2022, 06/01/2022, Additional history exists CKD PHOS USE SMARTSET 53003 05/17/202408/2023, 03/19/2021, 04/20/2019 Lipid Panel 05/17/2028 05/17/2023, [...] hyperlipidemia documented in this encounter Care Teams Knotting Machine Operator Relationship Specialty Start Date End Date Candida Kay III, MD [address] [place] [address] PCP - General Family Medicine 04/20/14 documented as of this encounter
--- OUTSIDE RECORDS SUMMARY | 2023-10-10 10:08 | External Medical Summary ---
Author Name Unknown Address Unknown Organization K01:[facility] - [address] [facility] [address] Laboratory Report Ordering Provider Test Date Status LEONEL GREENFIELD 05/17/2023 07:56:56 Final Observation Date Value Abnormality Reference (Units ) Status Triglyceride 05/17/2023 07:56:56 209 Above high normal <=174 (mg/dL) Final Triglyceride Reference Range s (mg/dL):
<150 Acceptable
150-174 Borderline high
175-499 High
>=500 Very high Cholesterol 05/17/2023 07:56:56 281 Above high normal <200 (mg/dL) Final Total Cholesterol Reference Ranges (mg/dL):
<200 Desirable
200-239 Borderline high
>=240 High HDL 05/17/2023 07:56:56 41 >39 (mg/dL ) Final HDL Cholesterol Reference Ra nges (mg/dL):
>=60 High (Desirable)
<50 Low (Undesirable) For Females
<40 Low (Undesirable) For Males NON-HDL CHOLESTEROL 05/17/2023 07:56:56 240 Above high normal <=159 (mg/dL) Final Non-HDL Cholesterol Referenc e Range (mg/dL):
<100 Target level for high risk ASCVD patient
<130 Optimal for general population
130-159 Near optimal for general population
160-189 Borderline High
190-219 High
>=220 Very High LDL, (calculated) 05/17/2023 07:56:56 198 Above high n ormal <=129 (mg/dL) Final LDL Cholesterol Reference Ra nges (mg/dL):
<70 Target level for high risk ASCVD patient
<100 Optimal for general population
100-129 Near optimal for general population
130-159 Borderline high
160-189 High
>=190 Very high Performing Location [facility] - [address] [facility] [place] [address]
--- OUTSIDE RECORDS SUMMARY | 2023-10-10 10:09 | External Medical Summary | Summary of Care ---
Author Name Unknown Organization [facility] Address [address] [place] [address] Phone [phone] Care Team Providers Care Clinical Research Spec Name Role Phone Jaylin SALAS MD, Dell Quintero Primary Care Provider [phone] Encounter Details Date Type Department Care Team (Late st Contact Info) Description 05/10/2023 Orders Only Outcomes Research Department [address] [place], [place] [id number] Leila Clayton CHRA [employer] Other*[id number] Allergies Active Allergy Reactions Criticality Noted Date Comments Guaifenesin Rash 01/17/2014 documented as of this encounter (statuses as of 05/10/2023) Medications Medication Sig Dispensed Refills Start Date End Date Status Glucose Blood (THOMAS CONTOUR NEXT TEST) STRPIndications:Typ e 2 diabetes mellitus with hemoglobin A1c goal of less than 7.0% ([facility]) Use 2-4 times daily to [...] goal of less than 7.0% ([facility]) TAKE 2 TABLETS by mouth IN THE MORNING, and 1 TABLET IN THE EVENING 270 Tablet 08/31/2022 Active Gabapentin 600 MG Oral Tablet (Neurontin) Take 1 Tablet by mouth in the morning and 1 Tablet before bedtime. 180 Tablet 08/31/2022 Active Lisinopril 40 MG Oral TabletIndications:C hronic kidney disease, stage 3a ([facility]),Type 2 diabetes mellitus with stage 3a chronic kidney disease, with long-term current use of insulin ([facility]) Take 1 Tablet by mouth daily. 90 Tablet 08/31/2022 Active Allopurinol 100 MG Oral Tablet (Zyloprim) Take 1 Tablet by mouth in the morning and 1 Tablet before bedtime. 180 Tablet 08/31/2022 Active amLODIPine Besylate 5 MG Oral Tablet (Norvasc) Take 1 Tablet by mouth in the morning. 90 Tablet 08/31/2022 Active Pen [place] 32G X 5 MMIndications:Type 2 diabetes mellitus with hemoglobin A1c goal of less than 7.0% ([facility]) Use to inject insulin up to 4 times daily 200 Each 08/31/2022 Active NovoLOG FlexPen 100 UNIT/ML Subcutaneous Solution Pen-injector (insulin aspart)Indications: Type 2 diabetes mellitus with hemoglobin A1c goal of less than 7.0% ([facility]),Type 2 diabetes mellitus with hyperglycemia, with long-term current use of insulin ([facility]),Type 2 diabetes mellitus with stage 3a chronic kidney disease, with long-term current use of insulin ([facility]) Units as per sliding scale [...] as of this encounter (statuses as of 05/10/2023) Active Problems Problem Noted Date Diagnosed Date [...] as of this encounter (statuses as of 05/10/2023) Resolved Problems Problem Noted Date Diagnosed Date Resolved Date Stage 3 chronic kidney disease 08/26/2022 09/24/2022 Myelopathy in diseases classified elsewhere 01/05/2020 03/19/2021 Diabetes mellitus with stage 3 chronic kidney disease 01/17/2018 08/22/2020 Overview: Per CKD protocol #1 HTN, goal to be determined (HYPERTENSION) 04/20/2014 08/29/2014 documented as of this encounter (statuses as of 05/10/2023) Immunizations Name Administration Dates Next Due Hepatitis B, 20+ yrs 05/21/2015,05/25/2014,04/24 Pneumococcal Conjugate Vacci ne, 20-valent ([id number]) 12/16/2022 Pneumococcal Polysaccharide PPV23 (Pneumovax) 04/24/2014 Seasonal [...] Office Visit Pharmacy, [facility] [address] [place] [address] Pharmacist2, [facility] [address] [place] [address] 06/21/2023 9:40 AM EDT Office Visit Family Practice [facility] [place] [address] [facility] [place] [address] Dell Mosqueda III, MD [address] [facility] [place] [address] Scheduled Orders Name Type Priority Associated Diagnoses Orde r Schedule MYCODE INITIAL ADULT Lab Routine My[facility] Research Other*[id number] Expected: 05/10/2023 (Approximate), Expires: 05/29/2024 Health Maintenance Due Date Last Done Comments COVID-19 Vaccine (#1) 1970 Hepatitis C Screening 06/15/1987 Cologuard 2014 Colonoscopy 2014 Colorectal Cancer Screening 2014 Fecal Occult Blood Test 2014 Sigmoidoscopy 2014 Diabetic Foot Exam 01/04/2021 01/05/2020, 0 05/21/2015, 07/25/2014 Depression Screening 01/22/2021 01/23/2020 B-12 03/19/2022 03/19/2021, 04/20/2019 CKD PHOS USE SMARTSET 73614 03/19/2022 03/19/2021, 0 04/20/2019 GFR 12/06/2022 06/08/2022, 05/14, 05/25/2022, Additional history exists Influenza Vaccine (FLU shot) (#1) 2022 04/20/2019, 04/09/2016, 05/21/2015, Additional history exists Zoster Vaccines (2 of 2) 02/10/2023 12/16/2022 HbA1c 05/19/2023 11/16/2022, 08/10, 03/19/2021, Additional history exists CKD HGB USE SMARTSET 26753 06/08/202306/08, 06/01/2022, 05/25/2022, Additional history exists Diabetic [...] as of this encounter Visit Diagnoses Diagnosis MyCode Research Other*[id number] documented in this encounter Care Teams Clinical Research Spec Relationship Specialty Start Date End Date Dell Mosqueda III, MD [address] [place] [address] PCP - General Family Medicine 04/20/14 documented as of this encounter
--- NOTE | 2023-10-10 10:41 | Emergency Department Note ---
History of Present Illness General Chief complaint: Toe Injury/Pain Stated complaint: L INDEX TOE PAIN Time Seen by Provider: 10/10/23 10:34 History of Present Illness Maximum Pain Intensity: 0 This is a 53-year-old male with a history of diabetes that presents to the emergency department via private vehicle with complaints of "left first toe toenail lifted". The patient states that yesterday he noticed that his left first toe toenail lifted from the cuticle. He notes some redness and drainage from the toe as well. Drainage is a yellowish-brown. When I inquired about his recent glucose, he notes that his sugars have not been good as of late. He denies any fevers or chills. No chest pain or shortness of breath. No nausea or vomiting. Patient denies any pain in the toe and does note underlying neuropathy. Per review of the EMR the patient was diagnosed with osteomyelitis of the same lower extremity on May 05, 2022. Home Medications Medication Instructions Recorded Confirmed Type atorvastatin 40 mg tablet (Lipitor) 40 mg PO HS 04/20/19 10/10/23 History escitalopram oxalate 10 mg tablet 10 mg PO QAM 10/01/20 10/10/23 History (Lexapro) gabapentin 600 mg tablet 600 mg PO BID 10/01/20 10/10/23 History (Neurontin) furosemide 40 mg tablet 40 mg PO QAM 05/05/22 10/10/23 History metformin 500 mg tablet,extended See Rx Instructions .Route .COMPLEX 05/05/22 10/10/23 History release 24 hr allopurinol 100 mg tablet 100 mg PO BID #60 tabs 05/13/22 10/10/23 Rx amlodipine 5 mg tablet (Norvasc) 5 mg PO QAM #30 tabs 05/13/22 10/10/23 Rx flash glucose sensor (FreeStyle #1 ea 05/13/22 10/10/23 Rx Bobby 2 Sensor kit) insulin aspart U-100 100 unit/mL 1 sliding scale dose subcut ACHS 05/13/22 10/10/23 Rx (3 mL) subcutaneous pen (Novolog #15 mL FlexPen U-100 Insulin aspart) pen needle, diabetic 32 gauge x #100 ea 05/13/22 10/10/23 Rx 532" (1st Tier Unifine Pentips) cholecalciferol (vitamin D3) 25 25 mcg PO DAILY 10/10/23 10/10/23 History mcg (1,000 unit) capsule (Vitamin D3) insulin glargine 100 unit/mL (3 42 unit subcut QAM 10/10/23 10/10/23 History mL) subcutaneous pen (Basaglar KwikPen U-100 Insulin) lisinopril 40 mg tablet 40 mg PO QAM 10/10/23 10/10/23 History naproxen 500 mg tablet,delayed 500 mg PO BID PRN Pain 10/10/23 10/10/23 History release tirzepatide 2.5 mg/0.5 mL 2.5 mg subcut WK 10/10/23 10/10/23 History subcutaneous pen injector (Mounjaro) Allergies Allergy/AdvReac Type Severity Reaction Status Date / Time guaifenesin [From Robitussin] Allergy Hives Verified 10/10/23 12:59 Past Med/Surg History Problem List (Updated 10/10/23 @ 14:41 by Austin Serrato PA-C) Hyperglycemia (Acute) Hyperkalemia (Acute) Cellulitis of toe, left (Acute) Uncontrolled diabetes mellitus Medical History (Updated 10/10/23 @ 14:41 by Austin Serrato PA-C) DM type 2 (diabetes mellitus, type 2) Gout Morbid obesity Osteomyelitis HTN (hypertension) CKD (chronic kidney disease), stage III Osteomyelitis Cervical radiculopathy Surgical History History of surgery on arm Family History Father Cancer Mother Cancer Brother Cancer Other Family history non-contributory Social History Smoking Status: Never smoker Tobacco Type: Smokeless Tobacco (Dip or Chew) Cigarettes Per Day: Cigar "in a blue bundy."; Second Hand Exposure: No; Do You Dip or Chew Tobacco: Yes; Tobacco Cessation Education Requested by Patient: No Hx Alcohol Use: Yes Alcohol type: beer Alcohol Intake Frequency: Monthly or Less Hx Substance Use: No Preferred Language: Croatian Communication Ability: Effective 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: No Beliefs That Will Affect Care: None Current Living Situation: Spouse Other Information That Helps Us Care for You: No Feels Safe at Home: Yes Safety Concerns: Feels Safe At This Time Assistive Devices: None Review of Systems A total of 10 systems reviewed and were otherwise negative Physical Exam Vital Signs Vital Signs - 24 hr 10/10/23 10:08 10/10/23 12:10 Temperature 36.8 C Temperature Source Oral Pulse Rate 62 Pulse Rate [Left Finger] 57 L Pulse Rhythm [Left Finger] Regular Pulse Strength [Left Finger] Normal Respiratory Rate 20 20 Respiratory Effort / Characteristics Non-Labored Spontaneous Non-Labored Spontaneous Respiratory Depth Normal Normal Respiratory Pattern Regular Blood Pressure 181/76 H Blood Pressure [Right Arm] 167/87 H Blood Pressure Mean 111 Blood Pressure Mean [Right Arm] 113 Blood Pressure Position [Right Arm] Sitting Pulse Oximetry 99 98 Oxygen Delivery Method Room Air Room Air Sepsis Recent Fever Within 48 Hours No Sepsis New/Unexplained Change in Mental Status N/A Sepsis Action Taken by Nursing No Action Required VITAL SIGNS - Vital signs and nursing notes were reviewed. Hypertensive, otherwise stable and afebrile. GENERAL -53-year-old male appearing his stated age who is in no acute distress. Communicates well with provider and answers questions appropriately. SKIN -left first toe erythematous with a loose but still attached nail plate. Nail is thickened with a yellowish hue. HEAD - NC/AT. MOUTH/OROPHARYNX - Without perioral cyanosis. LUNGS - CTA CARDIAC - RRR EXTREMITIES - No clubbing or peripheral cyanosis. Skin as above. Left first toe diffusely erythematous with mild edema. Nail plate is loose but still adhered. Sock at bedside is with a brownish-yellow discharge the patient notes was from the toe. +5/5 strength noted in UE/LE bilaterally. Left dorsalis pedis pulse within normal limits NEUROLOGIC -patient is a sensate throughout the left first toe, capillary refill of the left first toe within normal limits. PSYCH -alert, oriented and pleasant on exam Course Administered Medications Hydralazine HCl (Hydralazine Hcl 25 Mg Tab) 25 mg PO TID [facility] Stop: 11/09/23 17:00 Last Admin: 10/10/23 18:01 Dose: 25 mg Documented By: JONAS Daptomycin 450 mg/ Syringe 9 mls @ 4.5 mls/min IV Q24H [facility]; Protocol Stop: 10/17/23 17:59 Last Admin: 10/10/23 17:58 Dose: 4.5 mls/min Documented By: JONAS Piperacillin Sod/Tazobactam (Sod 4.5 gm/ Dextrose) 100 mls @ 25 mls/hr IV Q8H [facility]; Protocol Stop: 10/17/23 17:59 Last Admin: 10/10/23 18:02 Dose: 25 mls/hr Documented By: JONAS Insulin Aspart (Insulin Aspart Per Unit Charge) 0 units SC ACHS [facility] Stop: 11/09/23 13:54 Last Admin: 10/10/23 18:14 Dose: 13 units Documented By: JONAS Co-signed By: NAEL Admin: 10/10/23 15:15 Dose: Not Given Documented By: KATERINA Sodium Zirconium Cyclosilicate (Sodium Zirconium Cyclosilicate 10 Gm Packet) 10 gm PO TID [facility] Stop: 10/12/23 09:01 Last Admin: 10/10/23 18:00 Dose: 10 gm Documented By: JONAS Discontinued Medications Gadobutrol (Gadobutrol 30ml Vial) 16 ml IV ONCE ONE Stop: 10/10/23 16:30 Last Admin: 10/10/23 16:29 Dose: 16 ml Documented By: KIM Piperacillin Sod/Tazobactam Sod (Zosyn) 4.5 gm in 100 mls @ 200 mls/hr IV NOW ONE Stop: 10/10/23 13:10 Last Infusion: 10/10/23 13:28 Dose: Infused Documented By: Admin: 10/10/23 12:58 Dose: 200 mls/hr Documented By: DAILY Medical Decision Making Laboratory Data 10/10/23 12:02 10/10/23 11:53 Lab Results 10/10/23 10/10/23 10/10/23 Range/Units 10:35 11:06 11:53 WBC Cancelled RBC Cancelled Hgb Cancelled Hct Cancelled MCV Cancelled MCH Cancelled MCHC Cancelled RDW Std Deviation Cancelled RDW Coeff of Luis A Cancelled Plt Count Cancelled MPV Cancelled Immature Gran % (Auto) Cancelled Neut % (Auto) Cancelled Lymph % (Auto) Cancelled [place] % (Auto) Cancelled Eos % (Auto) Cancelled Baso % (Auto) Cancelled Neut # (Auto) Cancelled Lymph # (Auto) Cancelled [place] # (Auto) Cancelled Eos # (Auto) Cancelled Baso # (Auto) Cancelled Immature Gran # (Auto) Cancelled Absolute Nucleated RBC Cancelled Nucleated RBC % (auto) Cancelled Neutrophils % (Manual) Cancelled Band Neutrophils % Cancelled Lymphocytes % (Manual) Cancelled Prolymphocyte % Cancelled Reactive Lymphs % (Man) Cancelled Monocytes % (Manual) Cancelled Eosinophils % (Manual) Cancelled Basophils % (Manual) Cancelled Metamyelocytes % (Man) Cancelled Myelocytes % (Man) Cancelled Promyelocytes % (Man) Cancelled Blast Cells % (Manual) Cancelled Plasma Cell % (Manual) Cancelled Other Cells % Cancelled Nucleated RBC % Cancelled Neutrophils # (Manual) Cancelled Band Neutrophils # Cancelled Total Absolute Neuts Cancelled Lymphocytes # (Manual) Cancelled Prolymphocyte # Cancelled Reactive Lymphs # Cancelled Total Abs Lymphocytes Cancelled Monocytes # (Manual) Cancelled Eosinophils # (Manual) Cancelled Basophils # (Manual) Cancelled Metamyelocytes # (Man) Cancelled Myelocytes # (Manual) Cancelled Promyelocytes # (Man) Cancelled Blast Cells # (Man) Cancelled Plasma Cell # (Manual) Cancelled Other Cells # Cancelled Nucleated RBCs # (Man) Cancelled Hypersegmented Neuts Cancelled Hyposegmented Neuts Cancelled Hypogranular Neuts Cancelled Large Granular Lymphs Cancelled # Lrg Granular Lymphs Cancelled Hairy Cells Cancelled Smudge Cells Cancelled Toxic Granulation Cancelled Toxic Vacuolation Cancelled Dohle Bodies Cancelled Juliette Rods Cancelled Platelet Estimate Cancelled Hypogranular Platelets Cancelled Giant Platelets Cancelled Platelet Satelliting Cancelled RBC Morphology Cancelled Polychromasia Cancelled Hypochromasia Cancelled Poikilocytosis Cancelled Basophilic Stippling Cancelled Anisocytosis Cancelled Microcytosis Cancelled Macrocytosis Cancelled Spherocytes Cancelled Pappenheimer Bodies Cancelled Sickle Cells Cancelled Target Cells Cancelled Tear Drop Cells Cancelled Ovalocytes Cancelled Stomatocytes Cancelled Dodson-Clair[place] Bodies Cancelled Echinocytes Cancelled Acanthocytes (Spur) Cancelled Rouleaux Cancelled RBC Agglutinates Cancelled Schistocytes Cancelled ESR Cancelled Sezary Cell Cancelled Sodium 136 (136-145) mmol/L Potassium TNP 5.8 H Chloride 106 (98-107) mmol/L Carbon Dioxide 24 (21-32) mmol/L Anion Gap 6 (3-11) BUN 29 H (6-23) mg/dl Creatinine 1.25 (0.6-1.4) mg/dl Est Cr Clr Drug Dosing 106.8 ml/min Est GFR ( Amer) 75.2 ml/min Est GFR (Non-Af Amer) 64.9 ml/min BUN/Creatinine Ratio 23.2 H (10-20) Glucose 247 H (70-99(Fasting)) mg/dl POC Glucose 246 H (70-99) mg/dl Lactate 1.4 (0.4-2.0) mmol/L Calcium 9.8 (8.6-10.3) mg/dl Total Bilirubin 0.3 (0.2-1.0) mg/dl AST TNP 11 L ALT 14 (7-52) U/L Alkaline Phosphatase 75 (34-104) U/L C-Reactive Protein 1.09 H (0-0.5) mg/dl Total Protein 7.2 (6.0-8.3) gm/dl Albumin 4.0 (3.4-5.0) gm/dl Globulin 3.2 (2.5-4.0) gm/dl Albumin/Globulin Ratio 1.3 (0.9-2) Procalcitonin 0.03 (0-0.5) ng/ml Blood Parasites ID Cancelled 10/10/23 Range/Units 12:02 WBC 7.73 RBC 4.01 L Hgb 11.2 L Hct 34.5 L MCV 86.0 MCH 27.9 MCHC 32.5 RDW Std Deviation 43.3 RDW Coeff of Luis A 13.9 Plt Count 290 MPV 10.4 Immature Gran % (Auto) 0.3 Neut % (Auto) 64.7 Lymph % (Auto) 24.3 [place] % (Auto) 7.8 Eos % (Auto) 2.3 Baso % (Auto) 0.6 Neut # (Auto) 5.00 Lymph # (Auto) 1.88 [place] # (Auto) 0.60 H Eos # (Auto) 0.18 Baso # (Auto) 0.05 Immature Gran # (Auto) 0.02 Absolute Nucleated RBC Nucleated RBC % (auto) Neutrophils % (Manual) Band Neutrophils % Lymphocytes % (Manual) Prolymphocyte % Reactive Lymphs % (Man) Monocytes % (Manual) Eosinophils % (Manual) Basophils % (Manual) Metamyelocytes % (Man) Myelocytes % (Man) Promyelocytes % (Man) Blast Cells % (Manual) Plasma Cell % (Manual) Other Cells % Nucleated RBC % Neutrophils # (Manual) Band Neutrophils # Total Absolute Neuts Lymphocytes # (Manual) Prolymphocyte # Reactive Lymphs # Total Abs Lymphocytes Monocytes # (Manual) Eosinophils # (Manual) Basophils # (Manual) Metamyelocytes # (Man) Myelocytes # (Manual) Promyelocytes # (Man) Blast Cells # (Man) Plasma Cell # (Manual) Other Cells # Nucleated RBCs # (Man) Hypersegmented Neuts Hyposegmented Neuts Hypogranular Neuts Large Granular Lymphs # Lrg Granular Lymphs Hairy Cells Smudge Cells Toxic Granulation Toxic Vacuolation Dohle Bodies Juliette Rods Platelet Estimate Hypogranular Platelets Giant Platelets Platelet Satelliting RBC Morphology Polychromasia Hypochromasia Poikilocytosis Basophilic Stippling Anisocytosis Microcytosis Macrocytosis Spherocytes Pappenheimer Bodies Sickle Cells Target Cells Tear Drop Cells Ovalocytes Stomatocytes Dodson-[place]air[place] Bodies Echinocytes Acanthocytes (Spur) Rouleaux RBC Agglutinates Schistocytes ESR 50 H Sezary Cell Sodium (136-145) mmol/L Potassium Chloride (98-107) mmol/L Carbon Dioxide (21-32) mmol/L Anion Gap (3-11) BUN (6-23) mg/dl Creatinine (0.6-1.4) mg/dl Est Cr Clr Drug Dosing ml/min Est GFR ( Amer) ml/min Est GFR (Non-Af Amer) ml/min BUN/Creatinine Ratio (10-20) Glucose (70-99(Fasting)) mg/dl POC Glucose (70-99) mg/dl Lactate (0.4-2.0) mmol/L Calcium (8.6-10.3) mg/dl Total Bilirubin (0.2-1.0) mg/dl AST ALT (7-52) U/L Alkaline Phosphatase (34-104) U/L C-Reactive Protein (0-0.5) mg/dl Total Protein (6.0-8.3) gm/dl Albumin (3.4-5.0) gm/dl Globulin (2.5-4.0) gm/dl Albumin/Globulin Ratio (0.9-2) Procalcitonin (0-0.5) ng/ml Blood Parasites ID Imaging Data Radiologist's Impression: Toe X-Ray 10/10/23 10:31 XR toe(s) LT min 2V CLINICAL HISTORY: left great toe pain COMPARISON: Left first toe radiographs and left foot CT May 05, 2022. FINDINGS: Alignment of the left great toe is anatomic. There are no acute fractures. Moderate to severe joint space narrowing of the left first metatarsophalangeal joint which has progressed since prior radiographs. Interval erosion of the base of the left first proximal phalanx is noted. This is not acute appearing. There is soft tissue swelling of the left great toe. IMPRESSION: 1. No acute fractures within the left great toe. Left great toe soft tissue swelling. 2. 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 Interval erosion of the base of the left first proximal phalanx. Although age indeterminate, this is chronic appearing and favors sequela of osteomyelitis. ACT 112: Negative or not required by law. Electronically signed by: Sergio Aldana M.D. 10/10/2023 11:14 AM MDM Narrative Patient was seen and evaluated as above in room B06. Review was performed of triage nursing notes and vital signs. I did review pertinent previous visits and patient history. After obtaining a thorough history and physical examination the above work up was performed. Patient presents to us today for evaluation of left first toe erythema, edema, drainage and a loose toenail. The toenail appears to be mildly loose but not completely avulsed. There is no evidence of trauma to the area. There is erythema overlying the medial, distal aspect that tracks then laterally and proximal over the left first digit. Small amount of purulence noted to the nail fold laterally. This was sampled and sent for culture. No lymphangitic streaking. No tenderness. Patient notes neuropathy and is essentially asensate in that area. Options of care were discussed with the patient. IV access was established. Labs were drawn. Blood cultures ordered and wound culture currently pending for the toe. Labs reveal no leukocytosis. Minor anemia noted with hemoglobin of 11.2. ESR 50. Potassium returned elevated at 5.8. EKG was performed. EKG reveals what appears to be a sinus rhythm at a rate of 62 bpm. QTc 383. QRS 82. No ST elevation. I also did call lab about this elevated potassium and they are going to rerun on a different machine to verify. BUN 29. Glucose 247. AST 11. CRP 109. Pro-Galo within normal range but detectable at 0.03. Benefit versus risk of inpatient versus outpatient management reviewed with the patient. At this time noting the patient's history of osteomyelitis in the same area now with erythema and edema to the toe with drainage we will proceed with inpatient management via IV antibiotics. IV Zosyn was ordered. This was based upon review of previous cultures. At the present time I will leave the nail intact as I am concerned it is adhered enough that may cause damage to underlying tissues if removed at this immediate time. The area is able to drain spontaneously at the present time and there is no appreciable abscess deep to the toenail on exam. Case discussed with the hospitalist service. Please refer to further documentation regarding his stay. GCS: 15 In the evaluation and treatment of this patient the following differential diagnoses were entertained: Osteomyelitis, cellulitis, abscess, trauma, fracture, among others. Impression & Plan Cellulitis of toe, left, Hyperkalemia, Hyperglycemia Discharge Plan Visit Data Chief Complaint: Toe Injury/Pain Stated Complaint: L INDEX TOE PAIN ED Provider: Carolyn Schreiber ED Midlevel Provider: Austin Serrato Discharge Problem: Cellulitis of toe, left, Hyperkalemia, Hyperglycemia Patient Disposition: Admitted As Inpatient Condition: Good Discharge Instructions Interventions: ED Discharge Assessment Last Done: 10/10/23 15:40
[2023-10-10] MEDS ORDERED: PIPERACILLIN/TAZOBACTAM 4.5 GM/100 ML BAG IV ONE (10:59)
--- NOTE | 2023-10-10 11:17 | XRay Report ---
XR toe(s) LT min 2V CLINICAL HISTORY: left great toe pain COMPARISON: Left first toe radiographs and left foot CT May 05, 2022. FINDINGS: Alignment of the left great toe is anatomic. There are no acute fractures. Moderate to sev ere joint space narrowing of the left first metatarsophalangeal joint which has progressed since prio r radiographs. Interval erosion of the base of the left first proximal phalanx is noted. This is not acute appearing. There is soft tissue swelling of the left great toe. IMPRESSION: 1. No acute fractures within the left great toe. Left great toe soft tissue swelling. 2. 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 Interval erosion of the base of the left first proximal phalanx. Although age indeterminate, this is chronic appearing and favors sequel a of osteomyelitis. ACT 112: Negative or not required by law. Electronically signed by: Sergio Aldana M.D. 10/10/2023 11:14 AM
[2023-10-10 11:44] LABS: Alanine Aminotransferase 14 U/L (7-52); Albumin Globulin Ratio 1.3 (0.9-2); Alkaline Phosphatase 75 U/L (34-104); Anion Gap 6 (3-11); BUN Creatinine Ratio 23.2 (10-20); Bilirubin,Total 0.3 mg/dl (0.2-1.0); Blood Urea Nitrogen 29 mg/dl (6-23); C Reactive Protein 1.09 mg/dl (0-0.5); Calcium 9.8 mg/dl (8.6-10.3); Carbon Dioxide 24 mmol/L (21-32); Chloride 106 mmol/L (98-107); Creatinine Clr Calc Pharmacy 106.8 ml/min; Est GFR (African American) 75.2 ml/min; Est GFR (Non-African American) 64.9 ml/min; Globulin 3.2 gm/dl (2.5-4.0); Glucose 247 mg/dl (70-99(Fasting)); Sodium 136 mmol/L (136-145); Total Protein 7.2 gm/dl (6.0-8.3)
[2023-10-10 12:06] LABS: Basophils # (auto) 0.05 K/uL (0.00-0.20); Basophils % (auto) 0.6 %; Eosinophils # (auto) 0.18 K/uL (0.00-0.50); Eosinophils % (auto) 2.3 %; Hematocrit (blood only) 34.5 % (42.0-52.0); Hemoglobin 11.2 g/dl (14.0-18.0); Immature Granulocytes # (auto) 0.02 K/uL (0.01-0.20); Immature Granulocytes % (auto) 0.3 %; Lymphocytes # (auto) 1.88 K/uL (1.20-3.40); Lymphocytes % (auto) 24.3 %; Mean Corpuscular Hemoglobin 27.9 pg (25.0-34.0); Mean Corpuscular Hgb Conc 32.5 g/dL (32.0-36.0); Mean Platelet Volume 10.4 fL (9.4-12.4); Monocytes % (auto) 7.8 %; Neutrophils % (auto) 64.7 %; Platelet Count 290 K/uL (130-400); RDW Coefficient of Variation 13.9 % (11.5-14.5); RDW Standard Deviation 43.3 fL (36.4-46.3); Red Blood Count 4.01 M/uL (4.70-6.10); White Blood Count 7.73 K/ul (4.8-10.8)
[2023-10-10 12:24] LABS: Potassium 5.8 mmol/L (3.5-5.1)
[2023-10-10] MEDS: PIPERACILLIN/TAZOBACTAM 4.5 GM/100 ML BAG IV ONE (12:58)
--- NOTE | 2023-10-10 13:03 | History & Physical Report ---
Date of Service October 10, 2023 Assessment & Plan (1) Cellulitis of toe, left: (2) Uncontrolled diabetes mellitus: (3) Hyperkalemia: (4) Gout: (5) HTN (hypertension): (6) CKD (chronic kidney disease), stage III: (7) Morbid obesity: Plan This is a 53yo M with a PMH of uncontrolled DM II, h/o L foot cellulitis in Apr 2022, morbid obesity, HLD, hyperkalemia, CKD III, HTN, diabetic neuropathy and other medical problems listed below who presents with L toenail lifting and dr garduno since yesterday. Was admitted to our service in Apr 2022 with a similar presentation of L great toe pain with drainage and underwent Left foot Removal of Non-Viable Bone and Tissue First Metatarsal and Proxmial Phalanx(Left) performed by Dr. Gifford. Wound culture grew Staphylococcus and Enterococcus at that time and went home on 6 weeks of IV Unasyn via PICC per ID recommendation. L Foot cellulitis Concern for osteomyelitis in setting of previous osteo in same foot, uncontrolled DM, tobacco use Afebrile, no leukocytosis, procal WNL. ESR 50, CRP 1.09 L Toe XR with no acute fractures within the left great toe. Left great toe soft tissue swelling. 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 Interval erosion of the base of the left first proximal phalanx. Although age indeterminate, this is chronic appearing and favors sequela of osteomyelitis Continue IV zosyn, dapto Obtain MRI foot w/wo for better eval for possible oseo Podiatry consult Hyperkalemia Noted on previous admission - at that time, lisinopril was discontinued and was started on amlodipine. Has since been resumed on lisinopril K 5.8 today HOLD lisinopril Given [facility] Monitor daily BMP Uncontrolled DM II A1c to 9.2. September 2023 (improved from a1c of 14 on Apr 2022 admission) Following with [facility] - regimen includes metformin, Lantus 42u QAM, novolog sliding scale, Mounjaro 2.5 weekly Basal/bolus insulin per protocol while in-patient Diabetic diet BSG AC HS CKD (chronic kidney disease), stage III Baseline creatinine ~ 1.2-1.3 Monitor with daily BMP HTN (hypertension) Due to mild hyperkalemia, discontinue lisinopril (was resumed since previous admission) Increase amlodipine from 5 to 10mg, continue lasix Tobacco use Resumed use of smokeless tobacco Cessation discussions, impairs wound healing DVT Ppx: SCDs for now in case of intervention Code status: FULL PCP: Jaylin Dispo: Admitted to med/surg Patient seen in collaboration with Dr. Caldwell. Please see addendum. I spent a total of 75 minutes coordinating, documenting, and providing care for this patient excluding time spent in the performance of separately billed services. History of Present Illness Chief Complaint: toe pain, wound Primary Care Provider: Dell Mosqueda MD This is a 53yo M with a PMH of uncontrolled DM II, h/o L foot cellulitis in Apr 2022, morbid obesity, HLD, hyperkalemia, CKD III, HTN, diabetic neuropathy and other medical problems listed below who presents with L toe nail abnormality with drainage since yesterday. Was admitted to our service in Apr 2022 with a similar presentation of L great toe pain with drainage and underwent Left foot Removal of Non-Viable Bone and Tissue First Metatarsal and Proxmial Phalanx(Left) performed by Dr. Gifford. Wound culture grew Staphylococcus and Enterococcus at that time and went home on 6 weeks of IV Unasyn via PICC per ID recommendation. Patient noticed his left great toenail had lifted a bit when he got out of the shower yesterday and had some yellowing drainage. Has diminished feeling in his feet 2/2 diabetic neuropathy but has required surgical intervention in similar circumstances last year, so came to ED for further evaluation. No fever or chills. Is following with Dr. Gifford of podiatry in outpatient setting. Is following with [facility] for his DM II. Only checks his blood sugar in the morning. Has started to use smokeless tobacco again. No lightheadedness, CP, SOB, N/V, abd pain, dysuria, diarrhea or constipation. Allergies Allergy/AdvReac Type Severity Reaction Status Date / Time guaifenesin [From Robitussin] Allergy Hives Verified 10/10/23 12:59 Home Medications Medication Instructions Recorded Confirmed Type atorvastatin 40 mg tablet (Lipitor) 40 mg PO HS 04/20/19 10/10/23 History escitalopram oxalate 10 mg tablet 10 mg PO QAM 10/01/20 10/10/23 History (Lexapro) gabapentin 600 mg tablet 600 mg PO BID 10/01/20 10/10/23 History (Neurontin) furosemide 40 mg tablet 40 mg PO QAM 05/05/22 10/10/23 History metformin 500 mg tablet,extended See Rx Instructions .Route .COMPLEX 05/05/22 10/10/23 History release 24 hr allopurinol 100 mg tablet 100 mg PO BID #60 tabs 05/13/22 10/10/23 Rx amlodipine 5 mg tablet (Norvasc) 5 mg PO QAM #30 tabs 05/13/22 10/10/23 Rx flash glucose sensor (FreeStyle #1 ea 05/13/22 10/10/23 Rx Bobby 2 Sensor kit) insulin aspart U-100 100 unit/mL 1 sliding scale dose subcut ACHS 05/13/22 10/10/23 Rx (3 mL) subcutaneous pen (Novolog #15 mL FlexPen U-100 Insulin aspart) pen needle, diabetic 32 gauge x #100 ea 05/13/22 10/10/23 Rx 5/32" (1st Tier Unifine Pentips) cholecalciferol (vitamin D3) 25 25 mcg PO DAILY 10/10/23 10/10/23 History mcg (1,000 unit) capsule (Vitamin D3) insulin glargine 100 unit/mL (3 42 unit subcut QAM 10/10/23 10/10/23 History mL) subcutaneous pen (Basaglar KwikPen U-100 Insulin) lisinopril 40 mg tablet 40 mg PO QAM 10/10/23 10/10/23 History naproxen 500 mg tablet,delayed 500 mg PO BID PRN Pain 10/10/23 10/10/23 History release tirzepatide 2.5 mg/0.5 mL 2.5 mg subcut WK 10/10/23 10/10/23 History subcutaneous pen injector (Anujunrickro) Past Med/Surg History Problem List (Updated 10/10/23 @ 14:41 by Austin Serrato PA-C) Hyperglycemia (Acute) Hyperkalemia (Acute) Cellulitis of toe, left (Acute) Uncontrolled diabetes mellitus Medical History (Updated 10/10/23 @ 14:41 by Austin Serrato PA-C) DM type 2 (diabetes mellitus, type 2) Gout Morbid obesity Osteomyelitis HTN (hypertension) CKD (chronic kidney disease), stage III Osteomyelitis Cervical radiculopathy Surgical History History of surgery on arm Family History Father Cancer Mother Cancer Brother Cancer Other Family history non-contributory Social History Smoking Status: Never smoker Tobacco Type: Smokeless Tobacco (Dip or Chew) Second Hand Exposure: No; Do You Dip or Chew Tobacco: Yes; Hx Alcohol Use: Yes Alcohol type: beer Alcohol Intake Frequency: Monthly or Less Hx Substance Use: No Preferred Language: Polish Communication Ability: Effective 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 Physical Exam Physical Exam: Please see Dr. Caldwell's addendum for physical exam. Results & Data Results & Data Vital Signs (Past 12 Hours) Vital Signs Temp Pulse Pulse Resp BP BP Pulse Ox 10/10/23 12:10 57 L 20 167/87 H 98 10/10/23 10:08 36.8 C 62 20 181/76 H 99 O2 Del Method 10/10/23 12:10 Room Air 10/10/23 10:08 Room Air Laboratory Results Short CBC 10/10/23 10/10/23 Range/Units 11:06 12:02 WBC Cancelled 7.73 Hgb Cancelled 11.2 L Hct Cancelled 34.5 L Plt Count Cancelled 290 BMP 10/10/23 10/10/23 11:06 11:53 Sodium 136 Potassium TNP 5.8 H Chloride 106 Carbon Dioxide 24 BUN 29 H Creatinine 1.25 Glucose 247 H Calcium 9.8 Liver Function 10/10/23 10/10/23 Range/Units 11:06 11:53 Total Bilirubin 0.3 (0.2-1.0) mg/dl AST TNP 11 L ALT 14 (7-52) U/L Alkaline Phosphatase 75 (34-104) U/L Albumin 4.0 (3.4-5.0) gm/dl Diagnostic Findings Toe X-Ray 10/10/23 10:31 XR toe(s) LT min 2V CLINICAL HISTORY: left great toe pain COMPARISON: Left first toe radiographs and left foot CT May 05, 2022. FINDINGS: Alignment of the left great toe is anatomic. There are no acute fractures. Moderate to severe joint space narrowing of the left first metatarsophalangeal joint which has progressed since prior radiographs. Interval erosion of the base of the left first proximal phalanx is noted. This is not acute appearing. There is soft tissue swelling of the left great toe. IMPRESSION: 1. No acute fractures within the left great toe. Left great toe soft tissue swelling. 2. 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 Interval erosion of the base of the left first proximal phalanx. Although age indeterminate, this is chronic appearing and favors sequela of osteomyelitis. ACT 112: Negative or not required by law. Electronically signed by: Sergio Aldana M.D. 10/10/2023 11:14 AM Supervising Physician Co-Signing Physician Notes Patient was seen and examined with La SAGE at bedside. Chart reviewed. Case discussed with La SAGE and agree with the documentation above. In summary, this is a 53 year old male with h/o DM-2, h/o diabetic foot infection who presented to the ED with left great toe infection with discharge. Xray noted. ESR, CRP elevated, procal negative, WBC normal. Given empiric ABx in ED. Will get MRI left foot to rule out OM. Will continue empiric dapto/zosyn, will await wound clx results, blood clx results and MRI foot. Consult podiatry. Basal bolus insulin for uncontrolled DM-2- adjust as indicated. Hyperkalemia due to ACEI- will stop lisinopril, start on lokelma and recheck K in am- will increase norvasc and add HLZ for HTN. Rest as per the note above. On exam- General: Morbidly obese male, lying comfortably in bed, not in distress, on room air HEENT: EOMI, TABBY, MMM Chest: Clear breath sounds bilaterally, no wheezes or crackles CVS: Regular rate and rhythm, normal heart sounds, no murmur Abdomen: Soft, non tender, distended, normal bowel sounds Neuro: Awake, alert, oriented, conversing well, non focal MSK: Left great toe with wound with discharge and erythema of the nail bed, onychomycosis Psych: Calm, cooperative
[2023-10-10] MEDS ORDERED: GLUCOSE 10 TAB/TUBE PO PRN (13:52)
[2023-10-10] MEDS ORDERED: GLUCAGON FOR INJ 1 MG VIAL SQ PRN (13:52)
[2023-10-10] MEDS ORDERED: DEXTROSE 50% 50 ML SYRINGE IV PRN (13:52)
[2023-10-10] MEDS ORDERED: GLUCOSE 40% GEL 15 GM TUBE PO PRN (13:52)
[2023-10-10] MEDS ORDERED: CARBOHYDRATES FOR HYPOGLYCEMIA PO PRN (13:52)
[2023-10-10] MEDS: INSULIN ASPART PER UNIT CHARGE SC SCH (15:15)
[2023-10-10] MEDS: GADOBUTROL 30ML VIAL IV ONE (16:29)
--- NOTE | 2023-10-10 16:50 | Magnetic Resonance Report ---
MR foot LT wo/w con CLINICAL HISTORY: Left great toe cellulitis, evaluate for osteomyelitis. COMPARISON STUDY: Left foot CT May 05, 2022 and left great toe radiographs performed earlier toannie pederson. TECHNIQUE: Utilizing a 1.5 Frieda magnet and dedicated coil, multiplanar, multiecho imaging of the lef t forefoot was performed pre and postcontrast administration. Intravenous injection of 16 cc of Gadav ist was uneventful. FINDINGS: There is moderate joint space narrowing and extensive osteophytosis of the left first metat arsophalangeal joint. Subchondral signal abnormality is present within the left first metatarsal head and base of the left first proximal phalanx. These findings are chronic and represent osteoarthritis . Subchondral signal abnormality within the distal aspect of the left first proximal phalanx is likel y degenerative. There is mild increased T2 marrow signal within the left first distal phalanx. T1 mar row signal is preserved. There is mild edema and enhancement within the soft tissues of the left firs t toe although evaluation is difficult given difficulty with fat saturation. No rim-enhancing fluid c ollection is identified. There are no fractures within the left forefoot. Tarsometatarsal joints are intact. Lisfranc ligament is intact. IMPRESSION: 1. No evidence for acute osteomyelitis within the left great toe. Minimal increased T2 marrow signal within the left first distal phalanx with preserved T1 marrow signal. This favors mild osteitis. 2. Left first toe edema and enhancement suggestive of cellulitis. No rim-enhancing fluid collection t o suggest abscess. 3. 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 ACT 112: Negative or not required by law. Electronically signed by: Sergio Aldana M.D. 10/10/2023 4:48 PM
[2023-10-10] MEDS ORDERED: POLYETHYLENE (MIRALAX) 17 GM PACK PO PRN (17:01)
[2023-10-10] MEDS ORDERED: NAPROXEN 250 MG TAB PO PRN (17:01)
[2023-10-10] MEDS ORDERED: hydrALAZINE HCL 20 MG/ML VIAL IV PRN (17:01)
[2023-10-10] MEDS ORDERED: ONDANSETRON INJ 2 MG/ML 2 ML VIAL IV PRN (17:01)
[2023-10-10] MEDS ORDERED: ACETAMINOPHEN 325 MG TAB PO PRN (17:01)
[2023-10-10] MEDS: DAPTOmycin 450 MG in SYRINGE 0 ML IV SCH (17:58)
[2023-10-10] MEDS: SODIUM ZIRCONIUM CYCLOSILICATE 10 GM PACKET PO SCH (18:00)
[2023-10-10] MEDS: hydrALAZINE HCL 25 MG TAB PO SCH (18:01)
[2023-10-10] MEDS: PIPERACILLIN/TAZOBACTAM 4.5 GM in DEXTROSE 5% MINI-B 100 ML IV SCH (18:02)
[2023-10-10] MEDS: allopurinoL 100 MG TAB PO SCH (21:58)
[2023-10-10] MEDS: GABAPENTIN 600 MG TAB PO SCH (21:58)
[2023-10-10] MEDS: LANTUS PER UNIT CHARGE SQ SCH (22:07)
--- NOTE | 2023-10-10 22:50 | Electrocardiogram Report ---
Test Reason : Blood Pressure : / mmHG Vent. Rate : 062 BPM Atrial Rate : 062 BPM P-R Int : 160 ms QRS Dur : 082 ms QT Int : 378 ms P-R-T Axes : 260 041 053 degrees QTc Int : 383 ms Unusual P axis, possible ectopic atrial rhythm Abnormal ECG When compared with ECG of 06-MAY-2022 15:13, Ectopic atrial rhythm has replaced Sinus rhythm Confirmed by Jovan Monet ([id number]) on 10/10/2023 10:50:23 PM Referred By: REFERRED SELF Confirmed By:Jovan Monet
[2023-10-11] MEDS: FUROSEMIDE 40 MG TAB PO SCH (08:40)
[2023-10-11] MEDS: CHOLECALCIFEROL 25 MCG (1000 UNITS) TAB PO SCH (08:40)
[2023-10-11] MEDS: ESCITALOPRAM OXALATE 10 MG TAB PO SCH (08:40)
[2023-10-11] MEDS: amLODIPine BESYLATE 5 MG TAB PO SCH (08:40)
[2023-10-11 09:26] LABS: Basophils # (auto) 0.06 K/uL (0.00-0.20); Basophils % (auto) 0.6 %; Eosinophils # (auto) 0.19 K/uL (0.00-0.50); Hematocrit (blood only) 35.3 % (42.0-52.0); Hemoglobin 11.4 g/dl (14.0-18.0); Immature Granulocytes # (auto) 0.02 K/uL (0.01-0.20); Immature Granulocytes % (auto) 0.2 %; Lymphocytes % (auto) 23.8 %; Mean Corpuscular Hemoglobin 28.3 pg (25.0-34.0); Mean Corpuscular Hgb Conc 32.3 g/dL (32.0-36.0); Mean Corpuscular Volume 87.6 fL (80.0-100.0); Mean Platelet Volume 10.3 fL (9.4-12.4); Monocytes # (auto) 0.74 K/uL (0.11-0.59); Monocytes % (auto) 7.6 %; Neutrophils # (auto) 6.37 K/uL (1.40-6.50); Neutrophils % (auto) 65.8 %; Platelet Count 308 K/uL (130-400); Red Blood Count 4.03 M/uL (4.70-6.10); White Blood Count 9.68 K/ul (4.8-10.8)
[2023-10-11 10:58] LABS: Estimated Average Glucose 223 mg/dl; Hemoglobin A1C 9.4 % (4.5-5.6)
[2023-10-11 11:20] LABS: Calcium 9.1 mg/dl (8.6-10.3); Potassium 5.1 mmol/L (3.5-5.1)
[2023-10-11 11:25] LABS: BUN Creatinine Ratio 20.8 (10-20); Creatinine Clr Calc Pharmacy 87.1 ml/min; Est GFR (African American) 56.2 ml/min; Est GFR (Non-African American) 48.5 ml/min
--- NOTE | 2023-10-11 13:00 | Podiatry Consultation ---
Date of Consultation October 11, 2023 Assessment & Plan (1) Cellulitis of toe, left: (2) Contusion of left great toe with damage to nail: Encounter type: initial encounter Qualified Code(s): S90.212A - Contusion of left great toe with damage to nail, initial encounter Plan Patient was examined and evaluated. MRI was reviewed and suggests no underlying infection. Clinical exam further suggest no deep infection concerns. The hallux nail was of old bedside without incident. Minimal bleeding was noted and the toe was dressed with a compressive dressing. Likely, he developed a subungual hematoma that became superficially infected. He should benefit from 2 weeks of oral antibiotics upon discharge, likely empirically. If culture results are back before discharge, he can be more fine tuning. Otherwise, he can be discharged from a podiatry standpoint at this time. He should keep the toe dressed with a adhesive bandage and topical antibiotic ointment. We will plan on seeing him within 2 weeks Of discharge. Thank you for the consult, we look forward to helping this patient up with his foot care and hygiene long-term after discharge. History of Present Illness Reason for Consultation: Left hallux infection Attending Physician: Don Lowe MD History of Present Illness Patient presents to [facility] for evaluation and treatment of left great toe infection. He has dealt with this in the past has had a bone biopsy to disprove underlying bone infection in April 2022. He states that recently he has been neglecting his foot hygiene and has not had his nails trimmed in many months. Prior to this, he was routinely seeing a local jailer for nail care but his nails have recently gotten long, leading to the loosening and local infection of this left hallux toenail. He denies any systemic signs of infection and states that he is healing with no loss of appetite, no nausea, no vomiting, no fevers, and no chills. Now that he has gotten hospital, he is anxious to get home as soon as possible. Allergies Allergy/AdvReac Type Severity Reaction Status Date / Time guaifenesin [From Kartik] Allergy Hives Verified 10/10/23 12:59 Home Medications Medication Instructions Recorded Confirmed Type atorvastatin 40 mg tablet (Lipitor) 40 mg PO HS 04/20/19 10/10/23 History escitalopram oxalate 10 mg tablet 10 mg PO QAM 10/01/20 10/10/23 History (Lexapro) gabapentin 600 mg tablet 600 mg PO BID 10/01/20 10/10/23 History (Neurontin) furosemide 40 mg tablet 40 mg PO QAM 05/05/22 10/10/23 History metformin 500 mg tablet,extended See Rx Instructions .Route .COMPLEX 05/05/22 10/10/23 History release 24 hr allopurinol 100 mg tablet 100 mg PO BID #60 tabs 05/13/22 10/10/23 Rx amlodipine 5 mg tablet (Norvasc) 5 mg PO QAM #30 tabs 05/13/22 10/10/23 Rx flash glucose sensor (FreeStyle #1 ea 05/13/22 10/10/23 Rx Bobby 2 Sensor kit) insulin aspart U-100 100 unit/mL 1 sliding scale dose subcut ACHS 05/13/22 10/10/23 Rx (3 mL) subcutaneous pen (Novolog #15 mL FlexPen U-100 Insulin aspart) pen needle, diabetic 32 gauge x #100 ea 05/13/22 10/10/23 Rx 5/32" (1st Tier Unifine Pentips) cholecalciferol (vitamin D3) 25 25 mcg PO DAILY 10/10/23 10/10/23 History mcg (1,000 unit) capsule (Vitamin D3) insulin glargine 100 unit/mL (3 42 unit subcut QAM 10/10/23 10/10/23 History mL) subcutaneous pen (Basaglar KwikPen U-100 Insulin) lisinopril 40 mg tablet 40 mg PO QAM 10/10/23 10/10/23 History naproxen 500 mg tablet,delayed 500 mg PO BID PRN Pain 10/10/23 10/10/23 History release tirzepatide 2.5 mg/0.5 mL 2.5 mg subcut WK 10/10/23 10/10/23 History subcutaneous pen injector (Mounjaro) Patient History Medical History (Updated 10/11/23 @ 12:56 by Watson Mitchell DPM) DM type 2 (diabetes mellitus, type 2) Gout Morbid obesity Osteomyelitis HTN (hypertension) CKD (chronic kidney disease), stage III Osteomyelitis Cervical radiculopathy Surgical History History of surgery on arm Family History Father Cancer Mother Cancer Brother Cancer Other Family history non-contributory Social History Smoking Status: Never smoker Tobacco Type: Smokeless Tobacco (Dip or Chew) Cigarettes Per Day: Cigar "in a blue bundy."; Second Hand Exposure: No; Do You Dip or Chew Tobacco: Yes; Tobacco Cessation Education Requested by Patient: No Hx Alcohol Use: Yes Alcohol type: beer Alcohol Intake Frequency: Monthly or Less Hx Substance Use: No Preferred Language: Taiwanese Communication Ability: Effective Picture Frame Maker Required: No Beliefs That Will Affect Care: None Current Living Situation: Spouse Other Information That Helps Us Care for You: No Feels Safe at Home: Yes Safety Concerns: Feels Safe At This Time Assistive Devices: None Review of Systems Review of Systems: All systems reviewed & are unremarkable except as noted in HPI & below Constitutional: no fever, no chills and no fatigue Eyes: no problem reported Ear, Nose, Mouth, Throat: no problem reported Respiratory: no problem reported Cardiovascular: + edema; no problem reported Gastrointestinal: no nausea, no vomiting and no problem reported Musculoskeletal: no problem reported Integumentary: + wounds, + erythema and + nail changes Neurologic: + loss of sensation, + numbness and + pa resthesia; no generalized weakness Psychiatric: no problem reported Physical Exam Physical Exam: Lower extremity focused exam: DP/PT pulses nonpalpable. CFT is brisk to the digits. Trophic changes are noted to the feet bilaterally, with absent hair growth, thinning of the skin, diffuse cooling proximal distal, and advanced trophic nail changes. Left hallux nail is diffusely loosened with no severe underlying ulceration or abscess. Upon removal of the nail at bedside, minimal bleeding is noted with no purulent drainage appreciated. No ascending cellulitis noted. These findings are consistent with a subungual hematoma and local superficial skin infection rather than underlying osteomyelitis or abscess formation. No obvious bone or joint abnormalities appreciated other than a slight hallux valgus deformity that appears to be previously corrected. MRI does reveal no underlying suspicion of osteomyelitis and does confirm underlying hallux rigidus. Constitutional: WD/WN, vitals as above + obese Eyes: PERRL, conjunctivae normal, anicteric sclerae ENMT: external ear and nose normal, oropharynx normal Neck: trachea midline, no thyromegaly normal visual inspection Respiratory: normal respiratory effort; no respiratory distress Cardiovascular: Rate/Rhythm: regular rate and regular rhythm Chest (Breasts): Chest: normal inspection of chest Gastrointestinal (Abdomen): Inspection/Auscultation: abdomen normal to inspection Percussion/Palpation: + abdomen tender and abdomen soft Musculoskeletal: no cyanosis or clubbing, extremities motor strength 5/5 Head/Neck/Chest: normocephalic and head atraumatic Extremities: extremities normal to inspection Neurologic: awake; no focal motor deficits Psychiatric: A+Ox3, euthymic affect Results & Data Vital Signs (Past 12 Hours) Vital Signs Temp Pulse Resp BP Pulse Ox O2 Del Method 10/11/23 07:42 36.4 C L 60 15 155/90 H 96 Room Air
--- NOTE | 2023-10-11 14:43 | Hospitalist Progress Note ---
Date of Service October 11, 2023 Assessment & Plan (1) Cellulitis of toe, left: (2) Uncontrolled diabetes mellitus: (3) Hyperkalemia: (4) Gout: (5) HTN (hypertension): (6) CKD (chronic kidney disease), stage III: (7) Morbid obesity: Plan This is a 53yo M with a PMH of uncontrolled DM II, h/o L foot cellulitis in Apr 2022, morbid obesity, HLD, hyperkalemia, CKD III, HTN, diabetic neuropathy and other medical problems listed below who presents with L toenail lifting and edward inage since yesterday. Was admitted to our service in Apr 2022 with a similar presentation of L great toe pain with drainage and underwent Left foot Removal of Non-Viable Bone and Tissue First Metatarsal and Proxmial Phalanx(Left) performed by Dr. Gifford. Wound culture grew Staphylococcus and Enterococcus at that time and went home on 6 weeks of IV Unasyn via PICC per ID recommendation. L Great toe cellulitis Contusion of left great toe with damage to nail Afebrile, no leukocytosis, procal WNL. ESR 50, CRP 1.09 L Toe XR with no acute fractures within the left great toe. Left great toe soft tissue swelling. 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 Interval erosion of the base of the left first proximal phalanx. Although age in determinate, this is chronic appearing and favors sequela of osteomyelitis Foot MRI: 1. No evidence for acute osteomyelitis within the left great toe. Minimal increased T2 marrow signal within the left first distal phalanx with preserved T1 marrow signal. This favors mild osteitis. 2. Left first toe edema and enhancement suggestive of cellulitis. No rim- enhancing fluid collection to suggest abscess. 3. 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 Wound culture: Staph aureus, final results pending Blood culture: Negative so far, final results pending Patient was given IV daptomycin plus Zosyn Evaluated by construction estimator Dr. Mitchell No underlying infection per MRI, clinical exam no deep infection concerns Hallux nail removed at bedside, minimal bleeding Recommend 2 weeks of oral antibiotics Keep toe dressed with adhesive bandage and topical antibiotic ointment Discharged on: Augmentin 875 twice daily x 2 weeks Doxycycline 100 mg twice daily x 2 weeks Probiotics x 1 month Bacitracin ointment twice daily x 2 weeks Follow-up with construction estimator Dr. Mitchell in 2 weeks Acute kidney injury CKD (chronic kidney disease), stage III Baseline creatinine 1.2-1.4, currently 1.59 No urinary symptoms Advised to hold Lasix until follow-up with PCP this Wednesday and repeat BMP Lisinopril also discontinued secondary to hyperkalemia Advised to drink more water Please repeat BMP on follow-up at PCP office on Wednesday, October 13, 2023 Hyperkalemia Noted on previous admission - at that time, lisinopril was discontinued and was started on amlodipine. Has since been resumed on lisinopril K 5.8 on admission HOLD lisinopril Given Lokelma K improved to 5.1 Please repeat BMP on follow-up with primary care physician on Wednesday, October 13, 2023 Uncontrolled DM II A1c to 9.2. September 2023 (improved from a1c of 14 on Apr 2022 admission) Following with [facility] - regimen includes metformin, Lantus 42u QAM, novolog sliding scale, Mounjaro 2.5 weekly Basal/bolus insulin per protocol while in-patient Diabetic diet BSG AC HS HTN (hypertension) Due to mild hyperkalemia, discontinue lisinopril (was resumed since previous admission) Increase amlodipine from 5 to 10mg, continue lasix Increase hydralazine add hydralazine 25 mg p.o. 3 times daily Monitor closely Tobacco use Resumed use of smokeless tobacco Cessation discussions, impairs wound healing Dispo:dc home ff up with PCP on WedOctober 13, 2023 plan of care discussed with patient and his family in detail and at length all questions answered they are understanding, agreeable, comfortable with the plan of care Admission and Anticipated Discharge Date Admission Date: October 10, 2023 Subjective Follow-up for left big toe cellulitis, status post trauma, etc. Seen resting in bed, sitting up, not in distress, in good spirits Very pleasant States he feels fine overall Minimal pain over the left big toe No foot or ankle pain No fevers or chills Denies nausea or vomiting, chest pain, shortness of breath problems with urination No other new symptoms Review of Systems Review of Systems: all noted and negative except for above Physical Exam Physical Exam: General- oriented x 3, not in distress, speaks in sentences with no effort or accessory muscle use Eyes- anicteric Neck- no JVD Lungs- clear breath sounds bilaterally, No crackles or wheezing Heart- normal rate, regular rhythm; no murmurs Abdomen- normal bowel sounds, nondistended, soft, nontender Extremities- no pretibial edema, no calf tenderness Left big toe-mild edema, mild erythema, no hematoma, bleeding, discharge No tenderness Neuro- alert, oriented x 3; no gross focal neurologic deficits Skin- warm & dry Results & Data Results & Data Vital Signs (Past 12 Hours) Vital Signs Temp Pulse Resp BP BP Pulse Ox O2 Del Method 10/11/23 14:34 36.5 C 68 15 126/70 96 Room Air 10/11/23 07:42 36.4 C L 60 15 155/90 H 96 Room Air all noted and reviewed including below
--- NOTE | 2023-10-11 15:28 | Discharge Summary ---
Discharge Summary Date of Service October 11, 2023 Principal Dx & Hospital Course #1 = Principal Diagnosis (1) Cellulitis of toe, left: (2) Uncontrolled diabetes mellitus: (3) Hyperkalemia: (4) Gout: (5) HTN (hypertension): (6) CKD (chronic kidney disease), stage III: (7) Morbid obesity: Plan This is a 53yo M with a PMH of uncontrolled DM II, h/o L foot cellulitis in Apr 2022, morbid obesity, HLD, hyperkalemia, CKD III, HTN, diabetic neuropathy and other medical problems listed below who presents with L toenail lifting and drainage since yesterday. Was admitted to our service in Apr 2022 with a similar presentation of L great toe pain with drainage and underwent Left foot Removal of Non-Viable Bone and Tissue First Metatarsal and Proxmial Phalanx(Left) performed by Dr. Gifford. Wound culture grew Staphylococcus and Enterococcus at that time and went home on 6 weeks of IV Unasyn via PICC per ID recommendation. L Great toe cellulitis Contusion of left great toe with damage to nail Afebrile, no leukocytosis, procal WNL. ESR 50, CRP 1.09 L Toe XR with no acute fractures within the left great toe. Left great toe soft tissue swelling. 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 Interval erosion of the base of the left first proximal phalanx. Although age indeterminate, this is chronic appearing and favors sequela of osteomyelitis Foot MRI: 1. No evidence for acute osteomyelitis within the left great toe. Minimal increased T2 marrow signal within the left first distal phalanx with preserved T1 marrow signal. This favors mild osteitis. 2. Left first toe edema and enhancement suggestive of cellulitis. No rim- enhancing fluid collection to suggest abscess. 3. 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 Wound culture: Staph aureus, final results pending Blood culture: Negative so far, final results pending Patient was given IV daptomycin plus Zosyn Evaluated by legal internship Dr. Mitchell No underlying infection per MRI, clinical exam no deep infection concerns Hallux nail removed at bedside, minimal bleeding Recommend 2 weeks of oral antibiotics Keep toe dressed with adhesive bandage and topical antibiotic ointment Discharge on: Augmentin 875 twice daily x 2 weeks Doxycycline 100 mg twice daily x 2 weeks Probiotics x 1 month Bacitracin ointment twice daily x 2 weeks Follow-up with legal internship Dr. Mitchell in 2 weeks Please follow-up final wound and blood culture results Acute kidney injury CKD (chronic kidney disease), stage III Baseline creatinine 1.2-1.4, currently 1.59 No urinary symptoms Advised to hold Lasix until follow-up with PCP this Wednesday and repeat BMP Lisinopril also discontinued secondary to hyperkalemia Advised to drink more water Please repeat BMP on follow-up at PCP office on Friday, October 13, 2023 Hyperkalemia Noted on previous admission - at that time, lisinopril was discontinued and was started on amlodipine. Has since been resumed on lisinopril K 5.8 on admission HOLD lisinopril Given Lokelma K improved to 5.1 Please repeat BMP on follow-up with primary care physician on Wednesday, October 13, 2023 Uncontrolled DM II A1c to 9.2. September 2023 (improved from a1c of 14 on Apr 2022 admission) Following with [facility] - regimen includes metformin, Lantus 42u QAM, novolog sliding scale, Mounjaro 2.5 weekly Basal/bolus insulin per protocol while in-patient Diabetic diet BSG AC HS HTN (hypertension) Due to mild hyperkalemia, discontinue lisinopril (was resumed since previous admission) Increase amlodipine from 5 to 10mg, continue lasix Increase hydralazine add hydralazine 25 mg p.o. 3 times daily Monitor closely Tobacco use Resumed use of smokeless tobacco Cessation discussions, impairs wound healing Dispo:annmarie home ff up with PCP on WedOctober 13, 2023 plan of care discussed with patient and his family in detail and at length all questions answered they are understanding, agreeable, comfortable with the plan of care Notes For Next Care Provider Medication Changes From Visit Augmentin, doxycycline-antibiotics for left toe infection Please take a probiotic daily times at least 1 month. Bacitracin ointment-antibiotic ointment for left toe Hold lisinopril. Hold Lasix. Increase amlodipine to 10 mg daily. Start hydralazine 25 mg 3 times a day for blood pressure control. Avoid foods rich in potassium including bananas, oranges, potatoes, tomatoes, milk, etc. Drink plenty of water. Do not take medications under the class of NSAIDs including ibuprofen, naproxen, etc. Keep wound dry, covered with dressing. Change dressing at least twice a day. Admission HPI Per Admitting Provider This is a 53yo M with a PMH of uncontrolled DM II, h/o L foot cellulitis in Apr 2022, morbid obesity, HLD, hyperkalemia, CKD III, HTN, diabetic neuropathy and other medical problems listed below who presents with L toe nail abnormality with drainage since yesterday. Was admitted to our service in Apr 2022 with a similar presentation of L great toe pain with drainage and underwent Left foot Removal of Non-Viable Bone and Tissue First Metatarsal and Proxmial Phalanx(Left) performed by Dr. Gifford. Wound culture grew Staphylococcus and Enterococcus at that time and went home on 6 weeks of IV Unasyn via PICC per ID recommendation. Patient noticed his left great toenail had lifted a bit when he got out of the shower yesterday and had some yellowing drainage. Has diminished feeling in his feet 2/2 diabetic neuropathy but has required surgical intervention in similar circumstances last year, so came to ED for further evaluation. No fever or chills. Is following with Dr. Gifford of podiatry in outpatient setting. Is f ashlying with [facility] for his DM II. Only checks his blood sugar in the morning. Has started to use smokeless tobacco again. No lightheadedness, CP, SOB, N/V, abd pain, dysuria, diarrhea or constipation. Discharge Exam Augmentin, doxycycline-antibiotics for left toe infection Please take a probiotic daily times at least 1 month. Bacitracin ointment-antibiotic ointment for left toe Hold lisinopril. Hold Lasix. Increase amlodipine to 10 mg daily. Start hydralazine 25 mg 3 times a day for blood pressure control. Avoid foods rich in potassium including bananas, oranges, potatoes, tomatoes, milk, etc. Drink plenty of water. Do not take medications under the class of NSAIDs including ibuprofen, naproxen, etc. Keep wound dry, covered with dressing. Change dressing at least twice a day. Updated Medication List Medication Instructions Recorded Confirmed Type atorvastatin 40 mg tablet (Lipitor) 40 mg PO HS 04/20/19 10/10/23 History escitalopram oxalate 10 mg tablet 10 mg PO QAM 10/01/20 10/10/23 History (Lexapro) gabapentin 600 mg tablet 600 mg PO BID 10/01/20 10/10/23 History (Neurontin) metformin 500 mg tablet,extended See Rx Instructions .Route .COMPLEX 05/05/22 10/10/23 History release 24 hr allopurinol 100 mg tablet 100 mg PO BID #60 tabs 05/13/22 10/10/23 Rx flash glucose sensor (FreeStyle #1 ea 05/13/22 10/10/23 Rx Bobby 2 Sensor kit) insulin aspart U-100 100 unit/mL 1 sliding scale dose subcut ACHS 05/13/22 Rx (3 mL) subcutaneous pen (Novolog #15 mL FlexPen U-100 Insulin aspart) pen needle, diabetic 32 gauge x #100 ea 05/13/22 10/10/23 Rx 5/32" (1st Tier Unifine Pentips) cholecalciferol (vitamin D3) 25 25 mcg PO DAILY 10/10/23 10/10/23 History mcg (1,000 unit) capsule (Vitamin D3) insulin glargine 100 unit/mL (3 42 unit subcut QAM 10/10/23 10/10/23 History mL) subcutaneous pen (Basaglar KwikPen U-100 Insulin) tirzepatide 2.5 mg/0.5 mL 2.5 mg subcut WK 10/10/23 10/10/23 History subcutaneous pen injector (Lisa) amlodipine 5 mg tablet (Norvasc) 10 mg (2 x 5 mg) PO QAM #60 tabs 10/11/23 Rx amoxicillin 875 mg-potassium 1 tab PO Q12H 14 days #28 tabs 10/11/23 Rx clavulanate 125 mg tablet bacitracin 500 unit/gram topical 1 applic topical BID #30 grams 10/11/23 Rx ointment doxycycline hyclate 100 mg capsule 100 mg PO BID 14 days #28 caps 10/11/23 Rx hydralazine 25 mg tablet 25 mg PO TID 30 days #90 tabs 10/11/23 Rx Hospital Stay Data Consultations 10/10/23 12:40 ED Decision to Admit Stat 10/10/23 13:59 Consult Podiatry Routine Diagnostic Imagining Performed MR foot LT wo/w con CLINICAL HISTORY: Left great toe cellulitis, evaluate for osteomyelitis. COMPARISON STUDY: Left foot CT May 05, 2022 and left great toe radiographs performed earlier today. TECHNIQUE: Utilizing a 1.5 Frieda magnet and dedicated coil, multiplanar, multiecho imaging of the left forefoot was performed pre and postcontrast administration. Intravenous injection of 16 cc of Gadavist was uneventful. FINDINGS: There is moderate joint space narrowing and extensive osteophytosis of the left first metatarsophalangeal joint. Subchondral signal abnormality is present within the left first metatarsal head and base of the left first proximal phalanx. These findings are chronic and represent osteoarthritis. Subchondral signal abnormality within the distal aspect of the left first proximal phalanx is likely degenerative. There is mild increased T2 marrow signal within the left first distal phalanx. T1 marrow signal is preserved. There is mild edema and enhancement within the soft tissues of the left first toe although evaluation is difficult given difficulty with fat saturation. No rim-enhancing fluid collection is identified. There are no fractures within the left forefoot. Tarsometatarsal joints are intact. Lisfranc ligament is intact. IMPRESSION: 1. No evidence for acute osteomyelitis within the left great toe. Minimal increased T2 marrow signal within the left first distal phalanx with preserved T1 marrow signal. This favors mild osteitis. 2. Left first toe edema and enhancement suggestive of cellulitis. No rim- enhancing fluid collection to suggest abscess. 3. 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 ACT 112: Negative or not required by law. Pending Results Patient Have Any Pending Studies at Discharge: Yes Discharge Instructions Given to Patient (Per Discharging Provider) PLEASE REFER TO YOUR NEW MEDICATION LIST AND FOLLOW INSTRUCTIONS CAREFULLY. YOUR NEW MEDICATIONS INCLUDE: Augmentin, doxycycline-antibiotics for left toe infection Please take a probiotic daily times at least 1 month. Bacitracin ointment-antibiotic ointment for left toe Hold lisinopril. Hold Lasix. Increase amlodipine to 10 mg daily. Start hydralazine 25 mg 3 times a day for blood pressure control. Avoid foods rich in potassium including bananas, oranges, potatoes, tomatoes, milk, etc. Drink plenty of water. Do not take medications under the class of NSAIDs including ibuprofen, naproxen, etc. Keep wound dry, covered with dressing. Change dressing at least twice a day. PLEASE CALL YOUR PRIMARY CARE PHYSICIAN OR RETURN TO THE ER IF WITH WORSENING OF SYMPTOMS, INCLUDING Left toe/foot pain, redness, bleeding, discharge, Nausea vomiting, diarrhea, weakness, Changes with urination, poor urine output, etc. FOLLOW UP WITH PRIMARY CARE PHYSICIAN ON OCTOBER 13, 2023, Wednesday, 10:30 AM. It will be with Dr. Quin Ayala, as Dr. Mosqueda is not available. Please do not miss this appointment. You also need repeat blood work done on this day to check your kidney function and potassium level. Follow-up with legal internship Dr. Mitchell in 2 weeks. Please call his office to arrange for an appointment. Contact information outlined above. Total Time Total Time Spent Total Time Spent (In Minutes): 60 minutes
== END 2023-10-11 15:49 | disposition home or self-care (01) | DRG 603 ==
LOC: ED 10:02 → SUATTDRO 13:51 → 3N 13:51